=== PATIENT | female | born 1995 | race Caucasian/White ===

== ENCOUNTER → 2021-05-03 10:29 | Outpatient (BNVA) | payer MEDICAID, SELFPAY | PROVIDERS: Visit Provider Internal Medicine | DX: F11.20 Opioid dependence, uncomplicated (principal); F14.11 Cocaine abuse, in remission; F10.21 Alcohol dependence, in remission; F33.2 Major depressive disorder, recurrent severe without psychotic features | CPT/HCPCS: 80305; 81025; 99202 ==

== ENCOUNTER 2021-05-16 15:49 | Emergency (ER) | payer MEDICAID, SELFPAY ==
[2021-05-16 16:35] LABS: COVID-19 Test Negative (Negative)
[2021-05-16 16:41] VITALS: BP 121/72; PULSE 82; RESP 18; O2SAT 99; BMI 23.8
--- NOTE | 2021-05-16 16:53 | ED.URI ---
HPI - URI/Sore Throat General Chief Complaint: Upper Respiratory Symptoms Stated Complaint: covid symptoms Time Seen by Provider: 05/16/21 16:53 Source: patient Mode of arrival: ambulatory Limitations: no limitations History of Present Illness HPI Narrative: 25 yo female with history of depression, prior substance abuse presenting with a headache. She is here with her family who has symptoms of COVID-19. She is fully vaccinated but would like to get tested. She reports a history of headaches and this feels similar to those. She has no other symptoms. MD elicited complaint: other (headache) Onset (ago): hour(s) Consistency: intermittent Severity: moderate Exacerbating factors: nothing Relieving factors: nothing Context: sick contacts Associated symptoms: denies other symptoms Treatments prior to arrival: none Related Data Previous Rx's Medication Instructions Recorded buprenorphine 8 mg-naloxone 2 mg 2 film SUBLINGUAL DAILY 7 Days #14 05/03/21 sublingual film (Suboxone) ea mirtazapine 7.5 mg tablet 7.5 mg PO BEDTIME 14 Days #14 tab 05/13/21 prazosin 1 mg capsule 1 mg PO BEDTIME 14 Days #14 cap 05/13/21 quetiapine 25 mg tablet (Seroquel) 25 mg PO BEDTIME 14 Days #14 tab 05/13/21 Allergies Allergy/AdvReac Type Severity Reaction Status Date / Time watermelon Allergy Severe ANAPHYLAXIS Unverified 05/27/20 16:45 pollen Allergy Unknown Uncoded 10/30/14 00:00 watermelon Allergy Unknown anaphylaxis Uncoded 10/30/14 00:00 Review of Systems Review of Systems: Constitutional: No Fever, No Chills ENT/Mouth: No sore throat, No Rhinorrhea, No Swallowing Difficulty Cardiovascular: No Chest Pain, No SOB Respiratory: No Cough, No Sputum, No Wheezing, No dyspnea Gastrointestinal: No Nausea, No Vomiting, No Diarrhea, No abdominal Pain Genitourinary: No Dysuria, No Urinary Frequency, No Hematuria Musculoskeletal: No joint pain, No Myalgias Skin: No Skin Lesions, No rash Neuro: No Weakness, No Numbness, No Dizziness, + Headache Psych: No Anxiety/Panic, No Depression Heme/Lymph: No Bruising, No Lymphadenopathy PMFSH Past Medical History Medical History (Updated 05/16/21 @ 16:55 by FANNY Davis) Asthma Hx of migraines Surgical History History of delivery Social History Social History Household Members: Significant Other Patient Tobacco Use Status: Never used Tobacco Advance Directives: No Advance Directives Information Provided: No Physical Exam Vital Signs: Vital Signs: Last Vital Signs Pulse 82 05/16/21 16:41 Resp 18 05/16/21 16:41 BP 121/72 05/16/21 16:41 Pulse Ox 99 05/16/21 16:41 Body Mass Index 23.8 Appearance: Alert. Oriented X3. No acute distress. Eyes: Normal inspection ENT: Pharynx normal. Neck: Normal inspection. Neck supple. CVS: Normal heart rate and rhythm. Pulses normal. Respiratory: No respiratory distress. Breath sounds normal. Skin: Skin warm and dry. Normal skin color. Normal skin turgor. No rashes. Extremities: No lower extremity edema. Neuro: Oriented X 3. No motor deficit. No sensory deficit. Course Course Course Narrative: 25 y/o female, vaxxed against COVID presenting with mild headache requesting testing in the setting of known exposure. VS stable and exam benign. COVID negative here. She was counseled on high liklihood of elbert the disease and need to quarantine at home. She expressed understanding. Will take motrin and tylenol for headaches and follow up with her doctor as needed. MDM - URI/Sore Throat Lab Data Labs: Lab Results 05/16/21 Range/Units 16:12 COVID-19 (JULIA) Negative (Negative) COVID-19 Clin Com See Note Discharge Plan Discharge Clinical Impression: Headache Qualifiers: Headache type: unspecified Headache chronicity pattern: acute headache Intractability: not intractable Qualified Code(s): R51.9 - Headache, unspecified Patient Disposition: Home, Self-Care Instructions: Acute Headache (ED) Additional Instructions: You tested NEGATIVE for COVID-19 today. However there is a possibility that this was NOT a TRUE NEGATIVE, because it was a rapid test. Recommend staying home and not going out in public while you are not feeling well. Wear your mask at home when around your sick family members. Disinfect all surfaces often and keeps the windows open. If you develop worsening symptoms, you can get re-tested or call your doctor. Take Motrin and/or Tylenol as needed for headache. Drink plenty of fluids. Prescriptions: No Action quetiapine [Seroquel] 25 mg tablet 25 mg PO BEDTIME 14 Days Qty: 14 RF: 0 prazosin 1 mg capsule 1 mg PO BEDTIME 14 Days Qty: 14 RF: 0 mirtazapine 7.5 mg tablet 7.5 mg PO BEDTIME 14 Days Qty: 14 RF: 0 buprenorphine-naloxone [Suboxone] 8-2 mg film 2 film sublingual DAILY 7 Days Qty: 14 RF: 0
== END 2021-05-16 17:30 | disposition home or self-care (01) ==
PROVIDERS: Emergency Provider Internal Medicine; PCP Family Medicine
DX: R51.9 Headache, unspecified (principal); Z20.822 Contact with and (suspected) exposure to COVID-19; F11.20 Opioid dependence, uncomplicated; F14.11 Cocaine abuse, in remission
CPT/HCPCS: 36415; 87635; 99283

== ENCOUNTER 2021-05-18 12:07 | Emergency (ER) | payer MEDICAID, SELFPAY ==
--- NOTE | ~2021-05-18 | CT_ITS ---
EXAMINATION: CT ABDOMEN AND PELVIS WITH CONTRAST CLINICAL INFORMATION: Right lower quadrant and epigastric tenderness. Rule out: Appendicitis COMPARISON: Previous abdominal ultrasound June 2017 and appendix ultrasound April 2018 TECHNIQUE: Multidetector volumetric images were obtained from the superior aspect of the liver through the pubic symphysis following administration 85 mL of Omnipaque 350 intravenous contrast. Sagittal and coronal reformatted images were obtained on the technologist's workstation. Oral contrast: Yes This CT examination was performed using dose optimization techniques as appropriate, variously including the following: *Automated exposure control *Adjustment of mA and/or kV according to patient size (this includes techniques or standardized protocols for targeted exams where dose is matched to indication/reason for exam; i.e. extremities or head) *Use of iterative reconstruction technique DLP: 317 mGy-cm FINDINGS: LUNG BASES: The visualized lung bases are unremarkable. LIVER, GALLBLADDER, AND BILIARY TREE: The liver is normal in size, shape, and attenuation. No focal hepatic lesion or biliary ductal dilatation is present. The gallbladder is unremarkable with no evidence of radiopaque gallstones, gallbladder wall thickening, or obvious pericholecystic inflammatory changes. PANCREAS: Unremarkable. SPLEEN: Unremarkable. ADRENAL GLANDS: Unremarkable. KIDNEYS AND URETERS: The kidneys are normal in size, shape, and attenuation. No hydronephrosis, hydroureter, or calculi seen. There is a small cyst in the lower pole of the left kidney measuring 1 cm. BLADDER: Unremarkable. GASTROINTESTINAL TRACT: There is a 1.7 cm cyst posterior to the cecum/proximal right colon. Hounsfield units following contrast measure 10-15 suggestive of a simple cyst. The small and large bowel are otherwise unremarkable. The appendix is unremarkable. ABDOMINAL WALL: No significant hernia is appreciated. LYMPH NODES: Normal. VASCULAR: Unremarkable. PELVIC VISCERA: The right ovary appears high in the right lower quadrant anterior to the cecum. The uterus and ovaries are otherwise unremarkable. OSSEOUS STRUCTURES: Unremarkable. CT/CT abdomen pelvis w con IMPRESSION: Normal-appearing appendix. 1.7 cm simple cyst posterior to the cecum/proximal right colon. This may represent a benign duplication or mesenteric cyst. Imaging follow-up to 12 months should be considered. The right ovary is located high in the right lower quadrant anterior to the cecum.
[2021-05-18 12:11] VITALS: BP 129/75; PULSE 101; RESP 18; TEMP 37.1; O2SAT 96; BMI 23.6
--- NOTE | 2021-05-18 12:54 | ED.ABDPAIN ---
HPI - Abdominal Pain General Chief Complaint: Abdominal Pain Stated Complaint: abd pain, vomiting Time Seen by Provider: 05/18/21 12:29 Source: patient Mode of arrival: ambulatory Limitations: no limitations History of Present Illness HPI narrative: 25-year-old female who presents emergency department for evaluation of abdominal pain, nausea and vomiting x1 week. The patient complains of an intermittent, stabbing sensation in her abdomen. She points to her umbilical area and right lower quadrant when asked to localize the pain. States the pain is 8/10 at its worst. The patient has had constant nausea waited frequent daily vomiting. She states that she has not been able to hold down any food or fluid for least 24 hours. She denied fever, chills, chest pain or shortness of breath. She has had urinary frequency but no dysuria. She states that her stools have become loose yellow, high blood in her stools. She states she had similar pain several years ago was told was secondary to hernia. The patient denied myalgias, arthralgias, headache, loss of sense of taste or smell. She received her 2 COVID-19n Pfizer vaccines with her 2nd vaccination in January of 2021. Past surgical history significant for x2 with the last in October 30, 2015. Related Data Previous Rx's Medication Instructions Recorded buprenorphine 8 mg-naloxone 2 mg 2 film SUBLINGUAL DAILY 7 Days #14 05/03/21 sublingual film (Suboxone) ea mirtazapine 7.5 mg tablet 7.5 mg PO BEDTIME 14 Days #14 tab 05/13/21 prazosin 1 mg capsule 1 mg PO BEDTIME 14 Days #14 cap 05/13/21 quetiapine 25 mg tablet (Seroquel) 25 mg PO BEDTIME 14 Days #14 tab 05/13/21 omeprazole 20 mg tablet,delayed 20 mg PO DAILY #30 tab 05/18/21 release ondansetron 4 mg disintegrating 4 mg PO Q6-8H PRN #14 tab 05/18/21 tablet Allergies Allergy/AdvReac Type Severity Reaction Status Date / Time watermelon Allergy Severe ANAPHYLAXIS Unverified 05/27/20 16:45 pollen Allergy Unknown Uncoded 10/30/14 00:00 watermelon Allergy Unknown anaphylaxis Uncoded 10/30/14 00:00 Review of Systems Review of Systems Yes all other systems are reviewed and are negative Physical Exam Vital Signs: Vital Signs: Last Vital Signs Temp 98.8 F 05/18/21 12:11 Pulse 101 H 05/18/21 12:11 Resp 18 05/18/21 12:11 BP 129/75 05/18/21 12:11 Pulse Ox 96 05/18/21 12:11 Body Mass Index 23.6 Const: General: cooperative and no acute distress Orientation/consciousness: oriented to person and oriented to place Limitations: no limitations HENMT: Head: Yes normal to inspection, Yes normocephalic and Yes atraumatic Ears: external ears normal General nose exam: Normal external nose present Face and sinus: Yes normal facial exam Mouth: Normal oral and palatal mucosa present Throat: Yes posterior oropharynx normal Eyes: General: appearance normal, both eyes and all related structures Pupils: Equal, round and reactive pupils present Neck: Neck: Yes normal visual inspection, Yes no lymphadenopathy, Yes trachea midline and Yes supple Chest: Chest palpation & inspection: normal inspection of the chest and normal palpation of entire chest wall Resp: Effort & Inspection: normal respiratory effort and able to speak in complete sentences Auscultation: clear to auscultation bilaterally Cardio: Rate: regular rate Rhythm: regular rhythm Heart sounds: S1 normal heart sound present, S2 normal heart sound present and no murmurs GI: Inspection: Yes normal to inspection Palpation (GI): Soft to palpation, Tenderness to palpation present (GI) in the epigastrum (Moderate) and in the RLQ ([id number]) and no guarding Auscultation: normal bowel sounds : General: Yes no CVA tenderness Back/Spine/Pelvis: Back: no CVA tenderness Skin: General skin exam: no rashes or lesions noted Neuro: General: oriented to person and oriented to place Cranial nerves: Yes CN's II-XII intact bilaterally and Yes Equal, round and reactive pupils present Cognition (Neuro): normal cognition Motor exam (neuro): 5/5 motor strength present throughout Extrem: General: Yes normal to inspection Psych: Appearance: grossly normal Speech and movement: Normal speech and movement present Affect: normal affect Attitude: cooperative Thought process: Normal thought process present Thought content: Normal thought content present Course Course Course Narrative: 25-year-old female who presents emergency department for evaluation intermittent abdominal pain x1 week, persistent nausea and vomiting. Vital signs revealed an elevated heart rate of 101 otherwise were unremarkable. Physical examination did reveal midepigastric and right lower quadrant tenderness. I did order laboratory evaluation, urinalysis and urine test. A CT scan of the abdomen pelvis with IV contrast also be obtained. Her pain was treated with Toradol 30 mg IV and her nausea was treated with Zofran 4 mg IV. She was ordered to get normal saline IV x1 L. 1537: CBC revealed a slight elevation white blood count 71954. Comprehensive metabolic panel revealed an elevated glucose of 132. Urine test was negative. Urinalysis was negative. CT scan of the abdomen pelvis with IV contrast revealed a normal appendix. The patient did have a 1.7 cm in her simple cyst posterior to the cecum/proximal right colon of unclear significance. The radiologist recommended follow-up imaging in 12 months. I did discuss this with the patient. At this time I think that the patient most likely has acute gastritis is the cause of her symptoms. She will be treated with omeprazole 20 mg once a day for 1 month, Gaviscon 3 times a day the next 2 and Zofran 4 mg ODT every 6-8 hours as needed for nausea and vomiting. She was discharged home. The patient was given verbal and printed instructions prior to discharge. The patient was advised to follow-up with her PCP in 2 days and to return to the emergency department if her symptoms get worse or if she develops any new symptoms that are concerning to her. MDM - Abdominal Pain Lab Data Result diagrams: 05/18/21 13:11 05/18/21 13:11 Labs: Lab Results 05/18/21 05/18/21 05/18/21 Range/Units 13:02 13:02 13:11 WBC 11.1 H (4.8-10.8) X10*3/uL RBC 4.41 (4.20-5.50) X10*6/uL Hgb 12.6 (12.0-16.0) g/dl Hct 37.2 (37-47) % MCV 84.4 (80-98) fL MCH 28.6 (27.0-33.0) pg MCHC 33.9 (31.0-35.0) g/dl RDW 12.2 (11.0-16.0) % Plt Count 223 (160-400) X10*3/uL MPV 9.0 L (9.4-12.3) fL Immature Gran % (Auto) 0.4 (0.0-0.4) % Neut % (Auto) 76.4 H (45-73) % Lymph % (Auto) 14.0 L (20-40) % [place] % (Auto) 6.4 (2-11) % Eos % (Auto) 2.3 (0-4) % Baso % (Auto) 0.5 (0-2) % Lymph # (Auto) 1.6 (1.2-4.9) X10*3/uL [place] # (Auto) 0.7 (0.1-1.2) X10*3/uL Eos # (Auto) 0.3 (0.0-0.4) X10*3/uL Baso # (Auto) 0.1 (0.0-0.2) X10*3/uL Abs Immat Gran (auto) 0.04 H (0.00-0.03) X10*3/uL Absolute Neuts (auto) 8.5 H (2.0-8.3) X10*3/uL Absolute Nucleated RBC 0.000 (0.0-0.012) X10*3/uL Nucleated RBC % (auto) 0.0 (0.0-0.2) /100WBC Sodium (135-145) mmol/L Potassium (3.3-5.1) mmol/L Chloride (96-108) mmol/L Carbon Dioxide (22-29) mmol/L Anion Gap (12-20) BUN (9-16) mg/dL Creatinine (0.5-1.4) mg/dL Estim Creat Clear Calc Estimated GFR Random Glucose (60-115) mg/dL Calcium (8.4-10.2) mg/dL Total Bilirubin (0.0-1.0) mg/dL AST (5-31) U/L ALT (0-31) U/L Alkaline Phosphatase (39-117) U/L Total Protein (6.5-8.0) g/dL Albumin (3.5-5.0) g/dL Lipase (8-78) U/L Urine Color YELLOW Urine Appearance CLEAR Urine pH 6.0 (5.0-8.0) Ur Specific [place] 1.020 (1.005-1.025) Urine Protein TRACE (NEG-TRACE) MG/DL Urine Glucose (UA) NEG (NEG) MG/DL Urine Ketones 5 (NEG) MG/DL Urine Blood NEG (NEG) Urine Nitrite NEG (NEG) Ur Leukocyte Esterase NEG (NEG) Urine Test NEGATIVE (NEGATIVE) 05/18/21 Range/Units 13:11 WBC (4.8-10.8) X10*3/uL RBC (4.20-5.50) X10*6/uL Hgb (12.0-16.0) g/dl Hct (37-47) % MCV (80-98) fL MCH (27.0-33.0) pg MCHC (31.0-35.0) g/dl RDW (11.0-16.0) % Plt Count (160-400) X10*3/uL MPV (9.4-12.3) fL Immature Gran % (Auto) (0.0-0.4) % Neut % (Auto) (45-73) % Lymph % (Auto) (20-40) % [place] % (Auto) (2-11) % Eos % (Auto) (0-4) % Baso % (Auto) (0-2) % Lymph # (Auto) (1.2-4.9) X10*3/uL [place] # (Auto) (0.1-1.2) X10*3/uL Eos # (Auto) (0.0-0.4) X10*3/uL Baso # (Auto) (0.0-0.2) X10*3/uL Abs Immat Gran (auto) (0.00-0.03) X10*3/uL Absolute Neuts (auto) (2.0-8.3) X10*3/uL Absolute Nucleated RBC (0.0-0.012) X10*3/uL Nucleated RBC % (auto) (0.0-0.2) /100WBC Sodium 139 (135-145) mmol/L Potassium 3.8 (3.3-5.1) mmol/L Chloride 105 (96-108) mmol/L Carbon Dioxide 25 (22-29) mmol/L Anion Gap 13 (12-20) BUN 8 L (9-16) mg/dL Creatinine 0.91 (0.5-1.4) mg/dL Estim Creat Clear Calc 71.2 Estimated GFR > 60 Random Glucose 132 H (60-115) mg/dL Calcium 9.3 (8.4-10.2) mg/dL Total Bilirubin 0.7 (0.0-1.0) mg/dL AST 25 (5-31) U/L ALT 31 (0-31) U/L Alkaline Phosphatase 54 (39-117) U/L Total Protein 7.4 (6.5-8.0) g/dL Albumin 4.4 (3.5-5.0) g/dL Lipase 11 (8-78) U/L Urine Color Urine Appearance Urine pH (5.0-8.0) Ur Specific [place] (1.005-1.025) Urine Protein (NEG-TRACE) MG/DL Urine Glucose (UA) (NEG) MG/DL Urine Ketones (NEG) MG/DL Urine Blood (NEG) Urine Nitrite (NEG) Ur Leukocyte Esterase (NEG) Urine Test (NEGATIVE) Discharge Plan Discharge Clinical Impression: Gastritis, Nausea Patient Disposition: Home, Self-Care Instructions: Gastritis (ED) Additional Instructions: Your blood work was unremarkable. Urinalysis was negative. Your urine test was negative. The CT scan of your abdomen pelvis revealed normal appendix and no other significant findings to explain your pain. The radiologist did see a 1.7 cm cyst in the area of your cecum. The radiology impression is below: Normal-appearing appendix. 1.7 cm simple cyst posterior to the cecum/proximal right colon. This may represent a benign duplication or mesenteric cyst. Imaging follow-up to 12 months should be considered. The right ovary is located high in the right lower quadrant anterior to the cecum. The radiologist recommends that she get a repeat CT scan in 12 months, I will discuss this with your doctor, he may need to see a outbound telemarketer as well. My impression is that your symptoms are related to too much acid in your stomach causing inflammation of your stomach (gastritis). Take omeprazole 20 mg pills, 1 pill once a day for 1 month. This will shut of the acid production your stomach, your stomach heal. Take Gaviscon extra-strength, 10 mL 3 times a day for the next week to see if this helps her pain as well. Take Tylenol (acetaminophen) 500 mg pills, 2 pills every 4 to 6 hours as needed for pain. Take Zofran ODT 4 mg pills, 1 pill dissolved in your mouth every 8 hours as needed for nausea and vomiting. Follow-up with your doctor in 2 days. Please return to the emergency department if your symptoms get worse or if you develop any symptoms that are concerning to you. Prescriptions: New omeprazole 20 mg tablet,delayed release (DR/EC) 20 mg PO DAILY Qty: 30 RF: 0 ondansetron 4 mg tablet,disintegrating 4 mg PO Q6-8H PRN (Reason: nausea and vomiting) Qty: 14 RF: 0 No Action quetiapine [Seroquel] 25 mg tablet 25 mg PO BEDTIME 14 Days Qty: 14 RF: 0 prazosin 1 mg capsule 1 mg PO BEDTIME 14 Days Qty: 14 RF: 0 mirtazapine 7.5 mg tablet 7.5 mg PO BEDTIME 14 Days Qty: 14 RF: 0 buprenorphine-naloxone [Suboxone] 8-2 mg film 2 film sublingual DAILY 7 Days Qty: 14 RF: 0 PMFSH Past Medical History PMFSH Narrative: Social history: The patient denies tobacco use alcohol use and drug use. She states that she has a history of opiate abuse and marijuana use but she is not use these drugs in over 2 months. She states that she is trying to get via in-vitro fertilization and her doctor recently started her on control pills to try to get control of her cycle. Medical History Asthma Hx of migraines Surgical History History of delivery Social History Social History Household Members: Significant Other Alcohol intake: never Patient Tobacco Use Status: Never used Tobacco Use of substances other than those prescribed or required for medical reasons: No Advance Directives: No Advance Directives Information Provided: No Patient : No
[2021-05-18] MEDS: 0.9 % Sodium Chloride 1,000 ML 999 ML IV (13:13)
[2021-05-18 13:14] LABS: MANUAL DIFF FLAG NO
[2021-05-18] MEDS: Ketorolac Tromethamine 15 MG/ML VIAL 30 MG IVPUSH (13:15)
[2021-05-18] MEDS: ondansetron HCL 4 MG/2 ML VIAL IVPUSH ×2 (13:15→16:12)
[2021-05-18 13:16] LABS: Basophils Absolute Auto 0.1 X10*3/uL (0.0-0.2); Basophils Percent Auto 0.5 % (0-2); Eosinophils Absolute Auto 0.3 X10*3/uL (0.0-0.4); Eosinophils Percent Auto 2.3 % (0-4); Hematocrit 37.2 % (37-47); Hemoglobin 12.6 g/dl (12.0-16.0); Imm Gran Abs Auto 0.04 X10*3/uL (0.00-0.03); Imm Gran Pct Auto 0.4 % (0.0-0.4); Lymphocytes Absolute Auto 1.6 X10*3/uL (1.2-4.9); Mean Corpuscular HGB Conc 33.9 g/dl (31.0-35.0); Mean Corpuscular Hemoglobin 28.6 pg (27.0-33.0); Mean Corpuscular Volume 84.4 fL (80-98); Monocytes Absolute Auto 0.7 X10*3/uL (0.1-1.2); Monocytes Percent Auto 6.4 % (2-11); Neutrophils Absolute Auto 8.5 X10*3/uL (2.0-8.3); Neutrophils Percent Auto 76.4 % (45-73); Platelet Count 223 X10*3/uL (160-400); Red Blood Count 4.41 X10*6/uL (4.20-5.50); Red Cell Distribution Width 12.2 % (11.0-16.0); White Blood Count 11.1 X10*3/uL (4.8-10.8)
[2021-05-18 13:19] LABS: Appearance Urine CLEAR; Color Urine YELLOW; Glucose Urine UA NEG (NEG); Leukocyte Esterase Urine NEG (NEG); Nitrite Urine NEG (NEG); Urine Blood NEG (NEG); Urine Ketones 5 MG/DL (NEG); Urine Protein TRACE MG/DL (NEG-TRACE)
[2021-05-18 13:20] LABS: Urine Pregnancy NEGATIVE (NEGATIVE)
[2021-05-18 13:21] LABS: UPreg QC Valid YES
[2021-05-18 13:36] LABS: Alanine Aminotransferase 31 U/L (0-31); Albumin Level 4.4 g/dL (3.5-5.0); Alkaline Phosphatase 54 U/L (39-117); Anion Gap 13 (12-20); Aspartate Amino Transferase 25 U/L (5-31); Bilirubin Total 0.7 mg/dL (0.0-1.0); Blood Urea Nitrogen 8 mg/dL (9-16); Calcium 9.3 mg/dL (8.4-10.2); Carbon Dioxide 25 mmol/L (22-29); Chloride 105 mmol/L (96-108); Creatinine Clr Calc Pharmacy 71.2; Estimated Glomerular Filt Rate > 60; Glucose Random 132 mg/dL (60-115); Lipase 11 U/L (8-78); Potassium 3.8 mmol/L (3.3-5.1); Sodium 139 mmol/L (135-145); Total Protein 7.4 g/dL (6.5-8.0)
--- NOTE | 2021-05-18 14:23 | PC.NURSE ---
PT NO LONGER NAUSEOUS, PAIN IN BETTER CONTROL, REPORTS 5/[address] SCAN.
[2021-05-18] MEDS: iohexoL 350 MG/ML 100 ML INFUS..BTL 85 ML IV (14:36)
== END 2021-05-18 16:42 | disposition home or self-care (01) ==
PROVIDERS: Emergency Provider Emergency Medicine Emergency Medical Services; PCP Family Medicine
DX: K29.70 Gastritis, unspecified, without bleeding (principal); R10.9 Unspecified abdominal pain; R11.0 Nausea; Z79.899 Other long term (current) drug therapy
CPT/HCPCS: 36415; 74177; 80053; 81003; 81025; 83690; 85025; 96361; 96374; 96375; 96376; 99284; 99285; J1885; J2405; Q9967

== ENCOUNTER 2021-05-19 10:00 | Outpatient (RCR) | payer OTHER, SELFPAY ==
--- NOTE | 2021-04-28 12:35 | PC.NURSE ---
Case opened in treatment team
[2021-04-28 13:16] VITALS: BMI 23.2
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
--- NOTE | 2021-04-29 09:41 | PC.NURSE ---
I phoned the client because she is not in the first group as expected. There was no answer and i left a message to go to group B and if she isn't to call me
--- NOTE | 2021-04-29 10:05 | PC.NURSE ---
I was able to contact the client. She states that she was crying before but now feels like she can attnd group and will join the first group.
--- NOTE | 2021-04-29 10:26 | PC.ADMIT ---
Patient referred to [facility] by her therapist d/t increase in depression with passive SI, PTSD sxs, and an increased in anxiety symptoms with panic attacks. Patient has relapsed on Percocet and Cocaine and has been using substances to cope with how she is feeling. Patient reports she was sober from Percocet and Cocaine for 3 years and relapsed starting in November 2020. Reports her use decreased in the month of January and continued to decrease however for the past 2 weeks prior to March 18 patient reports increased use using 50 percocets daily and cocaine $100.00 worth daily. She is interested in medication assisted treatment and a recovery specialist. Patient is not prescribed medication at present and does not have a psychiatric prescriber. Referral put in for [facility]. Patient is alert and oriented x4. Calm and cooperative. Presents with depressed mood, anxious affect. Patient reports her depression is back and she relapsed in March,. Patient reports passive SI, stating she wished she would in her sleep. Denied plan or intent. Reports the children she put up for adoption who are ages 6 and 7 are her reason for working on her mental health. She would like to have a relationship with them when she is more stable. Recommended patient attend online substance use groups in addition to PHP for more support. Per patient request I called [facility] to set up an appointment for medication assisted treatment. Patient wants treatment in the [place] area as her parents live here and patient eventually wants to move to the area. [facility] will call patient with an appointment and after the appointment will set her up with a recovery specialist as patient expressed interest in this as well.
--- NOTE | 2021-05-02 08:39 | PC.NURSE ---
Pt said she will not be in treatment tomorrow, Sunday05/03/21. She has [facility] first appointment at [facility] for potential help with substance addiction.
--- NOTE | 2021-05-02 16:46 | HO.PHPPROGNO ---
Subjective Subjective Date of Service: 05/02/21 Reason For Visit: PTSD, Bipolar Disorder Subjective Notes: Aguilar Warning Guardianship: No Medical Problems Affecting Mental Status: No Interim History: Ms. Fong reports that she had not yet picked up the medications from her pharmacy, and that she plans to get them later today. She states that she would like a VNA nurse, as she will not consistently take her medications if left to her own devices. She reports that she had nightmares day night, and has experienced poor sleep over the weekend. She states that she has no SI today, but did have passive SI yesterday. She states that when she experienced it, she did scrapbooking as a distraction technique, and that it was useful. She describes today as feeling ?just sad, I feel empty ?. She reports she has not used any substances, including marijuana. Denies any type of withdrawals or cravings today. Medication Compliance: No Side effects from medications: No (not applicable) Attending Groups: Yes Review of Systems Acute medical concerns: No Medical Review of Systems: unchanged Review of Systems Review of Systems Yes all other systems are reviewed and are negative Mental Status Exam Mental Status Exam Narrative: Well-nourished, well-developed female, no apparent distress. No signs and symptoms of any type of withdrawals or cravings noted. Patient presents with flat, blunted affect. Was sitting up during encounter, no involuntary movements noted, motor activity appeared calm. Patient Appearance: Well Grooomed, Fatigued and Appropriate Patient Orientation: Person Level of Consciousness: Awake and Appropriate Patient Behavior: Appropriate, Cooperative and Good Eye Contact Mood Description: Depressed, Blunted and Flat Affect Description: Depressed, Blunted, Flat and Sad Patient Cognition Impaired: No Ability to Follow Directions: Excellent Speech Pattern: Clear, Appropriate and Coherent Memory Description: Intact Hallucinations: None Delusions: Not Present Thought Process: Intact, Goal Oriented and Linear Thought Content: positive for Slowed Thinking and positive for Suicidal Ideation (passive over w/e, with no intent/plan, denies today. ) Depressive Symptoms: Increased Anxiety, Insomnia, Diff. Making Decisions, Difficulty Sleeping, Loss of Int. in Activity, Feelings of Worthlessness, Hopelessness, Isolating-Friends/Family, Feelings of Guilt, Unhappiness, Increased Fatigue, Thoughts of /Suicide, Low Self Esteem and Difficulty Concentrating Judgement: Fair Diagnostics Vital Signs (24Hr): Body Mass Index 23.2 Assessment & Plan Assessment & Plan (1) Major depressive disorder, recurrent severe without psychotic features: Status: Acute Code(s): F33.2 - Major depressive disorder, recurrent severe without psychotic features Assessment and Plan: Patient reports ongoing depressive symptoms, including poor sleep, feeling sad, isolating, passive SI, and feeling empty. She has not yet picked up her medications from the pharmacy. We discussed current medications that had been ordered, including mirtazapine. Patient was encouraged to pear picker her meds today and to start them. We also discussed changing trazodone to Seroquel, as it will help with mood regulation, and there is a possibility the trazodone could activate her PTSD symptoms if she has not taken in a while. While she is in agreement to this change, she is hesitant to take a large dose, and would like to start a small dose of seroquel. She also reports poor appetite so she is looking forward to taking the mirtazapine and the Seroquel, as she states she is eating little to nothing daily. (2) Opioid use disorder: Status: Acute Code(s): F11.99 - Opioid use, unspecified with unspecified opioid-induced disorder Assessment and Plan: Patient has appointment scheduled with [facility] tomorrow, which she plans to attend. She has been able to abstain from substances over the weekend, and denies any type of withdrawals or cravings. (3) Cocaine abuse in remission: Status: Acute Code(s): F14.11 - Cocaine abuse, in remission (4) Post-traumatic stress disorder, unspecified: Status: Acute Code(s): F43.10 - Post-traumatic stress disorder, unspecified Assessment and Plan: Patient does endorse ongoing nightmares. She was encouraged to pear picker the prazosin from the pharmacy and to start it, as it can help target nightmares related to PTSD. She was in agreement, and stated that she would do this today. (5) Alcohol use disorder, moderate, in early remission: Status: Acute Code(s): F10.21 - Alcohol dependence, in remission Assessment and Plan: 1. D/c trazodone. 2. Start seroquel 25mg at bedtime, can repeat in one hour if needed. (intent is to increase if tolerates well). 3. Continue other medications as ordered. 4. Follow-up as per protocol. Reason for contiued partial hosp. stay Substantial Risk for: inability to function and med/psych decompensation Certification I certify that partial hospital treatment is medically necessary due to the symptoms and problems resulting from the patient's mental illness and the failure to treat the patient at the partial hospital level of care would likely result in the patient requiring inpatient psychiatric care which could not be prevented at a less intensive level of care. Greater than 50% of the session was spent on counseling and/or coordination of care Discharge Plan Discharge Attending provider: Molina Wang Medications: New mirtazapine 7.5 mg tablet 7.5 mg PO BEDTIME 7 Days Qty: 7 RF: 0 prazosin 1 mg capsule 1 mg PO BEDTIME 7 Days Qty: 7 RF: 0 quetiapine [Seroquel] 25 mg tablet 25 mg PO BEDTIME 7 Days Qty: 7 RF: 0 Telehealth Telehealth Location of provider rendering services: practice address Location of patient: address on file Patient Identification confirmed using: Name, : Yes Telehealth method: video Patient verbally consented to treatment: Yes Patient verbally consented to billing insurance company: Yes Patient informed of any privacy concerns related to visit: Yes Time spent with patient (mins): 15
--- NOTE | 2021-05-03 12:34 | PC.NURSE ---
Case opened in treatment team
--- NOTE | 2021-05-04 08:27 | PC.NURSE ---
Patient called out sick this morning. Stated she was up all night vomiting, she thinks it was something she ate last night. Patient stated she had a headache also. Plans on attending the program tomorrow. Wants to rest today. Patient is alert and oriented x4. No safety concerns.
--- NOTE | 2021-05-05 14:21 | PC.NURSE ---
Just prior to the third group the client called and stated that she needed to leave to go help her mother.
--- NOTE | 2021-05-06 13:49 | PC.NURSE ---
After pt was struggling in the 2nd group, I spoke to staff who informed me that she would like support via a phone call. I called and spoke to her at 11:40. She was quite tearful and shared that she hasn't slept in 48 hours, mostly due to repeated traumatic nightmares. She reported self deprecating self talk, but no SI. She reported a great deal of worry as well, stating she no longer gets help with rent from her ex-fiance, and will have to move. She spoke about stress related to this and concern that she'll have to give up her cats who she finds are her biggest support. She said she has had trouble picking up new medications that have been prescribed (including Seroquel for sleep and Prazosin), but that she was able to obtain her scripts today. She reported positive feelings about the potential for relief with these meds, which she will take tonight. She was more clam after talking, and less tearful. She stated she will attend the next group, but is so tired that she might not stay the day in [facility]. I gave her the number for crisis, and for the National Suicide Prevention line and explained that she doesn't have to be suicidal to call.
--- NOTE | 2021-05-09 17:29 | HO.PHPPROGNO ---
Subjective Subjective Date of Service: 05/09/21 Reason For Visit: PTSD, Bipolar Disorder Subjective Notes: Aguilar Warning Guardianship: No Medical Problems Affecting Mental Status: No Interim History: Carmina reports that she had picked up her medications that were initially prescribed when she started program, and has taking them this past Sunday. She states that she did not take them yesterday due to a in the family and that she arrived home too late. She states that she plans to take them tonight. Patient explains that her younger brother who is 17 years old of an overdose at hurting night with a combination of alcohol, benzo diazepam, and opioids. She states that today she is having urges to use, but that she does not wish to take Suboxone. She states that she has not picked up the script for that. She reports that she feels she needs support regarding her own mental health, and that although she does not have any thoughts self-harm at this time, she wishes to have more support such as a debt recovery officer. She states that she continues with some depressive symptoms including poor sleep, anhedonia, decreased energy, poor concentration, poor appetite, and feelings of guilt. She is hoping that as she begins to take the prescribed medications including the mirtazapine, prazosin, and Seroquel, that she will begin to feel her mood lifting. She also does acknowledge that she is feeling symptoms of grief today. Medication Compliance: Intermittent Side effects from medications: No Attending Groups: Yes Review of Systems Acute medical concerns: No Medical Review of Systems: unchanged Mental Status Exam Mental Status Exam Narrative: Well-developed, well-nourished female, in no acute distress. Alert and oriented x4. Patient Appearance: Fatigued and Appropriate Patient Orientation: Person, Place, Time and Situation Level of Consciousness: Awake, Appropriate and Alert Patient Behavior: Appropriate, Anxious and Good Eye Contact Mood Description: Appropriate, Depressed, Anxious and Sad Affect Description: Appropriate, Depressed, Anxious and Sad Patient Cognition Impaired: No Ability to Follow Directions: Excellent Speech Pattern: Clear and Appropriate Memory Description: Intact Hallucinations: None Delusions: Not Present Thought Process: Intact, Goal Oriented and Linear Thought Content: positive for Intact, positive for [place], positive for Goal Oriented and positive for Linear Depressive Symptoms: Increased Anxiety, Diff. Making Decisions, Difficulty Sleeping, Changes in Appetite, Loss of Int. in Activity, Feelings of Worthlessness, Hopelessness, Feelings of Guilt, Increased Fatigue and Low Self Esteem Judgement: Fair Diagnostics Vital Signs (24Hr): Body Mass Index 23.2 Assessment & Plan Assessment & Plan (1) Major depressive disorder, recurrent severe without psychotic features: Status: Acute Code(s): F33.2 - Major depressive disorder, recurrent severe without psychotic features Assessment and Plan: Patient continues with feeling of depression. Has taken medications 1 night so far, plans to take again tonight. No thoughts of harm to self or others at this time, no safety concerns. (2) Post-traumatic stress disorder, unspecified: Status: Acute Code(s): F43.10 - Post-traumatic stress disorder, unspecified Assessment and Plan: Patient reports that when she took the prazosin on Sunday, she had no nightmares whatsoever that night. She plans to take it again tonight. (3) Opioid use disorder: Status: Acute Code(s): F11.99 - Opioid use, unspecified with unspecified opioid-induced disorder Assessment and Plan: Patient reports that she went to the [facility] last week and was given a script for Suboxone. She states that she did not pick up driver the script up from the pharmacy, as she does not want to take it, as it is another narcotic . We discussed other options in order to support her in recovery, such as recovery coaching, possible treatment programs such as a TSS or a CSS. She stated that she would like information regarding these. I told her that I would send a brochure to her from [facility], which offers these services. We also discussed other medication options, such as a nonnarcotic rather than buprenorphine. This screen writer suggested naltrexone. She stated that she would speak about this medication when she goes to the [facility] again tomorrow. (4) Alcohol use disorder, moderate, in early remission: Status: Acute Code(s): F10.21 - Alcohol dependence, in remission Assessment and Plan: 1. Patient plans to continue with current medications as prescribed including Seroquel 25 at bedtime, prazosin 1 mg at bedtime, mirtazapine 7.5 at bedtime. She states 2. She does not plan to take the Suboxone. She was encouraged to discuss this when she has appointment tomorrow at [facility]. 3. Brochure for [facility] recovery support services, including recovery coaching, was emailed to patient. Patient was also provided with 24 hour phone numbers for alcoholics anonymous as well as narcotics anonymous. 4. Will follow-up with patient as per protocol. 5. No refills are needed at this time. Patient educated on: diagnosis, medication risk/benefits, substance abuse and therapeutic strategies Informed Consent: understands Reason for contiued partial hosp. stay Substantial Risk for: inability to function and med/psych decompensation Certification I certify that partial hospital treatment is medically necessary due to the symptoms and problems resulting from the patient's mental illness and the failure to treat the patient at the partial hospital level of care would likely result in the patient requiring inpatient psychiatric care which could not be prevented at a less intensive level of care. Greater than 50% of the session was spent on counseling and/or coordination of care Discharge Plan Discharge Attending provider: Molina Wang Medications: New mirtazapine 7.5 mg tablet 7.5 mg PO BEDTIME 7 Days Qty: 7 RF: 0 prazosin 1 mg capsule 1 mg PO BEDTIME 7 Days Qty: 7 RF: 0 quetiapine [Seroquel] 25 mg tablet 25 mg PO BEDTIME 7 Days Qty: 7 RF: 0 No Action buprenorphine-naloxone [Suboxone] 8-2 mg film 2 film sublingual DAILY 7 Days Qty: 14 RF: 0 Telehealth Telehealth Location of provider rendering services: practice address Location of patient: address on file Patient Identification confirmed using: Name, : Yes Telehealth method: video Patient verbally consented to treatment: Yes Patient verbally consented to billing insurance company: Yes Patient informed of any privacy concerns related to visit: Yes Time spent with patient (mins): 15
--- NOTE | 2021-05-17 15:07 | PC.NURSE ---
i left a message with the client about her dc date this .
--- NOTE | 2021-05-18 08:36 | PC.NURSE ---
Patient emailed this promotion writer stating she would not be in today as she is going to the hospital d/t c/o stomach pain.
--- NOTE | 2021-05-19 14:10 | PC.NURSE ---
Patient scheduled to discharge today. Reviewed patient medications with patient. Patient reports taking medications as prescribed. 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 Medication education provided. Patient feels ready for discharge. Denied SI, no safety concerns. Patient has the crisis number if needed. Patient has been seeing her therapist at [facility] for the past 2.5 months and is working with her therapist in obtaining a prescriber appointment.
--- NOTE | 2021-05-19 15:16 | PC.NURSE ---
I received a message back from [facility] stating they cannot make her a med management appointment, and that this will have to be done by pt's therapist. I then called pt's therapist, Barbie Diehl at [facility] [phone] and let her know of pt's successful discharge from [facility]. I also let her know that pt is in need of a medication management appointment.
--- NOTE | 2021-05-19 16:23 | P.PNPSP_ITS ---
Documented by User: Peg Mack 05/19/21 16:31 Subjective Subjective Date of Service: 05/19/21 Reason For Visit: PTSD, Bipolar Disorder Subjective Notes: Aguilar Warning Guardianship: No Medical Problems Affecting Mental Status: No Interim History: Carmina reports feeling that her mood is more stable. She states that although she does have some depression, it is not as severe as when she started program. She states that ?it is not a strong ?, and ?I am content with myself ?. She denies any type of suicidal ideation. She also reports she has not needed to call crisis, and that she feels more stable. She denies substance cravings. She reports she has chosen not to take the Suboxone prescribed by [facility], , as she does not feel she needs it at this time. Reports increased appetite now eating 2 meals daily. Reports improved sleep. Reports she is anxious about finishing PHP, but she is also looking forward to the future. Requesting 30 day supply of medications, as she is continued on wait list for provider at [facility]. Medication Compliance: Yes Side effects from medications: No Attending Groups: Yes Review of Systems Acute medical concerns: No Medical Review of Systems: unchanged Review of Systems Review of Systems Yes all other systems are reviewed and are negative Mental Status Exam Mental Status Exam Narrative: Well-developed, well-nourished female, in no apparent distress. No evidence substance use or withdrawals noted. Well groomed, appropriately dressed. Eye contact within normal limits. Alert and oriented x4. No involuntary movements noted, motor activity calm. Manner and behavior were calm and cooperative. Speech was fluent, unimpaired. Mood continues with some depression, although describes symptoms as much lessened. Affect slight anxiety noted. Thought process and association were goal-directed, linear. Thought content was new normal, future oriented. No evidence of delusions or hallucinations of any kind. Denies any type of SI or HI. Appeared to be reliable historian. Judgment and insight improved. Ambulation not observed. Diagnostics Vital Signs (24Hr): Body Mass Index 23.2 Assessment & Plan Assessment & Plan (1) Major depressive disorder, recurrent severe without psychotic features: Status: Acute Code(s): F33.2 - Major depressive disorder, recurrent severe without psychotic features Assessment and Plan: Patient continues with medications, including mirtazapine, quetiapine, prazosin. Reports all are affected is in managing depression, anxiety, and nightmares. No safety concerns. Requesting 30 day supply of medications, as today is last day, and she has not yet been given a date for provider appointment. (2) Post-traumatic stress disorder, unspecified: Status: Acute Code(s): F43.10 - Post-traumatic stress disorder, unspecified (3) Alcohol use disorder, moderate, in early remission: Status: Acute Code(s): F10.21 - Alcohol dependence, in remission (4) Opioid use disorder: Status: Acute Code(s): F11.99 - Opioid use, unspecified with unspecified opioid-induced disorder Assessment and Plan: 1. Refills for medications sent to pharmacy. 2. Patient appears stable for discharge from [facility]. Patient educated on: diagnosis, medication risk/benefits, substance abuse and therapeutic strategies Informed Consent: understands Reason for contiued partial hosp. stay Substantial Risk for: stable for discharge Certification I certify that partial hospital treatment is medically necessary due to the symptoms and problems resulting from the patient's mental illness and the failure to treat the patient at the partial hospital level of care would likely result in the patient requiring inpatient psychiatric care which could not be prevented at a less intensive level of care. Greater than 50% of the session was spent on counseling and/or coordination of care Discharge Plan Discharge Attending provider: Molina Wang Additional Instructions: Appointment with therapist, Barbie Diehl at [facility] ([phone]) on 05/27/2021 at 11am. Appointment with med provider pending. Barbie Diehl to put in referral. Continued use of [facility] for Suboxone was declined by pt. [facility] for online recovery groups. [facility] for mental health support online. Medications: New mirtazapine 7.5 mg tablet 7.5 mg PO BEDTIME Qty: 30 RF: 0 quetiapine 25 mg tablet 25 mg PO BEDTIME Qty: 30 RF: 0 prazosin 1 mg capsule 1 mg PO BEDTIME Qty: 30 RF: 0 No Action omeprazole 20 mg tablet,delayed release (DR/EC) 20 mg PO DAILY Qty: 30 RF: 0 ondansetron 4 mg tablet,disintegrating 4 mg PO Q6-8H PRN (Reason: nausea and vomiting) Qty: 14 RF: 0 Stand Alone Forms: Patient Portal Discharge page Patient Education: Depression (DC), Post Traumatic Stress Disorder (DC) Telehealth Telehealth Location of provider rendering services: practice address Location of patient: address on file Patient Identification confirmed using: Name, : Yes Patient verbally consented to treatment: Yes Patient verbally consented to billing insurance company: Yes Patient informed of any privacy concerns related to visit: Yes Time spent with patient (mins): 15 Documented by User: Molina Wang 05/20/21 09:49 Subjective Subjective Date of Service: 05/20/21 Reason For Visit: PTSD, Bipolar Disorder Assessment & Plan Assessment & Plan (1) Major depressive disorder, recurrent severe without psychotic features: Status: Acute Code(s): F33.2 - Major depressive disorder, recurrent severe without psychotic features (2) Post-traumatic stress disorder, unspecified: Status: Acute Code(s): F43.10 - Post-traumatic stress disorder, unspecified (3) Alcohol use disorder, moderate, in early remission: Status: Acute Code(s): F10.21 - Alcohol dependence, in remission (4) Opioid use disorder: Status: Acute Code(s): F11.99 - Opioid use, unspecified with unspecified opioid-induced disorder Discharge Plan Discharge Attending provider: Molina Wang Additional Instructions: Appointment with therapist, Barbie Diehl at [facility] ([phone]) on 05/27/2021 at 11am. Appointment with med provider pending. Barbie Diehl to put in referral. Continued use of [facility] for Suboxone was declined by pt. [facility] for online recovery groups. [facility] for mental health support online. Medications: New mirtazapine 7.5 mg tablet 7.5 mg PO BEDTIME Qty: 30 RF: 0 quetiapine 25 mg tablet 25 mg PO BEDTIME Qty: 30 RF: 0 prazosin 1 mg capsule 1 mg PO BEDTIME Qty: 30 RF: 0 No Action omeprazole 20 mg tablet,delayed release (DR/EC) 20 mg PO DAILY Qty: 30 RF: 0 ondansetron 4 mg tablet,disintegrating 4 mg PO Q6-8H PRN (Reason: nausea and vomiting) Qty: 14 RF: 0 Stand Alone Forms: Patient Portal Discharge page Patient Education: Depression (DC), Post Traumatic Stress Disorder (DC)
== END 2021-05-19 12:30 | disposition home or self-care (01) ==
LOC: HO.PHPA 10:00
PROVIDERS: Visit Provider Psychiatry & Neurology Psychiatry
DX: F33.2 Major depressive disorder, recurrent severe without psychotic features (principal); F43.10 Post-traumatic stress disorder, unspecified; F11.99 Opioid use, unspecified with unspecified opioid-induced disorder; F10.21 Alcohol dependence, in remission; F14.11 Cocaine abuse, in remission; Z79.899 Other long term (current) drug therapy
CPT/HCPCS: 90791; 90853

== ENCOUNTER 2021-08-16 09:14 | Emergency (ER) | payer MEDICAID, SELFPAY ==
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
[2021-08-16 09:23] VITALS: BP 107/74; BP 118/68; PULSE 71; PULSE 74; RESP 16; TEMP 36.7; O2SAT 100; O2SAT 98; BMI 24.1
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
--- NOTE | 2021-08-16 10:47 | PC.NURSE ---
RESTING COMFORTABLE IN BED. NEGATIVE KNEE XRAY. AWAITING CT SCAN, COLLAR REMAINS IN PLACE
[2021-08-16 11:57] VITALS: BP 105/71; PULSE 74; O2SAT 99
--- NOTE | 2021-08-16 11:59 | PC.NURSE ---
SLOW STEADY GAIT WITH MILD LIMP TO THE BATHROOM. PLAN IS FOR DISCHARGE HOME
--- NOTE | 2021-08-16 12:00 | PC.NURSE ---
C COLLAR WA SCLEARED PRIOR TO AMBULATION TO BATHROOM
== END 2021-08-16 12:01 | disposition home or self-care (01) ==
PROVIDERS: Emergency Provider Emergency Medicine; PCP Family Medicine
DX: S80.212A Abrasion, left knee, initial encounter (principal); R51.9 Headache, unspecified; M54.2 Cervicalgia; M25.562 Pain in left knee; V23.4XXA Motorcycle driver injured in collision with car, pick-up truck or van in traffic accident, initial encounter; Y93.9 Activity, unspecified; Y92.410 Unspecified street and highway as the place of occurrence of the external cause; Y99.9 Unspecified external cause status; Z79.899 Other long term (current) drug therapy
CPT/HCPCS: 70450; 72125; 73564; 99282; 99284

== ENCOUNTER 2021-10-15 13:20 | Emergency (ER) | payer MEDICAID, SELFPAY ==
--- NOTE | ~2021-10-15 | US_ITS ---
EXAMINATION: US ABDOMEN COMPLETE CLINICAL INFORMATION: Epigastric/left upper quadrant abdominal pain.. COMPARISON: None TECHNIQUE: Real-time imaging of the abdominal viscera. FINDINGS: PANCREAS: The body and the tail of the pancreas is homogeneous in echotexture. The head is obscured by overlying gas ABDOMINAL AORTA: The abdominal aorta is of normal caliber. INFERIOR VENA CAVA: Visualized portions are normal. LIVER: Normal. The liver is normal in size. The liver contour is normal. Parenchymal echogenicity is normal. No focal hepatic lesion. There is no intrahepatic biliary duct dilatation seen. GALLBLADDER: Gallbladder wall thickness is 0.2 cm. The gallbladder is physiologically distended without evidence of stones, sludge, polyps, wall thickening or pericholecystic fluid. COMMON BILE DUCT: Normal in caliber measuring 0.3 cm in diameter. RIGHT KIDNEY: There is mild pelvic fullness/hydronephrosis. No renal calculi or focal parenchymal lesions. The kidney measures 10.2 cm in maximum dimension. LEFT KIDNEY: No hydronephrosis. No renal calculi or focal parenchymal lesions. The kidney measures 11.2 cm in maximum dimension. There is anechoic cyst lower pole measuring 0.7 x 0.6 x 0.6 cm. SPLEEN: Normal. The spleen measures 9.7 cm in maximum dimension. FREE FLUID: None. US/US abdomen complete IMPRESSION: Anechoic cyst lower pole left kidney measuring 0.7 cm. There is mild pelvic fullness/mild hydronephrosis.
--- NOTE | ~2021-10-15 | CT_ITS ---
EXAMINATION: CT ABDOMEN AND PELVIS WITH CONTRAST CLINICAL INFORMATION: Left upper quadrant and left lower quadrant abdominal pain with nausea, vomiting and diarrhea COMPARISON: CT abdomen pelvis 05/18/2021 TECHNIQUE: Multidetector volumetric images were obtained from the superior aspect of the liver through the pubic symphysis following administration 85 mL of Omnipaque 350 intravenous contrast. Sagittal and coronal reformatted images were obtained on the technologist's workstation. Oral contrast: No This CT examination was performed using dose optimization techniques as appropriate, variously including the following: *Automated exposure control *Adjustment of mA and/or kV according to patient size (this includes techniques or standardized protocols for targeted exams where dose is matched to indication/reason for exam; i.e. extremities or head) *Use of iterative reconstruction technique DLP: 330 mGy-cm FINDINGS: LUNG BASES: There is a 3 mm right lower lobe pulmonary nodule (4:42), unchanged. The visualized lung bases are otherwise unremarkable. LIVER, GALLBLADDER, AND BILIARY TREE: The liver is normal in size, shape, and attenuation. No focal hepatic lesion or biliary ductal dilatation is present. The gallbladder is unremarkable with no evidence of radiopaque gallstones, gallbladder wall thickening, or obvious pericholecystic inflammatory changes. PANCREAS: Unremarkable. SPLEEN: Unremarkable. ADRENAL GLANDS: Unremarkable. KIDNEYS AND URETERS: The kidneys are normal in size, shape, and attenuation. Again seen is a 6 mm cyst at the lower pole of the left kidney. No worrisome renal mass is seen. No hydronephrosis, hydroureter, or calculi seen. No perinephric stranding. BLADDER: Empty and poorly evaluated GASTROINTESTINAL TRACT: The small and large bowel are unremarkable again seen is a benign simple 1.7 cm cyst adjacent to the cecum, unchanged. The appendix is unremarkable. ABDOMINAL WALL: No significant hernia is appreciated. LYMPH NODES: Normal. VASCULAR: Unremarkable. PELVIC VISCERA: Unremarkable. OSSEOUS STRUCTURES: Unremarkable. CT/CT abdomen pelvis w con IMPRESSION: 1. A cause for the patient's acute left upper quadrant/left lower quadrant pain with nausea vomiting and diarrhea has not been found. 2. Stable appearing pulmonary nodule, renal cyst, and pericecal cyst. Fleischner guidelines were followed.
[2021-10-15 13:27] VITALS: BP 123/77; PULSE 70; RESP 18; TEMP 37.1; O2SAT 99; BMI 24.0
[2021-10-15 14:53] VITALS: BP 125/89; PULSE 68; TEMP 36.9; O2SAT 100
[2021-10-15 15:07] LABS: MANUAL DIFF FLAG NO
[2021-10-15 15:08] LABS: Basophils Percent Auto 0.5 % (0-2); Eosinophils Absolute Auto 0.1 X10*3/uL (0.0-0.4); Eosinophils Percent Auto 0.9 % (0-4); Hematocrit 39.6 % (37.0-47.0); Hemoglobin 13.2 g/dl (12.0-16.0); Imm Gran Abs Auto 0.03 X10*3/uL (0.00-0.03); Imm Gran Pct Auto 0.3 % (0.0-0.4); Lymphocytes Absolute Auto 1.9 X10*3/uL (1.2-4.9); Mean Corpuscular HGB Conc 33.3 g/dl (31.0-35.0); Mean Corpuscular Hemoglobin 28.1 pg (27.0-33.0); Mean Corpuscular Volume 84.3 fL (80.0-98.0); Mean Platelet Volume 8.7 fL (9.4-12.3); Monocytes Absolute Auto 0.7 X10*3/uL (0.1-1.2); Monocytes Percent Auto 8.2 % (2-11); Neutrophils Absolute Auto 6.1 x10*3/uL (2.0-8.3); Neutrophils Percent Auto 69.1 % (45-73); Platelet Count 230 X10*3/uL (160-400); Red Cell Distribution Width 12.5 % (11.0-16.0); White Blood Count 8.8 X10*3/uL (4.8-10.8)
[2021-10-15 15:13] LABS: INTERNATIONAL NORM RATIO 1.1 (0.9-1.1); Prothrombin Time 12.6 SEC (9.9-13.0)
[2021-10-15 15:23] LABS: Ethanol < 10 mg/dL
[2021-10-15 15:27] LABS: Alanine Aminotransferase 12 U/L (0-31); Albumin Level 4.5 g/dL (3.5-5.0); Alkaline Phosphatase 55 U/L (39-117); Anion Gap 12 (12-20); Aspartate Amino Transferase 21 U/L (5-31); Bilirubin Total 0.7 mg/dL (0.0-1.0); Blood Urea Nitrogen 10 mg/dL (9-16); Calcium 9.6 mg/dL (8.4-10.2); Carbon Dioxide 29 mmol/L (22-29); Chloride 103 mmol/L (96-108); Creatinine Clr Calc Pharmacy 91.1; Estimated Glomerular Filt Rate > 60; Glucose Random 99 mg/dL (60-115); Lipase 14 U/L (8-78); Magnesium 1.8 mg/dL (1.6-2.6); Potassium 3.7 mmol/L (3.3-5.1); Sodium 140 mmol/L (135-145); Total Protein 7.9 g/dL (6.5-8.0)
[2021-10-15 15:33] LABS: HCG Quantitative < 2 mIU/mL
[2021-10-15] MEDS: 0.9 % Sodium Chloride 1,000 ML 999 ML IVCONT (15:49)
[2021-10-15] MEDS: ondansetron HCL 4 MG/2 ML VIAL IVPUSH (15:50)
[2021-10-15] MEDS: Ketorolac Tromethamine 30 MG/ML VIAL IVPUSH (15:50)
--- NOTE | 2021-10-15 16:27 | ED_ITS ---
HPI - Abdominal Pain General Chief Complaint: Nausea/Vomiting/Diarrhea Stated Complaint: l side pain vomiting Time Seen by Provider: 10/15/21 14:52 Source: patient Mode of arrival: ambulatory Limitations: no limitations History of Present Illness HPI narrative: 25-year-old female with a past medical history of asthma, migraine headaches, depression, PTSD, alcohol use disorder, opioid use disorder and cocaine abuse in remission presenting to the ED with complaints of left upper quadrant/left abdominal pain with associated nausea/vomiting for the past 2 days worse today. Reports that she is fully vaccinated to COVID vaccine. She denies any fevers, chills, dizziness, headaches, neck pain/stiffness, trouble swallowing breathing, chest pain or shortness of breath, dyspnea exertion, orthopnea, palpitations, b lack or bloody stools, black or bloody emesis, radiation of the abdominal pain, dysuria, hematuria, abnormal vaginal discharge or any other symptoms complaints or concerns at this time. MD elicited complaint: abdominal pain Pertinent past history: none Onset (ago): day(s) (2) Pain Consistency: constant Location: [facility] Severity: moderate Quality: cramping, aching and sharp Radiation: none Migration to: no migration Exacerbating factors: nothing Relieving factors: nothing Associated symptoms: nausea and vomiting Related Data Previous Rx's Medication Instructions Recorded omeprazole 20 mg tablet,delayed 20 mg PO DAILY #30 tab 05/18/21 release ondansetron 4 mg disintegrating 4 mg PO Q6-8H PRN #14 tab 05/18/21 tablet mirtazapine 7.5 mg tablet 7.5 mg PO BEDTIME #30 tab 05/19/21 prazosin 1 mg capsule 1 mg PO BEDTIME #30 cap 05/19/21 quetiapine 25 mg tablet 25 mg PO BEDTIME #30 tab 05/19/21 cyclobenzaprine 10 mg tablet 10 mg PO Q8H PRN #14 tab 10/15/21 dicyclomine 20 mg tablet 20 mg PO BID #14 tab 10/15/21 ondansetron 4 mg disintegrating 4 mg PO Q8H PRN #14 tab 10/15/21 tablet Allergies Allergy/AdvReac Type Severity Reaction Status Date / Time watermelon Allergy Severe ANAPHYLAXIS Unverified 05/27/20 16:45 pollen Allergy Unknown Uncoded 10/30/14 00:00 watermelon Allergy Unknown anaphylaxis Uncoded 10/30/14 00:00 Review of Systems Review of Systems Constitutional : No Fever, No Chills, No Night Sweats, No Fatigue, No Malaise Cardiovascular : No Chest Pain, No SOB Respiratory : No Cough, No Sputum, No Wheezing, No Dyspnea Gastrointestinal : + Nausea, + Vomiting, No Diarrhea, + abdominal Pain, No He matochezia, No Melena Genitourinary : No irregular bleeding, No Dysuria, No Urinary Frequency, No He maturia,No Urinary Incontinence, No Urgency, No Flank Pain Musculoskeletal : No joint pain, No Myalgias, No Joint Swelling Skin : No Skin Lesions, No rash Neuro : No Weakness, No Numbness, No Paresthesias, No Loss of Consciousness, No Dizziness, No Headache Heme/Lymph: No Lymphadenopathy Endocrine : No Temperature Intolerance Yes all other systems are reviewed and are negative Physical Exam Verdana 4l Vital Signs: Verdana 4d Verdana 4d Vital Signs: Verdana 4d Verdana 4Bd Last Vital Signs Verdana 4d Tobacco Primer Machine Operator New 4d Tobacco Primer Machine Operator New 4d Temp 98.3 F 10/15/21 16:33 Tobacco Primer Machine Operator New 4d Pulse 71 10/15/21 18:25 Tobacco Primer Machine Operator New 4d Resp 16 10/15/21 16:33 BP 111/75 10/15/21 18:25 Pulse Ox 98 10/15/21 18:25 BMI result Body Mass Index 24.0 vital signs have been reviewed as normal and appeared to be correct. Blood pressure normal. Heart rate normal. Respiration rate normal. Temperature normal. Oxygen saturation normal. Appearance: Alert. Oriented X3. No acute distress. Head: Normal external exam. Normocephalic. Eyes: PERRLA. EOMI. Conjunctiva and sclera normal. Eyelids normal. ENT: Pharynx normal. Uvula midline. Moist mucous membranes. No trismus noted. No drooling noted. No muffled voice noted. Neck: Normal inspection. Neck supple. FROM. No adenopathy. No meningeal signs. CVS: Normal heart rate and rhythm. Heart sound normal. No murmurs noted. Pulses normal throughout. Respiratory: No respiratory distress. Painless inspiration. Breath sounds n ormal. No wheezes/rales/rhonchi noted. Chest nontender. No accessory muscle usage noted or decreased air movement noted. Abdomen: Soft and moderate tenderness to palpation to left upper quadrant/left mid abdomen/epigastric area with guarding. Nondistended. No rigidity. Bowel sounds normal in all 4 quadrants. No distention noted. No organomegaly noted. No visible injury noted. No rebound tenderness. Negative Rovsing sign. Negative obturator's sign. Negative psoas sign. Negative Cortes sign. Back: No CVA tenderness. Full range of motion noted. Skin: Skin warm and dry. Normal skin color. Normal skin turgor. No rashes/lesions/lacerations noted. Extremities: Extremities exhibit normal range of motion. Extremities nontender. Neuro: Oriented X 3. No motor deficit. No sensory deficit. Reflexes normal. Normal steady gait. Course Course Course Narrative: 15pm - 25-year-old female with a past medical history of asthma, migraine headaches, depression, PTSD, alcohol use disorder, opioid use disorder and cocaine abuse in remission presenting to the ED with complaints of left upper quadrant/left abdominal pain with associated nausea/vomiting for the past 2 days worse today. Reports that she is fully vaccinated to COVID vaccine. Plan: Labs, UA, COVID swab. Provide a L of IV fluids, 4 mg of Zofran, 30 mg of Toradol and obtain abdominal ultrasound then re-evaluate. Reevaluation(s) Reevaluation #1: - abdominal ultrasound revealed cyst in the lower pole of the kidney and mild pelvic fullness/mild hydronephrosis to the right kidney otherwise no calculi noted or any other acute processes. - all labs within normal limits. Patient negative for . Patient negative for EtOH. - therefore at this time will obtain a CT scan abdomen pelvis with IV contrast. Awaiting COVID swab. Will re-evaluate Time: 16:37 Reevaluation #2: - CT scan of abd/pelvis revealed cyst and chronic changes otherwise WNL. - UA WNL. - COVID swab negative. - Patient is tolerating p.o. fluids/solid at this time. Therefore at this time will DC home with symptomatic treatment and instructions return if any new or worsening symptoms to follow up with primary care provider. Patient understands agrees with this plan. Time: 18:43 [facility] - Abdominal Pain Medical Records Attestation: I reviewed the patient's medical records. Lab Data Attestation: I reviewed the patient's lab results. Result diagrams: 10/15/21 15:02 10/15/21 15:02 Labs: Lab Results 10/15/21 10/15/21 10/15/21 Range/Units 15:02 15:02 15:02 WBC 8.8 (4.8-10.8) X10*3/uL RBC 4.70 (4.20-5.50) X10*6/uL Hgb 13.2 (12.0-16.0) g/dl Hct 39.6 (37.0-47.0) % MCV 84.3 (80.0-98.0) fL MCH 28.1 (27.0-33.0) pg MCHC 33.3 (31.0-35.0) g/dl RDW 12.5 (11.0-16.0) % Plt Count 230 (160-400) X10*3/uL MPV 8.7 L (9.4-12.3) fL Immature Gran % (Auto) 0.3 (0.0-0.4) % Neut % (Auto) 69.1 (45-73) % Lymph % (Auto) 21.0 (20-40) % [place] % (Auto) 8.2 (2-11) % Eos % (Auto) 0.9 (0-4) % Baso % (Auto) 0.5 (0-2) % Lymph # (Auto) 1.9 (1.2-4.9) X10*3/uL [place] # (Auto) 0.7 (0.1-1.2) X10*3/uL Eos # (Auto) 0.1 (0.0-0.4) X10*3/uL Baso # (Auto) 0.0 (0.0-0.2) X10*3/uL Abs Immat Gran (auto) 0.03 (0.00-0.03) X10*3/uL Absolute Neuts (auto) 6.1 (2.0-8.3) x10*3/uL Absolute Nucleated RBC 0.000 (0.0-0.012) X10*3/uL Nucleated RBC % (auto) 0.0 (0.0-0.2) /100WBC PT 12.6 (9.9-13.0) SEC INR 1.1 (0.9-1.1) Sodium 140 (135-145) mmol/L Potassium 3.7 (3.3-5.1) mmol/L Chloride 103 (96-108) mmol/L Carbon Dioxide 29 (22-29) mmol/L Anion Gap 12 (12-20) BUN 10 (9-16) mg/dL Creatinine 0.77 (0.5-1.4) mg/dL Estim Creat Clear Calc 91.1 Estimated GFR > 60 Random Glucose 99 (60-115) mg/dL Calcium 9.6 (8.4-10.2) mg/dL Magnesium 1.8 (1.6-2.6) mg/dL Total Bilirubin 0.7 (0.0-1.0) mg/dL AST 21 (5-31) U/L ALT 12 (0-31) U/L Alkaline Phosphatase 55 (39-117) U/L Total Protein 7.9 (6.5-8.0) g/dL Albumin 4.5 (3.5-5.0) g/dL Lipase 14 (8-78) U/L Beta HCG, Quant < 2 mIU/mL Urine Color Urine Appearance Urine pH (5.0-8.0) Ur Specific [place] (1.005-1.025) Urine Protein (NEG-TRACE) MG/DL Urine Glucose (UA) (NEG) MG/DL Urine Ketones (NEG) MG/DL Urine Blood (NEG) Urine Nitrite (NEG) Ur Leukocyte Esterase (NEG) Ethyl Alcohol mg/dL COVID-19 (JULIA) (Negative) COVID-19 Clin Com 10/15/21 10/15/21 10/15/21 Range/Units 15:02 16:36 17:46 WBC (4.8-10.8) X10*3/uL RBC (4.20-5.50) X10*6/uL Hgb (12.0-16.0) g/dl Hct (37.0-47.0) % MCV (80.0-98.0) fL MCH (27.0-33.0) pg MCHC (31.0-35.0) g/dl RDW (11.0-16.0) % Plt Count (160-400) X10*3/uL MPV (9.4-12.3) fL Immature Gran % (Auto) (0.0-0.4) % Neut % (Auto) (45-73) % Lymph % (Auto) (20-40) % [place] % (Auto) (2-11) % Eos % (Auto) (0-4) % Baso % (Auto) (0-2) % Lymph # (Auto) (1.2-4.9) X10*3/uL [place] # (Auto) (0.1-1.2) X10*3/uL Eos # (Auto) (0.0-0.4) X10*3/uL Baso # (Auto) (0.0-0.2) X10*3/uL Abs Immat Gran (auto) (0.00-0.03) X10*3/uL Absolute Neuts (auto) (2.0-8.3) x10*3/uL Absolute Nucleated RBC (0.0-0.012) X10*3/uL Nucleated RBC % (auto) (0.0-0.2) /100WBC PT (9.9-13.0) SEC INR (0.9-1.1) Sodium (135-145) mmol/L Potassium (3.3-5.1) mmol/L Chloride (96-108) mmol/L Carbon Dioxide (22-29) mmol/L Anion Gap (12-20) BUN (9-16) mg/dL Creatinine (0.5-1.4) mg/dL Estim Creat Clear Calc Estimated GFR Random Glucose (60-115) mg/dL Calcium (8.4-10.2) mg/dL Magnesium (1.6-2.6) mg/dL Total Bilirubin (0.0-1.0) mg/dL AST (5-31) U/L ALT (0-31) U/L Alkaline Phosphatase (39-117) U/L Total Protein (6.5-8.0) g/dL Albumin (3.5-5.0) g/dL Lipase (8-78) U/L Beta HCG, Quant mIU/mL Urine Color YELLOW Urine Appearance CLEAR Urine pH 7.0 (5.0-8.0) Ur Specific [place] 1.015 (1.005-1.025) Urine Protein NEG (NEG-TRACE) MG/DL Urine Glucose (UA) NEG (NEG) MG/DL Urine Ketones NEG (NEG) MG/DL Urine Blood NEG (NEG) Urine Nitrite NEG (NEG) Ur Leukocyte Esterase NEG (NEG) Ethyl Alcohol < 10 mg/dL COVID-19 (JULIA) Negative (Negative) COVID-19 Clin Com See Note Imaging Data Abdominal ultrasound complete: Attestation: I personally reviewed and interpreted this imaging study as follows: Radiologist's impression: FINDINGS: PANCREAS: The body and the tail of the pancreas is homogeneous in echotexture. The head is obscured by overlying gas ABDOMINAL AORTA: The abdominal aorta is of normal caliber. INFERIOR VENA CAVA: Visualized portions are normal. LIVER: Normal. The liver is normal in size. The liver contour is normal. Parenchymal echogenicity is normal. No focal hepatic lesion. There is no intrahepatic biliary duct dilatation seen. GALLBLADDER: Gallbladder wall thickness is 0.2 cm. The gallbladder is physiologically distended without evidence of stones, sludge, polyps, wall thickening or pericholecystic fluid. COMMON BILE DUCT: Normal in caliber measuring 0.3 cm in diameter. RIGHT KIDNEY: There is mild pelvic fullness/hydronephrosis. No renal calculi or focal parenchymal lesions. The kidney measures 10.2 cm in maximum dimension. LEFT KIDNEY:? No hydronephrosis. No renal calculi or focal parenchymal lesions. The kidney measures 11.2 cm in maximum dimension. There is anechoic cyst lower pole measuring 0.7 x 0.6 x 0.6 cm. SPLEEN: Normal. The spleen measures 9.7 cm in maximum dimension. FREE FLUID: None. US/US abdomen complete IMPRESSION: Anechoic cyst lower pole left kidney measuring 0.7 cm. ? There is mild pelvic fullness/mild hydronephrosis. CT scan abdomen and pelvis with IV contrast: Attestation: I personally reviewed and interpreted this imaging study as follows: Radiologist's impression: FINDINGS: LUNG BASES: There is a 3 mm right lower lobe pulmonary nodule (4:42), unchanged. The visualized lung bases are otherwise unremarkable.? LIVER, GALLBLADDER, AND BILIARY TREE: The liver is normal in size, shape, and attenuation. No focal hepatic lesion or biliary ductal dilatation is present. The gallbladder is unremarkable with no evidence of radiopaque gallstones, gallbladder wall thickening, or obvious pericholecystic inflammatory changes.? PANCREAS: Unremarkable.? SPLEEN: Unremarkable.? ADRENAL GLANDS: Unremarkable.? KIDNEYS AND URETERS: The kidneys are normal in size, shape, and attenuation. Again seen is a 6 mm cyst at the lower pole of the left kidney. No worrisome renal mass is seen. No hydronephrosis, hydroureter, or calculi seen. No perinephric stranding. ? BLADDER: Empty and poorly evaluated? GASTROINTESTINAL TRACT: The small and large bowel are unremarkable again seen is a benign simple 1.7 cm cyst adjacent to the cecum, unchanged. The appendix is unremarkable.? ABDOMINAL WALL: No significant hernia is appreciated.? LYMPH NODES: Normal. VASCULAR: Unremarkable. PELVIC VISCERA: Unremarkable.? OSSEOUS STRUCTURES: Unremarkable.? CT/CT abdomen pelvis w con IMPRESSION: 1.? A cause for the patient's acute left upper quadrant/left lower quadrant pain with nausea vomiting and diarrhea has not been found. 2.? Stable appearing pulmonary nodule, renal cyst, and pericecal cyst. ? Critical Care Time Critical Care Time Critical Care Time: Yes Total Critical Care Time: 60 Attestation: I personally attest to this time spent taking care of the patient Discharge Plan Discharge Clinical Impression: Nausea & vomiting, Left upper quadrant abdominal pain, Incidental pulmonary nodule, Kidney cysts Patient Disposition: Home, Self-Care Instructions: Acute Nausea and Vomiting (ED), Abdominal Pain (ED), Pulmonary Nodules (ED), Kidney Cyst (ED) Prescriptions: New ondansetron 4 mg tablet,disintegrating 4 mg PO Q8H PRN (Reason: nausea and vomiting) Qty: 14 0RF cyclobenzaprine 10 mg tablet 10 mg PO Q8H PRN (Reason: Muscle spasm) Qty: 14 0RF dicyclomine 20 mg tablet 20 mg PO BID Qty: 14 0RF No Action mirtazapine 7.5 mg tablet 7.5 mg PO BEDTIME Qty: 30 0RF quetiapine 25 mg tablet 25 mg PO BEDTIME Qty: 30 0RF prazosin 1 mg capsule 1 mg PO BEDTIME Qty: 30 0RF omeprazole 20 mg tablet,delayed release (DR/EC) 20 mg PO DAILY Qty: 30 0RF ondansetron 4 mg tablet,disintegrating 4 mg PO Q6-8H PRN (Reason: nausea and vomiting) Qty: 14 0RF Referrals: Cande Yepez MD [Primary Care Provider] - 2 days Stand Alone Forms: Work/School Release Print Language: Persian [facility] Past Medical History Attestation statement: The following information was validated with the patient. Medical History Asthma Hx of migraines Surgical History History of delivery Social History Social History Household Members: Significant Other Alcohol intake: current Alcohol intake frequency: a few times a month Alcohol type: beer Patient Tobacco Use Status: Never used Tobacco Use of substances other than those prescribed or required for medical reasons: No Substance Use Type: Marijuana Advance Directives: Yes Advance Directives Information Provided: Yes Advance Directives on File: No
[2021-10-15 16:33] VITALS: BP 117/79; PULSE 72; RESP 16; TEMP 36.8; O2SAT 100
[2021-10-15 17:01] LABS: COVID-19 Test Negative (Negative)
[2021-10-15] MEDS: iohexoL 350 MG/ML 100 ML INFUS..BTL 85 ML IV (17:28)
[2021-10-15 17:51] LABS: Appearance Urine CLEAR; Color Urine YELLOW; Glucose Urine UA NEG (NEG); Leukocyte Esterase Urine NEG (NEG); Nitrite Urine NEG (NEG); Specific Gravity - Urine 1.015 (1.005-1.025); Urine Blood NEG (NEG); Urine Ketones NEG (NEG); Urine Protein NEG (NEG-TRACE)
[2021-10-15 18:25] VITALS: BP 111/75; PULSE 71; O2SAT 98
[2021-10-15] MEDS: oxyCODONE HCl Immed Release 5 MG TABLET PO (18:25)
== END 2021-10-15 19:12 | disposition home or self-care (01) ==
PROVIDERS: Physician Assistant Medical; Emergency Provider Emergency Medicine; PCP Family Medicine
DX: R11.2 Nausea with vomiting, unspecified (principal); R10.12 Left upper quadrant pain; Z20.822 Contact with and (suspected) exposure to COVID-19; R93.5 Abnormal findings on diagnostic imaging of other abdominal regions, including retroperitoneum; Q61.01 Congenital single renal cyst; R91.1 Solitary pulmonary nodule
CPT/HCPCS: 36415; 74177; 76700; 80053; 81003; 82077; 83690; 83735; 84702; 85025; 85610; 87635; 96361; 96374; 96375; 99284; 99291; J1885; J2405; Q9967

== ENCOUNTER 2022-09-08 14:40 | Outpatient (REF) | payer MEDICAID, SELFPAY ==
--- NOTE | ~2022-09-08 | XR_ITS ---
EXAMINATION: XR LUMBOSACRAL SPINE CLINICAL INFORMATION: Bilateral low back pain COMPARISON: None TECHNIQUE: Three views of the lumbosacral spine. FINDINGS: Is normal lumbar lordosis. The vertebral heights, alignment and disc heights are normal. No visible acute fracture, dislocation or lytic process seen. The SI joints are symmetrical and normal. The soft tissues are normal. XR/XR lumbar spine 2-3V IMPRESSION: Unremarkable lumbar spine exam.
== END 2022-09-08 14:41 | disposition home or self-care (01) ==
LOC: HO.XRAY 14:40
PROVIDERS: Visit Provider Registered Nurse
DX: M54.42 Lumbago with sciatica, left side (principal); M54.41 Lumbago with sciatica, right side
CPT/HCPCS: 72100

== ENCOUNTER 2022-10-27 10:29 | Emergency (ER) | payer MEDICAID, SELFPAY ==
--- NOTE | ~2022-10-27 | CT_ITS ---
EXAMINATION: CT ABDOMEN AND PELVIS WITHOUT CONTRAST CLINICAL INFORMATION: Abdominal pain COMPARISON: Previous CT of the abdomen and pelvis 10/15/2021 TECHNIQUE: Multidetector volumetric imaging was performed from the superior aspect of the liver through the pubic symphysis. Sagittal and coronal reformatted images were obtained on the technologist's workstation. This CT examination was performed using dose optimization techniques as appropriate, variously including the following: *Automated exposure control *Adjustment of mA and/or kV according to patient size (this includes techniques or standardized protocols for targeted exams where dose is matched to indication/reason for exam; i.e. extremities or head) *Use of iterative reconstruction technique DLP: 427 mGy-cm FINDINGS: LUNG BASES: The visualized lung bases are unremarkable. LIVER, GALLBLADDER, AND BILIARY TREE: The liver is normal in size, shape, and attenuation. No focal hepatic lesion or biliary ductal dilatation is present. The gallbladder is unremarkable with no evidence of radiopaque gallstones, gallbladder wall thickening, or obvious pericholecystic inflammatory changes. PANCREAS: Unremarkable. SPLEEN: Unremarkable. ADRENAL GLANDS: Unremarkable. KIDNEYS AND URETERS: The kidneys are normal appearing. There is a 3 mm calcification in the left retroperitoneum anterior to the left psoas muscle axial image 32 series 3. It is uncertain whether this represents a calcified phlebolith or could represent a small left proximal ureteral stone. This is not seen on prior CT October 2021. BLADDER: Unremarkable. GASTROINTESTINAL TRACT: There is a cyst in the right lower quadrant adjacent to the cecum. This measures 2 x 2.2 cm. This is slightly increased in size from October 2021 exam when this measured 1.3 x 1.5 cm. Small and large bowel is unremarkable. The appendix is unremarkable. ABDOMINAL WALL: No significant hernia is appreciated. LYMPH NODES: Normal. VASCULAR: Unremarkable. PELVIC VISCERA: The uterus and left adnexa are unremarkable. Right adnexa is not not well evaluated due to adjacent bowel loops. It is uncertain whether the right axilla could be enlarged. There is a small amount of fluid in the pelvis. OSSEOUS STRUCTURES: Unremarkable. CT/CT abdomen pelvis wo IV con IMPRESSION: Limited exam. The right adnexa is not well evaluated due to adjacent bowel loops. If there is right lower quadrant /pelvic pain, additional imaging should be considered. 1.9 x 2.2 cm right lower quadrant cyst adjacent to the cecum. This is slightly increased in size from October 2021 exam. 3 mm new left retroperitoneal calcification, question representing calcified phlebolith versus proximal ureteral stone. Fleischner guidelines were followed.
[2022-10-27 10:37] VITALS: BP 111/68; PULSE 77; RESP 20; TEMP 36.6; O2SAT 100; BMI 28.3
[2022-10-27 10:51] LABS: MANUAL DIFF FLAG NO
[2022-10-27 10:52] LABS: Basophils Absolute Auto 0.1 X10*3/uL (0.0-0.2); Basophils Percent Auto 0.7 % (0-2); Eosinophils Absolute Auto 0.2 X10*3/uL (0.0-0.4); Eosinophils Percent Auto 2.6 % (0-4); Hemoglobin 12.7 g/dl (12.0-16.0); Imm Gran Abs Auto 0.03 X10*3/uL (0.00-0.03); Imm Gran Pct Auto 0.3 % (0.0-0.4); Lymphocytes Absolute Auto 2.8 X10*3/uL (1.2-4.9); Lymphocytes Percent Auto 32.1 % (20-40); Mean Corpuscular HGB Conc 33.4 g/dl (31.0-35.0); Mean Corpuscular Volume 83.7 fL (80.0-98.0); Mean Platelet Volume 8.6 fL (9.4-12.3); Monocytes Absolute Auto 0.7 X10*3/uL (0.1-1.2); Monocytes Percent Auto 8.3 % (2-11); Neutrophils Absolute Auto 4.8 x10*3/uL (2.0-8.3); Platelet Count 226 X10*3/uL (160-400); Red Blood Count 4.54 X10*6/uL (4.20-5.50); White Blood Count 8.6 X10*3/uL (4.8-10.8)
[2022-10-27 11:11] LABS: Anion Gap 14 (12-20); Blood Urea Nitrogen 11 mg/dL (9-16); Calcium 8.9 mg/dL (8.4-10.2); Carbon Dioxide 24 mmol/L (22-29); Chloride 107 mmol/L (96-108); Creatinine Clr Calc Pharmacy 105.9; Estimated Glomerular Filt Rate > 60; Glucose Random 94 mg/dL (60-115); Potassium 3.9 mmol/L (3.3-5.1); Sodium 141 mmol/L (135-145)
[2022-10-27 12:14] VITALS: BP 112/73; PULSE 62; RESP 16; TEMP 36.7; O2SAT 99
--- NOTE | 2022-10-27 12:41 | ED.ABDPAIN ---
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 to the emergency department complaining of abdominal pain localized in the upper abdomen pain was sudden onset denies any MD elicited complaint: abdominal pain Pertinent past history: none Onset (ago): hour(s) (2) Pain Consistency: now resolved Location: other (upper) Severity: moderate Quality: cramping Radiation: none Migration to: no migration Relieving factors: nothing Related Data Patient : No Previous Rx's Medication Instructions Recorded omeprazole 20 mg tablet,delayed 20 mg PO DAILY #30 tabs 05/18/21 release ondansetron 4 mg disintegrating 4 mg PO Q6-8H PRN nausea and 05/18/21 tablet vomiting #14 tabs mirtazapine 7.5 mg tablet 7.5 mg PO BEDTIME #30 tabs 05/19/21 prazosin 1 mg capsule 1 mg PO BEDTIME #30 caps 05/19/21 quetiapine 25 mg tablet 25 mg PO BEDTIME #30 tabs 05/19/21 cyclobenzaprine 10 mg tablet 10 mg PO Q8H PRN Muscle spasm #14 10/15/21 tabs dicyclomine 20 mg tablet 20 mg PO BID abdominal 10/15/21 pain/cramping #14 tabs ondansetron 4 mg disintegrating 4 mg PO Q8H PRN nausea and 10/15/21 tablet vomiting #14 tabs Allergies Allergy/AdvReac Type Severity Reaction Status Date / Time watermelon Allergy Severe ANAPHYLAXIS Unverified 05/27/20 16:45 pollen Allergy Unknown Uncoded 10/30/14 00:00 watermelon Allergy Unknown anaphylaxis Uncoded 10/30/14 00:00 Review of Systems Constitutional: Reports no additional constitutional complaints Eyes: Reports as per HPI Cardiovascular: Reports no additional cardiovascular complaints Respiratory: Reports no additional respiratory complaints Gastrointestinal: Reports no additional gastrointestinal complaints PMFSH Past Medical History PMFSH Narrative: She has history of depression she has history of PTSD she has history of opioid use disorder Medical History Asthma Hx of migraines Surgical History History of delivery Social History Social History Household Members: Significant Other Alcohol intake: current Alcohol intake frequency: a few times a month Alcohol type: beer Patient Tobacco Use Status: Never used Tobacco Substance Use Type: Marijuana Advance Directives: No Advance Directives Information Provided: Yes Patient : No Physical Exam ED Vital Signs: Vital Signs - 24 hr 10/27/22 10:37 10/27/22 12:14 10/27/22 14:45 Temperature 97.9 F 98.0 F 98.0 F Pulse Rate 77 62 65 Respiratory Rate 20 16 18 Blood Pressure 111/68 112/73 117/69 Pulse Oximetry 100 99 100 Oxygen Delivery Method Room Air Room Air Room Air 10/27/22 15:34 Temperature 98.8 F Pulse Rate 74 Respiratory Rate 16 Blood Pressure 111/77 Pulse Oximetry 100 Oxygen Delivery Method Room Air BMI result Body Mass Index 28.3 Const General: cooperative Nutritional Appearance: well nourished Orientation/consciousness: patient oriented x3 Limitations: no limitations HENMT Head: Yes normal to inspection General nose exam: Normal external nose present Face and sinus: Yes normal facial exam Mouth: Normal oral and palatal mucosa present Throat: Yes posterior oropharynx normal Neck Neck: Yes normal visual inspection Chest Chest palpation & inspection: normal inspection of the chest GI Inspection: Yes normal to inspection Palpation (GI): Soft to palpation Skin General skin exam: no rashes or lesions noted and elasticity normal Lesions: no lesions Rashes: no rashes Neuro General: patient oriented x3 and gait normal Cranial nerves: Yes CN's II-XII intact bilaterally Motor exam (neuro): 5/5 motor strength present throughout Course Reevaluation(s) Reevaluation #1: Feels better on the CT there is a question of renal stone over the urine shows no hematuria I do not think this patient has renal colic. She is feeling better at this time she can be discharged home on p.o. ibuprofen Time: 16:30 Medical Decision Making Medical Decision Making MDM Narrative: Presented with abdominal pain will check labs UA reassessed 16:30 CT reviewed question of stone over clinically I do not think she hasrenal colic no hematuria no flank pain, she can be discharged on ibuprofen Differential Diagnosis Differential Diagnoses: The differential diagnosis associated with the presentation includes Colitis /diverticulitis/renal colic Admission/Observation Consideration of admission/observation: Escalation of care including admission/observation considered Lab Data MDM Lab Attestation statement: I reviewed the patient's lab results. 10/27/22 10:48 10/27/22 10:48 Labs: Lab Results 10/27/22 10/27/22 10/27/22 Range/Units 10:48 10:48 12:42 WBC 8.6 (4.8-10.8) X10*3/uL RBC 4.54 (4.20-5.50) X10*6/uL Hgb 12.7 (12.0-16.0) g/dl Hct 38.0 (37.0-47.0) % MCV 83.7 (80.0-98.0) fL MCH 28.0 (27.0-33.0) pg MCHC 33.4 (31.0-35.0) g/dl RDW 12.0 (11.0-16.0) % Plt Count 226 (160-400) X10*3/uL MPV 8.6 L (9.4-12.3) fL Immature Gran % (Auto) 0.3 (0.0-0.4) % Neut % (Auto) 56.0 (45-73) % Lymph % (Auto) 32.1 (20-40) % [place] % (Auto) 8.3 (2-11) % Eos % (Auto) 2.6 (0-4) % Baso % (Auto) 0.7 (0-2) % Lymph # (Auto) 2.8 (1.2-4.9) X10*3/uL [place] # (Auto) 0.7 (0.1-1.2) X10*3/uL Eos # (Auto) 0.2 (0.0-0.4) X10*3/uL Baso # (Auto) 0.1 (0.0-0.2) X10*3/uL Abs Immat Gran (auto) 0.03 (0.00-0.03) X10*3/uL Absolute Neuts (auto) 4.8 (2.0-8.3) x10*3/uL Absolute Nucleated RBC 0.000 (0.0-0.012) X10*3/uL Nucleated RBC % (auto) 0.0 (0.0-0.2) /100WBC Sodium 141 (135-145) mmol/L Potassium 3.9 (3.3-5.1) mmol/L Chloride 107 (96-108) mmol/L Carbon Dioxide 24 (22-29) mmol/L Anion Gap 14 (12-20) BUN 11 (9-16) mg/dL Creatinine 0.71 (0.5-1.4) mg/dL Estim Creat Clear Calc 105.9 Estimated GFR > 60 Random Glucose 94 (60-115) mg/dL Calcium 8.9 D (8.4-10.2) mg/dL Urine Color Yellow Urine Appearance Clear Urine pH 6.5 (5.0-9.0) Ur Specific [place] 1.010 (1.005-1.025) Urine Protein Negative (Neg-Trace) mg/dL Urine Glucose (UA) Negative (Negative) mg/dL Urine Ketones Negative (Negative) mg/dL Urine Blood Negative (Negative) Urine Nitrite Negative (Negative) Ur Leukocyte Esterase Negative (Negative) Urine RBC 0-2 (0-2) /HPF Urine WBC 0-5 (0-5) /HPF Ur Squamous Epith Cells 0-2 (0-2) /HPF Urine Bacteria None Seen (None Seen) Hyaline Casts 0-2 (0-2) /LPF Urine Test (NEGATIVE) 10/27/22 Range/Units 12:42 WBC (4.8-10.8) X10*3/uL RBC (4.20-5.50) X10*6/uL Hgb (12.0-16.0) g/dl Hct (37.0-47.0) % MCV (80.0-98.0) fL MCH (27.0-33.0) pg MCHC (31.0-35.0) g/dl RDW (11.0-16.0) % Plt Count (160-400) X10*3/uL MPV (9.4-12.3) fL Immature Gran % (Auto) (0.0-0.4) % Neut % (Auto) (45-73) % Lymph % (Auto) (20-40) % [place] % (Auto) (2-11) % Eos % (Auto) (0-4) % Baso % (Auto) (0-2) % Lymph # (Auto) (1.2-4.9) X10*3/uL [place] # (Auto) (0.1-1.2) X10*3/uL Eos # (Auto) (0.0-0.4) X10*3/uL Baso # (Auto) (0.0-0.2) X10*3/uL Abs Immat Gran (auto) (0.00-0.03) X10*3/uL Absolute Neuts (auto) (2.0-8.3) x10*3/uL Absolute Nucleated RBC (0.0-0.012) X10*3/uL Nucleated RBC % (auto) (0.0-0.2) /100WBC Sodium (135-145) mmol/L Potassium (3.3-5.1) mmol/L Chloride (96-108) mmol/L Carbon Dioxide (22-29) mmol/L Anion Gap (12-20) BUN (9-16) mg/dL Creatinine (0.5-1.4) mg/dL Estim Creat Clear Calc Estimated GFR Random Glucose (60-115) mg/dL Calcium (8.4-10.2) mg/dL Urine Color Urine Appearance Urine pH (5.0-9.0) Ur Specific [place] (1.005-1.025) Urine Protein (Neg-Trace) mg/dL Urine Glucose (UA) (Negative) mg/dL Urine Ketones (Negative) mg/dL Urine Blood (Negative) Urine Nitrite (Negative) Ur Leukocyte Esterase (Negative) Urine RBC (0-2) /HPF Urine WBC (0-5) /HPF Ur Squamous Epith Cells (0-2) /HPF Urine Bacteria (None Seen) Hyaline Casts (0-2) /LPF Urine Test NEGATIVE (NEGATIVE) Independent Interpretation I performed an independent interpretation of an: CT Scan Radiology Impression Radiologist Impression: LYMPH NODES: Normal. VASCULAR: Unremarkable. PELVIC VISCERA: The uterus and left adnexa are unremarkable. Right adnexa is not not well evaluated due to adjacent bowel loops. It is uncertain whether the right axilla could be enlarged. There is a small amount of fluid in the pelvis. OSSEOUS STRUCTURES: Unremarkable.? CT/CT abdomen pelvis wo IV con IMPRESSION: Limited exam.? The right adnexa is not well evaluated due to adjacent bowel loops. If there is right lower quadrant /pelvic pain, additional imaging should be considered. 1.9 x 2.2 cm right lower quadrant cyst adjacent to the cecum. This is slightly increased in size from October 2021 exam. ? 3 mm new left retroperitoneal calcification, question representing calcified phlebolith versus proximal ureteral stone. Fleischner guidelines were followed. Dictated By: Lois Lentz MD Signed By: <Electronically signed by Lois Lentz MD in [place]> 10/27/22 1557 DD/ 1455 TD/TT:? Paste Mixer Liquid: DOM Discharge Plan Discharge Clinical Impression: Abdominal pain Patient Disposition: Home, Self-Care Instructions: Abdominal Pain (ED) Additional Instructions: Follow-up with primary care physician return if you worse any concern Prescriptions: No Action mirtazapine 7.5 mg tablet 7.5 mg PO BEDTIME Qty: 30 0RF quetiapine 25 mg tablet 25 mg PO BEDTIME Qty: 30 0RF prazosin 1 mg capsule 1 mg PO BEDTIME Qty: 30 0RF omeprazole 20 mg tablet,delayed release (DR/EC) 20 mg PO DAILY Qty: 30 0RF ondansetron 4 mg tablet,disintegrating 4 mg PO Q6-8H PRN (Reason: nausea and vomiting) Qty: 14 0RF ondansetron 4 mg tablet,disintegrating 4 mg PO Q8H PRN (Reason: nausea and vomiting) Qty: 14 0RF cyclobenzaprine 10 mg tablet 10 mg PO Q8H PRN (Reason: Muscle spasm) Qty: 14 0RF dicyclomine 20 mg tablet 20 mg PO BID Qty: 14 0RF
[2022-10-27 12:52] LABS: Appearance Urine Clear; Color Urine Yellow; Glucose Urine UA Negative (Negative); Leukocyte Esterase Urine Negative (Negative); Nitrite Urine Negative (Negative); PH 6.5 (5.0-9.0); Urine Blood Negative (Negative); Urine Ketones Negative (Negative); Urine Protein Negative (Neg-Trace)
[2022-10-27 12:53] LABS: UPreg QC Valid YES; Urine Pregnancy NEGATIVE (NEGATIVE)
[2022-10-27 12:57] LABS: Bacteria Urine None Seen (None Seen); Hyaline Casts Urine 0-2 /LPF (0-2); RBC Urine 0-2 /HPF (0-2); Squamous Epithelial Cell Urine 0-2 /HPF (0-2); WBC Urine 0-5 /HPF (0-5)
[2022-10-27 14:45] VITALS: BP 117/69; PULSE 65; RESP 18; TEMP 36.7; O2SAT 100
[2022-10-27 15:34] VITALS: BP 111/77; PULSE 74; RESP 16; TEMP 37.1; O2SAT 100
== END 2022-10-27 17:20 | disposition home or self-care (01) ==
PROVIDERS: Emergency Provider Emergency Medicine; PCP Family Medicine
DX: R10.9 Unspecified abdominal pain (principal)
CPT/HCPCS: 36415; 74176; 80048; 81001; 81025; 85025; 99283; 99284

== ENCOUNTER 2022-11-01 12:05 | Outpatient (REF) | payer MEDICAID, SELFPAY ==
--- NOTE | 2022-11-01 10:00 | EMG_ITS ---
Please see scanned EMG / Nerve Conduction Report. MTDD
== END 2022-11-01 12:06 | disposition home or self-care (01) ==
LOC: HO.NEURO 12:05
PROVIDERS: PCP Family Medicine; Visit Provider Internal Medicine
DX: G56.03 Carpal tunnel syndrome, bilateral upper limbs (principal)
CPT/HCPCS: 95885; 95913

== ENCOUNTER → 2022-11-28 09:24 | Outpatient (BNVA) | payer MEDICAID, SELFPAY | PROVIDERS: PCP Family Medicine; Visit Provider Psychiatry & Neurology Neurology | DX: M79.641 Pain in right hand (principal); M79.642 Pain in left hand; M79.643 Pain in unspecified hand; M54.2 Cervicalgia; G43.909 Migraine, unspecified, not intractable, without status migrainosus | CPT/HCPCS: 99202 ==

== ENCOUNTER 2022-12-03 03:48 | Emergency (ER) | payer OTHER, MEDICAID, SELFPAY ==
--- NOTE | ~2022-12-03 | CT_ITS ---
EXAMINATION: CT CERVICAL SPINE WITHOUT CONTRAST CLINICAL INFORMATION: Right-sided neck pain after stretching COMPARISON: Portions of CT 08/16/21 TECHNIQUE: Multidetector CT. Examination of the cervical spine without contrast. Reformatting in the coronal and parasagittal planes. This CT examination was performed using dose optimization techniques as appropriate, variously including the following: *Automated exposure control *Adjustment of mA and/or kV according to patient size (this includes techniques or standardized protocols for targeted exams where dose is matched to indication/reason for exam; i.e. extremities or head) *Use of iterative reconstruction technique DLP: 363 mGy-cm FINDINGS: The alignment is normal. No fracture, focal lesion, loss of volume or disc narrowing. Specifically, the facets appear intact. No large abnormality within the spinal canal. No suspicious abnormality in the visualized apex of the chest CT/CT cervical spine wo IV con IMPRESSION: No fracture or subluxation Fleischner guidelines were followed.
--- NOTE | ~2022-12-03 | XR_ITS ---
EXAMINATION: XR CHEST CLINICAL INFORMATION: Shortness of breath. Evaluate for pneumothorax. COMPARISON: 04/08/2017 TECHNIQUE: 2 views of the chest were obtained. FINDINGS: Lungs are well-inflated and clear. Trachea is midline in position. No interstitial disease, consolidation or mass. No pleural effusion or pneumothorax. Cardiac silhouette and pulmonary vessels are normal in size. The mediastinum and juan c have normal contour. The visualized bones, and upper abdomen, are unremarkable. XR/XR chest 2V IMPRESSION: No acute cardiopulmonary abnormality. No evidence of pneumothorax.
[2022-12-03 04:03] VITALS: BP 110/59; PULSE 69; RESP 16; TEMP 36.6; O2SAT 98; BMI 24.5
[2022-12-03 05:50] VITALS: BP 122/73; PULSE 69; RESP 17; TEMP 36.7
--- NOTE | 2022-12-03 06:50 | ED.NECK ---
HPI - Neck Pain/Injury General Chief Complaint: Neck Pain/Injury Stated Complaint: Difficulty moving R side Time Seen by Provider: 12/03/22 05:17 Source: patient Mode of arrival: ambulatory Limitations: no limitations History of Present Illness HPI Narrative: A 26-year-old female came in for evaluation of shortness of breath and the right-sided neck pain. Patient's symptoms started immediately after yawning and stretching her body at felt a pop followed by pain to the right-sided neck after stretching her body and yawning patient also been having a difficulty taking a deep breath. Patient has a normal speaking, normal swallowing, no numbness, no weakness. Patient declined chance of p.m. . This is not a work related injury and happened at home. Related Data Home Medications Medication Instructions Recorded Confirmed naproxen 500 mg tablet 500 mg PO BID 11/28/22 11/28/22 sumatriptan succinate 50 mg tablet 50 mg PO migraine 11/28/22 11/28/22 tizanidine 2 mg capsule 2 mg PO Q8H PRN 11/28/22 11/28/22 Previous Rx's Medication Instructions Recorded magnesium oxide 400 mg (241.3 mg 400 mg PO BEDTIME #30 tabs 11/28/22 magnesium) tablet cyclobenzaprine 10 mg tablet 10 mg PO TID PRN muscle spasm #10 12/03/22 tabs ibuprofen 600 mg tablet 600 mg PO TID PRN pain #14 tabs 12/03/22 Allergies Allergy/AdvReac Type Severity Reaction Status Date / Time watermelon Allergy Severe ANAPHYLAXIS Verified 12/03/22 04:02 pollen Allergy Unknown rash Uncoded 11/28/22 09:34 Review of Systems Review of Systems: All other systems are reviewed and are negative Constitutional: Reports as per HPI and Reports no additional constitutional complaints Eyes: Reports as per HPI and Reports no additional eye complaints Reports system reviewed and no additional complaints, except as documented Cardiovascular: Reports as per HPI and Reports no additional cardiovascular complaints Respiratory: Reports as per HPI and Reports no additional respiratory complaints Gastrointestinal: Reports as per HPI and Reports no additional gastrointestinal complaints Genitourinary: Reports no additional female genitourinary complaints Musculoskeletal: Reports no additional musculoskeletal complaints Skin/Breast: Reports system reviewed and no additional complaints, except as docu Psychiatric: Reports no additional psychiatric complaints Endocrine: Reports no additional endocrine complaints Hematologic/Lymphatic: Reports no additional hematologic/lymphatic complaints Allergic/Immunologic: Reports no additional allergic/immunologic complaints Reports system reviewed and no additional complaints, except as documented and Reports Abnormal speech present [facility] Past Medical History Medical History Asthma Hx of migraines Neck pain Surgical History History of delivery Family History Family History Father HTN (hypertension) Cancer Social History Social History Household Members: Significant Other Alcohol intake: former Patient Tobacco Use Status: Former Tobacco user Advance Directives: No Advance Directives Information Provided: Yes Physical Exam Vital Signs: Vital Signs: Last Vital Signs Temp 98.0 F 12/03/22 05:50 Pulse 69 12/03/22 05:50 Resp 17 12/03/22 05:50 BP 122/73 12/03/22 05:50 Pulse Ox 98 12/03/22 04:03 O2 Del Method Room Air 12/03/22 05:50 BMI result Body Mass Index 24.5 Vital signs have been reviewed as appeared to be correct. Blood pressure normal. Heart rate normal. Respiration rate normal. Temperature normal. Oxygen saturation normal. Appearance: Alert. Oriented X3. No acute distress. Head: Normal external exam. Normocephalic. Atraumatic. No Poon signs noted. No raccoon eyes noted Eyes: PERRLA. EOMI. Conjunctiva and sclera normal. Eyelids normal. ENT: TM's Normal. Pharynx normal. Uvula midline. Moist mucous membranes. No trismus noted. No drooling noted. No muffled voice noted. Neck: Normal inspection. Neck supple. FROM. No adenopathy. Thyroid Normal. No meningeal signs. No neck mass noted. CVS: Normal heart rate and rhythm. Heart sound normal. No murmurs noted. Pulses normal throughout. Respiratory: No respiratory distress. Painless inspiration. Breath sounds normal. No wheezes/rales/rhonchi noted. Chest nontender. No accessory muscle usage noted or decreased air movement noted. Abdomen: Soft and nontender. Bowel sounds normal in all 4 quadrants. No distention noted. No organomegaly noted. No visible injury noted. Back: No CVA tenderness. Full range of motion noted. Skin: Skin warm and dry. Normal skin color. Normal skin turgor. No rashes/lesions/lacerations noted. Extremities: No lower extremity edema. Extremities exhibit normal range of motion. Extremities nontender. Neuro: Oriented X 3. Cranial nerve exam: II-XII are grossly intact No motor deficit. No sensory deficit. Reflexes normal. Course Course Course Narrative: 26-year-old female started to have right-sided neck pain after yawning and stretching her body, negative cervical spine for dislocation or subluxation, chest x-ray is also negative for pneumothorax. Patient did after ibuprofen and Flexeril will continue the same regimen at home. Medical Decision Making Differential Diagnosis Differential Diagnoses: The differential diagnosis associated with the presentation includes (Cervical pulled muscle, neck strain, ligamentous injury, pneumothorax.) Independent Interpretation I performed an independent interpretation of an: Plain X-Ray (Chest: No acute findings) and CT Scan (Cervical spine CT: No acute pathology.) Radiology Impression Discussion of test interpretation with radiology: I have reviewed the radiologist's reading. Discharge Plan Discharge Clinical Impression: Strain of neck muscle Patient Disposition: Home, Self-Care Instructions: Cervical Strain (ED) Prescriptions: New cyclobenzaprine 10 mg tablet 10 mg PO TID PRN (Reason: muscle spasm) Qty: 10 0RF ibuprofen 600 mg tablet 600 mg PO TID PRN (Reason: pain) Qty: 14 0RF No Action sumatriptan succinate 50 mg tablet 50 mg PO tizanidine 2 mg capsule 2 mg PO Q8H PRN naproxen 500 mg tablet 500 mg PO BID magnesium oxide 400 mg (241.3 mg magnesium) tablet 400 mg PO BEDTIME Qty: 30 6RF Referrals: Cande Yepez MD [Primary Care Provider] - Stand Alone Forms: Work/School Release
--- NOTE | 2022-12-03 06:53 | PC.NURSE ---
PAtient resting in bed comfortably no distress noted good ROM right upper ext grasp strong 5/5, awaiting imaging will CTM
[2022-12-03] MEDS: Cyclobenzaprine HCl 10 MG TABLET PO (07:14)
[2022-12-03] MEDS: Ibuprofen 600 MG TABLET PO (07:15)
[2022-12-03 07:17] VITALS: BP 115/78; PULSE 62; RESP 17; TEMP 36.7; O2SAT 95
== END 2022-12-03 08:35 | disposition home or self-care (01) ==
PROVIDERS: Emergency Provider Emergency Medicine; PCP Family Medicine
DX: M54.2 Cervicalgia (principal); R06.02 Shortness of breath; Z79.899 Other long term (current) drug therapy
CPT/HCPCS: 71046; 72125; 99284

== ENCOUNTER 2023-03-29 10:51 | Outpatient (REF) | payer OTHER, MEDICAID, SELFPAY | END 2023-03-29 10:52 | disposition home or self-care (01) | LOC: HO.HHCL 10:51 | PROVIDERS: Visit Provider Student in an Organized Health Care Education/Training Program | DX: Z12.9 Encounter for screening for malignant neoplasm, site unspecified (principal); Z80.8 Family history of malignant neoplasm of other organs or systems | CPT/HCPCS: 81162 ==

== ENCOUNTER 2023-04-25 07:54 | Outpatient (REF) | payer OTHER, MEDICAID, SELFPAY ==
--- NOTE | ~2023-04-25 | MR_ITS ---
EXAMINATION: MR BRAIN WITHOUT CONTRAST CLINICAL INFORMATION: Migraine headaches. COMPARISON: None. TECHNIQUE: Multiplanar, multisequence imaging of the brain was performed without contrast. Dental braces artifacts limit assessment. FINDINGS: Although limited by artifacts from the patient's dental braces, the imaged portions of the brain on the gradient and diffusion weighted sequences appear normal. The ventricles are normal in size. No mass effect or midline shift is seen. No brain parenchymal signal abnormality is noted. No extra-axial fluid collections are seen. The brainstem and cerebellum are normal. The craniovertebral junction, marrow signal, and midline structures are normal. The major intracranial flow voids at the level of the [place] are preserved. The dural venous sinus flow voids are maintained. The mastoid air cells and visualized unobscured portions of the paranasal sinuses are well aerated. MR/MR head/brain wo con IMPRESSION: Normal slightly limited MRI of the brain with dental braces artifacts.
== END 2023-04-25 07:55 | disposition home or self-care (01) ==
LOC: HO.MRI 07:54
PROVIDERS: PCP Student in an Organized Health Care Education/Training Program; Visit Provider Student in an Organized Health Care Education/Training Program
DX: Z00.00 Encounter for general adult medical examination without abnormal findings (principal); Z86.69 Personal history of other diseases of the nervous system and sense organs; Z71.3 Dietary counseling and surveillance; Z71.82 Exercise counseling; Z31.69 Encounter for other general counseling and advice on procreation; Z68.30 Body mass index [BMI] 30.0-30.9, adult; Z72.0 Tobacco use; M54.9 Dorsalgia, unspecified; M54.42 Lumbago with sciatica, left side; M54.41 Lumbago with sciatica, right side; N92.6 Irregular menstruation, unspecified; J45.20 Mild intermittent asthma, uncomplicated; G43.111 Migraine with aura, intractable, with status migrainosus; F31.9 Bipolar disorder, unspecified
CPT/HCPCS: 70551

== ENCOUNTER 2023-04-26 12:23 | Emergency (ER) | payer OTHER, MEDICAID, SELFPAY ==
--- NOTE | ~2023-04-26 | CT_ITS ---
EXAMINATION: CT ABDOMEN AND PELVIS WITH CONTRAST CLINICAL INFORMATION: Lower abdominal pain COMPARISON: Abdominal CT of 10/27/[address] dating to 05/18/2021 TECHNIQUE: Multidetector volumetric images were obtained from the superior aspect of the liver through the pubic symphysis following administration 85 mL of Omnipaque 350 intravenous contrast. Sagittal and coronal reformatted images were obtained on the technologist's workstation. Oral contrast: No This CT examination was performed using dose optimization techniques as appropriate, variously including the following: *Automated exposure control *Adjustment of mA and/or kV according to patient size (this includes techniques or standardized protocols for targeted exams where dose is matched to indication/reason for exam; i.e. extremities or head) *Use of iterative reconstruction technique DLP: 490 mGy-cm FINDINGS: LUNG BASES: A 3 mm nodule in the posterior right lower lobe is unchanged since 2020, indicating benignity.. LIVER, GALLBLADDER, AND BILIARY TREE: The liver is normal in size, shape, and attenuation. No focal hepatic lesion or biliary ductal dilatation is present. The gallbladder is unremarkable with no evidence of radiopaque gallstones, gallbladder wall thickening, or obvious pericholecystic inflammatory changes. PANCREAS: Unremarkable. SPLEEN: Unremarkable. ADRENAL GLANDS: Unremarkable. KIDNEYS AND URETERS: The kidneys are normal in size, shape, and attenuation. No hydronephrosis, hydroureter, or calculi seen. No perinephric stranding. BLADDER: Unremarkable. GASTROINTESTINAL TRACT: Sigmoid diverticula are present. There is no evidence of diverticulitis. The small and large bowel are unremarkable. The appendix is unremarkable. ABDOMINAL WALL: No significant hernia is appreciated. LYMPH NODES: Normal. VASCULAR: Unremarkable. PELVIC VISCERA: An ovoid 36 x 17 mm soft tissue mass in the right adnexa is unchanged. However, a 31 x 25 mm round cystic mass in the right lower quadrant between the cecum and psoas has increased in size from 20 x 16 mm on 10/15/2021 and 17 x 15 mm on 05/18/2021. The mass measures approximately 10-15 Hounsfield units. This lesion lies lateral to the proximal right colon wall the appendix extends medially anterior to the cecum. There are endocervical nabothian cysts. The left adnexa appears round and contains small peripheral follicles, and measures approximately 26 x 24 mm. There is no free fluid in the cul-de-sac. OSSEOUS STRUCTURES: Unremarkable. CT/CT abdomen pelvis w IV con IMPRESSION: 1. Increasing size of cystic 36 x 17 mm mass in the right lower quadrant mass between the right colon and cecum. Differential considerations include endometrioma; mucocele; pelvic inclusion cyst, and cystic neoplasm. Clinical follow-up and management are recommended. 2. No change in ovoid 36 x 17 mm right adnexal mass, nor in the rounded prominence of the left ovary. Gynecologic management is recommended. The stability favors benignity, but benign bilateral mesenchymal lesions of the ovaries, including endometrioma, fibroma, thecoma,etc, are not excluded. 3. Stable 3 mm right lower lobe nodule, for which no additional specific follow-up is needed. 4. No acute findings in the upper abdomen. Findings discussed with Maria Dolores Waterman at the time of interpretation on 04/26/2023 at 3:10PM. Fleischner guidelines were followed.
--- NOTE | ~2023-04-26 | US_ITS ---
EXAMINATION: US PELVIS CLINICAL INFORMATION: Right lower quadrant cyst. Question abdominal pain COMPARISON: None available. TECHNIQUE: Ultrasound of the pelvis is performed using both transabdominal and transvaginal transducers along with Doppler. Transvaginal imaging is performed due to inadequate visualization transabdominally. FINDINGS: Uterus: The uterus is anteverted, anteflexed and measures 9.4 x 3.9 x 4.7 cm. The double wall endometrial thickness is 0.4 cm The uterus is smooth in contour and has normal myometrial echogenicity. No visible fibroid. There are small multiple anechoic cysts in the cervix Adnexa: Both ovaries are visualized. There is normal color flow to the adnexa. There is no ovarian torsion. There is no pelvic ascites or fluid collection. Right ovary measures 3.9 x 1.9 x 3.3 cm and volume 12.8 mL. There is a small adnexal cyst measuring 2.8 x 2.6 x 2.7 cm. Left ovary measures 3.0 x 2.1 x 2.0 cm and volume 6.6 mL. There is a small focal hyperechoic area without vascularity measuring 0.7 x 0.8 x 0.6 cm. There is normal arterial and venous Doppler flow to both ovaries. US/US pelvic ovarian doppler IMPRESSION: Hyperechoic area in the left ovary question small calcification or dermoid. Simple cyst right ovary. Several nabothian cysts. The uterus is unremarkable. Normal bilateral ovarian Doppler exam.
--- NOTE | ~2023-04-26 | US_ITS ---
EXAMINATION: US PELVIS CLINICAL INFORMATION: Right lower quadrant cyst. Question abdominal pain COMPARISON: None available. TECHNIQUE: Ultrasound of the pelvis is performed using both transabdominal and transvaginal transducers along with Doppler. Transvaginal imaging is performed due to inadequate visualization transabdominally. FINDINGS: Uterus: The uterus is anteverted, anteflexed and measures 9.4 x 3.9 x 4.7 cm. The double wall endometrial thickness is 0.4 cm The uterus is smooth in contour and has normal myometrial echogenicity. No visible fibroid. There are small multiple anechoic cysts in the cervix Adnexa: Both ovaries are visualized. There is normal color flow to the adnexa. There is no ovarian torsion. There is no pelvic ascites or fluid collection. Right ovary measures 3.9 x 1.9 x 3.3 cm and volume 12.8 mL. There is a small adnexal cyst measuring 2.8 x 2.6 x 2.7 cm. Left ovary measures 3.0 x 2.1 x 2.0 cm and volume 6.6 mL. There is a small focal hyperechoic area without vascularity measuring 0.7 x 0.8 x 0.6 cm. There is normal arterial and venous Doppler flow to both ovaries. US/US pelvic and transvaginal IMPRESSION: Hyperechoic area in the left ovary question small calcification or dermoid. Simple cyst right ovary. Several nabothian cysts. The uterus is unremarkable. Normal bilateral ovarian Doppler exam.
[2023-04-26 13:00] VITALS: BP 123/80; PULSE 100; RESP 18; TEMP 36.4; O2SAT 100
--- NOTE | 2023-04-26 13:04 | ED.GENADULT ---
HPI - General Adult General Chief complaint: Nausea/Vomiting/Diarrhea Stated complaint: food poisoning Time Seen by Provider: 04/26/23 13:03 Source: patient Mode of arrival: ambulatory Limitations: no limitations History of Present Illness HPI narrative: ?27 year old female hx of asthma, migraine headaches, depression, PTSD, alcohol use disorder, opioid use disorder and cocaine abuse in remission presenting to the ED with complaints of Nausea, vomiting, fatigue, malaise and epigastric abd paingoing on since midnight, patient reports this feels like that time she had food poisoning, she reports last she ate was last night 1930 for dinner she had chicken and rice. She tells me she also has a hernia in at times she gets nausea and vomiting secondary to the hernia. She reports last night she thinks she had a fever. Denies chest pain, shortness of breath, headache, vision changes, dizziness, weakness, hematemesis, melena, changes in urinary habits or bowel habits. Related Data Home Medications Medication Instructions Recorded Confirmed naproxen 500 mg tablet 500 mg PO BID 11/28/22 11/28/22 sumatriptan succinate 50 mg tablet 50 mg PO migraine 11/28/22 11/28/22 tizanidine 2 mg capsule 2 mg PO Q8H PRN 11/28/22 11/28/22 Previous Rx's Medication Instructions Recorded magnesium oxide 400 mg (241.3 mg 400 mg PO BEDTIME #30 tabs 11/28/22 magnesium) tablet cyclobenzaprine 10 mg tablet 10 mg PO TID PRN muscle spasm #10 12/03/22 tabs ibuprofen 600 mg tablet 600 mg PO TID PRN pain #14 tabs 12/03/22 ketorolac 10 mg tablet 10 mg PO TID PRN pain 5 days #15 04/26/23 tabs ondansetron 4 mg disintegrating 4 mg PO Q6H PRN nausea and 04/26/23 tablet vomiting #14 tabs Allergies Allergy/AdvReac Type Severity Reaction Status Date / Time watermelon Allergy Severe ANAPHYLAXIS Verified 12/03/22 04:02 pollen Allergy Unknown rash Uncoded 11/28/22 09:34 Review of Systems Review of Systems: Constitutional : No Weight loss, No Fever, No Chills, No Fatigue, No Malaise ENT/Mouth : No sore throat, No Rhinorrhea Eyes: No Eye Pain, No Swelling, No Redness Cardiovascular : No Chest Pain, No SOB, No Dyspnea on Exertion, No Orthopnea, No Edema, No Palpitations Respiratory : No Cough, No Sputum, No Wheezing Gastrointestinal : + Nausea, + Vomiting, No Diarrhea, No Constipation, + abdominal Pain, No Hematochezia, No Melena Genitourinary : No Dysuria, No Urinary Frequency, No Hematuria, Musculoskeletal : No joint pain, No Myalgias, No Joint Swelling Skin : No Skin Lesions, No rash Neuro : No Weakness, No Numbness, No Dizziness, No Headache Psych : No Anxiety/Panic, No Depression All other systems reviewed and are negative Yes all other systems are reviewed and are negative [facility] Past Medical History Attestation statement: The following information was validated with the patient. Source: old records reviewed and nursing notes reviewed Medical History Asthma Hx of migraines Neck pain Surgical History History of delivery Family History Family History Father HTN (hypertension) Cancer Social History Social History Household Members: Significant Other Alcohol intake: former Patient Tobacco Use Status: Former Tobacco user Advance Directives: No Physical Exam ED Vital Signs: Vital Signs - 24 hr 04/26/23 13:00 04/26/23 15:16 Temperature 97.5 F 97.5 F Pulse Rate 100 68 Respiratory Rate 18 14 Blood Pressure 123/80 109/75 Pulse Oximetry 100 98 Oxygen Delivery Method Room Air Room Air BMI result Body Mass Index 30.2 vss Appearance: Alert.? Oriented X3.? No acute distress.? Head: Normocephalic, atraumatic, no step-offs or deformities Eyes: Pupils equal, round and reactive to light.? Neck: Normal inspection.? Neck supple.? CVS: Normal heart rate and rhythm.? Pulses normal.? Respiratory: No respiratory distress.? Breath sounds normal.? Abdomen: Soft and diffuse lower abd tenderness.? Skin: Skin warm and dry.? Normal skin color.? Normal skin turgor.? Extremities: No lower extremity edema.? No calf ttp. 5/5 strength to bilateral upper and lower extremities Neuro: Oriented X 3.? No motor deficit.? No sensory deficit. CN 2-12 intact Course Reevaluation(s) Reevaluation #1: CBC appears to be around patient's baseline. Chemistry no acute findings requiring intervention. Lipase normal. Transaminases within normal limits. Beta hCG negative. Urine with no signs of infection Urine noted to have blood however patient is currently on her menses. Influenza, COVID negative. CT abdomen and pelvis with increasing size of cystic 36 x 17 mm mass in the right lower quadrant between the right colon and cecum, differential includes endometrioma, mucocele, also noted to have no change in the COVID 36 x 17 mm right-sided adnexal mass, patient tells me she was aware of 1 of these findings however not sure which side, she will follow-up with OBGYN. I attached results to discharge so she could discuss with OBGYN and PCP. There is a stable 3 mm right lower lobe nodule unchanged. No acute findings in the upper abdomen, normal appendix. Pelvic/ transvaginal ultrasound without hyperechoic area in the left ovary question small calcification or dermoid, simple cyst in the right ovary. Several nabothian cysts. The uterus is unremarkable. Normal bilateral ovarian Doppler exam. Patient now feeling better, will do a p.o. challenge. Abdomen less tender. Will give another L of fluids. Time: 17:48 Reevaluation #2: Patient tolerating p.o., feeling much better. Will be discharged home with Zofran and Toradol , emphasized the importance of PCP and OBGYN follow-up. Educated patient on diagnosis and treatment plan, answered all question, patient verbalizes understanding. At this time patient will be discharged home, advised to return with new or worsening symptoms. Educated on worrisome signs and symptoms and when to return. At this time I feel comfortable discharge home. Time: 18:22 Medications Administered Generic Name Dose Route Start Last Admin Trade Name Freq PRN Reason Stop Dose Admin Sodium Chloride 1,000 mls @ 999 mls/hr 04/26/23 17:45 04/26/23 17:46 Ns IV 04/26/23 18:45 999 mls/hr .Q1H1M FIDE Administration Discontinued Medications Generic Name Dose Route Start Last Admin Trade Name Freq PRN Reason Stop Dose Admin Acetaminophen 650 mg 04/26/23 17:40 04/26/23 17:46 Acetaminophen 325 Mg Tablet PO 04/26/23 17:41 650 mg ONCE ONE Administration Diphenhydramine HCl 25 mg 04/26/23 16:13 04/26/23 16:29 Diphenhydramine Hcl 50 Mg/Ml Vial IVPUSH 04/26/23 16:14 25 mg ONCE ONE Administration Sodium Chloride 1,000 mls @ 999 mls/hr 04/26/23 13:15 04/26/23 14:38 Ns IV 04/26/23 14:15 Infused .Q1H1M FIDE Infusion Iohexol 85 ml 04/26/23 14:35 04/26/23 14:35 Iohexol 350 Mg/Ml 100 Ml Infus..Btl IV 04/26/23 14:36 85 ml ONCE ONE Administration Ketorolac Tromethamine 30 mg 04/26/23 13:12 04/26/23 13:33 Ketorolac Tromethamine 15 Mg/Ml Vial IVPUSH 04/26/23 13:13 30 mg ONCE ONE Administration Metoclopramide HCl 10 mg 04/26/23 16:13 04/26/23 16:30 Metoclopramide Hcl 10 Mg/2 Ml Vial IVPUSH 04/26/23 16:14 10 mg ONCE ONE Administration Ondansetron HCl 4 mg 04/26/23 13:12 04/26/23 13:34 Ondansetron Hcl 4 Mg/2 Ml Vial IVPUSH 04/26/23 13:13 4 mg ONCE ONE Administration Medical Decision Making Medical Decision Making [facility] Narrative: 1306 27 year old female presents w/ nausea and vomiting x 1 day Pe w/ diffuse abd tenderness to lower abdomen. This is likely viral illness versus gastroenteritis versus gastritis versus food poisoning. Unlikely acute abdomen, diverticulitis, appendicitis, pancreatitis, cholecystitis, choledocholithiasis, cholangitis. Will rule out electrolyte abnormalities and . Unlikley torsion or ectopic Plan- labs, urine, hcg Differential Diagnosis Differential Diagnoses: The differential diagnosis associated with the presentation includes This is likely viral illness versus gastroenteritis versus gastritis versus food poisoning. Unlikely acute abdomen, diverticulitis, appendicitis, pancreatitis, cholecystitis, choledocholithiasis, cholangitis. Will rule out electrolyte abnormalities and . Unlikley torsion or ectopic Admission/Observation Consideration of admission/observation: Escalation of care including admission/observation considered Lab Data MDM Lab Attestation statement: I reviewed the patient's lab results. 04/26/23 13:18 04/26/23 13:18 Labs: Lab Results 04/26/23 04/26/23 04/26/23 Range/Units 13:18 13:18 13:18 WBC 8.2 (4.8-10.8) X10*3/uL RBC 5.04 (4.20-5.50) X10*6/uL Hgb 13.9 (12.0-16.0) g/dl Hct 41.4 (37.0-47.0) % MCV 82.1 (80.0-98.0) fL MCH 27.6 (27.0-33.0) pg MCHC 33.6 (31.0-35.0) g/dl RDW 12.5 (11.0-16.0) % Plt Count 279 (160-400) X10*3/uL MPV 8.6 L (9.4-12.3) fL Immature Gran % (Auto) 0.2 (0.0-0.4) % Neut % (Auto) 63.7 (45-73) % Lymph % (Auto) 26.9 (20-40) % [place] % (Auto) 7.8 (2-11) % Eos % (Auto) 1.0 (0-4) % Baso % (Auto) 0.4 (0-2) % Lymph # (Auto) 2.2 (1.2-4.9) X10*3/uL [place] # (Auto) 0.6 (0.1-1.2) X10*3/uL Eos # (Auto) 0.1 (0.0-0.4) X10*3/uL Baso # (Auto) 0.0 (0.0-0.2) X10*3/uL Abs Immat Gran (auto) 0.02 (0.00-0.03) X10*3/uL Absolute Neuts (auto) 5.2 (2.0-8.3) x10*3/uL Absolute Nucleated RBC 0.000 (0.0-0.012) X10*3/uL Nucleated RBC % (auto) 0.0 (0.0-0.2) /100WBC Sodium 141 (135-145) mmol/L Potassium 3.9 (3.3-5.1) mmol/L Chloride 103 (96-108) mmol/L Carbon Dioxide 29 (22-29) mmol/L Anion Gap 13 (12-20) BUN 12 (9-16) mg/dL Creatinine 0.80 (0.5-1.4) mg/dL Estim Creat Clear Calc 96.2 Estimated GFR > 60 Random Glucose 99 (60-115) mg/dL Calcium 9.5 D (8.4-10.2) mg/dL Magnesium 2.1 (1.6-2.6) mg/dL Total Bilirubin 0.4 (0.0-1.0) mg/dL AST 19 (5-31) U/L ALT 14 (0-31) U/L Alkaline Phosphatase 66 (39-117) U/L Total Protein 8.5 H (6.5-8.0) g/dL Albumin 4.5 (3.5-5.0) g/dL Lipase 12 (8-78) U/L Beta HCG, Quant mIU/mL Urine Color Urine Appearance Urine pH (5.0-9.0) Ur Specific [place] (1.005-1.025) Urine Protein (Neg-Trace) mg/dL Urine Glucose (UA) (Negative) mg/dL Urine Ketones (Negative) mg/dL Urine Blood (Negative) Urine Nitrite (Negative) Ur Leukocyte Esterase (Negative) Urine RBC (0-2) /HPF Urine WBC (0-5) /HPF Ur Squamous Epith Cells (0-2) /HPF Urine Bacteria (None Seen) Hyaline Casts (0-2) /LPF Urine Test (NEGATIVE) COVID-19 (JULIA) (Negative) COVID-19 Clin Com Influenza Type A (JANNETH) Negative (Negative) Influenza Type B (JANNETH) Negative (Negative) Influenza A & B Note See Note 04/26/23 04/26/23 04/26/23 Range/Units 13:18 13:18 13:18 WBC (4.8-10.8) X10*3/uL RBC (4.20-5.50) X10*6/uL Hgb (12.0-16.0) g/dl Hct (37.0-47.0) % MCV (80.0-98.0) fL MCH (27.0-33.0) pg MCHC (31.0-35.0) g/dl RDW (11.0-16.0) % Plt Count (160-400) X10*3/uL MPV (9.4-12.3) fL Immature Gran % (Auto) (0.0-0.4) % Neut % (Auto) (45-73) % Lymph % (Auto) (20-40) % [place] % (Auto) (2-11) % Eos % (Auto) (0-4) % Baso % (Auto) (0-2) % Lymph # (Auto) (1.2-4.9) X10*3/uL [place] # (Auto) (0.1-1.2) X10*3/uL Eos # (Auto) (0.0-0.4) X10*3/uL Baso # (Auto) (0.0-0.2) X10*3/uL Abs Immat Gran (auto) (0.00-0.03) X10*3/uL Absolute Neuts (auto) (2.0-8.3) x10*3/uL Absolute Nucleated RBC (0.0-0.012) X10*3/uL Nucleated RBC % (auto) (0.0-0.2) /100WBC Sodium (135-145) mmol/L Potassium (3.3-5.1) mmol/L Chloride (96-108) mmol/L Carbon Dioxide (22-29) mmol/L Anion Gap (12-20) BUN (9-16) mg/dL Creatinine (0.5-1.4) mg/dL Estim Creat Clear Calc Estimated GFR Random Glucose (60-115) mg/dL Calcium (8.4-10.2) mg/dL Magnesium (1.6-2.6) mg/dL Total Bilirubin (0.0-1.0) mg/dL AST (5-31) U/L ALT (0-31) U/L Alkaline Phosphatase (39-117) U/L Total Protein (6.5-8.0) g/dL Albumin (3.5-5.0) g/dL Lipase (8-78) U/L Beta HCG, Quant < 2 mIU/mL Urine Color Yellow Urine Appearance Clear Urine pH 6.0 (5.0-9.0) Ur Specific [place] 1.025 (1.005-1.025) Urine Protein Negative (Neg-Trace) mg/dL Urine Glucose (UA) Negative (Negative) mg/dL Urine Ketones Negative (Negative) mg/dL Urine Blood Large (3+) H (Negative) Urine Nitrite Negative (Negative) Ur Leukocyte Esterase Negative (Negative) Urine RBC >20 H (0-2) /HPF Urine WBC 0-5 (0-5) /HPF Ur Squamous Epith Cells 0-2 (0-2) /HPF Urine Bacteria None Seen (None Seen) Hyaline Casts 0-2 (0-2) /LPF Urine Test (NEGATIVE) COVID-19 (JULIA) Negative (Negative) COVID-19 Clin Com See Note Influenza Type A (JANNETH) (Negative) Influenza Type B (JANNETH) (Negative) Influenza A & B Note 04/26/23 Range/Units 13:18 WBC (4.8-10.8) X10*3/uL RBC (4.20-5.50) X10*6/uL Hgb (12.0-16.0) g/dl Hct (37.0-47.0) % MCV (80.0-98.0) fL MCH (27.0-33.0) pg MCHC (31.0-35.0) g/dl RDW (11.0-16.0) % Plt Count (160-400) X10*3/uL MPV (9.4-12.3) fL Immature Gran % (Auto) (0.0-0.4) % Neut % (Auto) (45-73) % Lymph % (Auto) (20-40) % [place] % (Auto) (2-11) % Eos % (Auto) (0-4) % Baso % (Auto) (0-2) % Lymph # (Auto) (1.2-4.9) X10*3/uL [place] # (Auto) (0.1-1.2) X10*3/uL Eos # (Auto) (0.0-0.4) X10*3/uL Baso # (Auto) (0.0-0.2) X10*3/uL Abs Immat Gran (auto) (0.00-0.03) X10*3/uL Absolute Neuts (auto) (2.0-8.3) x10*3/uL Absolute Nucleated RBC (0.0-0.012) X10*3/uL Nucleated RBC % (auto) (0.0-0.2) /100WBC Sodium (135-145) mmol/L Potassium (3.3-5.1) mmol/L Chloride (96-108) mmol/L Carbon Dioxide (22-29) mmol/L Anion Gap (12-20) BUN (9-16) mg/dL Creatinine (0.5-1.4) mg/dL Estim Creat Clear Calc Estimated GFR Random Glucose (60-115) mg/dL Calcium (8.4-10.2) mg/dL Magnesium (1.6-2.6) mg/dL Total Bilirubin (0.0-1.0) mg/dL AST (5-31) U/L ALT (0-31) U/L Alkaline Phosphatase (39-117) U/L Total Protein (6.5-8.0) g/dL Albumin (3.5-5.0) g/dL Lipase (8-78) U/L Beta HCG, Quant mIU/mL Urine Color Urine Appearance Urine pH (5.0-9.0) Ur Specific [place] (1.005-1.025) Urine Protein (Neg-Trace) mg/dL Urine Glucose (UA) (Negative) mg/dL Urine Ketones (Negative) mg/dL Urine Blood (Negative) Urine Nitrite (Negative) Ur Leukocyte Esterase (Negative) Urine RBC (0-2) /HPF Urine WBC (0-5) /HPF Ur Squamous Epith Cells (0-2) /HPF Urine Bacteria (None Seen) Hyaline Casts (0-2) /LPF Urine Test NEGATIVE (NEGATIVE) COVID-19 (JULIA) (Negative) COVID-19 Clin Com Influenza Type A (JANNETH) (Negative) Influenza Type B (JANNETH) (Negative) Influenza A & B Note Independent Interpretation I performed an independent interpretation of an: Ultrasound (US/US pelvic and transvaginal IMPRESSION: Hyperechoic area in the left ovary question small calcification or dermoid. Simple cyst right ovary. Several nabothian cysts. The uterus is unremarkable. Normal bilateral ovarian Doppler exam) and CT Scan (CT/CT abdomen pelvis w IV con IMPRESSION: 1. Increasing size of cystic 36 x 17 mm mass in the right lower quadrant mass between the right colon and cecum. Differential considerations include endometrioma; mucocele; pelvic inclusion cyst, and cystic neoplasm. Clinical follow-up and management are r) Radiology Impression Discussion of test interpretation with radiology: I have reviewed the radiologist's reading. External Record Review External record reviewed: Inpatient record, Office record, Outpatient record, Prior outpatient labs, Prior outpatient radiology, Primary care record and Outside ED record Prescription Management I considered prescription management with: Pain Medication Core Measures AMI core measures followed: Yes Measure exclusions: not indicated Critical Care Time Critical Care Time Critical Care Time: No Discharge Plan Discharge Clinical Impression: Nausea & vomiting, Abdominal pain, Viral illness Patient Disposition: Home, Self-Care Instructions: Acute Nausea and Vomiting (ED), Abdominal Pain (ED) Additional Instructions: Take your medications as prescribed. If you were prescribed antibiotics today, it is important that you take your medication to their entirety, do not skip any doses, do not finish them early. Follow-up with your primary care provider this week. Follow up with OBGYN to discuss US and CT findings below. Return to the emergency department with new or worsening symptoms. Such as fevers, chills, chest pain, shortness of breath, nausea, vomiting, dizziness, headache, vision changes, lethargy In case of emergency call 911 Toradol has been sent to your pharmacy, you tolerated this well in the department. Please take this as prescribed do not take this with ibuprofen, or other NSAIDs, do not mix this with alcohol. Side effects of this medication including increased risk for bleeding and possible kidney injury. ?US/US pelvic and transvaginal IMPRESSION: Hyperechoic area in the left ovary question small calcification or dermoid. ? Simple cyst right ovary. ? Several nabothian cysts. The uterus is unremarkable. ? Normal bilateral ovarian Doppler exam. CT/CT abdomen pelvis w IV con IMPRESSION: ? 1. Increasing size of cystic 36 x 17 mm mass in the right lower quadrant mass between the right colon and cecum. Differential considerations include endometrioma; mucocele; pelvic inclusion cyst, and cystic neoplasm. Clinical follow-up and management are recommended. ? 2. No change in ovoid 36 x 17 mm right adnexal mass, nor in the rounded prominence of the left ovary. Gynecologic management is recommended. The stability favors benignity, but benign bilateral mesenchymal lesions of the ovaries, including endometrioma, fibroma, thecoma,etc, are not excluded. ? 3. Stable 3 mm right lower lobe nodule, for which no additional specific follow-up is needed. ? 4. No acute findings in the upper abdomen. Prescriptions: New ketorolac 10 mg tablet 10 mg PO TID PRN (Reason: pain) 5 Days Qty: 15 0RF ondansetron 4 mg tablet,disintegrating 4 mg PO Q6H PRN (Reason: nausea and vomiting) Qty: 14 0RF No Action cyclobenzaprine 10 mg tablet 10 mg PO TID PRN (Reason: muscle spasm) Qty: 10 0RF ibuprofen 600 mg tablet 600 mg PO TID PRN (Reason: pain) Qty: 14 0RF sumatriptan succinate 50 mg tablet 50 mg PO tizanidine 2 mg capsule 2 mg PO Q8H PRN naproxen 500 mg tablet 500 mg PO BID magnesium oxide 400 mg (241.3 mg magnesium) tablet 400 mg PO BEDTIME Qty: 30 6RF Referrals: Yamileth Anand MD [Primary Care Provider] - 2 days Amanuel Perry MD [Physician] - 2 days Stand Alone Forms: Work/School Release
[2023-04-26 13:08] VITALS: BMI 30.2
[2023-04-26 13:27] LABS: MANUAL DIFF FLAG NO
[2023-04-26 13:28] LABS: Appearance Urine Clear; Color Urine Yellow; Glucose Urine UA Negative (Negative); Leukocyte Esterase Urine Negative (Negative); Nitrite Urine Negative (Negative); Specific Gravity - Urine 1.025 (1.005-1.025); UMIC TRIGGER UACC YES; Urine Blood Large (3+) (Negative); Urine Ketones Negative (Negative); Urine Protein Negative (Neg-Trace)
[2023-04-26 13:29] LABS: Basophils Percent Auto 0.4 % (0-2); Eosinophils Absolute Auto 0.1 X10*3/uL (0.0-0.4); Hematocrit 41.4 % (37.0-47.0); Hemoglobin 13.9 g/dl (12.0-16.0); Imm Gran Abs Auto 0.02 X10*3/uL (0.00-0.03); Imm Gran Pct Auto 0.2 % (0.0-0.4); Lymphocytes Absolute Auto 2.2 X10*3/uL (1.2-4.9); Lymphocytes Percent Auto 26.9 % (20-40); Mean Corpuscular HGB Conc 33.6 g/dl (31.0-35.0); Mean Corpuscular Hemoglobin 27.6 pg (27.0-33.0); Mean Corpuscular Volume 82.1 fL (80.0-98.0); Mean Platelet Volume 8.6 fL (9.4-12.3); Monocytes Absolute Auto 0.6 X10*3/uL (0.1-1.2); Monocytes Percent Auto 7.8 % (2-11); Neutrophils Absolute Auto 5.2 x10*3/uL (2.0-8.3); Neutrophils Percent Auto 63.7 % (45-73); Platelet Count 279 X10*3/uL (160-400); Red Blood Count 5.04 X10*6/uL (4.20-5.50); Red Cell Distribution Width 12.5 % (11.0-16.0); White Blood Count 8.2 X10*3/uL (4.8-10.8)
[2023-04-26 13:30] LABS: Bacteria Urine None Seen (None Seen); Hyaline Casts Urine 0-2 /LPF (0-2); RBC Urine >20 /HPF (0-2); Squamous Epithelial Cell Urine 0-2 /HPF (0-2); WBC Urine 0-5 /HPF (0-5)
[2023-04-26] MEDS: 0.9 % Sodium Chloride 1,000 ML 999 ML IV ×2 (13:30→17:46)
[2023-04-26] MEDS: Ketorolac Tromethamine 15 MG/ML VIAL 30 MG IVPUSH (13:33)
[2023-04-26] MEDS: ondansetron HCL 4 MG/2 ML VIAL IVPUSH (13:34)
[2023-04-26 13:35] LABS: UPreg QC Valid YES; Urine Pregnancy NEGATIVE (NEGATIVE)
[2023-04-26 13:42] LABS: Alanine Aminotransferase 14 U/L (0-31); Albumin Level 4.5 g/dL (3.5-5.0); Alkaline Phosphatase 66 U/L (39-117); Anion Gap 13 (12-20); Aspartate Amino Transferase 19 U/L (5-31); Bilirubin Total 0.4 mg/dL (0.0-1.0); Blood Urea Nitrogen 12 mg/dL (9-16); Calcium 9.5 mg/dL (8.4-10.2); Carbon Dioxide 29 mmol/L (22-29); Chloride 103 mmol/L (96-108); Creatinine Clr Calc Pharmacy 96.2; Estimated Glomerular Filt Rate > 60; Glucose Random 99 mg/dL (60-115); Lipase 12 U/L (8-78); Magnesium 2.1 mg/dL (1.6-2.6); Potassium 3.9 mmol/L (3.3-5.1); Sodium 141 mmol/L (135-145); Total Protein 8.5 g/dL (6.5-8.0)
[2023-04-26 13:49] LABS: HCG Quantitative < 2 mIU/mL
[2023-04-26 13:59] LABS: COVID-19 Test Negative (Negative); IDNOW Serial# 08D9AD1C
[2023-04-26 14:00] LABS: IDNOW Serial# BCCEAD1C; Influenza A Negative (Negative); Influenza B2 Negative (Negative)
[2023-04-26] MEDS: iohexoL 350 MG/ML 100 ML INFUS..BTL 85 ML IV (14:35)
[2023-04-26 15:16] VITALS: BP 109/75; PULSE 68; RESP 14; TEMP 36.4; O2SAT 98
[2023-04-26] MEDS: diphenhydrAMINE HCL 50 MG/ML VIAL 25 MG IVPUSH (16:29)
[2023-04-26] MEDS: Metoclopramide HCl 10 MG/2 ML VIAL IVPUSH (16:30)
[2023-04-26] MEDS: Acetaminophen 325 MG TABLET 650 MG PO (17:46)
[2023-04-26 18:41] VITALS: BP 107/58; PULSE 62; RESP 16; TEMP 37.2; O2SAT 99
== END 2023-04-26 18:46 | disposition home or self-care (01) ==
PROVIDERS: Physician Assistant; Emergency Provider Emergency Medicine; PCP Student in an Organized Health Care Education/Training Program
DX: B34.9 Viral infection, unspecified (principal); R11.2 Nausea with vomiting, unspecified; R10.30 Lower abdominal pain, unspecified; N83.291 Other ovarian cyst, right side; Z20.822 Contact with and (suspected) exposure to COVID-19; Z79.899 Other long term (current) drug therapy
CPT/HCPCS: 36415; 74177; 76830; 76856; 80053; 81001; 81025; 83690; 83735; 84702; 85025; 87502; 87635; 93975; 96361; 96374; 96375; 99284; J1200; J1885; J2405; J2765; Q9967

== ENCOUNTER 2023-05-03 06:55 | Emergency (ER) | payer OTHER, MEDICAID, SELFPAY ==
--- NOTE | ~2023-05-03 | US_ITS ---
EXAMINATION: US PELVIS, TRANSVAGINAL AND DOPPLER. CLINICAL INFORMATION: Pelvic pain. Evaluate for ovarian torsion. COMPARISON: None available. TECHNIQUE: Ultrasound of the pelvis is performed using both transabdominal and transvaginal transducers along with Doppler. Transvaginal imaging is performed due to inadequate visualization transabdominally. FINDINGS: Uterus: The uterus is anteverted and measures 11.6 x 3.4 x 5.0. The double wall endometrial thickness is 0.5 cm. The uterus is smooth in contour and has normal myometrial echogenicity. No visible fibroid. There are small nabothian cysts seen in the cervix. Adnexa: Both ovaries are visualized. There is normal color flow to the adnexa. There is no ovarian torsion. There is no pelvic ascites or fluid collection. Right ovary measures 3.4 x 3.7 x 2.0 CM and volume 13.2 mL. There are small simple follicles. Left ovary measures 2.7 x 2.6 x 2.1 cm and volume 7.7 mL. There are small follicles visualized. Previously left ovary measured 3.0 x 2.1 x 7.7). There is mild increase vessels in the right adnexa suggestive of pelvic congestion. On Doppler exam there is normal arterial and venous flow seen to both ovaries. No evidence of torsion. US/US pelvic ovarian doppler IMPRESSION: Normal physiological follicles in both ovaries but otherwise unremarkable. There is normal arterial and venous flow seen to both ovaries. No evidence of torsion. Several nabothian cysts in the cervix. The uterus is unremarkable. Suspect right pelvic venous congestion.
--- NOTE | ~2023-05-03 | CT_ITS ---
EXAMINATION: CT ABDOMEN AND PELVIS WITH CONTRAST CLINICAL INFORMATION: Right lower quadrant pain and mass. COMPARISON: 04/26/2023, 10/27/2022, 10/15/2021 CT scan of the abdomen and pelvis. Pelvic ultrasound performed today. TECHNIQUE: Multidetector volumetric images were obtained from the superior aspect of the liver through the pubic symphysis following administration 85 mL of Omnipaque 350 intravenous contrast. Sagittal and coronal reformatted images were obtained on the technologist's workstation. Oral contrast: No This CT examination was performed using dose optimization techniques as appropriate, variously including the following: *Automated exposure control *Adjustment of mA and/or kV according to patient size (this includes techniques or standardized protocols for targeted exams where dose is matched to indication/reason for exam; i.e. extremities or head) *Use of iterative reconstruction technique DLP: 42 mGy-cm FINDINGS: LUNG BASES: 0.3 cm nodule is again seen posterolaterally in the right lower lobe without interval change (image 1, series 5). No pleural or pericardial effusions. LIVER, GALLBLADDER, AND BILIARY TREE: Unremarkable. PANCREAS: Unremarkable. SPLEEN: Unremarkable. ADRENAL GLANDS: Unremarkable. KIDNEYS AND URETERS: The kidneys are normal in size, shape, and attenuation. No hydronephrosis, hydroureter, or calculi seen. No perinephric stranding. BLADDER: Unremarkable. GASTROINTESTINAL TRACT: The stomach, small bowel and appendix are unremarkable. A fluid attenuation cyst is again seen posterior to the cecum measuring up to 3.3 cm without surrounding abnormality (image 36, series 6). The colon and rectum are unremarkable. ABDOMINAL WALL: No significant hernia is appreciated. LYMPH NODES: No lymphadenopathy. VASCULAR: Unremarkable. PELVIC VISCERA: Anteverted and mildly retroflexed uterus. Bilateral ovarian cysts measuring 3.7 cm on the right and 2.6 cm on the left without surrounding abnormality. OSSEOUS STRUCTURES: Unremarkable. CT/CT abdomen pelvis w IV con IMPRESSION: 1. No acute intra-abdominal/pelvic abnormality. Simple cyst in the right lower quadrant demonstrates similar benign features to the 2021 study but has mildly increased. This could be monitored for change with a repeat CT scan in one year. 2. Bilateral ovarian cysts measuring up to 3.6 cm are simple appearing cysts. The right cyst is amenable to follow-up with pelvic ultrasound in 6-12 months. 3. No significant change in 0.3 cm right lower lobe pulmonary nodule. Following Fleischner Society guidelines, no imaging follow-up at this time.
--- NOTE | ~2023-05-03 | US_ITS ---
EXAMINATION: US PELVIS, TRANSVAGINAL AND DOPPLER. CLINICAL INFORMATION: Pelvic pain. Evaluate for ovarian torsion. COMPARISON: None available. TECHNIQUE: Ultrasound of the pelvis is performed using both transabdominal and transvaginal transducers along with Doppler. Transvaginal imaging is performed due to inadequate visualization transabdominally. FINDINGS: Uterus: The uterus is anteverted and measures 11.6 x 3.4 x 5.0. The double wall endometrial thickness is 0.5 cm. The uterus is smooth in contour and has normal myometrial echogenicity. No visible fibroid. There are small nabothian cysts seen in the cervix. Adnexa: Both ovaries are visualized. There is normal color flow to the adnexa. There is no ovarian torsion. There is no pelvic ascites or fluid collection. Right ovary measures 3.4 x 3.7 x 2.0 CM and volume 13.2 mL. There are small simple follicles. Left ovary measures 2.7 x 2.6 x 2.1 cm and volume 7.7 mL. There are small follicles visualized. Previously left ovary measured 3.0 x 2.1 x 7.7). There is mild increase vessels in the right adnexa suggestive of pelvic congestion. On Doppler exam there is normal arterial and venous flow seen to both ovaries. No evidence of torsion. US/US pelvic and transvaginal IMPRESSION: Normal physiological follicles in both ovaries but otherwise unremarkable. There is normal arterial and venous flow seen to both ovaries. No evidence of torsion. Several nabothian cysts in the cervix. The uterus is unremarkable. Suspect right pelvic venous congestion.
[2023-05-03 06:58] VITALS: BP 145/91; PULSE 78; RESP 16; TEMP 36.1; O2SAT 97; BMI 26.5
[2023-05-03 07:07] VITALS: BP 118/89; PULSE 116; RESP 18; TEMP 36.5; O2SAT 100; BMI 30.4
--- NOTE | 2023-05-03 07:19 | ED_ITS ---
HPI - Abdominal Pain General Chief Complaint: Abdominal Pain Stated Complaint: n/v/d intensified, fever Time Seen by Provider: 05/03/23 07:18 Source: patient Mode of arrival: ambulatory Limitations: no limitations History of Present Illness HPI narrative: 27 year old female A1 with PMHx significant for asthma, migraine GOLDEN, depression, PTSD, alcohol & substance use disorder presents to the ED today with a complaint of RLQ pain, N/V/D x1 week worsening 10 hours [employer]. Patient evaluated at [facility] [address] abd/pelvis showing [id number] RLQ cystic mass between the R colon and cecum, 2x2cm R adnexal cyst, and an unremarkable b/l ovarian doppler US. She now reports increased RLQ pain described as a cramping sensation beginning at 2200 last night, admits to feeling like she's in labor. Reports associated TMAX of 104F at 0200 today, diarrhea, and N/V secondary to pain. LMP last week, admits to hx of heavy/ painful periods. Does not follow with OBGYN- was unable to get an appointment with Dr. Perry this past week. Denies chills, CP/SOB, urinary frequency/ urgency, hematuria, constipation, LE swelling/pain. MD elicited complaint: abdominal pain Pertinent past history: other (ovarian cyst) Severity: moderate Exacerbating factors: nothing Relieving factors: nothing Associated symptoms: nausea, vomiting and diarrhea Related Data Home Medications Medication Instructions Recorded Confirmed naproxen 500 mg tablet 500 mg PO BID 11/28/22 11/28/22 sumatriptan succinate 50 mg tablet 50 mg PO migraine 11/28/22 11/28/22 tizanidine 2 mg capsule 2 mg PO Q8H PRN 11/28/22 11/28/22 Previous Rx's Medication Instructions Recorded magnesium oxide 400 mg (241.3 mg 400 mg PO BEDTIME #30 tabs 11/28/22 magnesium) tablet cyclobenzaprine 10 mg tablet 10 mg PO TID PRN muscle spasm #10 12/03/22 tabs ibuprofen 600 mg tablet 600 mg PO TID PRN pain #14 tabs 12/03/22 ketorolac 10 mg tablet 10 mg PO TID PRN pain 5 days #15 04/26/23 tabs ondansetron 4 mg disintegrating 4 mg PO Q6H PRN nausea and 04/26/23 tablet vomiting #14 tabs naproxen 500 mg tablet 500 mg PO BID PRN pain #20 tabs 05/03/23 ondansetron 4 mg disintegrating 4 mg PO Q8H PRN nausea and 05/03/23 tablet vomiting #14 tabs tramadol 50 mg tablet 50 mg PO Q8H PRN severe pain 05/03/23 (scale score 7-10) #8 tabs Allergies Allergy/AdvReac Type Severity Reaction Status Date / Time watermelon Allergy Severe ANAPHYLAXIS Verified 12/03/22 04:02 pollen Allergy Unknown rash Uncoded 11/28/22 09:34 Review of Systems Review of Systems Constitutional: + Fever, No Chills ENT/Mouth: No sore throat, No Rhinorrhea, No Swallowing Difficulty Eyes: No Eye Pain, No Swelling, No Redness Cardiovascular: No Chest Pain, No SOB, No Orthopnea, No Edema Respiratory: No Cough, No Sputum, No Wheezing, No dyspnea Gastrointestinal: + Nausea, + Vomiting, + Diarrhea, + abdominal Pain, No Hematochezia, No Melena Genitourinary: No Dysuria, No Urinary Frequency, No Hematuria Musculoskeletal: No joint pain, No Myalgias Skin: No Skin Lesions, No rash Neuro: No Weakness, No Numbness, No Dizziness, No Headache Psych: + Anxiety/Panic, No Depression Yes all other systems are reviewed and are negative [facility] Past Medical History Attestation statement: The following information was validated with the patient. Source: old records reviewed Medical History (Updated 05/03/23 @ 12:20 by FANNY Davis) Alcohol use disorder, moderate, in early remission Asthma Cocaine abuse in remission Major depressive disorder, recurrent severe without psychotic features Migraine Opioid use disorder Post-traumatic stress disorder, unspecified Surgical History History of delivery Family History Family History Father HTN (hypertension) Cancer Social History Social History Household Members: Significant Other Alcohol intake: former Patient Tobacco Use Status: Former Tobacco user Smoked in Last 30 Days: No Use of substances other than those prescribed or required for medical reasons: No Advance Directives: No Physical Exam ED Vital Signs: Vital Signs - 24 hr 05/03/23 06:58 05/03/23 07:07 05/03/23 08:00 Temperature 97 F 97.7 F 98.3 F Pulse Rate 78 116 H 59 Respiratory Rate 16 18 14 Blood Pressure 145/91 H 118/89 119/73 Pulse Oximetry 97 100 100 Oxygen Delivery Method Room Air Room Air Room Air 05/03/23 10:01 05/03/23 12:28 05/03/23 13:52 Temperature 98.8 F 97.7 F Pulse Rate 68 63 78 Respiratory Rate 15 19 Blood Pressure 110/70 107/70 109/69 Pulse Oximetry 100 99 Oxygen Delivery Method Room Air Room Air Room Air BMI result Body Mass Index 30.4 Appearance: Alert. Oriented X3. Patient midly distressed lying on ED bed, hyperventilating due to pain, tearful. Head: normocephalic, atraumatic. Eyes: Pupils equal, round and reactive to light. ENT: Pharynx normal. No tonsillar swelling or exudate. Neck: Normal inspection. Neck supple. CVS: Normal heart rate and rhythm. Pulses normal. Respiratory: No respiratory distress. Breath sounds normal. Abdomen: Soft, nondistended, tender to palpation of RLQ, + rebound tenderness, no guarding. +BS x4 Skin: Skin warm and dry. Normal skin color. Normal skin turgor. No rashes. Extremities: No lower extremity edema. No joint swelling. Neuro/psych: Oriented X 3. No motor deficit. No sensory deficit. CN II-XII intact. Normal speech and cognition. Course Course Course Narrative: 813-- Received critical lab results of lactic 3.9 > concern for acute abdomen at this time > on reevaluation, patient still reports 8/10 pain. BP now 90s/60s > 2nd order of IVF ordered > Zosyn initiated & CT scan abd/pelvis with contrast ordered 16-- Leukocytosis to 13.3, elevated from 8.2 on 04/26/23. Chemistry without acute electrolyte abnormality requiring intervention. UA negative for infection or blood. U preg negative. concern for possible appendicitis so Zosyn ordered. 1008-- No evidence of ovarian torsion on doppler US > CT report with acute process. US pelvic and transvaginal IMPRESSION: Normal physiological follicles in both ovaries but otherwise unremarkable. There is normal arterial and venous flow seen to both ovaries. No evidence of torsion. Several nabothian cysts in the cervix. The uterus is unremarkable. Suspect right pelvic venous congestion. patient NOT septic. Medical Decision Making Medical Decision Making [facility] Narrative: 27 year old female A1 with PMHx significant for asthma, migraine GOLDEN, depression, PTSD, alcohol & substance use disorder presents to the ED today with a complaint of RLQ pain, N/V/D x1 week worsening 10 hours [employer]. Vital signs notable for elevated blood pressure and tachycardia. Exam notable for RLQ TTP without guarding, normoactive BS throughout. Lungs CTA b/l. No LE edema or calf tenderness. Plan: labs, imaging, pain control, IVF Pelvic U/S showing normal flow. CT scan without changes from prior on 04/26. Patient required multiple doses of IV narcotics for pain control. She had recent pelvic 3 weeks ago with negative STI testing. NOT sexually active. No vaginal discharge. Upon further questioning reports the pain has been present for months with daily vomiting. She was supposed to get the cystic mass in the RLQ surgically removed at [facility] but never did and now she can't get back in to see them. Dr. Perry out until May 16. Patient given PO trial and did not tolerate. Additional anti-emetic and anxiolytic ordered with improvement in symptoms. now tolerating PO. pain comes in waves, lasts about 5 minutes and then subsides. at this time pain is either due to ovarian cyst vs RLQ mass. ?endometriosis. she needs to f/u with INDUSTRIAL LOCOMOTIVE OPERATOR comfortable w/ d/c home with pain control and close outpatient follow up. return precautions discussed. Differential Diagnosis Differential Diagnoses: The differential diagnosis associated with the presentation includes Ectopic , ovarian torsion, ovarian cyst, pyelo, UTI, PID, TOA, appendicitis, cholecystitis Admission/Observation Consideration of admission/observation: Escalation of care including adm ission/observation considered multiple doses of IV narcotics required for pain control Lab Data [facility] Lab Attestation statement: I reviewed the patient's lab results. Leukocytosis to 13.3, elevated from 8.2 on 04/26/23, likely reactive from vomiting 05/03/23 07:24 05/03/23 07:24 Labs: Lab Results 05/03/23 05/03/23 05/03/23 Range/Units 07:24 07:24 07:43 WBC 13.3 H (4.8-10.8) X10*3/uL RBC 5.30 (4.20-5.50) X10*6/uL Hgb 14.7 (12.0-16.0) g/dl Hct 43.6 (37.0-47.0) % MCV 82.3 (80.0-98.0) fL MCH 27.7 (27.0-33.0) pg MCHC 33.7 (31.0-35.0) g/dl RDW 12.6 (11.0-16.0) % Plt Count 311 (160-400) X10*3/uL MPV 8.4 L (9.4-12.3) fL Immature Gran % (Auto) 0.3 (0.0-0.4) % Neut % (Auto) 69.7 (45-73) % Lymph % (Auto) 21.2 (20-40) % [place]once % (Auto) 6.8 (2-11) % Eos % (Auto) 1.5 (0-4) % Baso % (Auto) 0.5 (0-2) % Lymph # (Auto) 2.8 (1.2-4.9) X10*3/uL Ponce # (Auto) 0.9 (0.1-1.2) X10*3/uL Eos # (Auto) 0.2 (0.0-0.4) X10*3/uL Baso # (Auto) 0.1 (0.0-0.2) X10*3/uL Abs Immat Gran (auto) 0.04 H (0.00-0.03) X10*3/uL Absolute Neuts (auto) 9.3 H (2.0-8.3) x10*3/uL Absolute Nucleated RBC 0.000 (0.0-0.012) X10*3/uL Nucleated RBC % (auto) 0.0 (0.0-0.2) /100WBC ESR (0-20) MM/HR Sodium 139 (135-145) mmol/L Potassium 4.3 (3.3-5.1) mmol/L Chloride 102 (96-108) mmol/L Carbon Dioxide 25 (22-29) mmol/L Anion Gap 16 (12-20) BUN 8 L (9-16) mg/dL Creatinine 0.93 (0.5-1.4) mg/dL Estim Creat Clear Calc 83.0 Estimated GFR > 60 Random Glucose 98 (60-115) mg/dL Lactic Acid 3.9 H* (0.5-2.0) mmol/L Lactic Acid F/U @ 2Hr (0.5-2.0) mmol/L Calcium 10.6 H D (8.4-10.2) mg/dL Magnesium 2.0 (1.6-2.6) mg/dL Total Bilirubin 0.6 (0.0-1.0) mg/dL Direct Bilirubin 0.2 (0.0-0.5) mg/dL AST 19 (5-31) U/L ALT 15 (0-31) U/L Alkaline Phosphatase 70 (39-117) U/L C-Reactive Protein (< or = 0.50) mg/dL Total Protein 9.0 H (6.5-8.0) g/dL Albumin 4.9 (3.5-5.0) g/dL Urine Color Urine Appearance Urine pH (5.0-9.0) Ur Specific [place] (1.005-1.025) Urine Protein (Neg-Trace) mg/dL Urine Glucose (UA) (Negative) mg/dL Urine Ketones (Negative) mg/dL Urine Blood (Negative) Urine Nitrite (Negative) Ur Leukocyte Esterase (Negative) Urine Test (NEGATIVE) 05/03/23 05/03/23 05/03/23 Range/Units 07:44 07:44 07:49 WBC (4.8-10.8) X10*3/uL RBC (4.20-5.50) X10*6/uL Hgb (12.0-16.0) g/dl Hct (37.0-47.0) % MCV (80.0-98.0) fL MCH (27.0-33.0) pg MCHC (31.0-35.0) g/dl RDW (11.0-16.0) % Plt Count (160-400) X10*3/uL MPV (9.4-12.3) fL Immature Gran % (Auto) (0.0-0.4) % Neut % (Auto) (45-73) % Lymph % (Auto) (20-40) % Ponce % (Auto) (2-11) % Eos % (Auto) (0-4) % Baso % (Auto) (0-2) % Lymph # (Auto) (1.2-4.9) X10*3/uL Ponce # (Auto) (0.1-1.2) X10*3/uL Eos # (Auto) (0.0-0.4) X10*3/uL Baso # (Auto) (0.0-0.2) X10*3/uL Abs Immat Gran (auto) (0.00-0.03) X10*3/uL Absolute Neuts (auto) (2.0-8.3) x10*3/uL Absolute Nucleated RBC (0.0-0.012) X10*3/uL Nucleated RBC % (auto) (0.0-0.2) /100WBC ESR 11 (0-20) MM/HR Sodium (135-145) mmol/L Potassium (3.3-5.1) mmol/L Chloride (96-108) mmol/L Carbon Dioxide (22-29) mmol/L Anion Gap (12-20) BUN (9-16) mg/dL Creatinine (0.5-1.4) mg/dL Estim Creat Clear Calc Estimated GFR Random Glucose (60-115) mg/dL Lactic Acid (0.5-2.0) mmol/L Lactic Acid F/U @ 2Hr (0.5-2.0) mmol/L Calcium (8.4-10.2) mg/dL Magnesium (1.6-2.6) mg/dL Total Bilirubin (0.0-1.0) mg/dL Direct Bilirubin (0.0-0.5) mg/dL AST (5-31) U/L ALT (0-31) U/L Alkaline Phosphatase (39-117) U/L C-Reactive Protein (< or = 0.50) mg/dL Total Protein (6.5-8.0) g/dL Albumin (3.5-5.0) g/dL Urine Color Yellow Urine Appearance Clear Urine pH >= 9.0 (5.0-9.0) Ur Specific [place] 1.010 (1.005-1.025) Urine Protein Negative (Neg-Trace) mg/dL Urine Glucose (UA) Negative (Negative) mg/dL Urine Ketones Negative (Negative) mg/dL Urine Blood Negative (Negative) Urine Nitrite Negative (Negative) Ur Leukocyte Esterase Negative (Negative) Urine Test NEGATIVE (NEGATIVE) 05/03/23 05/03/23 Range/Units 07:49 10:10 WBC (4.8-10.8) X10*3/uL RBC (4.20-5.50) X10*6/uL Hgb (12.0-16.0) g/dl Hct (37.0-47.0) % MCV (80.0-98.0) fL MCH (27.0-33.0) pg MCHC (31.0-35.0) g/dl RDW (11.0-16.0) % Plt Count (160-400) X10*3/uL MPV (9.4-12.3) fL Immature Gran % (Auto) (0.0-0.4) % Neut % (Auto) (45-73) % Lymph % (Auto) (20-40) % Ponce % (Auto) (2-11) % Eos % (Auto) (0-4) % Baso % (Auto) (0-2) % Lymph # (Auto) (1.2-4.9) X10*3/uL Ponce # (Auto) (0.1-1.2) X10*3/uL Eos # (Auto) (0.0-0.4) X10*3/uL Baso # (Auto) (0.0-0.2) X10*3/uL Abs Immat Gran (auto) (0.00-0.03) X10*3/uL Absolute Neuts (auto) (2.0-8.3) x10*3/uL Absolute Nucleated RBC (0.0-0.012) X10*3/uL Nucleated RBC % (auto) (0.0-0.2) /100WBC ESR (0-20) MM/HR Sodium (135-145) mmol/L Potassium (3.3-5.1) mmol/L Chloride (96-108) mmol/L Carbon Dioxide (22-29) mmol/L Anion Gap (12-20) BUN (9-16) mg/dL Creatinine (0.5-1.4) mg/dL Estim Creat Clear Calc Estimated GFR Random Glucose (60-115) mg/dL Lactic Acid (0.5-2.0) mmol/L Lactic Acid F/U @ 2Hr 0.9 (0.5-2.0) mmol/L Calcium (8.4-10.2) mg/dL Magnesium (1.6-2.6) mg/dL Total Bilirubin (0.0-1.0) mg/dL Direct Bilirubin (0.0-0.5) mg/dL AST (5-31) U/L ALT (0-31) U/L Alkaline Phosphatase (39-117) U/L C-Reactive Protein 0.35 (< or = 0.50) mg/dL Total Protein (6.5-8.0) g/dL Albumin (3.5-5.0) g/dL Urine Color Urine Appearance Urine pH (5.0-9.0) Ur Specific [place] (1.005-1.025) Urine Protein (Neg-Trace) mg/dL Urine Glucose (UA) (Negative) mg/dL Urine Ketones (Negative) mg/dL Urine Blood (Negative) Urine Nitrite (Negative) Ur Leukocyte Esterase (Negative) Urine Test (NEGATIVE) Independent Interpretation I performed an independent interpretation of an: Ultrasound and CT Scan Interpretation: US pelvic/ transvaginal: normal venous flow to b/l ovaries, agree with radiologist's read. CT abd/pelvis: no acute intraabdominal pathology, agree with radiologists interpretation. Radiology Impression Discussion of test interpretation with radiology: I have reviewed the radiologist's reading. Radiologist Impression: US pelvic and transvaginal IMPRESSION: Normal physiological follicles in both ovaries but otherwise unremarkable. There is normal arterial and venous flow seen to both ovaries. No evidence of torsion. Several nabothian cysts in the cervix. The uterus is unremarkable. Suspect right pelvic venous congestion. CT abdomen pelvis w IV con IMPRESSION: 1.? No acute intra-abdominal/pelvic abnormality. Simple cyst in the right lower quadrant demonstrates similar benign features to the 2021 study but has mildly increased. This could be monitored for change with a repeat CT scan in one year. 2.? Bilateral ovarian cysts measuring up to 3.6 cm are simple appearing cysts. The right cyst is amenable to follow-up with pelvic ultrasound in 6-12 months. 3.? No significant change in 0.3 cm right lower lobe pulmonary nodule. Following Fleischner Society guidelines, no imaging follow-up at this time. ? Independent Historian Clinical information obtained from an independent historian. History obtained from or confirmed by: Friend External Record Review External record reviewed: Inpatient record Prescription Management I considered prescription management with: Pain Medication Chronic Conditions Patient?s care impacted by: Other (right adenxal cyst) Medications Administered Discontinued Medications Generic Name Dose Route Start Last Admin Trade Name Samantha PRN Reason Stop Dose Admin Fentanyl 50 mcg 05/03/23 08:21 05/03/23 09:43 Fentanyl Citrate/Pf 100 Mcg/2 Ml Vial IVPUSH 05/03/23 08:22 50 mcg ONCE ONE Administration Protocol Fentanyl 50 mcg 05/03/23 10:32 05/03/23 10:45 Fentanyl Citrate/Pf 100 Mcg/2 Ml Vial IVPUSH 05/03/23 10:33 50 mcg ONCE ONE Administration Protocol Sodium Chloride 1,000 mls @ 999 mls/hr 05/03/23 07:30 05/03/23 09:50 Ns IV 05/03/23 08:30 Infused .Q1H1M FIDE Infusion Sodium Chloride 1,000 mls @ 999 mls/hr 05/03/23 08:15 05/03/23 11:45 Ns IVCONT 05/03/23 09:15 Infused .Q1H1M FIDE Infusion Piperacillin Sod/Tazobactam 50 mls @ 100 mls/hr 05/03/23 08:12 05/03/23 10:44 Sod 3.375 gm/ Sodium Chloride IV 05/03/23 08:41 Infused ONCE ONE Infusion Iohexol 85 ml 05/03/23 09:26 05/03/23 09:27 Iohexol 350 Mg/Ml 100 Ml Infus..Btl IV 05/03/23 09:27 85 ml ONCE ONE Administration Ketorolac Tromethamine 15 mg 05/03/23 10:33 05/03/23 10:45 Ketorolac Tromethamine 15 Mg/Ml Vial IVPUSH 05/03/23 10:34 15 mg ONCE ONE Administration Lorazepam 1 mg 05/03/23 07:29 05/03/23 07:48 Lorazepam 2 Mg/Ml Vial IVPUSH 05/03/23 07:30 1 mg ONCE ONE Administration Lorazepam 1 mg 05/03/23 12:27 05/03/23 12:54 Lorazepam 2 Mg/Ml Vial IVPUSH 05/03/23 12:28 1 mg ONCE ONE Administration Metoclopramide HCl 10 mg 05/03/23 12:27 05/03/23 12:54 Metoclopramide Hcl 10 Mg/2 Ml Vial IVPUSH 05/03/23 12:28 10 mg ONCE ONE Administration Morphine Sulfate 4 mg 05/03/23 07:29 05/03/23 07:45 Morphine Sulfate 4 Mg/Ml Cartridge IVPUSH 05/03/23 07:30 4 mg ONCE ONE Administration Protocol Ondansetron HCl 4 mg 05/03/23 07:36 05/03/23 07:43 Ondansetron Hcl 4 Mg/2 Ml Vial IVPUSH 05/03/23 07:37 4 mg ONCE ONE Administration Critical Care Time Critical Care Time Critical Care Time: Yes Total Critical Care Time: 41 Attestation: I have personally provided critical care time exclusive of time spent on separately billable procedures. Time includes review of lab data, radiology results, frequent VS assessment requiring multiple narcotics for pain control, and monitoring for potential decompensation. Intervention performed as documented. Discharge Plan Discharge Clinical Impression: Ovarian cyst, Abdominal mass, right lower quadrant Patient Disposition: Home, Self-Care Instructions: Ovarian Cyst (ED) Additional Instructions: Your imaging studies today were unchanged from 04/26 Follow up with INDUSTRIAL LOCOMOTIVE OPERATOR as soon as possible Take the prescribed medications as directed If you develop new or worsening symptoms call 911 or come back to the ER for further evaluation. Prescriptions: New naproxen 500 mg tablet 500 mg PO BID PRN (Reason: pain) Qty: 20 0RF ondansetron 4 mg tablet,disintegrating 4 mg PO Q8H PRN (Reason: nausea and vomiting) Qty: 14 0RF tramadol 50 mg tablet 50 mg PO Q8H PRN (Reason: severe pain (scale score 7-10)) Qty: 8 0RF No Action cyclobenzaprine 10 mg tablet 10 mg PO TID PRN (Reason: muscle spasm) Qty: 10 0RF ibuprofen 600 mg tablet 600 mg PO TID PRN (Reason: pain) Qty: 14 0RF ketorolac 10 mg tablet 10 mg PO TID PRN (Reason: pain) 5 Days Qty: 15 0RF ondansetron 4 mg tablet,disintegrating 4 mg PO Q6H PRN (Reason: nausea and vomiting) Qty: 14 0RF sumatriptan succinate 50 mg tablet 50 mg PO tizanidine 2 mg capsule 2 mg PO Q8H PRN naproxen 500 mg tablet 500 mg PO BID magnesium oxide 400 mg (241.3 mg magnesium) tablet 400 mg PO BEDTIME Qty: 30 6RF Referrals: Amanuel Perry MD [Physician] - Stand Alone Forms: Work/School Release Interventions: ED Discharge Assessment Last Done: 05/03/23 14:37 Discharge Date/Time: 05/03/23 14:37
[2023-05-03 07:29] LABS: MANUAL DIFF FLAG NO
[2023-05-03] MEDS: 0.9 % Sodium Chloride 1,000 ML 999 ML IV (07:41)
[2023-05-03] MEDS: ondansetron HCL 4 MG/2 ML VIAL IVPUSH (07:43)
[2023-05-03] MEDS: Morphine Sulfate 4 MG/ML CARTRIDGE IVPUSH (07:45)
[2023-05-03 07:47] LABS: Basophils Absolute Auto 0.1 X10*3/uL (0.0-0.2); Basophils Percent Auto 0.5 % (0-2); Eosinophils Absolute Auto 0.2 X10*3/uL (0.0-0.4); Eosinophils Percent Auto 1.5 % (0-4); Hematocrit 43.6 % (37.0-47.0); Hemoglobin 14.7 g/dl (12.0-16.0); Imm Gran Abs Auto 0.04 X10*3/uL (0.00-0.03); Imm Gran Pct Auto 0.3 % (0.0-0.4); Lymphocytes Absolute Auto 2.8 X10*3/uL (1.2-4.9); Lymphocytes Percent Auto 21.2 % (20-40); Mean Corpuscular HGB Conc 33.7 g/dl (31.0-35.0); Mean Corpuscular Hemoglobin 27.7 pg (27.0-33.0); Mean Corpuscular Volume 82.3 fL (80.0-98.0); Mean Platelet Volume 8.4 fL (9.4-12.3); Monocytes Absolute Auto 0.9 X10*3/uL (0.1-1.2); Monocytes Percent Auto 6.8 % (2-11); Neutrophils Absolute Auto 9.3 x10*3/uL (2.0-8.3); Neutrophils Percent Auto 69.7 % (45-73); Platelet Count 311 X10*3/uL (160-400); Red Cell Distribution Width 12.6 % (11.0-16.0); White Blood Count 13.3 X10*3/uL (4.8-10.8)
[2023-05-03 07:48] LABS: Alanine Aminotransferase 15 U/L (0-31); Albumin Level 4.9 g/dL (3.5-5.0); Alkaline Phosphatase 70 U/L (39-117); Anion Gap 16 (12-20); Aspartate Amino Transferase 19 U/L (5-31); Bilirubin Direct 0.2 mg/dL (0.0-0.5); Bilirubin Total 0.6 mg/dL (0.0-1.0); Blood Urea Nitrogen 8 mg/dL (9-16); Calcium 10.6 mg/dL (8.4-10.2); Carbon Dioxide 25 mmol/L (22-29); Chloride 102 mmol/L (96-108); Estimated Glomerular Filt Rate > 60; Glucose Random 98 mg/dL (60-115); Potassium 4.3 mmol/L (3.3-5.1); Sodium 139 mmol/L (135-145)
[2023-05-03] MEDS: LORazepam 2 MG/ML VIAL 1 MG IVPUSH ×2 (07:48→12:54)
[2023-05-03 08:00] VITALS: BP 119/73; PULSE 59; RESP 14; TEMP 36.8; O2SAT 100
[2023-05-03 08:01] LABS: Appearance Urine Clear; Color Urine Yellow; Glucose Urine UA Negative (Negative); Leukocyte Esterase Urine Negative (Negative); Nitrite Urine Negative (Negative); PH >= 9.0 (5.0-9.0); Urine Blood Negative (Negative); Urine Ketones Negative (Negative); Urine Protein Negative (Neg-Trace)
[2023-05-03 08:02] LABS: UPreg QC Valid YES; Urine Pregnancy NEGATIVE (NEGATIVE)
[2023-05-03 08:09] LABS: C Reactive Protein 0.35 mg/dL (< or = 0.50)
[2023-05-03 08:12] LABS: Lactic Acid 3.9 mmol/L (0.5-2.0)
[2023-05-03 09:01] LABS: Erythrocyte Sedimentation Rate 11 MM/HR (0-20)
[2023-05-03] MEDS: iohexoL 350 MG/ML 100 ML INFUS..BTL 85 ML IV (09:27)
[2023-05-03] MEDS: fentaNYL citrate/PF 100 MCG/2 ML VIAL 50 MCG IVPUSH ×2 (09:43→10:45)
[2023-05-03] MEDS: Piperacillin Sodium/Tazobactam 3.375 GM in 0.9 % Sodium Chloride 50 ML IV (09:48)
[2023-05-03] MEDS: 0.9 % Sodium Chloride 1,000 ML 999 ML IVCONT (09:50)
[2023-05-03 09:55] LABS: Reflex Lactate? Lactic Acid Added
[2023-05-03 10:01] VITALS: BP 110/70; PULSE 68; RESP 15; TEMP 37.1; O2SAT 100
--- NOTE | 2023-05-03 10:13 | PC.NURSE ---
Pt returned from U/s at 0930, meds administered after.
[2023-05-03 10:26] LABS: ~Lactic Acid-LAB USE ONLY 0.9 mmol/L (0.5-2.0)
[2023-05-03] MEDS: Ketorolac Tromethamine 15 MG/ML VIAL IVPUSH (10:45)
[2023-05-03 12:28] VITALS: BP 107/70; PULSE 63
[2023-05-03] MEDS: Metoclopramide HCl 10 MG/2 ML VIAL IVPUSH (12:54)
[2023-05-03 13:52] VITALS: BP 109/69; PULSE 78; RESP 19; TEMP 36.5; O2SAT 99
== END 2023-05-03 14:37 | disposition home or self-care (01) ==
PROVIDERS: Physician Assistant; Emergency Provider Emergency Medicine
DX: N83.202 Unspecified ovarian cyst, left side (principal); N83.201 Unspecified ovarian cyst, right side; R19.03 Right lower quadrant abdominal swelling, mass and lump; R50.9 Fever, unspecified; R00.0 Tachycardia, unspecified; R10.31 Right lower quadrant pain; N88.8 Other specified noninflammatory disorders of cervix uteri; F43.10 Post-traumatic stress disorder, unspecified; F33.9 Major depressive disorder, recurrent, unspecified; F14.11 Cocaine abuse, in remission; Z87.891 Personal history of nicotine dependence; Z79.899 Other long term (current) drug therapy
CPT/HCPCS: 36415; 74177; 76830; 76856; 80048; 80076; 81003; 81025; 83605; 83735; 85025; 85652; 86140; 87040; 93975; 96361; 96365; 96375; 96376; 99285; J1885; J2060; J2270; J2405; J2543; J2765; J3010; Q9967

== ENCOUNTER 2023-05-13 13:18 | Emergency (ER) | payer OTHER, MEDICAID, SELFPAY ==
[2023-05-13 13:35] VITALS: BP 123/64; PULSE 101; RESP 16; TEMP 36.6; O2SAT 100; BMI 31.2
--- NOTE | 2023-05-13 15:06 | ED_ITS ---
HPI - Abdominal Pain General Chief Complaint: Abdominal Pain Stated Complaint: Near syncope, difficulty breathing Time Seen by Provider: 05/13/23 15:05 Source: patient Mode of arrival: ambulatory Limitations: no limitations History of Present Illness HPI narrative: Patient worked up recently for abdominal pain. She has had [address] x 2 and pelvic US. Workup showed 3cm ovarian cyst no torsion. MD elicited complaint: abdominal pain Related Data Home Medications Medication Instructions Recorded Confirmed naproxen 500 mg tablet 500 mg PO BID 11/28/22 11/28/22 sumatriptan succinate 50 mg tablet 50 mg PO migraine 11/28/22 11/28/22 tizanidine 2 mg capsule 2 mg PO Q8H PRN 11/28/22 11/28/22 Previous Rx's Medication Instructions Recorded magnesium oxide 400 mg (241.3 mg 400 mg PO BEDTIME #30 tabs 11/28/22 magnesium) tablet cyclobenzaprine 10 mg tablet 10 mg PO TID PRN muscle spasm #10 12/03/22 tabs ibuprofen 600 mg tablet 600 mg PO TID PRN pain #14 tabs 12/03/22 ketorolac 10 mg tablet 10 mg PO TID PRN pain 5 days #15 04/26/23 tabs ondansetron 4 mg disintegrating 4 mg PO Q6H PRN nausea and 04/26/23 tablet vomiting #14 tabs naproxen 500 mg tablet 500 mg PO BID PRN pain #20 tabs 05/03/23 ondansetron 4 mg disintegrating 4 mg PO Q8H PRN nausea and 05/03/23 tablet vomiting #14 tabs tramadol 50 mg tablet 50 mg PO Q8H PRN severe pain 05/03/23 (scale score 7-10) #8 tabs naproxen 500 mg tablet (Naprosyn) 500 mg PO BID #20 tabs 05/13/23 Allergies Allergy/AdvReac Type Severity Reaction Status Date / Time watermelon Allergy Severe ANAPHYLAXIS Verified 12/03/22 04:02 pollen Allergy Unknown rash Uncoded 11/28/22 09:34 Review of Systems Review of Systems Yes all other systems are reviewed and are negative PMFSH Past Medical History Medical History Alcohol use disorder, moderate, in early remission Asthma Cocaine abuse in remission Major depressive disorder, recurrent severe without psychotic features Migraine Opioid use disorder Post-traumatic stress disorder, unspecified Surgical History History of delivery Family History Family History Father HTN (hypertension) Cancer Social History Social History Household Members: Significant Other Alcohol intake: former Patient Tobacco Use Status: Former Tobacco user Advance Directives: No Advance Directives Information Provided: Yes Physical Exam ED Vital Signs: Vital Signs - 24 hr 05/13/23 13:35 05/13/23 16:19 Temperature 97.9 F Pulse Rate 101 H 76 Respiratory Rate 16 16 Blood Pressure 123/64 100/55 L Pulse Oximetry 100 100 Oxygen Delivery Method Room Air Room Air BMI result Body Mass Index 31.2 Const Other: anxious female with pain out of proportion to physical findings Nutritional Appearance: average body habitus Orientation/consciousness: oriented to person and patient oriented x3 Limitations: no limitations HENMT Head: Yes normal to inspection Ears: external ears normal General nose exam: Normal external nose present Mouth: Normal oral and palatal mucosa present and oropharynx normal Throat: Yes posterior oropharynx normal Eyes General: appearance normal, both eyes and all related structures Neck Neck: Yes normal visual inspection Chest Chest palpation & inspection: normal inspection of the chest Resp Auscultation: clear to auscultation bilaterally Cardio Jugular venous distension: no JVD Rate: regular rate Rhythm: regular rhythm Heart sounds: S1 normal heart sound present and S2 normal heart sound present GI Other: Mild tenderness, distractable Auscultation: normal bowel sounds General: Yes no CVA tenderness Back/Spine/Pelvis Back: no CVA tenderness Skin General skin exam: no rashes or lesions noted Neuro General: oriented to person and patient oriented x3 Cranial nerves: Yes CN's II-XII intact bilaterally Motor exam (neuro): 5/5 motor strength present throughout Extrem General: Yes normal to inspection Psych Appearance: grossly normal Course Reevaluation(s) Reevaluation #1: patient improved after toradol will dc on NSAIDs Time: 16:38 Medical Decision Making Differential Diagnosis Differential Diagnoses: The differential diagnosis associated with the presentation includes (ovarian torsion, ovarian cyst, appendicitis ) Admission/Observation Consideration of admission/observation: Escalation of care including admission/observation considered (upon arrival patient considered for admission) Tests considered The following testing was considered but not selected: I considered UA but recent Urine was negative, I considered CT and US but patien t just worked up a few days ago Prescription Management I considered prescription management with: Pain Medication (I considered narcotic medication but for ovarian cyst nsaids are much better) Medications Administered Discontinued Medications Generic Name Dose Route Start Last Admin Trade Name Freq PRN Reason Stop Dose Admin Ketorolac Tromethamine 60 mg 05/13/23 15:14 05/13/23 15:30 Ketorolac Tromethamine 60 Mg/2 Ml Vial IM 05/13/23 15:15 60 mg ONCE ONE Administration Promethazine HCl 25 mg 05/13/23 15:14 05/13/23 15:30 Promethazine Hcl 25 Mg Tablet PO 05/13/23 15:15 25 mg ONCE ONE Administration Discharge Plan Discharge Clinical Impression: Ovarian cyst Patient Disposition: Home, Self-Care Instructions: Ovarian Cyst (ED) Prescriptions: New naproxen [Naprosyn] 500 mg tablet 500 mg PO BID Qty: 20 0RF No Action naproxen 500 mg tablet 500 mg PO BID PRN (Reason: pain) Qty: 20 0RF ondansetron 4 mg tablet,disintegrating 4 mg PO Q8H PRN (Reason: nausea and vomiting) Qty: 14 0RF tramadol 50 mg tablet 50 mg PO Q8H PRN (Reason: severe pain (scale score 7-10)) Qty: 8 0RF cyclobenzaprine 10 mg tablet 10 mg PO TID PRN (Reason: muscle spasm) Qty: 10 0RF ibuprofen 600 mg tablet 600 mg PO TID PRN (Reason: pain) Qty: 14 0RF ketorolac 10 mg tablet 10 mg PO TID PRN (Reason: pain) 5 Days Qty: 15 0RF ondansetron 4 mg tablet,disintegrating 4 mg PO Q6H PRN (Reason: nausea and vomiting) Qty: 14 0RF sumatriptan succinate 50 mg tablet 50 mg PO tizanidine 2 mg capsule 2 mg PO Q8H PRN naproxen 500 mg tablet 500 mg PO BID magnesium oxide 400 mg (241.3 mg magnesium) tablet 400 mg PO BEDTIME Qty: 30 6RF Referrals: Amanuel Perry MD [Physician] - 1 week
[2023-05-13] MEDS: Promethazine HCL 25 MG TABLET PO (15:30)
[2023-05-13] MEDS: Ketorolac Tromethamine 60 MG/2 ML VIAL IM (15:30)
--- NOTE | 2023-05-13 15:35 | PC.NURSE ---
medicated per the MAR for pain/nausea
[2023-05-13 16:19] VITALS: BP 100/55; PULSE 76; RESP 16; O2SAT 100
== END 2023-05-13 16:49 | disposition home or self-care (01) ==
PROVIDERS: Emergency Provider Emergency Medicine; PCP Student in an Organized Health Care Education/Training Program
DX: N83.209 Unspecified ovarian cyst, unspecified side (principal); R55 Syncope and collapse; R10.2 Pelvic and perineal pain; Z87.891 Personal history of nicotine dependence
CPT/HCPCS: 96372; 99284; J1885

== ENCOUNTER 2023-05-16 07:35 | Outpatient (REF) | payer OTHER, MEDICAID, SELFPAY ==
[2023-05-16 18:05] LABS: CT PCR NOT DETECTED (Not Detect.); NG PCR NOT DETECTED (Not Detect.)
== END 2023-05-16 07:36 | disposition home or self-care (01) ==
LOC: HO.LNP 07:35
PROVIDERS: PCP Student in an Organized Health Care Education/Training Program; Visit Provider Obstetrics & Gynecology
DX: Z32.02 Encounter for pregnancy test, result negative (principal); R10.2 Pelvic and perineal pain; N91.5 Oligomenorrhea, unspecified
CPT/HCPCS: 0353U; 81002; 81025

== ENCOUNTER 2023-05-16 07:35 | Outpatient (AMB) | payer OTHER, MEDICAID, SELFPAY ==
--- NOTE | 2023-05-16 07:35 | A.OFFVIS_ITS ---
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 The patient went to the ER 3 times last few weeks on 05/03 and 05/12 where the following workup was done CBC, chemistry, hCG and UA all within normal Pelvic ultrasound on 05/03/2023 showed the following: Uterus: The uterus is anteverted and measures 11.6 x 3.4 x 5.0. The double wall endometrial thickness is 0.5 cm.? The uterus is smooth in contour and has normal myometrial echogenicity. ?No visible fibroid. There are small nabothian cysts seen in the cervix. Adnexa: Both ovaries are visualized. There is normal color flow to the adnexa. There is no ovarian torsion.? There is no pelvic ascites or fluid collection. Right ovary measures 3.4 x 3.7 x 2.0 CM and volume 13.2 mL. There are small simple follicles. Left ovary measures 2.7 x 2.6 x 2.1 cm and volume 7.7 mL. There are small follicles visualized. Previously left ovary measured 3.0 x 2.1 x 7.7). There is mild increase vessels in the right adnexa suggestive of pelvic congestion. On Doppler exam there is normal arterial and venous flow seen to both ovaries. No evidence of torsion. CT scan showed the following: IMPRESSION: 1.? No acute intra-abdominal/pelvic abnormality. Simple cyst in the right lower quadrant demonstrates similar benign features to the 2021 study but has mildly increased. This could be monitored for change with a repeat CT scan in one year. 2.? Bilateral ovarian cysts measuring up to 3.6 cm are simple appearing cysts. The right cyst is amenable to follow-up with pelvic ultrasound in 6-12 months. 3.? No significant change in 0.3 cm right lower lobe pulmonary nodule. Following Fleischner Society guidelines, no imaging follow-up at this time. Since then patient has been having vomiting and right sided pelvic pain, no fevers or chills, no urinary symptoms no diarrhea constipation no vaginal discharge or any other concerns. In addition, the patient having infrequent menstruation 2 to 3 times a year no associated headache gross or nipple discharge PFS Medical History Alcohol use disorder, moderate, in early remission Asthma Cocaine abuse in remission Major depressive disorder, recurrent severe without psychotic features Migraine Opioid use disorder Post-traumatic stress disorder, unspecified Surgical History History of delivery Family History Father HTN (hypertension) Cancer Social History Household Members: Significant Other Alcohol intake: former Patient Tobacco Use Status: Former Tobacco user Female Reproductive History Menstrual Date of last menstrual period: 05/08/23 Review of Systems Const All systems reviewed & are unremarkable except as noted in HPI and below Card Reports as per HPI Resp Reports as per HPI GI Reports as per HPI and Reports no additional complaints Reports as per HPI Physical Exam Const General: cooperative, healthy appearing and comfortable Chest Chest palpation & inspection: normal inspection of the chest and normal palpation of entire chest wall Breast/axilla inspection: normal inspection of the breasts and normal inspection of the axillae Breast/axilla palpation: normal palpation of the breasts, normal palpation of the axillae and no axillary lymphadenopathy Resp Effort & Inspection: normal respiratory effort Auscultation: clear to auscultation bilaterally Percussion: percussion normal Cardio Palpation: normal PMI Rate: regular rate Rhythm: regular rhythm Heart sounds: no murmurs and no rubs Peripheral pulses: Peripheral pulses 2+ throughout GI Inspection: Yes normal to inspection Palpation (GI): Soft to palpation, nontender, no guarding, not rigid and No hepatosplenomegaly present Percussion: Yes normal to percussion Auscultation: normal bowel sounds Rectal Exam - Female: deferred General: Yes bladder normal to palpation External Female Exam: No lesion Speculum Exam - Vagina: normal appearance of the vagina, normal palpation, ambrose l vaginal discharge and not erythematous Speculum Exam - Cervix: normal appearance of the cervix and normal palpation Bimanual exam- vagina & uterus: normal bimanual exam, normal palpation, uterine size normal, bladder normal to palpation, consistency normal and normal palpation Bimanual Exam- Adnexa, other: normal adnexae, no masses and no tenderness Results AMB Test Urine AMB Test Urine Negative Last Edit by Mirian Lassiter PROGRAM OFFICER on 07:50 AMB Urinalysis Dipstick UR Leukocytes Negative Last Edit by Mirian Lassiter, [facility] on 05/16/23 07:51 UR Nitrite Negative Last Edit by Mirian Lassiter, [facility] on 05/16/23 07:51 UR Urobilinogen Normal Last Edit by Mirian Lassiter, [facility] on 05/16/23 07:51 UR Protein Trace Last Edit by Mirian Lassiter, [facility] on 05/16/23 07:51 UR Ph 5.0 Last Edit by Mirian Lassiter, [facility] on 05/16/23 07:51 UR Blood Negative Last Edit by Mirian Lassiter, [facility] on 05/16/23 07:51 UR Specific House 1.025 Last Edit by Mirian Lassiter, [facility] on 05/16/23 07:51 UR Ketone Negative Last Edit by Mirian Lassiter, [facility] on 05/16/23 07:51 UR Bilirubin Negative Last Edit by Mirian Lassiter, [facility] on 05/16/23 07:51 UR Glucose Negative Last Edit by Mirian Lassiter, [facility] on 05/16/23 07:51 Assessment & Plan Assessment & Plan (1) Pelvic pain: Code(s): R10.2 - Pelvic and perineal pain Plan: Urine dip and test done in the office were both negative. GC and chlamydia taken and pelvic ultrasound done in the emergency room which was essentially negative except simple bilateral ovarian cysts. Discussed with the patient the differential diagnosis of pelvic pain including but not limited to adnexal, uterine masses, pelvic infections (PID), GI the (Irritable bowel syndrome, diverticulitis, appendicitis, others), musculoskeletal, myofascial pain abdominal wall , adhesions, endometriosis, psychological and others causes. Instructed the patient to go to the emergency room to investigate causes of are nausea and vomiting immediately and follow-up with her PCP. All questions answered, the patient verbalized understanding and agreed with the plan. Instructed the patient to schedule follow-up appointment in 2 weeks (2) Oligomenorrhea: Code(s): N91.5 - Oligomenorrhea, unspecified Plan: Pap smear will be taken next visit, GC and chlamydia taken CBC, TSH, prolactin, HCG, and pelvic ultrasound done in the emergency room. Discussed with the patient the different causes of abnormal bleeding including thyroid disorders, uterine and ovarian pathology, endometrial hyperplasia, carcinoma and other potential causes. Discussed with the patient the work up including CBC (to r/o anemia), TSH, pelvic Ultrasound, endometrial biopsy to r/o endometrial pathology. All questions answered and the patient verbalized understanding. Instructed the patient to schedule an appointment for an endometrial biopsy and Pap smear in 2 weeks. Orders: Orders CT NG by PCR Today R10.2 - Pelvic and perineal pain HCG Quantitative Today N93.9 - Abnormal uterine and vaginal bleeding, unspecified Prolactin Today N93.9 - Abnormal uterine and vaginal bleeding, unspecified TSH reflex Free T4 Today N93.9 - Abnormal uterine and vaginal bleeding, unspecified Complete Blood Count no Diff Today N93.9 - Abnormal uterine and vaginal bleeding, unspecified AMB Urinalysis Dipstick Today Z32.02 - Encounter for test, result negative AMB HCG Urine Test Today Z32.02 - Encounter for test, result negative Coding Level of Care Code New Pt Level 3 (27243) Diagnoses Pelvic pain R10.2 Oligomenorrhea N91.5
[2023-05-16 07:36] VITALS: BP 112/68; BMI 30.8
== END 2023-05-16 08:00 | disposition home or self-care (01) ==
LOC: HO.HWS 07:35
PROVIDERS: PCP Student in an Organized Health Care Education/Training Program; Visit Provider Obstetrics & Gynecology
DX: R10.2 Pelvic and perineal pain (principal); N91.5 Oligomenorrhea, unspecified; Z32.02 Encounter for pregnancy test, result negative
CPT/HCPCS: 99203

== ENCOUNTER 2023-05-16 08:07 | Outpatient (REF) | payer OTHER, MEDICAID, SELFPAY ==
[2023-05-16 08:59] LABS: Hematocrit 41.2 % (37.0-47.0); Hemoglobin 14.2 g/dl (12.0-16.0); Mean Corpuscular HGB Conc 34.5 g/dl (31.0-35.0); Mean Corpuscular Hemoglobin 27.8 pg (27.0-33.0); Mean Corpuscular Volume 80.6 fL (80.0-98.0); Mean Platelet Volume 8.7 fL (9.4-12.3); Platelet Count 357 X10*3/uL (160-400); Red Blood Count 5.11 X10*6/uL (4.20-5.50); Red Cell Distribution Width 12.8 % (11.0-16.0); White Blood Count 8.5 X10*3/uL (4.8-10.8)
[2023-05-16 09:53] LABS: HCG Quantitative < 2 mIU/mL; TSH reflex Free T4 1.42 uIU/mL (0.32-4.0)
[2023-05-17 22:09] LABS: Prolactin 10.2 ng/mL
== END 2023-05-16 08:08 | disposition home or self-care (01) ==
LOC: HO.LAB 08:07
PROVIDERS: PCP Student in an Organized Health Care Education/Training Program; Visit Provider Obstetrics & Gynecology
DX: N93.9 Abnormal uterine and vaginal bleeding, unspecified (principal)
CPT/HCPCS: 36415; 84146; 84443; 84702; 85027

== ENCOUNTER 2023-05-24 18:38 | Emergency (ER) | payer OTHER, MEDICAID, SELFPAY ==
[2023-05-24 20:09] VITALS: BP 110/73; PULSE 75; RESP 18; TEMP 36.2; O2SAT 98; BMI 29.9
--- NOTE | 2023-05-24 20:13 | ED_ITS ---
HPI - General Adult General Chief complaint: General Medical Stated complaint: got bit by kid at work Time Seen by Provider: 05/24/23 20:12 Source: patient and RN notes reviewed Mode of arrival: ambulatory Limitations: no limitations History of Present Illness HPI narrative: This is a 27-year-old female presenting to the emergency department with complaints of human bite to right 2nd finger. 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 She states that the bite broke the skin. She is unsure when her last tetanus immunization was. Denies any fevers or chills. She is able to move her finger however reports pain with movement. Denies any other complaints or concerns at this time. MD complaint: Human bite Onset (ago): hour(s) Location: upper extremity Radiation: non-radiation Severity: mild Quality: aching Pain Consistency: constant Relieving factors: none Exacerbating factors: movement Associated symptoms: denies other symptoms Treatments prior to arrival: none Related Data Home Medications Medication Instructions Recorded Confirmed naproxen 500 mg tablet 500 mg PO BID 11/28/22 11/28/22 sumatriptan succinate 50 mg tablet 50 mg PO migraine 11/28/22 11/28/22 tizanidine 2 mg capsule 2 mg PO Q8H PRN 11/28/22 11/28/22 Previous Rx's Medication Instructions Recorded magnesium oxide 400 mg (241.3 mg 400 mg PO BEDTIME #30 tabs 11/28/22 magnesium) tablet cyclobenzaprine 10 mg tablet 10 mg PO TID PRN muscle spasm #10 12/03/22 tabs ibuprofen 600 mg tablet 600 mg PO TID PRN pain #14 tabs 12/03/22 ketorolac 10 mg tablet 10 mg PO TID PRN pain 5 days #15 04/26/23 tabs ondansetron 4 mg disintegrating 4 mg PO Q6H PRN nausea and 04/26/23 tablet vomiting #14 tabs naproxen 500 mg tablet 500 mg PO BID PRN pain #20 tabs 05/03/23 ondansetron 4 mg disintegrating 4 mg PO Q8H PRN nausea and 05/03/23 tablet vomiting #14 tabs tramadol 50 mg tablet 50 mg PO Q8H PRN severe pain 05/03/23 (scale score 7-10) #8 tabs naproxen 500 mg tablet (Naprosyn) 500 mg PO BID #20 tabs 05/13/23 amoxicillin 875 mg-potassium 1 tab PO BID 5 days #10 tabs 05/24/23 clavulanate 125 mg tablet Allergies Allergy/AdvReac Type Severity Reaction Status Date / Time watermelon Allergy Severe ANAPHYLAXIS Verified 05/24/23 20:09 pollen Allergy Unknown rash Uncoded 05/16/23 07:38 Review of Systems Review of Systems: Yes all other systems are reviewed and are negative [facility] Past Medical History Medical History Alcohol use disorder, moderate, in early remission Asthma Cocaine abuse in remission Major depressive disorder, recurrent severe without psychotic features Migraine Opioid use disorder Post-traumatic stress disorder, unspecified Surgical History History of delivery Family History Family History Father HTN (hypertension) Cancer Social History Social History Household Members: Significant Other Alcohol intake: former Patient Tobacco Use Status: Former Tobacco user Advance Directives: No Advance Directives Information Provided: No Physical Exam ED Vital Signs: Vital Signs - 24 hr 05/24/23 20:09 Temperature 97.1 F Pulse Rate 75 Respiratory Rate 18 Blood Pressure 110/73 Pulse Oximetry 98 Oxygen Delivery Method Room Air BMI result Body Mass Index 29.9 Const Other: General: Awake, alert, and oriented X3. No acute distress. HEENT: Normal inspection CVS: Normal heart rate and rhythm. Pulses normal. Respiratory: No respiratory distress Skin: Right 2nd finger PIP lateral aspect to there is a superficial abrasion noted, no active bleeding or drainage. Neuro: Oriented X 3. No motor deficit. No sensory deficit. Medications Administered Discontinued Medications Generic Name Dose Route Start Last Admin Trade Name Freq PRN Reason Stop Dose Admin Amoxicillin/Clavulanate Potassium 875 mg 05/24/23 20:16 05/24/23 20:26 Amoxicillin/Potassium Clav 875 Mg Tablet PO 05/24/23 20:17 875 mg ONCE ONE Administration Diphtheria/Tetanus/Acell Pertussis 0.5 ml 05/24/23 20:22 05/24/23 20:27 Diphth,Nicholas(Acell),Tet Adult 0.5 Ml Syringe IM 05/24/23 20:23 0.5 ml .ONCE ONE Administration Medical Decision Making Medical Decision Making MDM Narrative: This is a 27-year-old female presenting to the emergency department with complaints of finger laceration after being bit by a child this morning at work. Patient with superficial abrasion noted to the finger. Patient knows the individual and is not concerned for any blood borne diseases. Able to flex and extend at the DIP and PIP joint. No surrounding erythema or edema. Will treat with Augmentin. Advised to finish the entire course even if feeling better. Given 1st dose in the emergency department today. Wound cleansed with Betadine and dressed. Given return precautions. Patient understands and agrees with plan. Patient stable for discharge. Differential Diagnosis Differential Diagnoses: The differential diagnosis associated with the presentation includes Cellulitis, abrasion, contusion, abscess, puncture, laceration, human bite Discharge Plan Discharge Clinical Impression: Human bite of finger Qualifiers: Encounter type: initial encounter Qualified Code(s): S61.259A - Open bite of unspecified finger without damage to nail, initial encounter Patient Disposition: Home, Self-Care Instructions: Human Bite (ED) Additional Instructions: Please take prescribed medication as directed. Finish the entire course of antibiotics even if your feeling better. Keep area clean and dry. Watch for any signs of worsening redness or swelling. You may take ibuprofen and Tylenol as directed as needed for pain. Return with any new worsening symptoms. Prescriptions: New amoxicillin-pot clavulanate 875-125 mg tablet 1 tab PO BID 5 Days Qty: 10 0RF No Action naproxen 500 mg tablet 500 mg PO BID PRN (Reason: pain) Qty: 20 0RF ondansetron 4 mg tablet,disintegrating 4 mg PO Q8H PRN (Reason: nausea and vomiting) Qty: 14 0RF tramadol 50 mg tablet 50 mg PO Q8H PRN (Reason: severe pain (scale score 7-10)) Qty: 8 0RF naproxen [Naprosyn] 500 mg tablet 500 mg PO BID Qty: 20 0RF cyclobenzaprine 10 mg tablet 10 mg PO TID PRN (Reason: muscle spasm) Qty: 10 0RF ibuprofen 600 mg tablet 600 mg PO TID PRN (Reason: pain) Qty: 14 0RF ketorolac 10 mg tablet 10 mg PO TID PRN (Reason: pain) 5 Days Qty: 15 0RF ondansetron 4 mg tablet,disintegrating 4 mg PO Q6H PRN (Reason: nausea and vomiting) Qty: 14 0RF sumatriptan succinate 50 mg tablet 50 mg PO tizanidine 2 mg capsule 2 mg PO Q8H PRN naproxen 500 mg tablet 500 mg PO BID magnesium oxide 400 mg (241.3 mg magnesium) tablet 400 mg PO BEDTIME Qty: 30 6RF Interventions: ED Discharge Assessment Last Done: 05/24/23 20:58 Discharge Date/Time: 05/24/23 20:58
[2023-05-24] MEDS: Amoxicillin/Potassium Clav 875 MG TABLET PO (20:26)
[2023-05-24] MEDS: Diphth,Pertus(ACell),Tet Adult 0.5 ML SYRINGE IM (20:27)
== END 2023-05-24 20:58 | disposition home or self-care (01) ==
PROVIDERS: Emergency Provider Internal Medicine
DX: S60.470A Other superficial bite of right index finger, initial encounter (principal); Y04.1XXA Assault by human bite, initial encounter; Y93.89 Activity, other specified; Y92.218 Other school as the place of occurrence of the external cause; Y99.0 Civilian activity done for income or pay
CPT/HCPCS: 90471; 90715; 99282; 99284

== ENCOUNTER 2023-06-29 17:25 | Outpatient (REF) | payer MEDICAID, SELFPAY ==
[2023-06-29 17:47] LABS: Appearance Urine Clear; Color Urine Yellow; Glucose Urine UA Negative (Negative); Leukocyte Esterase Urine Moderate (2+) (Negative); Nitrite Urine Negative (Negative); PH 6.5 (5.0-9.0); UMIC TRIGGER UACC YES; Urine Blood Negative (Negative); Urine Ketones Negative (Negative); Urine Protein Negative (Neg-Trace)
[2023-06-29 17:52] LABS: Bacteria Urine Trace (None Seen); Hyaline Casts Urine 0-2 /LPF (0-2); RBC Urine 0-2 /HPF (0-2); UACC Culture Trigger YES; WBC Urine >50 /HPF (0-5)
== END 2023-06-29 17:26 | disposition home or self-care (01) ==
LOC: HO.HHCLNP 17:25
PROVIDERS: Visit Provider Student in an Organized Health Care Education/Training Program
DX: R30.9 Painful micturition, unspecified (principal)
CPT/HCPCS: 81001; 87086; 87088; 87147; 87186

== ENCOUNTER 2023-11-12 13:22 | Emergency (ER) | payer MEDICAID, SELFPAY ==
[2023-11-12 13:50] VITALS: BP 114/51; PULSE 125; RESP 19; TEMP 38.1; O2SAT 98; BMI 28.3
--- NOTE | 2023-11-12 13:50 | ED.NAVMDI ---
HPI - Nausea/Vomiting/Diarrhea General Chief complaint: Abdominal Pain Stated complaint: Vomiting Time Seen by Provider: 11/12/23 15:10 History of Present Illness HPI Narrative: Patient complains of nausea and vomiting x1 day, fever, body aches fatigue runny nose all for 1 day, as well as a mild headache There is no dizziness, no stiff neck, no rapid onset headache, no sore throat no difficulty breathing or swallowing no chest pain no cough no shortness of breath no abdominal pain no diarrhea no dysuria no frequency no skin rash Related Data Home Medications ?Medication ?Instructions ?Recorded ?Confirmed naproxen 500 mg tablet 500 mg PO BID 11/28/22 11/28/22 sumatriptan succinate 50 mg tablet 50 mg PO migraine 11/28/22 11/28/22 tizanidine 2 mg capsule 2 mg PO Q8H PRN 11/28/22 11/28/22 Previous Rx's ?Medication ?Instructions ?Recorded magnesium oxide 400 mg (241.3 mg 400 mg PO BEDTIME #30 tabs 11/28/22 magnesium) tablet cyclobenzaprine 10 mg tablet 10 mg PO TID PRN muscle spasm #10 12/03/22 tabs ibuprofen 600 mg tablet 600 mg PO TID PRN pain #14 tabs 12/03/22 ketorolac 10 mg tablet 10 mg PO TID PRN pain 5 days #15 04/26/23 tabs ondansetron 4 mg disintegrating 4 mg PO Q6H PRN nausea and 04/26/23 tablet vomiting #14 tabs naproxen 500 mg tablet 500 mg PO BID PRN pain #20 tabs 05/03/23 ondansetron 4 mg disintegrating 4 mg PO Q8H PRN nausea and 05/03/23 tablet vomiting #14 tabs tramadol 50 mg tablet 50 mg PO Q8H PRN severe pain 05/03/23 (scale score 7-10) #8 tabs naproxen 500 mg tablet (Naprosyn) 500 mg PO BID #20 tabs 05/13/23 amoxicillin 875 mg-potassium 1 tab PO BID 5 days #10 tabs 05/24/23 clavulanate 125 mg tablet ondansetron 4 mg disintegrating 4 mg PO Q6H PRN nausea and 11/12/23 tablet vomiting #10 tabs oseltamivir 75 mg capsule (Tamiflu) 75 mg PO BID 5 days #10 caps 11/12/23 benzonatate 100 mg capsule 100 mg PO BID PRN cough 7 days #14 11/17/23 caps prednisone 20 mg tablet 20 mg PO DAILY 7 days #7 tabs 11/17/23 polymyxin B sulfate 10,000 1 drp ophthalmic (eye) Q3H 7 days 06/04/24 unit-trimethoprim 1 mg/mL eye drops #10 mL albuterol sulfate 2.5 mg/0.5 mL 5 mg inhalation Q4H PRN shortness 06/23/24 solution for nebulization of breath or wheezing #30 ea benzonatate 100 mg capsule 100 mg PO TID PRN cough #14 caps 06/23/24 albuterol 90 mcg-budesonide 80 2 inh inhalation BID shortness of 06/26/24 mcg/actuation HFA aerosol inhaler breath #10.7 grams (Airsupra) guaifenesin 200 mg tablet 200 mg PO Q6H PRN cough #20 tabs 06/26/24 Allergies Allergy/AdvReac Type Severity Reaction Status Date / Time watermelon Allergy Severe ANAPHYLAXIS Verified 06/26/24 10:07 pollen Allergy Unknown rash Uncoded 06/23/24 04:11 [facility] Past Medical History Source: nursing notes reviewed Medical History Migraine Asthma Cocaine abuse in remission Opioid use disorder Alcohol use disorder, moderate, in early remission Post-traumatic stress disorder, unspecified Major depressive disorder, recurrent severe without psychotic features Surgical History History of delivery Family History Family History Father HTN (hypertension) Cancer Social History Social History Household Members: Significant Other Alcohol intake: former Patient Tobacco Use Status: Former Tobacco user Physical Exam Vital Signs: Vital Signs: Last Vital Signs Temp 100.0 F 11/12/23 16:24 Pulse 103 H 11/12/23 15:59 Resp 18 11/12/23 15:59 BP 106/62 11/12/23 15:59 Pulse Ox 95 11/12/23 15:59 O2 Del Method Room Air 11/12/23 15:59 BMI result Body Mass Index 28.3 General appearance comfortable no distress The eyes no redness or discharge pupils equal round reactive to light extraocular motions are intact The nose had no sinus tenderness, there was some mild congestion The pharynx is clear without redness swelling or exudate, mucous membranes are mildly dry, voice is normal The neck is supple Chest clear to auscultation bilateral full symmetric equal breath sounds no respiratory distress Heart no murmur Abdomen soft nontender Extremities full range motion x4 Skin no rash Neuro no focal deficits Course Course Course Narrative: RME- 13:55PM - 27-year-old female presenting to the ER with fevers, chills, fatigue, malaise, headaches, nasal congestion, shortness of breath, nausea/vomiting, unable to keep anything down and suprapubic abdominal pain all started within the past 24 hours. 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 She denies any dizziness, change in vision, chest pain, cough, dysuria hematuria, rashes or any other symptoms complaints or concerns at this time. Plan: Patient has a fever and is vomiting therefore she was given Zofran and will order Motrin as well. Will obtain labs, COVID/RSV/flu swab, UA and urine patient will be sent back to the waiting room to be evaluated in the ED. Patient tested positive for flu She was treated with IV fluids and a 2nd dose of Zofran with complete improvement, she was tolerating p.o. did not feel nauseous, headache was gone and she was discharged diagnosis of flu Medications Administered Discontinued Medications Generic Name Dose Route Start Last Admin Trade Name Samantha PRN Reason Stop Dose Admin Sodium Chloride 1,000 mls @ 999 mls/hr 11/12/23 15:30 11/12/23 17:42 Ns IVCONT 11/12/23 16:30 Infused .Q1H1M FIDE Infusion Ibuprofen 800 mg 11/12/23 13:53 11/12/23 14:47 Ibuprofen 800 Mg Tablet PO 11/12/23 13:54 800 mg ONCE ONE Administration Ondansetron HCl 4 mg 11/12/23 13:53 11/12/23 13:54 Ondansetron Odt 4 Mg Tab.Rapdis TRANSLINGU 11/12/23 13:54 4 mg ONCE ONE Administration Ondansetron HCl 4 mg 11/12/23 15:30 11/12/23 16:03 Ondansetron Hcl 4 Mg/2 Ml Vial IVPUSH 11/12/23 15:31 4 mg ONCE ONE Administration Medical Decision Making Lab Data [id number] Lab Attestation statement: I reviewed the patient's lab results. 11/12/23 14:01 11/12/23 14:01 Labs: Lab Results 11/12/23 11/12/23 Range/Units 14:01 14:43 WBC 7.9 (4.8-10.8) X10*3/uL RBC 4.95 (4.20-5.50) X10*6/uL Hgb 13.9 (12.0-16.0) g/dl Hct 40.4 (37.0-47.0) % MCV 81.6 (80.0-98.0) fL MCH 28.1 (27.0-33.0) pg MCHC 34.4 (31.0-35.0) g/dl RDW 12.9 (11.0-16.0) % Plt Count 246 D (160-400) X10*3/uL MPV 8.6 L (9.4-12.3) fL Immature Gran % (Auto) 0.3 (0.0-0.4) % Neut % (Auto) 82.6 H (45-73) % Lymph % (Auto) 5.2 L (20-40) % [place] % (Auto) 10.3 (2-11) % Eos % (Auto) 1.1 (0-4) % Baso % (Auto) 0.5 (0-2) % Lymph # (Auto) 0.4 L (1.2-4.9) X10*3/uL [place] # (Auto) 0.8 (0.1-1.2) X10*3/uL Eos # (Auto) 0.1 (0.0-0.4) X10*3/uL Baso # (Auto) 0.0 (0.0-0.2) X10*3/uL Abs Immat Gran (auto) 0.02 (0.00-0.03) X10*3/uL Absolute Neuts (auto) 6.5 (2.0-8.3) x10*3/uL Absolute Nucleated RBC 0.000 (0.0-0.012) X10*3/uL Nucleated RBC % (auto) 0.0 (0.0-0.2) /100WBC Sodium 138 (135-145) mmol/L Potassium 3.5 (3.3-5.1) mmol/L Chloride 109 H (96-108) mmol/L Carbon Dioxide 24 (22-29) mmol/L Anion Gap 9 L (12-20) BUN 10 (9-16) mg/dL Creatinine 0.86 (0.5-1.4) mg/dL Estim Creat Clear Calc 86.7 Estimated GFR > 60 Random Glucose 106 (60-115) mg/dL Calcium 9.0 D (8.4-10.2) mg/dL Magnesium 1.6 (1.6-2.6) mg/dL Total Bilirubin 0.3 (0.0-1.0) mg/dL Direct Bilirubin 0.1 (0.0-0.5) mg/dL AST 21 (5-31) U/L ALT 15 (0-31) U/L Alkaline Phosphatase 54 (39-117) U/L Total Protein 7.3 (6.5-8.0) g/dL Albumin 4.2 (3.5-5.0) g/dL Lipase 12 (8-78) U/L Urine Color Yellow Urine Appearance Clear Urine pH >= 9.0 (5.0-9.0) Ur Specific [place] 1.025 (1.005-1.025) Urine Protein Trace (Neg-Trace) mg/dL Urine Glucose (UA) Negative (Negative) mg/dL Urine Ketones Negative (Negative) mg/dL Urine Blood Negative (Negative) Urine Nitrite Negative (Negative) Ur Leukocyte Esterase Negative (Negative) Urine Test NEGATIVE (NEGATIVE) Influenza Type A (PCR) POSITIVE A (Negative) Influenza Type B (PCR) NEGATIVE (Negative) RSV RNA Qual (PCR) NEGATIVE (Negative) SARS-CoV-2 RNA (RT-PCR) NEGATIVE (Negative) Discharge Plan Discharge Clinical Impression: Influenza Patient Disposition: Home, Self-Care Additional Instructions: You tested positive for the flu The medicine for the flu, Tamiflu is sometimes mildly helpful but will not cure the flu It may shorten the course by 1 day It may cause stomach upset so if you are getting side effects of vomiting or stomach pain you can stop the medication Zofran will help with nausea Return any time any worse condition or any concerns Drink plenty of fluids Prescriptions: New oseltamivir [Tamiflu] 75 mg capsule 75 mg PO BID 5 Days Qty: 10 0RF ondansetron 4 mg tablet,disintegrating 4 mg PO Q6H PRN (Reason: nausea and vomiting) Qty: 10 0RF No Action naproxen 500 mg tablet 500 mg PO BID PRN (Reason: pain) Qty: 20 0RF ondansetron 4 mg tablet,disintegrating 4 mg PO Q8H PRN (Reason: nausea and vomiting) Qty: 14 0RF tramadol 50 mg tablet 50 mg PO Q8H PRN (Reason: severe pain (scale score 7-10)) Qty: 8 0RF naproxen [Naprosyn] 500 mg tablet 500 mg PO BID Qty: 20 0RF amoxicillin-pot clavulanate 875-125 mg tablet 1 tab PO BID 5 Days Qty: 10 0RF benzonatate 100 mg capsule 100 mg PO BID PRN (Reason: cough) 7 Days Qty: 14 0RF prednisone 20 mg tablet 20 mg PO DAILY 7 Days Qty: 7 0RF cyclobenzaprine 10 mg tablet 10 mg PO TID PRN (Reason: muscle spasm) Qty: 10 0RF ibuprofen 600 mg tablet 600 mg PO TID PRN (Reason: pain) Qty: 14 0RF ketorolac 10 mg tablet 10 mg PO TID PRN (Reason: pain) 5 Days Qty: 15 0RF ondansetron 4 mg tablet,disintegrating 4 mg PO Q6H PRN (Reason: nausea and vomiting) Qty: 14 0RF benzonatate 100 mg capsule 100 mg PO TID PRN (Reason: cough) Qty: 14 0RF albuterol sulfate 2.5 mg/0.5 mL solution for nebulization 5 mg inhalation Q4H PRN (Reason: shortness of breath or wheezing) Qty: 30 0RF guaifenesin 200 mg tablet 200 mg PO Q6H PRN (Reason: cough) Qty: 20 0RF Airsupra 90-80 mcg/actuation HFA aerosol inhaler 2 inh inhalation BID Qty: 10.7 0RF sumatriptan succinate 50 mg tablet 50 mg PO tizanidine 2 mg capsule 2 mg PO Q8H PRN naproxen 500 mg tablet 500 mg PO BID magnesium oxide 400 mg (241.3 mg magnesium) tablet 400 mg PO BEDTIME Qty: 30 6RF polymyxin B sulf-trimethoprim 10,000 unit- 1 mg/mL drops 1 drp ophthalmic (eye) Q3H 7 Days Qty: 10 0RF Rx Instructions: while awake; do not exceed 6 doses in 24 hours Stand Alone Forms: Work/School Release Interventions: ED Discharge Assessment Last Done: 11/12/23 18:11 Discharge Date/Time: 11/12/23 18:12 Print Language: Lib[place]
[2023-11-12] MEDS: Ondansetron ODT 4 MG TAB.RAPDIS TRANSLINGU (13:54)
[2023-11-12 14:07] LABS: MANUAL DIFF FLAG NO
[2023-11-12 14:15] LABS: Basophils Percent Auto 0.5 % (0-2); Eosinophils Absolute Auto 0.1 X10*3/uL (0.0-0.4); Eosinophils Percent Auto 1.1 % (0-4); Hematocrit 40.4 % (37.0-47.0); Hemoglobin 13.9 g/dl (12.0-16.0); Imm Gran Abs Auto 0.02 X10*3/uL (0.00-0.03); Imm Gran Pct Auto 0.3 % (0.0-0.4); Lymphocytes Absolute Auto 0.4 X10*3/uL (1.2-4.9); Lymphocytes Percent Auto 5.2 % (20-40); Mean Corpuscular HGB Conc 34.4 g/dl (31.0-35.0); Mean Corpuscular Hemoglobin 28.1 pg (27.0-33.0); Mean Corpuscular Volume 81.6 fL (80.0-98.0); Mean Platelet Volume 8.6 fL (9.4-12.3); Monocytes Absolute Auto 0.8 X10*3/uL (0.1-1.2); Monocytes Percent Auto 10.3 % (2-11); Neutrophils Absolute Auto 6.5 x10*3/uL (2.0-8.3); Neutrophils Percent Auto 82.6 % (45-73); Platelet Count 246 X10*3/uL (160-400); Red Blood Count 4.95 X10*6/uL (4.20-5.50); Red Cell Distribution Width 12.9 % (11.0-16.0); White Blood Count 7.9 X10*3/uL (4.8-10.8)
[2023-11-12 14:27] LABS: Alanine Aminotransferase 15 U/L (0-31); Albumin Level 4.2 g/dL (3.5-5.0); Alkaline Phosphatase 54 U/L (39-117); Anion Gap 9 (12-20); Aspartate Amino Transferase 21 U/L (5-31); Bilirubin Direct 0.1 mg/dL (0.0-0.5); Bilirubin Total 0.3 mg/dL (0.0-1.0); Blood Urea Nitrogen 10 mg/dL (9-16); Carbon Dioxide 24 mmol/L (22-29); Chloride 109 mmol/L (96-108); Creatinine Clr Calc Pharmacy 86.7; Estimated Glomerular Filt Rate > 60; Glucose Random 106 mg/dL (60-115); Lipase 12 U/L (8-78); Magnesium 1.6 mg/dL (1.6-2.6); Potassium 3.5 mmol/L (3.3-5.1); Sodium 138 mmol/L (135-145); Total Protein 7.3 g/dL (6.5-8.0)
[2023-11-12 14:47] LABS: Influenza A PCR POSITIVE (Negative); Influenza B PCR NEGATIVE (Negative); Resp Syncy Virus RNA Qual PCR NEGATIVE (Negative); SARS COV2 PCR INHOUSE NEGATIVE (Negative)
[2023-11-12] MEDS: Ibuprofen 800 MG TABLET PO (14:47)
[2023-11-12 14:53] LABS: Appearance Urine Clear; Color Urine Yellow; Glucose Urine UA Negative (Negative); Leukocyte Esterase Urine Negative (Negative); Nitrite Urine Negative (Negative); PH >= 9.0 (5.0-9.0); Specific Gravity - Urine 1.025 (1.005-1.025); Urine Blood Negative (Negative); Urine Ketones Negative (Negative); Urine Protein Trace mg/dL (Neg-Trace)
[2023-11-12 14:55] LABS: UPreg QC Valid YES; Urine Pregnancy NEGATIVE (NEGATIVE)
[2023-11-12 15:59] VITALS: BP 106/62; PULSE 103; RESP 18; TEMP 37.8; O2SAT 95
[2023-11-12] MEDS: 0.9 % Sodium Chloride 1,000 ML 999 ML IVCONT (16:03)
[2023-11-12] MEDS: ondansetron HCL 4 MG/2 ML VIAL IVPUSH (16:03)
[2023-11-12 16:24] VITALS: TEMP 37.8
== END 2023-11-12 18:12 | disposition home or self-care (01) ==
PROVIDERS: Physician Assistant Medical; Emergency Provider Emergency Medicine
DX: J11.1 Influenza due to unidentified influenza virus with other respiratory manifestations (principal); J45.909 Unspecified asthma, uncomplicated; Z11.52 Encounter for screening for COVID-19; Z20.828 Contact with and (suspected) exposure to other viral communicable diseases
CPT/HCPCS: 0241U; 80053; 81003; 81025; 82248; 83690; 83735; 85025; 96361; 96374; 99284; J2405

== ENCOUNTER 2023-11-17 17:44 | Emergency (ER) | payer MEDICAID, SELFPAY ==
--- NOTE | ~2023-11-17 | XR_ITS ---
EXAMINATION: XR CHEST CLINICAL INFORMATION: Cough COMPARISON: 12/03/2022 TECHNIQUE: 2 views of the chest were obtained. FINDINGS: No significant abnormality is noted involving the heart, lungs, mediastinum, bony thorax or soft tissues. XR/XR chest 2V IMPRESSION: Unremarkable examination.
[2023-11-17 17:47] VITALS: BP 117/92; PULSE 101; RESP 22; TEMP 36.2; O2SAT 100; BMI 24.6
--- NOTE | 2023-11-17 18:00 | ED_ITS ---
HPI - Asthma General Chief Complaint: Asthma Stated Complaint: Asthma Time Seen by Provider: 11/17/23 18:00 Source: patient Mode of arrival: ambulatory Limitations: no limitations History of Present Illness HPI Narrative: Patient is a 27 year old assigned female at with a history of asthma presenting to the emergency department today with continued cough. Patient states that on 11/12/2023 she tested positive for Influenza and just finished Tamiflu but her cough is persisting. Patient denies any dizziness, lightheadedness, abdominal pain, nausea, vomiting, fever, chills, blurry vision, double vision, loss of vision, chest pain, difficulty breathing, shortness of breath, back pain, night sweats, pain with urination, increased urinary frequency, increased urinary urgency, blood in her urine or stool, syncope or a near syncopal episode, recent trauma or falls, bowel incontinence, bladder incontinence, bowel retention, bladder retention, or any other complaints at this time. Context: recent URI Related Data Home Medications Medication Instructions Recorded Confirmed naproxen 500 mg tablet 500 mg PO BID 11/28/22 11/28/22 sumatriptan succinate 50 mg tablet 50 mg PO migraine 11/28/22 11/28/22 tizanidine 2 mg capsule 2 mg PO Q8H PRN 11/28/22 11/28/22 Previous Rx's Medication Instructions Recorded magnesium oxide 400 mg (241.3 mg 400 mg PO BEDTIME #30 tabs 11/28/22 magnesium) tablet cyclobenzaprine 10 mg tablet 10 mg PO TID PRN muscle spasm #10 12/03/22 tabs ibuprofen 600 mg tablet 600 mg PO TID PRN pain #14 tabs 12/03/22 ketorolac 10 mg tablet 10 mg PO TID PRN pain 5 days #15 04/26/23 tabs ondansetron 4 mg disintegrating 4 mg PO Q6H PRN nausea and 04/26/23 tablet vomiting #14 tabs naproxen 500 mg tablet 500 mg PO BID PRN pain #20 tabs 05/03/23 ondansetron 4 mg disintegrating 4 mg PO Q8H PRN nausea and 05/03/23 tablet vomiting #14 tabs tramadol 50 mg tablet 50 mg PO Q8H PRN severe pain 05/03/23 (scale score 7-10) #8 tabs naproxen 500 mg tablet (Naprosyn) 500 mg PO BID #20 tabs 05/13/23 amoxicillin 875 mg-potassium 1 tab PO BID 5 days #10 tabs 05/24/23 clavulanate 125 mg tablet ondansetron 4 mg disintegrating 4 mg PO Q6H PRN nausea and 11/12/23 tablet vomiting #10 tabs oseltamivir 75 mg capsule (Tamiflu) 75 mg PO BID 5 days #10 caps 11/12/23 benzonatate 100 mg capsule 100 mg PO BID PRN cough 7 days #14 11/17/23 caps prednisone 20 mg tablet 20 mg PO DAILY 7 days #7 tabs 11/17/23 Allergies Allergy/AdvReac Type Severity Reaction Status Date / Time watermelon Allergy Severe ANAPHYLAXIS Verified 11/17/23 17:47 pollen Allergy Unknown rash Uncoded 11/12/23 13:50 Review of Systems Constitutional: Constitutional: Reports no additional constitutional complaints, Denies chills, Denies fever(s) and Denies night sweats Eyes: Eyes: Reports no additional eye complaints, Denies blurry vision, Denies change in vision, Denies diplopia, Denies eye discharge, Denies loss of vision and Denies eye pain ENT: Denies dizziness Cardiovascular: Cardiovascular: Reports no additional cardiovascular complaints, Denies chest pain, Denies lightheadedness, Denies Loss of Consciousness and Denies dyspnea Respiratory: Respiratory: Reports no additional respiratory complaints, Reports cough and Denies dyspnea Gastrointestinal: Gastrointestinal: Reports no additional gastrointestinal complaints, Denies abdominal pain, Denies melena, Denies hematochezia, Denies change in bowel habits and Denies change in stool character Genitourinary: Genitourinary: Denies hematuria, Denies urinary frequency, Denies dysuria, Denies urinary incontinence, Denies urinary hesitancy and Denies urinary urgency Musculoskeletal: Musculoskeletal: Reports no additional musculoskeletal complaints, Denies numbness and Denies tingling Neurologic: Denies dizziness, Denies loss of vision, Denies numbness and Denies tingling Psychiatric: Psychiatric: Reports no additional psychiatric complaints Endocrine: Endocrine: Reports no additional endocrine complaints Hematologic/Lymphatic: Hematologic/Lymphatic: Reports no additional hematologic/lymphatic complaints Allergic/Immunologic: Allergic/Immunologic: Reports no additional allergic/immunologic complaints PMFSH Past Medical History Attestation statement: The following information was validated with the patient. Source: old records reviewed and nursing notes reviewed Medical History Migraine Asthma Cocaine abuse in remission Opioid use disorder Alcohol use disorder, moderate, in early remission Post-traumatic stress disorder, unspecified Major depressive disorder, recurrent severe without psychotic features Surgical History History of delivery Family History Family History Father HTN (hypertension) Cancer Social History Social History Household Members: Significant Other Alcohol intake: former Patient Tobacco Use Status: Former Tobacco user Advance Directives: No Advance Directives Information Provided: No Physical Exam Vital Signs: Vital Signs: Last Vital Signs Temp 97.2 F 11/17/23 17:47 Pulse 93 11/17/23 18:17 Resp 22 H 11/17/23 18:17 BP 117/92 H 11/17/23 17:47 Pulse Ox 100 11/17/23 17:47 O2 Del Method Room Air 11/17/23 17:47 BMI result Body Mass Index 24.6 Const: General: cooperative, no acute distress, alert and awake Nutritional Appearance: well nourished Orientation/consciousness: patient oriented x3 Limitations: no limitations HEENT: Head: Yes normal to inspection and Yes atraumatic Ears: hearing grossly normal bilaterally and external ears normal General nose exam: Normal external nose present, no nasal discharge noted and no epistaxis Face and sinus: Yes normal facial exam, No abrasion and No laceration Mouth: Normal oral and palatal mucosa present, no drooling and no muffled voice Eyes: General: appearance normal, both eyes and all related structures Periorbital: periorbital findings normal Eyelids: Yes eyelids normal Conjunctivae: conjunctivae normal Pupils: Equal, round and reactive pupils present EOM: EOMs intact bilaterally Neck: Neck: Yes normal visual inspection, Yes full ROM and Yes no lymphadenopathy Chest: Chest palpation & inspection: normal inspection of the chest Resp: Effort & Inspection: normal respiratory effort and able to speak in complete sentences Auscultation: clear to auscultation bilaterally Cardio: Rate: regular rate Rhythm: regular rhythm GI: Inspection: Yes normal to inspection Neuro: General: patient oriented x3 and moves all extremities Cranial nerves: Yes Equal, round and reactive pupils present Cognition (Neuro): normal cognition Motor exam (neuro): 5/5 motor strength present throughout Sensory Exam: Normal double simultaneous stimulation for sensation Coordination: [id number] test normal Extrem: General: Yes normal to inspection, Yes full ROM and Yes capillary refill normal Psych: Appearance: grossly normal Mental Status: mental status grossly normal Affect: normal affect Attitude: cooperative Thought process: Normal thought process present Thought content: Normal thought content present Insight: Good insight present (Psych) Medications Administered Discontinued Medications Generic Name Dose Route Start Last Admin Trade Name Freq PRN Reason Stop Dose Admin Albuterol/Ipratropium 3 ml 11/17/23 18:12 11/17/23 18:16 Albuterol/Iprat 2.5/0.5mg 3 Ml Ampul.Neb INHALE 11/17/23 18:13 3 ml ONCE ONE Administration Methylprednisolone Sodium Succinate 60 mg 11/17/23 18:00 11/17/23 18:20 Methylprednisolone Sod Succ 125 Mg/2 Ml Vial IM 11/17/23 18:01 60 mg ONCE ONE Administration Medical Decision Making Medical Decision Making [facility] Narrative: Patient is a 27 year old assigned female at with a history of asthma presenting to the emergency department today with a persistent cough. Patient's physical exam was unremarkable. Patient's chest x-ray showed no acute process. Patient's COVID-19 and RSV tests were negative. Patient continues to test positive for Influenza. I explained my physical exam findings as well as all test results to the patient. I answered all questions asked by the patient. Patient received Solu-medrol and a breathing treatment which she stated helped her symptoms significantly. I stressed the importance of the patient taking her medication as prescribed. I stressed the importance of the patient following up with her primary care provider. I stressed the importance of the patient returning to the emergency department immediately if her symptoms were to worsen or if she were to develop any dizziness, shortness of breath, difficulty breathing, chest pain, blurry vision, loss of vision, nausea, vomiting, abdominal pain, fever, chills, back pain, or any other complaints. Patient verbalized agreement and understanding with this treatment plan and discharge. Differential Diagnosis Differential Diagnoses: The differential diagnosis associated with the presentation includes Asthma exacerbation Cough Influenza RSV COVID-19 Admission/Observation Consideration of admission/observation: Escalation of care including admission/observation considered Patient would have been admitted to the hospital had her work up had any findings where hospital admission was appropriate and her clinical presentation warranted hospital admission. Lab Data [facility] Lab Attestation statement: I reviewed the patient's lab results. My interpretation of these results are in the [facility] Rationale portion of this note. Labs: Lab Results 11/17/23 Range/Units 17:56 Influenza Type A (PCR) POSITIVE A (Negative) Influenza Type B (PCR) NEGATIVE (Negative) RSV RNA Qual (PCR) NEGATIVE (Negative) SARS-CoV-2 RNA (RT-PCR) NEGATIVE (Negative) Independent Interpretation I performed an independent interpretation of an: Plain X-Ray Interpretation: My interpretation is in agreement with the radiologist's impression of this imaging study. EXAMINATION: XR CHEST CLINICAL INFORMATION: Cough COMPARISON: 12/03/2022 TECHNIQUE: 2 views of the chest were obtained. FINDINGS: No significant abnormality is noted involving the heart, lungs, mediastinum, bony thorax or soft tissues. XR/XR chest 2V IMPRESSION: Unremarkable examination. Dictated By: Mert Pardo MD Signed By: Electronically signed by Mert Pardo MD 11/17/23 4535 Radiology Impression Discussion of test interpretation with radiology: I have reviewed the radiologist's reading. Discharge Plan Discharge Clinical Impression: Asthma exacerbation, Influenza Patient Disposition: Home, Self-Care Instructions: Asthma (DC), Influenza (DC) Additional Instructions: Follow up with your primary care provider. Return to the emergency department immediately if your symptoms worsen or if you develop any dizziness, shortness of breath, difficulty breathing, chest pain, blurry vision, loss of vision, nausea, vomiting, abdominal pain, fever, chills, back pain, or any other complaints. Prescriptions: New benzonatate 100 mg capsule 100 mg PO BID PRN (Reason: cough) 7 Days Qty: 14 0RF prednisone 20 mg tablet 20 mg PO DAILY 7 Days Qty: 7 0RF No Action naproxen 500 mg tablet 500 mg PO BID PRN (Reason: pain) Qty: 20 0RF ondansetron 4 mg tablet,disintegrating 4 mg PO Q8H PRN (Reason: nausea and vomiting) Qty: 14 0RF tramadol 50 mg tablet 50 mg PO Q8H PRN (Reason: severe pain (scale score 7-10)) Qty: 8 0RF naproxen [Naprosyn] 500 mg tablet 500 mg PO BID Qty: 20 0RF amoxicillin-pot clavulanate 875-125 mg tablet 1 tab PO BID 5 Days Qty: 10 0RF cyclobenzaprine 10 mg tablet 10 mg PO TID PRN (Reason: muscle spasm) Qty: 10 0RF ibuprofen 600 mg tablet 600 mg PO TID PRN (Reason: pain) Qty: 14 0RF ketorolac 10 mg tablet 10 mg PO TID PRN (Reason: pain) 5 Days Qty: 15 0RF ondansetron 4 mg tablet,disintegrating 4 mg PO Q6H PRN (Reason: nausea and vomiting) Qty: 14 0RF oseltamivir [Tamiflu] 75 mg capsule 75 mg PO BID 5 Days Qty: 10 0RF ondansetron 4 mg tablet,disintegrating 4 mg PO Q6H PRN (Reason: nausea and vomiting) Qty: 10 0RF sumatriptan succinate 50 mg tablet 50 mg PO tizanidine 2 mg capsule 2 mg PO Q8H PRN naproxen 500 mg tablet 500 mg PO BID magnesium oxide 400 mg (241.3 mg magnesium) tablet 400 mg PO BEDTIME Qty: 30 6RF Referrals: Yamileth Anand MD [Primary Care Provider] - Stand Alone Forms: Work/School Release Interventions: ED Discharge Assessment Last Done: 11/17/23 19:31 Discharge Date/Time: 11/17/23 19:31 Print Language: Jamaican
[2023-11-17] MEDS: Albuterol/Iprat 2.5/0.5MG 3 ML AMPUL.NEB INHALE (18:16)
[2023-11-17 18:17] VITALS: PULSE 93; RESP 22; O2SAT 99
[2023-11-17] MEDS: methylPREDNISolone Sod Succ 125 MG/2 ML VIAL 60 MG IM (18:20)
[2023-11-17 18:44] LABS: Influenza A PCR POSITIVE (Negative); Influenza B PCR NEGATIVE (Negative); Resp Syncy Virus RNA Qual PCR NEGATIVE (Negative); SARS COV2 PCR INHOUSE NEGATIVE (Negative)
== END 2023-11-17 19:31 | disposition home or self-care (01) ==
PROVIDERS: Emergency Provider Emergency Medicine Emergency Medical Services; PCP Student in an Organized Health Care Education/Training Program
DX: J45.901 Unspecified asthma with (acute) exacerbation (principal); J10.1 Influenza due to other identified influenza virus with other respiratory manifestations; R05.9 Cough, unspecified
CPT/HCPCS: 0241U; 71046; 94640; 96372; 99283; 99284; J2930

== ENCOUNTER → 2024-06-04 13:48 | Outpatient (BNVA) | payer SELFPAY | PROVIDERS: PCP Student in an Organized Health Care Education/Training Program; Visit Provider Physician Assistant Medical | DX: S60.372A Other superficial bite of left thumb, initial encounter (principal); W50.3XXA Accidental bite by another person, initial encounter; Z77.21 Contact with and (suspected) exposure to potentially hazardous body fluids | CPT/HCPCS: 99202 ==

== ENCOUNTER → 2024-06-09 10:48 | Outpatient (BNVA) | payer OTHER, SELFPAY | PROVIDERS: PCP Student in an Organized Health Care Education/Training Program; Visit Provider Internal Medicine | DX: S60.372A Other superficial bite of left thumb, initial encounter (principal); W50.3XXA Accidental bite by another person, initial encounter; Z77.21 Contact with and (suspected) exposure to potentially hazardous body fluids | CPT/HCPCS: 99213 ==

== ENCOUNTER 2024-06-23 04:04 | Emergency (ER) | payer OTHER, SELFPAY ==
--- NOTE | 2024-06-23 | ECG_ITS ---
Test Reason : UPPER RESP Blood Pressure : / mmHG Vent. Rate : 084 BPM Atrial Rate : 084 BPM P-R Int : 152 ms QRS Dur : 084 ms QT Int : 368 ms P-R-T Axes : 072 036 034 degrees QTc Int : 434 ms Normal sinus rhythm Normal ECG When compared with ECG of 08-APR-2017 12:45, Nonspecific T wave abnormality no longer evident in Anterior leads Referred By: Generic ED Physician Electronically Signed By:CRUZ MOORE
--- NOTE | ~2024-06-23 | XR_ITS ---
EXAMINATION: XR CHEST CLINICAL INFORMATION: Shortness of breath. COMPARISON: November 17, 2023. TECHNIQUE: 2 views of the chest were obtained. FINDINGS: No significant abnormality is noted involving the heart, lungs, mediastinum, bony thorax or soft tissues. XR/XR chest 2V IMPRESSION: Unremarkable examination. Electronically signed by: Asuh Bourgeois MD 06/23/2024 04:40 AM EDT
[2024-06-23 04:08] VITALS: BP 124/77; PULSE 97; RESP 20; TEMP 36.4; O2SAT 100; BMI 23.8
[2024-06-23 04:36] LABS: IDNOW Serial# 08D9AD1C; Strep A Nucleic Acid Negative (Negative)
[2024-06-23 05:06] LABS: Influenza A PCR NEGATIVE (Negative); Influenza B PCR NEGATIVE (Negative); Resp Syncy Virus RNA Qual PCR NEGATIVE (Negative); SARS COV2 PCR INHOUSE NEGATIVE (Negative)
[2024-06-23 06:21] VITALS: BP 102/72; PULSE 69; RESP 18; TEMP 37.1; O2SAT 98
[2024-06-23 06:43] VITALS: O2SAT 100
--- NOTE | 2024-06-23 06:45 | PC.NURSE ---
pt speaking full clear sentences. lung sounds cta. pt has a intermittent dry cough pt states is causing chest soreness, also c/o sore throat. pt tolerating po intake. nad. awaiting eval by provider.
--- NOTE | 2024-06-23 06:50 | ED.URI ---
HPI - URI/Sore Throat General Chief Complaint: Upper Respiratory Symptoms Stated Complaint: chest pain, coughing, sore throat, SOB, light head Time Seen by Provider: 06/23/24 06:30 Source: patient, RN notes reviewed and old records reviewed Mode of arrival: ambulatory History of Present Illness ED Provider: Anna Greenfield PA-C HPI Narrative: 38-year-old female with a past medical history of migraines, asthma, opiate use disorder, ETOH use disorder, PTSD, depression, presenting to the ED complaining of dry cough, chest discomfort worse with coughing, deep breathing & lying flat, and sore throat x2 days. She states she wakes up in the morning feeling like she can not breathe. Endorses exertional dyspnea. Has been using inhalers and nebulizer at home without relief. Denies fever, chills, recent travel, sick contacts, pedal edema, history of clots Related Data Home Medications ?Medication ?Instructions ?Recorded ?Confirmed naproxen 500 mg tablet 500 mg PO BID 11/28/22 11/28/22 sumatriptan succinate 50 mg tablet 50 mg PO migraine 11/28/22 11/28/22 tizanidine 2 mg capsule 2 mg PO Q8H PRN 11/28/22 11/28/22 Previous Rx's ?Medication ?Instructions ?Recorded magnesium oxide 400 mg (241.3 mg 400 mg PO BEDTIME #30 tabs 11/28/22 magnesium) tablet cyclobenzaprine 10 mg tablet 10 mg PO TID PRN muscle spasm #10 12/03/22 tabs ibuprofen 600 mg tablet 600 mg PO TID PRN pain #14 tabs 12/03/22 ketorolac 10 mg tablet 10 mg PO TID PRN pain 5 days #15 04/26/23 tabs ondansetron 4 mg disintegrating 4 mg PO Q6H PRN nausea and 04/26/23 tablet vomiting #14 tabs naproxen 500 mg tablet 500 mg PO BID PRN pain #20 tabs 05/03/23 ondansetron 4 mg disintegrating 4 mg PO Q8H PRN nausea and 05/03/23 tablet vomiting #14 tabs tramadol 50 mg tablet 50 mg PO Q8H PRN severe pain 05/03/23 (scale score 7-10) #8 tabs naproxen 500 mg tablet (Naprosyn) 500 mg PO BID #20 tabs 05/13/23 amoxicillin 875 mg-potassium 1 tab PO BID 5 days #10 tabs 05/24/23 clavulanate 125 mg tablet ondansetron 4 mg disintegrating 4 mg PO Q6H PRN nausea and 11/12/23 tablet vomiting #10 tabs oseltamivir 75 mg capsule (Tamiflu) 75 mg PO BID 5 days #10 caps 11/12/23 benzonatate 100 mg capsule 100 mg PO BID PRN cough 7 days #14 11/17/23 caps prednisone 20 mg tablet 20 mg PO DAILY 7 days #7 tabs 11/17/23 polymyxin B sulfate 10,000 1 drp ophthalmic (eye) Q3H 7 days 06/04/24 unit-trimethoprim 1 mg/mL eye drops #10 mL albuterol sulfate 2.5 mg/0.5 mL 5 mg inhalation Q4H PRN shortness 06/23/24 solution for nebulization of breath or wheezing #30 ea benzonatate 100 mg capsule 100 mg PO TID PRN cough #14 caps 06/23/24 Allergies Allergy/AdvReac Type Severity Reaction Status Date / Time watermelon Allergy Severe ANAPHYLAXIS Verified 06/23/24 04:11 pollen Allergy Unknown rash Uncoded 06/23/24 04:11 Review of Systems Review of Systems: Yes all other systems are reviewed and are negative Constitutional: Constitutional: Reports as per [facility] Past Medical History Attestation statement: The following information was validated with the patient. Source: old records reviewed Medical History Migraine Asthma Cocaine abuse in remission Opioid use disorder Alcohol use disorder, moderate, in early remission Post-traumatic stress disorder, unspecified Major depressive disorder, recurrent severe without psychotic features Surgical History History of delivery Family History Family History Father HTN (hypertension) Cancer Social History Social History Household Members: Significant Other Alcohol intake: former Patient Tobacco Use Status: Former Tobacco user Advance Directives: No Advance Directives Information Provided: Yes Do you have a plan to hurt others: No Plan Physical Exam Vital Signs: Vital Signs: Last Vital Signs Temp 0 F L 06/23/24 08:56 Pulse 77 06/23/24 08:56 Resp 12 06/23/24 08:56 BP 112/70 06/23/24 08:56 Pulse Ox 99 06/23/24 08:56 O2 Del Method Room Air 06/23/24 08:56 BMI result Body Mass Index 23.8 Const: General: cooperative, healthy appearing and no acute distress Orientation/consciousness: patient oriented x3 Limitations: no limitations HEENT: Head: Yes normal to inspection and Yes atraumatic Ears: hearing grossly normal bilaterally General nose exam: Normal external nose present Face and sinus: Yes normal facial exam Mouth: Normal oral and palatal mucosa present and no drooling Throat: Yes posterior oropharynx normal, Yes tonsils normal, Yes uvula midline, No peritonsillar mass, No uvula laterally displaced and No uvular edema Eyes: General: appearance normal, both eyes and all related structures EOM: EOMs intact bilaterally Neck: Neck: Yes normal visual inspection and Yes no meningeal signs Resp: Effort & Inspection: normal respiratory effort and no respiratory distress Auscultation: clear to auscultation bilaterally, no crackles, no rhonchi and no wheezes Cardio: Rate: regular rate Heart sounds: S1 normal heart sound present and S2 normal heart sound present GI: Inspection: Yes normal to inspection Palpation (GI): Soft to palpation, nontender, no guarding and not rigid : General: Yes no CVA tenderness Back/Spine/Pelvis: Back: no CVA tenderness Skin: Rashes: no rashes Wounds: no wounds Neuro: General: patient oriented x3, tone normal and no meningeal signs Cranial nerves: Yes CN's II-XII intact bilaterally Gait exam (Neuro): Normal gait present Extrem: General: Yes normal to inspection, Yes no pedal edema and Yes no calf tenderness Course Course Course Narrative: -CXR unremarkable -viral testing and rapid strep negative -823--D-dimer negative, PE unlikely Results discussed with patient including worrisome signs and symptoms and strict return precautions, and when to return to the emergency department. They verbalized understanding and feel safe for discharge at this time. Medications Administered Discontinued Medications Generic Name Dose Route Start Last Admin Trade Name Freq PRN Reason Stop Dose Admin Albuterol/Ipratropium 3 ml 06/23/24 06:58 06/23/24 07:02 Albuterol/Iprat 2.5/0.5mg 3 Ml Ampul.Neb INHALE 06/23/24 06:59 3 ml ONCE ONE Administration Medical Decision Making Medical Decision Making [facility] Narrative: 38-year-old female with a past medical history of migraines, asthma, opiate use disorder, ETOH use disorder, PTSD, depression, presenting to the ED complaining of dry cough, chest discomfort worse with coughing, deep breathing & lying flat, and sore throat x2 days. On exam vital signs stable, NAD, nontoxic appearing, lungs CTA, talking in complete sentences, oropharynx WNL, no pedal edema/calf tenderness. Concern for viral illness vs asthma exacerbation vs pharyngitis vs pulmonary embolism. Lower suspicion for ACS. Unlikely dissection Plan: EKG, labs, CXR, viral studies, ED brought protocol Please refer to course for remaining clinical decision making, interpretation of labs/imaging results, and discussions with consultants and/or family members. Differential Diagnosis Differential Diagnoses: The differential diagnosis associated with the presentation includes As above Admission/Observation Consideration of admission/observation: Escalation of care including admission/observation considered Lab Data [facility] Lab Attestation statement: I reviewed the patient's lab results. 06/23/24 07:10 06/23/24 07:10 Labs: Lab Results 06/23/24 06/23/24 Range/Units 04:18 07:10 WBC 8.2 (4.8-10.8) X10*3/uL RBC 4.60 (4.20-5.50) X10*6/uL Hgb 13.1 (12.0-16.0) g/dl Hct 38.0 (37.0-47.0) % MCV 82.6 (80.0-98.0) fL MCH 28.5 (27.0-33.0) pg MCHC 34.5 (31.0-35.0) g/dl RDW 13.0 (11.0-16.0) % Plt Count 234 (160-400) X10*3/uL MPV 8.7 L (9.4-12.3) fL Immature Gran % (Auto) 0.4 (0.0-0.4) % Neut % (Auto) 62.0 (45-73) % Lymph % (Auto) 24.4 (20-40) % Stanly % (Auto) 9.2 (2-11) % Eos % (Auto) 3.5 (0-4) % Baso % (Auto) 0.5 (0-2) % Lymph # (Auto) 2.0 (1.2-4.9) X10*3/uL Stanly # (Auto) 0.8 (0.1-1.2) X10*3/uL Eos # (Auto) 0.3 (0.0-0.4) X10*3/uL Baso # (Auto) 0.0 (0.0-0.2) X10*3/uL Abs Immat Gran (auto) 0.03 (0.00-0.03) X10*3/uL Absolute Neuts (auto) 5.1 (2.0-8.3) x10*3/uL Absolute Nucleated RBC 0.000 (0.0-0.012) X10*3/uL Nucleated RBC % (auto) 0.0 (0.0-0.2) /100WBC PT 11.7 (10.9-12.4) SEC INR 1.0 (0.9-1.1) D-Dimer High Sensitivty < 150 NG/ML Sodium 139 (135-145) mmol/L Potassium 3.8 (3.3-5.1) mmol/L Chloride 110 H (96-108) mmol/L Carbon Dioxide 21 L (22-29) mmol/L Anion Gap 12 (12-20) BUN 8 L (9-16) mg/dL Creatinine 0.83 (0.5-1.4) mg/dL Estim Creat Clear Calc 76.1 Estimated GFR > 60 Random Glucose 95 (60-115) mg/dL Calcium 9.0 (8.4-10.2) mg/dL Total Bilirubin 0.2 (0.0-1.0) mg/dL Direct Bilirubin < 0.2 (0.0-0.5) mg/dL AST 17 (5-31) U/L ALT 13 (0-31) U/L Alkaline Phosphatase 50 (39-117) U/L Troponin I High Sens < 2.7 (<3.5-17.0) ng/L B-Natriuretic Peptide < 10 (<100) pg/mL Total Protein 6.8 (6.5-8.0) g/dL Albumin 4.1 (3.5-5.0) g/dL Influenza Type A (PCR) NEGATIVE (Negative) Influenza Type B (PCR) NEGATIVE (Negative) RSV RNA Qual (PCR) NEGATIVE (Negative) SARS-CoV-2 RNA (RT-PCR) NEGATIVE (Negative) S. pyogenes GrpA JANNETH Negative (Negative) Independent Interpretation I performed an independent interpretation of an: EKG (My interpretation EKG normal sinus rhythm rate of 84. ND interval 152. Nonspecific T-wave abnormality no longer evident in anterior leads. No STEMI) and Plain X-Ray Radiology Impression Discussion of test interpretation with radiology: I have reviewed the radiologist's reading. External Record Review External record reviewed: Inpatient record, Office record, Outpatient record, Prior outpatient labs, Prior outpatient radiology, Primary care record and Outside ED record Tests considered The following testing was considered but not selected: As above Prescription Management I considered prescription management with: Pain Medication Chronic Conditions Patient?s care impacted by: Other Social Determinants Patient?s care significantly limited by Social Determinants of Health including: Inadequate housing, Low income, Alcoholism and drug addiction in family, Problems related to primary support group, Unemployment, Problems related to employment and Other Social Determinant of Health Discharge Plan Discharge Clinical Impression: Dyspnea, Cough Patient Disposition: Home, Self-Care Instructions: Asthma (DC), Dyspnea (ED), Acute Cough (ED) Additional Instructions: Your blood work, chest x-ray, and viral testing were reassuring/negative Continue to use your inhalers at home Carmen Bonilla for cough, take as needed Please have close follow-up with her doctor Use your nebulizer machine If symptoms persist or worsen, you have constant worsening chest pain, shortness breath, or fever return to the emergency department Prescriptions: New benzonatate 100 mg capsule 100 mg PO TID PRN (Reason: cough) Qty: 14 0RF albuterol sulfate 2.5 mg/0.5 mL solution for nebulization 5 mg inhalation Q4H PRN (Reason: shortness of breath or wheezing) Qty: 30 0RF No Action naproxen 500 mg tablet 500 mg PO BID PRN (Reason: pain) Qty: 20 0RF ondansetron 4 mg tablet,disintegrating 4 mg PO Q8H PRN (Reason: nausea and vomiting) Qty: 14 0RF tramadol 50 mg tablet 50 mg PO Q8H PRN (Reason: severe pain (scale score 7-10)) Qty: 8 0RF naproxen [Naprosyn] 500 mg tablet 500 mg PO BID Qty: 20 0RF amoxicillin-pot clavulanate 875-125 mg tablet 1 tab PO BID 5 Days Qty: 10 0RF benzonatate 100 mg capsule 100 mg PO BID PRN (Reason: cough) 7 Days Qty: 14 0RF prednisone 20 mg tablet 20 mg PO DAILY 7 Days Qty: 7 0RF cyclobenzaprine 10 mg tablet 10 mg PO TID PRN (Reason: muscle spasm) Qty: 10 0RF ibuprofen 600 mg tablet 600 mg PO TID PRN (Reason: pain) Qty: 14 0RF ketorolac 10 mg tablet 10 mg PO TID PRN (Reason: pain) 5 Days Qty: 15 0RF ondansetron 4 mg tablet,disintegrating 4 mg PO Q6H PRN (Reason: nausea and vomiting) Qty: 14 0RF oseltamivir [Tamiflu] 75 mg capsule 75 mg PO BID 5 Days Qty: 10 0RF ondansetron 4 mg tablet,disintegrating 4 mg PO Q6H PRN (Reason: nausea and vomiting) Qty: 10 0RF sumatriptan succinate 50 mg tablet 50 mg PO tizanidine 2 mg capsule 2 mg PO Q8H PRN naproxen 500 mg tablet 500 mg PO BID magnesium oxide 400 mg (241.3 mg magnesium) tablet 400 mg PO BEDTIME Qty: 30 6RF polymyxin B sulf-trimethoprim 10,000 unit- 1 mg/mL drops 1 drp ophthalmic (eye) Q3H 7 Days Qty: 10 0RF Rx Instructions: while awake; do not exceed 6 doses in 24 hours Referrals: Yamileth Anand MD [Primary Care Provider] - 5 days Interventions: ED Discharge Assessment Last Done: 06/23/24 08:56 Discharge Date/Time: 06/23/24 08:57 Print Language: Khmer
[2024-06-23 06:59] VITALS: PULSE 69; RESP 18; O2SAT 98
[2024-06-23] MEDS: Albuterol/Iprat 2.5/0.5MG 3 ML AMPUL.NEB INHALE (07:02)
[2024-06-23 07:14] LABS: MANUAL DIFF FLAG NO
[2024-06-23 07:15] VITALS: BP 112/70; PULSE 77; RESP 12; O2SAT 99
--- NOTE | 2024-06-23 07:15 | PC.NURSE ---
pt is alert and oriented, skin appropriate for ethnicity, respirations even and unlabored, speaking in full clear sentences, ls clear but slightly diminished in the bases, dry cough and intermittent chest pain x2 days, pain worse with cough, pt reports that at night she has a hard time sleeping do to her cough and unable to lay flat, ns on the monitor and vs stable
[2024-06-23 07:23] LABS: Basophils Percent Auto 0.5 % (0-2); Eosinophils Absolute Auto 0.3 X10*3/uL (0.0-0.4); Eosinophils Percent Auto 3.5 % (0-4); Hemoglobin 13.1 g/dl (12.0-16.0); Imm Gran Abs Auto 0.03 X10*3/uL (0.00-0.03); Imm Gran Pct Auto 0.4 % (0.0-0.4); Lymphocytes Percent Auto 24.4 % (20-40); Mean Corpuscular HGB Conc 34.5 g/dl (31.0-35.0); Mean Corpuscular Hemoglobin 28.5 pg (27.0-33.0); Mean Corpuscular Volume 82.6 fL (80.0-98.0); Mean Platelet Volume 8.7 fL (9.4-12.3); Monocytes Absolute Auto 0.8 X10*3/uL (0.1-1.2); Monocytes Percent Auto 9.2 % (2-11); Neutrophils Absolute Auto 5.1 x10*3/uL (2.0-8.3); Platelet Count 234 X10*3/uL (160-400); White Blood Count 8.2 X10*3/uL (4.8-10.8)
[2024-06-23 07:25] LABS: Prothrombin Time 11.7 SEC (10.9-12.4)
[2024-06-23 07:29] LABS: D Dimer High Sensitivity < 150 NG/ML
[2024-06-23 07:31] LABS: Alanine Aminotransferase 13 U/L (0-31); Albumin Level 4.1 g/dL (3.5-5.0); Alkaline Phosphatase 50 U/L (39-117); Anion Gap 12 (12-20); Aspartate Amino Transferase 17 U/L (5-31); Bilirubin Direct < 0.2 mg/dL (0.0-0.5); Bilirubin Total 0.2 mg/dL (0.0-1.0); Blood Urea Nitrogen 8 mg/dL (9-16); Carbon Dioxide 21 mmol/L (22-29); Chloride 110 mmol/L (96-108); Creatinine Clr Calc Pharmacy 76.1; Estimated Glomerular Filt Rate > 60; Glucose Random 95 mg/dL (60-115); Potassium 3.8 mmol/L (3.3-5.1); Sodium 139 mmol/L (135-145); Total Protein 6.8 g/dL (6.5-8.0)
[2024-06-23 07:36] LABS: B Type Natriuretic Peptide < 10 pg/mL (<100)
[2024-06-23 07:45] LABS: Troponin-I High Sensitivity < 2.7 ng/L (<3.5-17.0)
[2024-06-23 08:56] VITALS: BP 112/70; PULSE 77; RESP 12; TEMP -17.7; TEMP 0; O2SAT 99
== END 2024-06-23 08:57 | disposition home or self-care (01) ==
PROVIDERS: Physician Assistant; Emergency Provider Emergency Medicine; PCP Student in an Organized Health Care Education/Training Program
DX: R07.89 Other chest pain (principal); R05.9 Cough, unspecified; J02.9 Acute pharyngitis, unspecified; R42 Dizziness and giddiness; Z79.899 Other long term (current) drug therapy; Z03.818 Encounter for observation for suspected exposure to other biological agents ruled out
CPT/HCPCS: 0241U; 36415; 71046; 80048; 80076; 83880; 84484; 85025; 85379; 85610; 87651; 93005; 94640; 94664; 99284; 99285

== ENCOUNTER → 2024-06-23 04:11 | Outpatient (BNV) | payer OTHER, SELFPAY | PROVIDERS: Emergency Provider Emergency Medicine; PCP Student in an Organized Health Care Education/Training Program; Visit Provider Internal Medicine | DX: R94.31 Abnormal electrocardiogram [ECG] [EKG] (principal) | CPT/HCPCS: 93010 ==

== ENCOUNTER 2024-06-26 09:48 | Emergency (ER) | payer OTHER, SELFPAY ==
--- NOTE | ~2024-06-26 | XR_ITS ---
EXAMINATION: XR CHEST CLINICAL INFORMATION: Shortness of breath and chest pain COMPARISON: 06/23/2024 TECHNIQUE: Frontal view of the chest was obtained. FINDINGS: No significant abnormality is noted involving the heart, lungs, mediastinum, bony thorax or soft tissues. XR/XR chest 1V IMPRESSION: Unremarkable examination. Electronically signed by: Elvin Schneider MD 06/26/2024 11:41 AM EDT RP
--- NOTE | 2024-06-26 09:50 | ECG_ITS ---
Test Reason : CHEST PAIN Blood Pressure : / mmHG Vent. Rate : 098 BPM Atrial Rate : 098 BPM P-R Int : 140 ms QRS Dur : 078 ms QT Int : 336 ms P-R-T Axes : 063 034 015 degrees QTc Int : 428 ms Normal sinus rhythm Possible Left atrial enlargement Nonspecific T wave abnormality Abnormal ECG When compared with ECG of 23-JUN-2024 04:11, Nonspecific T wave abnormality now evident in Lateral leads Referred By: Generic ED Physician Electronically Signed By:CRUZ MOORE
[2024-06-26 10:05] VITALS: BP 121/64; PULSE 102; RESP 20; TEMP 36.6; O2SAT 100; BMI 23.6
[2024-06-26 11:00] LABS: Influenza A PCR NEGATIVE (Negative); Influenza B PCR NEGATIVE (Negative); Resp Syncy Virus RNA Qual PCR NEGATIVE (Negative); SARS COV2 PCR INHOUSE NEGATIVE (Negative)
--- NOTE | 2024-06-26 11:30 | ED.GENADULT ---
HPI - General Adult General Chief complaint: Upper Respiratory Symptoms Stated complaint: [id number] Time Seen by Provider: 06/26/24 11:16 Source: patient Mode of arrival: ambulatory Limitations: no limitations History of Present Illness ED Provider: SAHIL LUO PA-C HPI narrative: 28 year old female with pmhx significant for migraines, asthma, opioid use disorder, ETOH use disorder, PTSD, depression presents to the ED today for evaluation of cough productive of yellow sputum, shortness of breath, and chest wall pain on coughing x1 week. She was evaluated at [facility] on 06/23 with unremarkable workup. She was discharged home with albuterol and Tessalon Perles. She states that she has been utilizing her nebulizer at home with minimal relief. She last used her nebulizer at 0400 today. The Tessalon Perles do not seem to be helping with her cough. Presents today with continued symptoms. Reports fever of 98F 2 days ago. States I run low so she considers 98F to be febrile. No fevers since. No known sick contacts. Denies chills, sore throat, hemoptysis, wheezing, BELL, chest pain or palpitations, calf pain or swelling. Denies recent travel or long car rides. Related Data Home Medications ?Medication ?Instructions ?Recorded ?Confirmed naproxen 500 mg tablet 500 mg PO BID 11/28/22 11/28/22 sumatriptan succinate 50 mg tablet 50 mg PO migraine 11/28/22 11/28/22 tizanidine 2 mg capsule 2 mg PO Q8H PRN 11/28/22 11/28/22 Previous Rx's ?Medication ?Instructions ?Recorded magnesium oxide 400 mg (241.3 mg 400 mg PO BEDTIME #30 tabs 11/28/22 magnesium) tablet cyclobenzaprine 10 mg tablet 10 mg PO TID PRN muscle spasm #10 12/03/22 tabs ibuprofen 600 mg tablet 600 mg PO TID PRN pain #14 tabs 12/03/22 ketorolac 10 mg tablet 10 mg PO TID PRN pain 5 days #15 04/26/23 tabs ondansetron 4 mg disintegrating 4 mg PO Q6H PRN nausea and 04/26/23 tablet vomiting #14 tabs naproxen 500 mg tablet 500 mg PO BID PRN pain #20 tabs 05/03/23 ondansetron 4 mg disintegrating 4 mg PO Q8H PRN nausea and 05/03/23 tablet vomiting #14 tabs tramadol 50 mg tablet 50 mg PO Q8H PRN severe pain 05/03/23 (scale score 7-10) #8 tabs naproxen 500 mg tablet (Naprosyn) 500 mg PO BID #20 tabs 05/13/23 amoxicillin 875 mg-potassium 1 tab PO BID 5 days #10 tabs 05/24/23 clavulanate 125 mg tablet ondansetron 4 mg disintegrating 4 mg PO Q6H PRN nausea and 11/12/23 tablet vomiting #10 tabs oseltamivir 75 mg capsule (Tamiflu) 75 mg PO BID 5 days #10 caps 11/12/23 benzonatate 100 mg capsule 100 mg PO BID PRN cough 7 days #14 11/17/23 caps prednisone 20 mg tablet 20 mg PO DAILY 7 days #7 tabs 11/17/23 polymyxin B sulfate 10,000 1 drp ophthalmic (eye) Q3H 7 days 06/04/24 unit-trimethoprim 1 mg/mL eye drops #10 mL albuterol sulfate 2.5 mg/0.5 mL 5 mg inhalation Q4H PRN shortness 06/23/24 solution for nebulization of breath or wheezing #30 ea benzonatate 100 mg capsule 100 mg PO TID PRN cough #14 caps 06/23/24 albuterol 90 mcg-budesonide 80 2 inh inhalation BID shortness of 06/26/24 mcg/actuation HFA aerosol inhaler breath #10.7 grams (Airsupra) guaifenesin 200 mg tablet 200 mg PO Q6H PRN cough #20 tabs 06/26/24 Allergies Allergy/AdvReac Type Severity Reaction Status Date / Time watermelon Allergy Severe ANAPHYLAXIS Verified 06/26/24 10:07 pollen Allergy Unknown rash Uncoded 06/23/24 04:11 Review of Systems Review of Systems: Constitutional: No fever, chills, fatigue, night sweats, weight changes ENT/Mouth: No ear pain, hearing loss, nasal congestion, sinus pain, rhinorrhea, sore throat Eyes: No eye pain, swelling, redness, vision changes, discharge Cardio: No chest pain, palpitations, BELL, orthopnea, peripheral edema Pulm: No wheezing, dyspnea, hemoptysis, +productive cough, +SOB GI: No nausea, vomiting, hematemesis, abdominal pain, diarrhea, constipation, hematochezia, melena : No irregular bleeding, dysuria, frequency, urgency, hesitancy, hematuria, flank pain, urinary flow changes, urinary incontinence or retention MSK: No back pain, neck pain, joint pain, myalgias Skin: No lesions, rashes Neuro: No weakness, numbness, paresthesias, LOC, dizziness, headache Psych: No anxiety/panic, depression, SI/HI, AH/VH All other systems reviewed and are negative. [facility] Past Medical History Attestation statement: The following information was validated with the patient. Source: old records reviewed and nursing notes reviewed Medical History Migraine Asthma Cocaine abuse in remission Opioid use disorder Alcohol use disorder, moderate, in early remission Post-traumatic stress disorder, unspecified Major depressive disorder, recurrent severe without psychotic features Surgical History History of delivery Family History Family History Father HTN (hypertension) Cancer Social History Social History Household Members: Significant Other Alcohol intake: former Patient Tobacco Use Status: Former Tobacco user Advance Directives: No Do you have a plan to hurt others: No Plan Physical Exam ED Vital Signs: Vital Signs - 24 hr 06/26/24 12:30 06/26/24 13:24 Temperature 98.4 F Pulse Rate 98 106 H Respiratory Rate 18 16 Blood Pressure 118/68 Pulse Oximetry 100 Oxygen Delivery Method Room Air BMI result Body Mass Index 23.6 tachy to 102, vitals otherwise wnl. not hypoxic. General: Well appearing, in no acute distress. Skin: Warm, dry, intact. No rashes or lesions. Head: Normocephalic, atraumatic. EENT: Hearing is intact b/l. Conjunctiva clear. PERRLA. Moist mucous membranes.? Neck: Supple without LAD Cardiac: Chest wall symmetric. RRR. Lungs: Normal effort of breathing, no accessory muscle use or tripoding. mild expiratory wheeze, diminished at bases. Back: No midline spinous or paraspinal tenderness. No step off deformity. Ext: Upper and lower extremities atraumatic, without tenderness, deformity, swelling or erythema. Full ROM throughout. No calf tenderness or peripheral edema. Neuro: AOx3. Normal speech. Ambulating with steady gait. Psych: Appropriate mood and affect. Responds appropriately to questions. Course Course Course Narrative: 1317 -- patient tested negative for COVID, flu, RSV. Chest x-ray does not demonstrate signs of pneumonia. Patient did receive dose of Solu-Medrol and breathing treatment per RT with improvement in breathing. Continues to cough. RT recommending switching patient Airsupra with discontinuation of her current daily steroid as this does not appear to be helping patient's symptoms. I feel this is reasonable. I advised patient to discontinue current regimen. Air supra sent to pharmacy for treatment. Will also send guaifenesin for cough. Advised to follow up with PCP/medical terminologist this week. Patient has remained stable throughout ED visit today. Discussed worrisome signs and symptoms and when to return to the ED. All questions answered at this time. Patient is agreeable with disposition and stable for discharge. Medications Administered Discontinued Medications Generic Name Dose Route Start Last Admin Trade Name Freq PRN Reason Stop Dose Admin Albuterol Sulfate 5 mg/ 0 mg 06/26/24 12:17 06/26/24 12:28 Albuterol/Ipratropium 3 ml INHALE 06/26/24 12:18 1 each ONCE ONE Administration Methylprednisolone Sodium Succinate 60 mg 06/26/24 11:46 06/26/24 11:52 Methylprednisolone Sod Succ 125 Mg/2 Ml Vial IM 06/26/24 11:47 60 mg ONCE ONE Administration Medical Decision Making Medical Decision Making [facility] Narrative: 28 year old female with pmhx significant for migraines, asthma, opioid use disorder, ETOH use disorder, PTSD, depression presents to the ED today for evaluation of cough productive of yellow sputum, shortness of breath, and chest wall pain on coughing x1 week. tachycardic likely secondary to breathing treatment. afebirle. not hypoxic. she is nontoxic appearing and in nad. congested cough. no increased effort of breathing or tripoding. lungs with mild expiratory wheeze, diminished at bases. no calf tenderness b/l. Differential diagnosis includes viral upper respiratory infection, pneumonia, bronchitis, asthma exacerbation. PERC 0 - PE unlikely. Plan for viral swabs, ekg, cxr, ED bronch protocol, solumedrol. Differential Diagnosis Differential Diagnoses: The differential diagnosis associated with the presentation includes As above Admission/Observation Not indicated Lab Data MDM Lab Attestation statement: I reviewed the patient's lab results. As above Labs: Lab Results 06/26/24 Range/Units 10:18 Influenza Type A (PCR) NEGATIVE (Negative) Influenza Type B (PCR) NEGATIVE (Negative) RSV RNA Qual (PCR) NEGATIVE (Negative) SARS-CoV-2 RNA (RT-PCR) NEGATIVE (Negative) Independent Interpretation I performed an independent interpretation of an: Plain X-Ray Interpretation: Chest x-ray without infiltrate or consolidation, agree with radiologist's interpretation. Radiology Impression Discussion of test interpretation with radiology: I have reviewed the radiologist's reading. Radiologist Impression: EXAMINATION: XR CHEST CLINICAL INFORMATION: Shortness of breath and chest pain COMPARISON: 06/23/2024 TECHNIQUE: Frontal view of the chest was obtained. FINDINGS: No significant abnormality is noted involving the heart, lungs, mediastinum, bony thorax or soft tissues. XR/XR chest 1V IMPRESSION: Unremarkable examination. Electronically signed by: Elvin Schneider MD 06/26/2024 11:41 AM EDT RP External Record Review External record reviewed: Inpatient record, Office record, Outpatient record, Prior outpatient labs, Prior outpatient radiology, Primary care record and Outside ED record Chronic Conditions Patient?s care impacted by: Other (asthma) Social Determinants Patient?s care significantly limited by Social Determinants of Health including: Other Social Determinant of Health Critical Care Time Critical Care Time Critical Care Time: No Discharge Plan Discharge Clinical Impression: Asthma exacerbation Patient Disposition: Home, Self-Care Instructions: Asthma (ED) Additional Instructions: You tested negative for COVID, flu, RSV. Your chest x-ray does not demonstrate signs of pneumonia. You were treated with breathing treatment with improvement today. We are recommending that you discontinue your current daily steroid treatment. Instead, I am sending a new inhaler (Airsupra) to your pharmacy. I recommend taking 2 puffs twice daily. You may also continue to use your albuterol nebulizer at home as needed. You may continue to use your rescue albuterol inhaler as needed for shortness of breath or wheezing. If you find that you are using this more often, Please follow-up with your PCP or medical terminologist. Prescriptions: New guaifenesin 200 mg tablet 200 mg PO Q6H PRN (Reason: cough) Qty: 20 0RF Airsupra 90-80 mcg/actuation HFA aerosol inhaler 2 inh inhalation BID Qty: 10.7 0RF No Action naproxen 500 mg tablet 500 mg PO BID PRN (Reason: pain) Qty: 20 0RF ondansetron 4 mg tablet,disintegrating 4 mg PO Q8H PRN (Reason: nausea and vomiting) Qty: 14 0RF tramadol 50 mg tablet 50 mg PO Q8H PRN (Reason: severe pain (scale score 7-10)) Qty: 8 0RF naproxen [Naprosyn] 500 mg tablet 500 mg PO BID Qty: 20 0RF amoxicillin-pot clavulanate 875-125 mg tablet 1 tab PO BID 5 Days Qty: 10 0RF benzonatate 100 mg capsule 100 mg PO BID PRN (Reason: cough) 7 Days Qty: 14 0RF prednisone 20 mg tablet 20 mg PO DAILY 7 Days Qty: 7 0RF cyclobenzaprine 10 mg tablet 10 mg PO TID PRN (Reason: muscle spasm) Qty: 10 0RF ibuprofen 600 mg tablet 600 mg PO TID PRN (Reason: pain) Qty: 14 0RF ketorolac 10 mg tablet 10 mg PO TID PRN (Reason: pain) 5 Days Qty: 15 0RF ondansetron 4 mg tablet,disintegrating 4 mg PO Q6H PRN (Reason: nausea and vomiting) Qty: 14 0RF oseltamivir [Tamiflu] 75 mg capsule 75 mg PO BID 5 Days Qty: 10 0RF ondansetron 4 mg tablet,disintegrating 4 mg PO Q6H PRN (Reason: nausea and vomiting) Qty: 10 0RF benzonatate 100 mg capsule 100 mg PO TID PRN (Reason: cough) Qty: 14 0RF albuterol sulfate 2.5 mg/0.5 mL solution for nebulization 5 mg inhalation Q4H PRN (Reason: shortness of breath or wheezing) Qty: 30 0RF sumatriptan succinate 50 mg tablet 50 mg PO tizanidine 2 mg capsule 2 mg PO Q8H PRN naproxen 500 mg tablet 500 mg PO BID magnesium oxide 400 mg (241.3 mg magnesium) tablet 400 mg PO BEDTIME Qty: 30 6RF polymyxin B sulf-trimethoprim 10,000 unit- 1 mg/mL drops 1 drp ophthalmic (eye) Q3H 7 Days Qty: 10 0RF Rx Instructions: while awake; do not exceed 6 doses in 24 hours Interventions: ED Discharge Assessment Last Done: 06/26/24 13:24 Discharge Date/Time: 06/26/24 13:25 Print Language: Telugu
[2024-06-26] MEDS: methylPREDNISolone Sod Succ 125 MG/2 ML VIAL 60 MG IM (11:52)
[2024-06-26] MEDS: Albuterol Sulfate 5 MG, Albuterol/Iprat 2.5/0.5MG 3 ML 3 ML INHALE (12:28)
[2024-06-26 12:30] VITALS: PULSE 98; RESP 18; O2SAT 99
[2024-06-26 13:24] VITALS: BP 118/68; PULSE 106; RESP 16; TEMP 36.9; O2SAT 100
== END 2024-06-26 13:25 | disposition home or self-care (01) ==
PROVIDERS: Emergency Provider Emergency Medicine; PCP Student in an Organized Health Care Education/Training Program
DX: R07.89 Other chest pain (principal); R06.02 Shortness of breath; J45.909 Unspecified asthma, uncomplicated; R50.9 Fever, unspecified; R05.9 Cough, unspecified; Z03.818 Encounter for observation for suspected exposure to other biological agents ruled out; Z79.899 Other long term (current) drug therapy; Z87.891 Personal history of nicotine dependence
CPT/HCPCS: 0241U; 71045; 93005; 94640; 96372; 99284; J2919

== ENCOUNTER → 2024-06-26 09:50 | Outpatient (BNV) | payer OTHER, SELFPAY | PROVIDERS: Emergency Provider Emergency Medicine; PCP Student in an Organized Health Care Education/Training Program; Visit Provider Internal Medicine | DX: R07.9 Chest pain, unspecified (principal); R94.31 Abnormal electrocardiogram [ECG] [EKG] | CPT/HCPCS: 93010 ==

== ENCOUNTER 2024-06-27 16:22 | Outpatient (REF) | payer OTHER, SELFPAY ==
[2024-06-28 09:53] LABS: Adenovirus PCR Not Detected (Not Detect.); Bordetella parapertussis PCR Not Detected (Not Detect.); Bordetella pertussis PCR Not Detected (Not Detect.); Chlamydia pneumoniae PCR Not Detected (Not Detect.); Coronavirus 229E PCR Not Detected (Not Detect.); Coronavirus HKU1 PCR Not Detected (Not Detect.); Coronavirus NL63 PCR Not Detected (Not Detect.); Coronavirus OC43 PCR Not Detected (Not Detect.); Human metapneumovirus PCR Not Detected (Not Detect.); Influenza A PCR Not Detected (Not Detect.); Influenza B PCR Not Detected (Not Detect.); Mycoplasma pneumoniae PCR Detected (Not Detect.); Parainfluenza 1 PCR Not Detected (Not Detect.); Parainfluenza 2 PCR Not Detected (Not Detect.); Parainfluenza 3 PCR Not Detected (Not Detect.); Parainfluenza 4 PCR Not Detected (Not Detect.); RSV PCR Not Detected (Not Detect.); Rhino/Enterovirus PCR Detected (Not Detect.)
[2024-06-28 10:21] LABS: SARS-CoV-2 PCR Not Detected (Not Detect.)
== END 2024-06-27 16:23 | disposition home or self-care (01) ==
LOC: HO.HHCLNP 16:22
PROVIDERS: Visit Provider Student in an Organized Health Care Education/Training Program
DX: R05.2 Subacute cough (principal)
CPT/HCPCS: 87633

== ENCOUNTER → 2024-12-15 11:01 | Outpatient (BNVA) | payer OTHER, SELFPAY | PROVIDERS: PCP Student in an Organized Health Care Education/Training Program; Visit Provider Internal Medicine | DX: S20.212A Contusion of left front wall of thorax, initial encounter (principal); Y00.XXXA Assault by blunt object, initial encounter | CPT/HCPCS: 99202 ==

== ENCOUNTER → 2024-12-17 08:04 | Outpatient (BNVA) | payer OTHER, SELFPAY | PROVIDERS: PCP Student in an Organized Health Care Education/Training Program; Visit Provider Internal Medicine | DX: S20.212A Contusion of left front wall of thorax, initial encounter (principal); Y00.XXXA Assault by blunt object, initial encounter; Z02.79 Encounter for issue of other medical certificate | CPT/HCPCS: 99213 ==

== ENCOUNTER 2025-01-07 09:26 | Emergency (ER) | payer OTHER, SELFPAY ==
[2025-01-07 09:27] VITALS: BP 114/69; PULSE 71; RESP 18; TEMP 36.6; O2SAT 98; BMI 23.8
--- NOTE | 2025-01-07 09:58 | ED.GENADULT ---
HPI - General Adult General Chief complaint: General Medical Stated complaint: Nosebleed, dizziness Time Seen by Provider: 01/07/25 09:36 Source: patient Mode of arrival: ambulatory Limitations: no limitations History of Present Illness HPI narrative: This is a 29 years old female presented to the emergency department complaining of epistaxis since yesterday intermittently Onset (ago): day(s) (1) Radiation: non-radiation Severity: mild Pain Consistency: intermittent and now resolved Relieving factors: none Exacerbating factors: none Associated symptoms: denies other symptoms Related Data Home Medications ?Medication ?Instructions ?Recorded ?Confirmed naproxen 500 mg tablet 500 mg PO BID 11/28/22 11/28/22 sumatriptan succinate 50 mg tablet 50 mg PO migraine 11/28/22 11/28/22 tizanidine 2 mg capsule 2 mg PO Q8H PRN 11/28/22 11/28/22 Previous Rx's ?Medication ?Instructions ?Recorded magnesium oxide 400 mg (241.3 mg 400 mg PO BEDTIME #30 tabs 11/28/22 magnesium) tablet cyclobenzaprine 10 mg tablet 10 mg PO TID PRN muscle spasm #10 12/03/22 tabs ibuprofen 600 mg tablet 600 mg PO TID PRN pain #14 tabs 12/03/22 ketorolac 10 mg tablet 10 mg PO TID PRN pain 5 days #15 04/26/23 tabs ondansetron 4 mg disintegrating 4 mg PO Q6H PRN nausea and 04/26/23 tablet vomiting #14 tabs naproxen 500 mg tablet 500 mg PO BID PRN pain #20 tabs 05/03/23 ondansetron 4 mg disintegrating 4 mg PO Q8H PRN nausea and 05/03/23 tablet vomiting #14 tabs tramadol 50 mg tablet 50 mg PO Q8H PRN severe pain 05/03/23 (scale score 7-10) #8 tabs naproxen 500 mg tablet (Naprosyn) 500 mg PO BID #20 tabs 05/13/23 amoxicillin 875 mg-potassium 1 tab PO BID 5 days #10 tabs 05/24/23 clavulanate 125 mg tablet ondansetron 4 mg disintegrating 4 mg PO Q6H PRN nausea and 11/12/23 tablet vomiting #10 tabs oseltamivir 75 mg capsule (Tamiflu) 75 mg PO BID 5 days #10 caps 11/12/23 benzonatate 100 mg capsule 100 mg PO BID PRN cough 7 days #14 11/17/23 caps prednisone 20 mg tablet 20 mg PO DAILY 7 days #7 tabs 11/17/23 polymyxin B sulfate 10,000 1 drp ophthalmic (eye) Q3H 7 days 06/04/24 unit-trimethoprim 1 mg/mL eye drops #10 mL albuterol sulfate 2.5 mg/0.5 mL 5 mg inhalation Q4H PRN shortness 06/23/24 solution for nebulization of breath or wheezing #30 ea benzonatate 100 mg capsule 100 mg PO TID PRN cough #14 caps 06/23/24 albuterol 90 mcg-budesonide 80 2 inh inhalation BID shortness of 06/26/24 mcg/actuation HFA aerosol inhaler breath #10.7 grams (Airsupra) guaifenesin 200 mg tablet 200 mg PO Q6H PRN cough #20 tabs 06/26/24 Allergies Allergy/AdvReac Type Severity Reaction Status Date / Time watermelon Allergy Severe ANAPHYLAXIS Verified 01/07/25 09:30 pollen Allergy Unknown rash Uncoded 01/07/25 09:30 Review of Systems Constitutional: Constitutional: Reports no additional constitutional complaints ENT: Reports as per HPI Gastrointestinal: Gastrointestinal: Reports no additional gastrointestinal complaints [facility] Past Medical History Medical History Migraine Asthma Cocaine abuse in remission Opioid use disorder Alcohol use disorder, moderate, in early remission Post-traumatic stress disorder, unspecified Major depressive disorder, recurrent severe without psychotic features Surgical History History of delivery Family History Family History Father HTN (hypertension) Cancer Social History Social History Household Members: Significant Other Alcohol intake: former Patient Tobacco Use Status: Former Tobacco user Advance Directives: No Advance Directives Information Provided: Yes Do you have a plan to hurt others: No Plan Physical Exam ED Vital Signs: Vital Signs - 24 hr 01/07/25 09:27 01/07/25 11:19 Temperature 98 F 98.7 F Pulse Rate 71 69 Respiratory Rate 18 13 Blood Pressure 114/69 104/67 Pulse Oximetry 98 100 Oxygen Delivery Method Room Air BMI result Body Mass Index 23.8 Looks well no distress no bleeding at this time Const General: cooperative Nutritional Appearance: well nourished Orientation/consciousness: patient oriented x3 Limitations: no limitations HENMT Head: Yes normal to inspection Ears: hearing grossly normal bilaterally General nose exam: Normal external nose present and Other nasal findings present (No active bleeding) Mouth: Normal oral and palatal mucosa present Neck Neck: Yes normal visual inspection Resp Effort & Inspection: normal respiratory effort Auscultation: clear to auscultation bilaterally Cardio Jugular venous distension: no JVD Rate: regular rate Rhythm: regular rhythm GI Inspection: Yes normal to inspection Palpation (GI): Soft to palpation, not firm and nontender Auscultation: normal bowel sounds Skin General skin exam: no rashes or lesions noted and elasticity normal Lesions: no lesions Rashes: no rashes Neuro General: patient oriented x3 Course Reevaluation(s) Reevaluation #1: Re-examined no bleeding whatsoever anticipate discharge labs normal Time: 11:37 Medications Administered Discontinued Medications Generic Name Dose Route Start Last Admin Trade Name Freq PRN Reason Stop Dose Admin Oxymetazoline HCl 2 spray 01/07/25 09:58 01/07/25 10:31 Oxymetazoline Hcl 0.05 % Nasal 15 Ml [place] NOSTRIL-B 01/07/25 09:59 2 spray ONCE ONE Administration Medical Decision Making Medical Decision Making [facility] Narrative: Patient presented to the emergency department with a chief complaint of epistaxis resolved now Differential Diagnosis Differential Diagnoses: The differential diagnosis associated with the presentation includes Thrombocytopenia/coagulopathy/URI Lab Data 01/07/25 10:13 01/07/25 10:13 Labs: Lab Results 01/07/25 Range/Units 10:13 WBC 6.4 (4.8-10.8) X10*3/uL RBC 4.68 (4.20-5.50) X10*6/uL Hgb 12.6 (12.0-16.0) g/dl Hct 37.5 (37.0-47.0) % MCV 80.1 (80.0-98.0) fL MCH 26.9 L (27.0-33.0) pg MCHC 33.6 (31.0-35.0) g/dl RDW 13.3 (11.0-16.0) % Plt Count 294 D (160-400) X10*3/uL MPV 8.6 L (9.4-12.3) fL Immature Gran % (Auto) 0.2 (0.0-0.4) % Neut % (Auto) 55.7 (45-73) % Lymph % (Auto) 30.5 (20-40) % [place] % (Auto) 7.4 (2-11) % Eos % (Auto) 5.3 H (0-4) % Baso % (Auto) 0.9 (0-2) % Lymph # (Auto) 1.9 (1.2-4.9) X10*3/uL [place] # (Auto) 0.5 (0.1-1.2) X10*3/uL Eos # (Auto) 0.3 (0.0-0.4) X10*3/uL Baso # (Auto) 0.1 (0.0-0.2) X10*3/uL Abs Immat Gran (auto) 0.01 (0.00-0.03) X10*3/uL Absolute Neuts (auto) 3.6 (2.0-8.3) x10*3/uL Absolute Nucleated RBC 0.000 (0.0-0.012) X10*3/uL Nucleated RBC % (auto) 0.0 (0.0-0.2) /100WBC PT 11.6 (10.9-12.4) SEC INR 1.0 (0.9-1.1) APTT 32.0 (26.0-36.8) SEC Sodium 138 (135-145) mmol/L Potassium 4.2 (3.3-5.1) mmol/L Chloride 110 H (96-108) mmol/L Carbon Dioxide 20 L (22-29) mmol/L Anion Gap 12 (12-20) BUN 13 (9-16) mg/dL Creatinine 0.81 (0.5-1.4) mg/dL Estim Creat Clear Calc 77.3 Estimated GFR > 60 Random Glucose 88 (60-115) mg/dL Calcium 9.1 (8.4-10.2) mg/dL Total Bilirubin 0.4 (0.0-1.0) mg/dL AST 21 (5-31) U/L ALT 13 (0-31) U/L Alkaline Phosphatase 55 (39-117) U/L Total Protein 7.2 (6.5-8.0) g/dL Albumin 4.2 (3.5-5.0) g/dL Discharge Plan Discharge Clinical Impression: Epistaxis Patient Disposition: Home, Self-Care Instructions: Nosebleed (ED) Additional Instructions: Use Afrin twice a day avoid aspirin/naproxen/nonsteroidal anti-inflammatory drugs (ibuprofen/Naprosyn) Prescriptions: No Action naproxen 500 mg tablet 500 mg PO BID PRN (Reason: pain) Qty: 20 0RF ondansetron 4 mg tablet,disintegrating 4 mg PO Q8H PRN (Reason: nausea and vomiting) Qty: 14 0RF tramadol 50 mg tablet 50 mg PO Q8H PRN (Reason: severe pain (scale score 7-10)) Qty: 8 0RF naproxen [Naprosyn] 500 mg tablet 500 mg PO BID Qty: 20 0RF amoxicillin-pot clavulanate 875-125 mg tablet 1 tab PO BID 5 Days Qty: 10 0RF benzonatate 100 mg capsule 100 mg PO BID PRN (Reason: cough) 7 Days Qty: 14 0RF prednisone 20 mg tablet 20 mg PO DAILY 7 Days Qty: 7 0RF cyclobenzaprine 10 mg tablet 10 mg PO TID PRN (Reason: muscle spasm) Qty: 10 0RF ibuprofen 600 mg tablet 600 mg PO TID PRN (Reason: pain) Qty: 14 0RF ketorolac 10 mg tablet 10 mg PO TID PRN (Reason: pain) 5 Days Qty: 15 0RF ondansetron 4 mg tablet,disintegrating 4 mg PO Q6H PRN (Reason: nausea and vomiting) Qty: 14 0RF oseltamivir [Tamiflu] 75 mg capsule 75 mg PO BID 5 Days Qty: 10 0RF ondansetron 4 mg tablet,disintegrating 4 mg PO Q6H PRN (Reason: nausea and vomiting) Qty: 10 0RF benzonatate 100 mg capsule 100 mg PO TID PRN (Reason: cough) Qty: 14 0RF albuterol sulfate 2.5 mg/0.5 mL solution for nebulization 5 mg inhalation Q4H PRN (Reason: shortness of breath or wheezing) Qty: 30 0RF guaifenesin 200 mg tablet 200 mg PO Q6H PRN (Reason: cough) Qty: 20 0RF Airsupra 90-80 mcg/actuation HFA aerosol inhaler 2 inh inhalation BID Qty: 10.7 0RF sumatriptan succinate 50 mg tablet 50 mg PO tizanidine 2 mg capsule 2 mg PO Q8H PRN naproxen 500 mg tablet 500 mg PO BID magnesium oxide 400 mg (241.3 mg magnesium) tablet 400 mg PO BEDTIME Qty: 30 6RF polymyxin B sulf-trimethoprim 10,000 unit- 1 mg/mL drops 1 drp ophthalmic (eye) Q3H 7 Days Qty: 10 0RF Rx Instructions: while awake; do not exceed 6 doses in 24 hours Discharge Date/Time: 01/07/25 11:45 Print Language: Khmer
[2025-01-07 10:19] LABS: MANUAL DIFF FLAG NO
[2025-01-07 10:20] LABS: Basophils Absolute Auto 0.1 X10*3/uL (0.0-0.2); Basophils Percent Auto 0.9 % (0-2); Eosinophils Absolute Auto 0.3 X10*3/uL (0.0-0.4); Eosinophils Percent Auto 5.3 % (0-4); Hematocrit 37.5 % (37.0-47.0); Hemoglobin 12.6 g/dl (12.0-16.0); Imm Gran Abs Auto 0.01 X10*3/uL (0.00-0.03); Imm Gran Pct Auto 0.2 % (0.0-0.4); Lymphocytes Absolute Auto 1.9 X10*3/uL (1.2-4.9); Lymphocytes Percent Auto 30.5 % (20-40); Mean Corpuscular HGB Conc 33.6 g/dl (31.0-35.0); Mean Corpuscular Hemoglobin 26.9 pg (27.0-33.0); Mean Corpuscular Volume 80.1 fL (80.0-98.0); Mean Platelet Volume 8.6 fL (9.4-12.3); Monocytes Absolute Auto 0.5 X10*3/uL (0.1-1.2); Monocytes Percent Auto 7.4 % (2-11); Neutrophils Absolute Auto 3.6 x10*3/uL (2.0-8.3); Neutrophils Percent Auto 55.7 % (45-73); Platelet Count 294 X10*3/uL (160-400); Red Blood Count 4.68 X10*6/uL (4.20-5.50); Red Cell Distribution Width 13.3 % (11.0-16.0); White Blood Count 6.4 X10*3/uL (4.8-10.8)
[2025-01-07 10:26] LABS: Prothrombin Time 11.6 SEC (10.9-12.4)
[2025-01-07] MEDS: Oxymetazoline HCl 0.05 % Nasal 15 ML SPRAY 2 SPRAY NOSTRIL-B (10:31)
[2025-01-07 10:43] LABS: Alanine Aminotransferase 13 U/L (0-31); Albumin Level 4.2 g/dL (3.5-5.0); Alkaline Phosphatase 55 U/L (39-117); Anion Gap 12 (12-20); Aspartate Amino Transferase 21 U/L (5-31); Bilirubin Total 0.4 mg/dL (0.0-1.0); Blood Urea Nitrogen 13 mg/dL (9-16); Calcium 9.1 mg/dL (8.4-10.2); Carbon Dioxide 20 mmol/L (22-29); Chloride 110 mmol/L (96-108); Creatinine Clr Calc Pharmacy 77.3; Estimated Glomerular Filt Rate > 60; Glucose Random 88 mg/dL (60-115); Potassium 4.2 mmol/L (3.3-5.1); Sodium 138 mmol/L (135-145); Total Protein 7.2 g/dL (6.5-8.0)
[2025-01-07 11:19] VITALS: BP 104/67; PULSE 69; RESP 13; TEMP 37.1; O2SAT 100
--- OUTSIDE RECORDS SUMMARY | 2025-01-07 11:38 | XMS_ITS | Data Portability ---
Author Organization [place] - [facility]OTT[place]/AALIYAH, DOT Address [address] [place] [address] Care Team Providers Care Mold Burner Name Role Phone [facility] Primary Care Provi shorty Assessment No assessment recorded. Plan of Treatment Reminders Order Date Submit Date Provider Last Modified By Organization Details Last Modified Time Details Appointments None recorde d. Lab glucose , fingers tick, blood [address], [address], [address], 16:01:33 lipid panel, blood [address], [address] [place] [address], [phone], 16:01:32 Referral orthope dic referra l - ongoing right wrist pain, please eval 2020 021 kavita Fontainerich DO, [address] [place], [address], 08:23:06 Procedures None recorde d. Surgeries None recorde d. Imaging None recorde d. Medication Orders Augment in 875 mg-125 mg tablet 2019 020 [place] [address] [id number], [address] [place], [address], 13:38:44 Patient TargetsNo targets recorded. Patient InstructionsNo instructions recorded. Reason for Referral Orthopedic Referral for Pain in right hand ongoing right wrist pain, please eval Referring Physician: Sylwia Gutierrez, Internal Medicine, Encounter Date: 02/25/2021 Results Created Date Observation Date Name Description Value Unit Range Abnormal Flag Note LastModifiedBy Organization Detail LastModifiedTime 02/26/20 21 02/25/2021 lipid panel , blood LDL: 133 Not Available [facility] [address], [address], 02/25/2021 13:15:03 02/26/20 21 02/25/2021 lipid panel , blood HDL: 35 Not Available [facility] [address], [address], 02/25/2021 13:15:03 02/26/20 21 02/25/2021 lipid panel , blood Total Cholesterol: 181 Not Available [facility] [address], [address], 02/25/2021 13:15:03 02/26/20 21 02/25/2021 lipid panel , blood Non HDL: 146 Not Available [facility] [address], [address], 02/25/2021 13:15:03 02/26/20 21 02/25/2021 lipid panel , blood TCHDL: 5.1 Not Available [address], [address], 02/25/2021 13:15:03 02/26/20 21 02/25/2021 gluco se, finge rstic k, blood Blood Glucose: mg/dl 90 Not Available [facility] [address], [address], 02/25/2021 13:14:56 Result Notes None recorded. Problems Name Problem SNOMED Code Status Onset Date Resolution Date Notes Provider Name and Address Organization Details Recorded Time History of iron deficiency 694366163 Active 2020 [facility] 13:39:32 section Active 2020 x2 [facility] 13:40:00 History of mood disorder 422492915 Active 2020 Sylwia liu [facility] 13:40:13 Cannabis dependence 27036729 Active 2020 daily Sylwia liu [facility] 13:40:45 Drinking binge 894684505 Active 2020 1-2 times per month drinks a six pack Sylwia liu [facility] 13:41:28 Problem Notes None recorded. Procedures Surgical History Date Name Laterality Status Provider Name and Address Organization Details Recorded Time section completed Sylwia Gutierrez [facility] 02/25/2021 13:45:08 Imaging Results None recorded. Procedure Notes None recorded. Medical Equipment None Reported. Allergies No known drug allergies Medications Name Sig Start Date Stop Date Status Note LastModified by Organization Details LastModified Time Augmentin 875 mg-125 mg tablet Take 1 tablet every 12 hours by oral route for 10 days. 020 02/25 completed Not Available Not Available Not Available Vitals Date Recorded Body temperature Provider Name a nd Address Organization Details Last Updated DateTime 09/12/2019 100 [degF] Colleengillian Grayson [facility] 09/12/2019 13:30:23 Date Recorded Body height Heart rate Respiratory rate Body temperature Body mass index (BMI) Body weight Oxygen saturation Oxygen saturation in Arterial blood by Pulse oximetry Systolic blood pressure Diastolic blood pressure Provider Name and Address Organization Details Last Updated DateTime 1 152.4 cm 68 /min 12 /min 98.1 [degF] 26.4 kg/m2 18285.9 7 g 100 % 100 % 112 mm[Hg] 70 mm[Hg] Colleen Grayson [facility] 13:06:48 Social History Question Answer Notes LastModified by Organizat ion Details LastModified Time Tobacco Smoking Status Former Smoker Sylwia liu [facility] 02/25/2021 13:43:12 What Is Your Level Of Alcohol Consumption? Occasional Up To 6 Beers Once A Month Information not available 02/25/2021 Are You Blind Or Do You Have Difficulty Seeing? No Information not available 02/25/2021 Are You Currently Employed? No Unemployed Information not available 02/25/2021 Are You Deaf Or Do You Have Serious Difficulty Hearing? No Information not available 02/25/2021 What Type Of Diet Are You Following? REGULAR Information not available 02/25/2021 What Is The Highest Grade Or Level Of School You Have Completed Or The Highest Degree You Have Received? [id number] Information not available 02/25/2021 Do You Use Insect Repellent Routinely? Yes Information not available 02/25/2021 How Many Children Do You Have? 2 A&W Information not available 02/25/2021 What Is Your Relationship Status? Single Bisexual Information not available 02/25/2021 Do You Use Your Seat Belt Or Car Seat Routinely? Yes Information not available 02/25/2021 Do You Have Smoke And Carbon Monoxide Detectors In Your Home? Yes Information not available 02/25/2021 At What Age Did You Start Smoking Tobacco? 16 Information not available 02/25/2021 Do You Use Any Illicit Or Recreational Drugs? No Information not available 02/25/2021 Do You Use Sunscreen Routinely? Yes Information not available 02/25/2021 How Many Years Have You Smoked Tobacco? 8 Information not available 02/25/2021 Do You Or Have You Ever Used Any Other Forms Of Tobacco Or Nicotine? No Information not available 02/25/2021 Sex: Female Functional Status Question Answer Note LastModified by Organizat ion Details LastModified Time Do you have difficulty walking or climbing stairs? No Information not available 02/25/2021 Do you have transportation difficulties? No Information not available 02/25/2021 Are you able to walk? YESWOREST Information not available 02/25/2021 Do you have difficulty doing errands alone? No Information not available 02/25/2021 Are you able to care for yourself? Yes Information n ot available 02/25/2021 Do you have difficulty dressing or bathing? No Information not available 02/25/2021 What is your exercise level? Occasional I walk a lot [facility] Information not available 02/25/2021 Mental Status Question Answer Note LastModified by Organization D etails LastModified Time Do you have difficulty concentrating, remembering or making decisions? No [facility] Information no t available 02/25/2021 Family History Relationship Description Onset Age of this Age Resolved Age Notes LastModified by Organization Details LastModified Time Father Hypertensive disorder Not available 2020 13:41:55 Medical History No medical history recorded. Gynecological HistoryNo gynecological history recorded. Obstetrics History GPAL:G 0 P 0 0 0 0 Past Encounters Encounter ID Performer Location Encounter Start Date Encounter Closed Date Diagnosis/Indication Diagnosis SNOMED-CT Code Diagnosis ICD10 Code Diagnosis Note [id number] FANNY Welsh [facility] [address] [place] [address] [place] [address] 09/12/2019 13:25:00 09/12/2019 13:54:07 Acute sinusitis 59523217 J01.90 - hydrate - dehumidifi er - mucinex - robitussin - f/u as needed - tylenol for fever - note to work [id number] [address] [place] [address] 02/25/2021 13:00:15 02/27/2021 15:55:13 Pain in right hand 9209247634 37779 M79.641 ongoing right wrist painplease eval Adult heal th examination 192748009 Z00.00 Health Wellness: discussed seat belt wear 100% of time sunblock and sun avoidance, all seasons exercise encouraged 150min a week in > 20min episodes. Active job does not accomplish the same thing and this requires formal exercise. Template Inspector on health eating and the mediterran shi diet. Focusing on eating unprocesse d foods and keeping red meat < 2 times per week and enjoying meal prep and time at the table. Avoid fast food. Colon cancer screen to start at age 50 for normal risk. Mammogram to start at age 40 (or ten years less then age of first Dx of 1 degree relative). Smoking Cessationn o MJ Cannabis dependence 1320 5007 F12.20 stop counseled to herregentry hines neg of mj use Drinking binge 984516455 F10.10 < 3 in a sitting but only drinks monthly History of iron deficiency 826239292 Z86.39 check CBC History of mood disorder 723729692 Z86.59 she has self reffered to [facility] Concerns Section Related Observation LastModified by Organization Detai ls LastModified Time None Recorded Concern Status LastModified by Organization Details LastModified Time None Recorded Advance Directives Directive None Recorded Payers Encounter Date Sequence Insurance Name Policy Number Policy Carias Covered Member ID Carias Member ID Guarantor Name 09/12/2019 1 [place] [id number] Carmina Colon [id number] Carmina Colon 02/25/2021 1 [place] [facility] Carmina L Colon [id number] Carmina Colon Notes Date Note Type Note Provider Name and Address Organization Details Recorded Time 09/12/2019 text/html Head and chest c old for more than a week. Headache, rib pain due to cough, sinus pain/pressure and dizziness due to inner ear fullness. Denies chest pain, SOB. FANNY Welsh [address] [place] [address], [address], [place], [address], CYRUS - PMA/WIP 09/12/2019 13:47:47 02/25/2021 text/html Annual WellnessReported bypatient.Diet and Nutrition:healthy diet Fracture Risk:no history of fractures; no recent explained fracture; no sudden unexplained fractures; no previous musculoskeletal injuries Physical Activity:exercises on a regular basis; recent increase in physical activity; good physical condition Additional Lifestyle Factors:no tobacco use; no alcohol intake; stopped drinking alcohol Depression Risk:never feels sad, empty, or tearful; no loss of interest in activities; no significant changes in weight; no sleep disturbances or insomnia; no agitation; no loss of energy; no feelings of worthlessness or guilt; no thoughts of suicide; no history of depression; no history of mood disorders Hearing:no loss of hearing Vision:no vision problems CYRUS Mckenzie PMA/WIP 02/25/2021 16:02:23 OBGyn Episode No OBEpisode recorded.
--- OUTSIDE RECORDS SUMMARY | 2025-01-07 11:38 | XMS_ITS | Encounter Summary ---
Author Organization [employer] Address [address] [facility] 7 [place] [address] Care Team Providers Care Chief Compressor Station Engineer Name Role Phone Yamileth Anand MD Primary Care Pro vider Reason for Visit * Reason Onset Date Comments Med Refill 02/23/2024 Encounter Details Date Type Department Care Team ([facility] st Contact Info) Description 02/23/[address] [facility] MEDICINE [address] [place] [address] Yamileth Anand MD [address] [place] [address] Social History Tobacco Use Types Packs/Day Years Used Date Smoking Tobacco: Former Smokeless Tobacco: Never Comments:Started 16 y of age and stopped 3 weeks ago 3 cigarettes a day Alcohol Use Standard Drinks/Week Comments Not Currently 0 (1 standard drink = 0.6 oz pur e alcohol) Depression Answer Date Recorded Patient Health Questionnaire-9 Score 0 02/28/2023 Housing Stability Answer Date Recorded What is your housing situation today? I have patriciamadelin donnelly 06/29/[address] you li ve. Do you have problems with any of the following? None of the above 06/29/2023 Food Insecurity Answer Date Recorded Within the past 12 months, y ou worried that your food would run out before you got money to buy more: Never True 06/29/2023 Within the past 12 months,th e food you bought just didn't last and you didn't have enough money to get more: Never True Transportation Answer Date Recorded In the past 12 months, has l ack of transportation kept you from medical appts, meetings, work or from getting things needed for daily living? No 06/29/2023 Utilities Answer Date Recorded In the past 12 months, has t he electric, gas, oil or water company threatened to shut off services in your home? No 06/29/2023 Depression Answer Date Recorded Patient Health Questionnaire-2 Score 0 02/28/2023 Comments Unknown Sex and Gender Information Value Date Recorded Sex Assigned at Female 07/10/2022 10:15 AM EDT Legal Sex Female 10:15 AM EDT Gender Identity Female 07/10/2022 10:15 AM EDT Sexual Orientation Straight 07/10/2022 10 :15 AM EDT documented as of this encounter Plan of Treatment Not on file documented as of this encounter Visit Diagnoses Not on filedocumented in this encounter Additional Health Concerns Assessment Noted Time PHQ-9 Depression Total Score: 0 02/29/20 23 11:13 AM EDT documented as of this encounter Care Teams Chief Compressor Station Engineer Relationship Specialty Start Date End Date Yamileth Anand MD [address] [place] [phone] PCP - General Internal Medicine 12/26/22 Michelle Malloy Pediatric Critical Care NurseHeat Engineering Teacher 11/15/23 documented as of this encounter
--- OUTSIDE RECORDS SUMMARY | 2025-01-07 11:39 | XMS_ITS | Encounter Summary ---
Author Organization [employer] Address [address] [place] [address] Care Team Providers Care German Tutor Name Role Phone Yamileth Anand MD Primary Care Pro vider Encounter Details Date Type Department Care Team ([facility] st Contact Info) Description 01/07/2025 Orders Only GENERIC EXTERNAL DATA DEPARTMENT Provider, Generic External Data Social History Tobacco Use Types Packs/Day Years Used Date Smoking Tobacco: Former Smokeless Tobacco: Never Comments:Started 16 y of age and stopped since 12/2023 Alcohol Use Standard Drinks/Week Comments Not Currently 0 (1 standard drink = 0.6 oz pur e alcohol) Depression Answer Date Recorded Patient Health Questionnaire-9 Score 18 06/27/2024 Patient Health Questionnaire-9 Score 18 06/27/2024 Last PHQ-9: Questionnaire Data Not on file 1 Housing Stability Answer Date Recorded What is your housing situation today? I have patriciamadelin donnelly 06/13/[address] you li ve. Do you have problems with any of the following? None of the above 06/13/2024 Food Insecurity Answer Date Recorded Within the past 12 months, y ou worried that your food would run out before you got money to buy more: Never True 2023 Within the past 12 months,th e food you bought just didn't last and you didn't have enough money to get more: Sometimes True 06/27/2024 Transportation Answer Date Recorded In the past 12 months, has l ack of transportation kept you from medical appts, meetings, work or from getting things needed for daily living? No 06/13/2024 Utilities Answer Date Recorded In the past 12 months, has t he electric, gas, oil or water company threatened to shut off services in your home? No 06/13/2024 Depression Answer Date Recorded Patient Health Questionnaire-2 Score 4 06/27/2024 Internet Access Answer Date Recorded Internet Access Q1 No 06/27/2024 Internet Access Q2 Not on file 06/27/2024 Comments Unknown Sex and Gender Information Value Date Recorded Sex Assigned at Female 07/10/2022 10:15 AM EDT Legal Sex Female 10:15 AM EDT Gender Identity Female 07/10/2022 10:15 AM EDT Sexual Orientation Straight 07/10/2022 10 :15 AM EDT documented as of this encounter Plan of Treatment Not on file documented as of this encounter Procedures Procedure Name Priority Date/Time Associated Diagnosis Comments CBC WITH AUTO DIFFERENTIAL Routine 01/07/2025 10:13 AM EDT APTT Routine 01/07/2025 10:13 AM EDT PROTHROMBIN TIME-INR Routine 01/07/2025 10:13 AM EDT COMPREHENSIVE METABOLIC PANEL Routine 01/07/2025 10:13 AM EDT documented in this encounter Results * (ABNORMAL) Comprehensive Metabolic Panel (01/07/2025 10:13 AM EDT) Sodium 138 135 - 145 mmol/L [facility] Potassium 4.2 3.3 - 5.1 mmol/L [facility] Chloride 110(H) 96 - 108 mmol/L [facility] Carbon Dioxide 20(L) 22 - 29 mmol/L [facility] Anion Gap 12 12 - 20 [facility] Urea Nitrogen (BUN) 13 9 - 16 mg/dL [facility] Creatinine, Serum 0.81 0.5 - 1.4 mg/dL [facility] Creatinine Clr Calc Pharmacy 77.3 [facility] Comment:Provided height and weight: 154.94 cm,57.153 kg.eGFR (calculated from the MDRD study equation) and eCrCl(calculated from the Cockcroft-Gault equation) are based ondifferent parameters and may not yield comparable results.If eCrCl result is absurd, please check patient'sheight/weight. Estimated Glomerular Filt Rate >60 [facility] Comment:Chronic Kidney Disea se: Estimated GFR < 60 mL/min/1.15y3Bdnvpq Kidney Disease: Estimated GFR < 15 mL/min/1.73m2 Glucose 88 60 - 115 mg/dL [facility] Calcium 9.1 8.4 - 10.2 mg/dL [facility] Bilirubin, Total 0.4 0.0 - 1.0 mg/dL [facility] Aspartate Amino Transferase 21 5 - 31 U/L [facility] Alanine Aminotransferase 13 0 - 31 U/L [facility] Total Protein 7.2 6.5 - 8.0 g/dL [facility] Albumin Level 4.2 3.5 - 5.0 g/dL [facility] Alkaline Phosphatase 55 39 - 117 U/L [facility] 01/07/2025 10:1 3 AM EDT 01/07/2025 10:18 AM EDT us Generic External Data Provider LAB BLOOD ORDERAB LES Final Result Performing Organization Address [facility] Co de Phone Number [facility] [address] [place] [phone] * Partial Thromboplastin Time, Activated (APTT) (01/07/2025 10:13 AM EDT) Partial Thromboplastin Time 32.0 26.0 - 36.8 SEC [facility] Comment:For information rega rding the monitoring of direct thrombininhibitors, please refer to Pharmacy. 01/07/2025 10:1 3 AM EDT 01/07/2025 10:18 AM EDT us Generic External Data Provider LAB BLOOD ORDERAB LES Final Result Performing Organization Address [facility]/ZIP Co de Phone Number [facility] [address] [place] [phone] * Prothrombin Time-INR (01/07/2025 10:13 AM EDT) [facility] Prothrombin Time 11.6 10.9 - 12.4 SEC [facility] INTERNATIONAL NORM RATIO 1.0 0.9 - 1.1 [facility] Comment:INTERNATIONAL NORMAL IZED RATIO (INR) REFERENCE RANGES Reference RangeFor patients not on anticoagulant therapy: 0.9 - 1.1INR ranges for oral anticoagulanttherapy:For prevention and treatment of venous thrombosis and pulmonary embolism: 2.0 - 3.0For acute myocardial infarction with aspirin therapy: 2.0 - 3.0For acute myocardial infarction without aspirin therapy: 3.0 - 4.0For patients with mechanical prosthetic heart valves: 2.5 - 3.5 01/07/2025 10:1 3 AM EDT 01/07/2025 10:18 AM EDT us Generic External Data Provider LAB BLOOD ORDERAB LES Final Result Performing Organization Address City/State/[facility] Co de Phone Number [facility] [address] [place] [phone] * (ABNORMAL) CBC auto differential (01/07/2025 10:13 AM EDT) [facility] White Blood Count 6.4 4.8 - 10.8 X10*3/uL [facility] Red Blood Count 4.68 4.20 - 5.50 X10*6/uL [facility] Hemoglobin 12.6 12.0 - 16.0 g/dl [facility] Hematocrit 37.5 37.0 - 47.0 % [facility] Mean Corpuscular Volume 80.1 80.0 - 98.0 fL [facility] Mean Corpuscular Hemoglobin 26.9(L) 27.0 - 33.0 pg [facility] Mean Corpuscular HGB Conc 33.6 31.0 - 35.0 g/dl [facility] Red Cell Distribution Width 13.3 11.0 - 16.0 % [facility] Platelet Count 294 160 - 400 X10*3/uL [facility] Mean Platelet Volume 8.6(L) 9.4 - 12.3 fL [facility] Neutrophils Percent Auto 55.7 45 - 73 % [facility] Imm Gran Pct Auto 0.2 0.0 - 0.4 % [facility] Lymphocytes Percent Auto 30.5 20 - 40 % [facility] Monocytes Percent Auto 7.4 2 - 11 % [facility] Eosinophils Percent Auto 5.3(H) 0 - 4 % [facility] Basophils Percent Auto 0.9 0 - 2 % [facility] NRBC Pct Auto 0.0 0.0 - 0.2 /100WBC [facility] Neutrophils Absolute Auto 3.6 2.0 - 8.3 x10*3/uL [facility] Imm Gran Abs Auto 0.01 0.00 - 0.03 X10*3/uL [facility] Lymphocytes Absolute Auto 1.9 1.2 - 4.9 X10*3/uL [facility] Monocytes Absolute Auto 0.5 0.1 - 1.2 X10*3/uL [facility] Eosinophils Absolute Auto 0.3 0.0 - 0.4 X10*3/uL [facility] Basophils Absolute Auto 0.1 0.0 - 0.2 X10*3/uL [facility] NRBC Abs Auto 0.000 0.0 - 0.012 X10*3/uL [facility] 01/07/2025 10:1 3 AM EDT 01/07/2025 10:18 AM EDT us Generic External Data Provider LAB BLOOD ORDERAB LES Final Result [facility] [address] [place] [phone] documented in this encounter Visit Diagnoses Not on filedocumented in this encounter Additional Health Concerns Assessment Noted Time PHQ-9 Depression Total Score: 18 06/27/2 024 4:07 PM EDT documented as of this encounter Care Teams German Tutor Relationship Specialty Start Date End Date Yamileth Anand MD [address] [place] [phone] PCP - General Internal Medicine 12/26/22 Michelle Malloy Parachute SupervisorSemiconductor Processor 11/15/23 documented as of this encounter
--- OUTSIDE RECORDS SUMMARY | 2025-01-07 11:39 | XMS_ITS | Encounter Summary ---
Author Organization [employer] Address [address] [facility] [address] [place] [address] Care Team Providers Care Community Organization Aide Name Role Phone Yamileth Anand MD Primary Care Pro vider Encounter Details Date Type Department Care Team ([facility] st Contact Info) Description 04/26/2023 Orders Only [facility] [address] [place] [address] Sanjana Carrasco LPN Social History Tobacco Use Types Packs/Day Years Used Date Smoking Tobacco: Former Smokeless Tobacco: Never Comments:Started 16 y of age and stopped 3 weeks ago 3 cigarettes a day Alcohol Use Standard Drinks/Week Comments Not Currently 0 (1 standard drink = 0.6 oz pur e alcohol) Depression Answer Date Recorded Patient Health Questionnaire-9 Score 0 02/28/2023 Depression Answer Date Recorded Patient Health Questionnaire-2 Score 0 02/28/2023 Comments Unknown Sex and Gender Information Value Date Recorded Sex Assigned at Female 07/10/2022 10:15 AM EDT Legal Sex Female 10:15 AM EDT Gender Identity Female 07/10/2022 10:15 AM EDT Sexual Orientation Straight 07/10/2022 10 :15 AM EDT documented as of this encounter Miscellaneous Notes * Result Encounter Note - Yamileth Lamas MD - 04/26/2023 9:04 AM EDT Labs done at hospital documented in this encounter Plan of Treatment Not on file documented as of this encounter Procedures Procedure Name Priority Date/Time Associated Diagnosis Comments INFLUENZA A B2 ID NOW (DOWD) Routine 04/26/2023 1:18 PM EDT COVID-19 ID NOW (DOWD) Routine 04/26/2023 1:18 PM EDT URINALYSIS, COMPLETE, WITH REFLEX TO CULTURE Routine 04/26/2023 1:18 PM EDT CBC WITH AUTO DIFFERENTIAL Routine 04/26/2023 1:18 PM EDT BETA-HCG, QUANTITATIVE (TUMOR MARKER) Routine 04/26/2023 1:18 PM EDT HCG, QL, URINE Routine 04/26/2023 1:18 PM EDT MAGNESIUM Routine 04/26/2023 1:18 PM EDT LIPASE Routine 04/26/2023 1:18 PM EDT COMPREHENSIVE METABOLIC PANEL Routine 04/26/2023 1:18 PM EDT documented in this encounter Results * Influenza A B2 ID NOW (Dowd) (04/26/2023 1:18 PM EDT) IDNOW SERIAL# [id number] [facility] Influenza A Negative Negative [facility] Influenza B2 Negative Negative [facility] Influenza A B2 Note See Note [facility] Comment:The Dowd ID NOW In fluenza A B2 test is used for thequalitative detection of influenza A and B from patientswith signs and symptoms of respiratory infection.Negative results do not preclude influenza virus infectionand should not be used as the sole basis for diagnosis,treatment or other patient management decisions.There is a risk of false negative results due to thepresence of variants in the viral targets of the assay, lowlevels of virus in the specimen and co- infection withRespiratory Syncytial Virus. 04/26/2023 1:18 PM EDT 04/26/2023 1:24 PM EDT [facility] Exter nal Provider LAB MICROBIOLOGY - GENERAL ORDERABLES Final Result Performing Organization Address [facility]/ZIP Co de Phone Number [facility] [address] [place] [address] [phone] * COVID-19 ID NOW (DOWD) (04/26/2023 1:18 PM EDT) IDNOW SERIAL# [id number] [facility] COVID-19 TEST Negative Negative [facility] COVID-19 NOTE See Note [facility] Comment: Results are for the identification of SARS-CoV2 RNA. TheSARS-CoV2 RNA is generally detectable in respiratory samplesduring the acute phase of infection. Positive results areindicative of the presence of SARS-CoV-2 RNA; clinicalcorrelation with patient history and other diagnosticinformation is necessary to determine patient infectionstatus. Positive results do not rule out bacterial infectionor co- infection with other viruses.Testing facilities within the [facility] and [facility] are required to report all positive results tothe appropriate public health authorities.Negative results should be treated as presumptive and, ifinconsistent with clinical signs and symptoms or necessaryfor patient management, should be tested with differentauthorized or cleared molecular tests. Negative results donot preclude SARS-CoV2 RNA infection and should not be usedas the sole basis for patient management decisions. Negativeresults should be considered in the context of a patient'srecent exposures, history and the presence of clinical signsand symptoms consistent with COVID-19.This test has been authorized by the FDA under an EmergencyUse Authorization (EUA) for use by authorized laboratories.Testing performed on the Dowd ID NOW utilizing NAAT. 04/26/2023 1:18 PM EDT 04/26/2023 1:24 PM EDT [facility] Exter nal Provider LAB MOLECULAR DIAGNOSTICS ORDERABLES Final Result Performing Organization Address City/[facility]/ZIP Co de Phone Number [facility] [address] [place] [address] [phone] * hCG, Total, Quantitative (04/26/2023 1:18 PM EDT) Pathologist [facility] HCG Quantitative <2 mIU/mL [facility] Comment:Weeks post LMP Appro ximate hCG(Last Menstrual Period) Range (mIU/ml)3 - 4 weeks 9 - 1304 - 5 weeks 75 - 2,6005 - 6 weeks 850 - 20,8006 - 7 weeks 4000 - 100,2007 - 12 weeks 11,500 - 289,09636 - 16 weeks 18,300 - 137,05458 - 29 weeks (2nd trimester) 1,400 - 53,76455 - 41 weeks (3rd trimester) 940 - 60,000The Dowd B- hCG assay is used for the early detection ofpregnancy; it cannot be used to diagnose any conditionunrelated to . If a B-hCG level is not supportedby the clinical evidence, results should be confirmed by analternative method (qualitative urine hCG, for example). 04/26/2023 1:18 PM EDT 04/26/2023 1:24 PM EDT [facility] External Provider LAB BLO OD ORDERABLES Final Result Performing Organization Address City/[facility]/ZIP Co de Phone Number [facility] [address] [place] [address] [phone] * Lipase (04/26/2023 1:18 PM EDT) [facility] Lipase 12 8 - 78 U/L [facility] 04/26/2023 1:18 PM EDT 04/26/2023 1:24 PM EDT [facility] External Data Provider LAB BLOOD ORDERAB LES Final Result Performing Organization Address [facility]/ZIP Co de Phone Number [facility] [address] [place] [address] [phone] * Magnesium (04/26/2023 1:18 PM EDT) [facility] Magnesium 2.1 1.6 - 2.6 mg/dL [facility] 04/26/2023 1:18 PM EDT 04/26/2023 1:24 PM EDT us Generic External Data Provider LAB BLOOD ORDERAB LES Final Result [facility] [address] [place] [address] [phone] * (ABNORMAL) Comprehensive Metabolic Panel (04/26/2023 1:18 PM EDT) Sodium 141 135 - 145 mmol/L [facility] Potassium 3.9 3.3 - 5.1 mmol/L [facility] Chloride 103 96 - 108 mmol/L [facility] Carbon Dioxide 29 22 - 29 mmol/L [facility] Anion Gap 13 12 - 20 [facility] Urea Nitrogen (BUN) 12 9 - 16 mg/dL [facility] Creatinine, Serum 0.80 0.5 - 1.4 mg/dL [facility] Creatinine Clr Calc Pharmacy 96.2 [facility] Comment:Provided height and weight: 154.94 cm,72.575 kg.eGFR (calculated from the MDRD study equation) and eCrCl(calculated from the Cockcroft-Gault equation) are based ondifferent parameters and may not yield comparable results.If eCrCl result is absurd, please check patient'sheight/weight. Estimated Glomerular Filt Rate >60 [facility] Comment:NOTE: For -Am erican individuals, multiply the result by 1.210.Chronic Kidney Disease: Estimated GFR < 60 mL/min/1.51g0Tnjmez Kidney Disease: Estimated GFR < 15 mL/min/1.73m2 Glucose 99 60 - 115 mg/dL [facility] Calcium 9.5 8.4 - 10.2 mg/dL [facility] Bilirubin, Total 0.4 0.0 - 1.0 mg/dL [facility] Aspartate Amino Transferase 19 5 - 31 U/L [facility] Alanine Aminotransferase 14 0 - 31 U/L [facility] Total Protein 8.5(H) 6.5 - 8.0 g/dL [facility] Albumin Level 4.5 3.5 - 5.0 g/dL [facility] Alkaline Phosphatase 66 39 - 117 U/L [facility] 04/26/2023 1:18 PM EDT 04/26/2023 1:24 PM EDT [facility] External Provider LAB BLO OD ORDERABLES Final Result Performing Organization Address [facility] Co de Phone Number [facility] [address] [place] [address] [phone] * HCG, Qualitative, Urine (04/26/2023 1:18 PM EDT) Urine NEGATIVE NEGATIVE [facility] Comment:This test was develo ped to detect early . Falsenegative results may occur after the 5th - 7th week ofpregnancy when using this test method. If clinicallyindicated, consider a serum hCG. 04/26/2023 1:18 PM EDT 04/26/2023 1:24 PM EDT [facility] External Provider LAB URI NE ORDERABLES Final Result Performing Organization Address [facility] Co de Phone Number [facility] [address] [place] [address] [phone] * (ABNORMAL) CBC auto differential (04/26/2023 1:18 PM EDT) White Blood Count 8.2 4.8 - 10.8 X10*3/uL [facility] Red Blood Count 5.04 4.20 - 5.50 X10*6/uL [facility] Hemoglobin 13.9 12.0 - 16.0 g/dl [facility] Hematocrit 41.4 37.0 - 47.0 % [facility] Mean Corpuscular Volume 82.1 80.0 - 98.0 fL [facility] Mean Corpuscular Hemoglobin 27.6 27.0 - 33.0 pg [facility] Mean Corpuscular HGB Conc 33.6 31.0 - 35.0 g/dl [facility] Red Cell Distribution Width 12.5 11.0 - 16.0 % [facility] Platelet Count 279 160 - 400 X10*3/uL [facility] Mean Platelet Volume 8.6(L) 9.4 - 12.3 fL [facility] Neutrophils Percent Auto 63.7 45 - 73 % [facility] Imm Gran Pct Auto 0.2 0.0 - 0.4 % [facility] Lymphocytes Percent Auto 26.9 20 - 40 % [facility] Monocytes Percent Auto 7.8 2 - 11 % [facility] Eosinophils Percent Auto 1.0 0 - 4 % [facility] Basophils Percent Auto 0.4 0 - 2 % [facility] NRBC Pct Auto 0.0 0.0 - 0.2 /100WBC [facility] Neutrophils Absolute Auto 5.2 2.0 - 8.3 x10*3/uL [facility] Imm Gran Abs Auto 0.02 0.00 - 0.03 X10*3/uL [facility] Lymphocytes Absolute Auto 2.2 1.2 - 4.9 X10*3/uL [facility] Monocytes Absolute Auto 0.6 0.1 - 1.2 X10*3/uL [facility] Eosinophils Absolute Auto 0.1 0.0 - 0.4 X10*3/uL [facility] Basophils Absolute Auto 0.0 0.0 - 0.2 X10*3/uL [facility] NRBC Abs Auto 0.000 0.0 - 0.012 X10*3/uL [facility] 04/26/2023 1:18 PM EDT 04/26/2023 1:24 PM EDT us [facility] External Provider LAB BLO OD ORDERABLES Final Result [facility] [address] [place] [address] [phone] * (ABNORMAL) Urinalysis, Complete, with Reflex to Culture (04/26/2023 1:18 PM EDT) Color Urine Yellow [facility] Appearance Urine Clear [facility] PH 6.0 5.0 - 9.0 [facility] Glucose Urine UA Negative Negative mg/dL [facility] Urine Blood Large (3+)(A) Negative [facility] Specific [place] - Urine 1.025 1.005 - 1.025 [facility] Urine Protein Negative Neg-Trace mg/dL [facility] Urine Ketones Negative Negative mg/dL [facility] Nitrite Urine Negative Negative [facility] Leukocyte Esterase Urine Negative Negative [facility] RBC Urine >20(A) 0 - 2 /HPF [facility] Urine WBC 0-5 0 - 5 /HPF [facility] Urine Squamous Epithelial Cell 0-2 0 - 2 /HPF [facility] Urine Bacteria None Seen None Seen [facility] Hyaline Casts, Urine 0-2 0 - 2 /LPF [facility] 04/26/2023 1:18 PM EDT 04/26/2023 1:24 PM EDT Narrative [facility] - 04/26/2023 1:40 PM EDT [id number], Clean Catch us [facility] External Provider LAB URI NE ORDERABLES Final Result [facility] [address] [place] [address] [phone] documented in this encounter Visit Diagnoses Not on filedocumented in this encounter Additional Health Concerns Assessment Noted Time PHQ-9 Depression Total Score: 0 02/29/20 23 11:13 AM EDT documented as of this encounter Care Teams Community Organization Aide Relationship Specialty Start Date End Date Yamileth Anand MD [address] [place] [phone] PCP - General Internal Medicine 12/26/22 Michelle Malloy [employer] OperatorDrawbridge Operator 11/15/23 documented as of this encounter
--- OUTSIDE RECORDS SUMMARY | 2025-01-07 11:39 | XMS_ITS | Clinical Summary ---
Author Organization [employer] Address [address] [facility] [address] [place] [address] Care Team Providers Care Pulpwood Contractor Name Role Phone Yamileth Anand MD Primary Care Pro vider Allergies Active Allergy Reactions Criticality Noted Date Comments Citrullus Vulgaris Angioedema 04/08/2018 Hx of watermelon allergy with throat swelling Medications * This document contains information received from the source organization and may not represent a complete record from that organization. albuterol (ProAir HFA) 108 (90 Base) MCG/ACT inhaler Inhale 2 puff as directed four times a day as needed 18 g 2 3 Active EPINEPHrine (Epipen) 0.3 MG/0.3ML injection syringe Inject 0.3 mL (0.3 mg) as directed 1 (one) time if needed for anaphylaxis. Inject into upper leg. Call 911 after use. 1 each 1 3 Active Pain Reliever Plus 250-250-65 MG tabletIndicatio ns:Intractable migraine with aura with status migrainosus TAKE 1 TABLET BY MOUTH EVERY 8 HOURS NEEDED FOR HEADACHE 30 tablet 3 3 Active amitriptyline (Elavil) 25 MG tablet Take 25 mg by mouth at bedtime. 4 Active SUMAtriptan (Imitrex) 50 MG tabletIndicatio ns:Intractable migraine with aura with status migrainosus TAKE 1 TABLET BY MOUTH ONE TIME IF NEEDED FOR MIGRAINE FOR UP TO 9 DOSES. MAY REPEAT DOSE ONCE IN 2 HOURS IF NO RELIEF. DO NOT EXCEED 2 DOSES IN 24 HOURS. 9 tablet 4 Active albuterol (2.5 MG/3ML) 0.083% nebulizer solution Take 3 mL (2.5 mg) by nebulization every 4 (four) hours if needed for wheezing. 75 mL 3 4 06/26/20 Active topiramate 50 MG tablet Take 1 tablet by mouth 2 times daily. Active Vit-Fe Fumarate-FA ( Vitamins) 28-0.8 MG tabletIndicatio ns:Family Planning Take 1 tablet by mouth Once per day. 90 tablet 2 4 06/27/20 Active fluticasone-karrie meterol (Advair) 230-21 MCG/ACT inhaler Inhale 2 puffs in the morning and at bedtime. Rinse mouth with water after use to reduce aftertaste and incidence of candidiasis. Do not swallow. 12 g 3 4 06/27/20 25 Active fluticasone-karrie meterol (Advair) 230-21 MCG/ACT inhaler Inhale 2 puffs in the morning and at bedtime. Rinse mouth with water after use to reduce aftertaste and incidence of candidiasis. Do not swallow. 12 g 2 4 06/27/20 25 Active Active Problems Problem Noted Date Diagnosed Date TACO (generalized anxiety disorder) 07/01/2024 Cough 06/28/2024 Family history of cancer 03/26/2024 Moderate persistent asthma 11/19/2023 Assessment & Plan (11/19/2023 5:59 PM EDT): Persistent nocturnal awakenings despite prednisone, no mh side effects, Inhaler helpful but requiring usage q 4 hours, Increase prednisone rx as written below, take pills by mouth in AM monitor for any mood changes particularly hypomania, call immediately and medication dose can be adjusted. Due to duration of therapy, will taper, Questions answered Health care maintenance 02/28/2023 Assessment & Plan (03/29/2023 9:19 PM EDT): -Quantiferon 09/2022 Neg -pap smear : > 4 y ago per pt -normal ---referred back to her ASSOCIATE PROFESSOR OF GEOLOGY but has apt here -contraception: none -vaccines:s/phepAx2,hepBx3--not immune wants to start series today ,HPVx3,MMRx2,varicellax2,meningococcalx2,COvid 19x3 and Bivalent x1,TD 2019 Assessment & Plan (02/28/2023 12:25 PM EDT): -Quantiferon 09/2022 Neg -pap smear : > 4 y ago per pt -normal ---referred today back to her ASSOCIATE PROFESSOR OF GEOLOGY -contraception: none , pt would like to become -not able x last 4 years -vaccines: s/p hepAx2,hepBx3,HPVx3,MMRx2,varicellax2,meningococcalx2,COvid 19x3 and Bivalent x1,TD 2018 -labs x annual exam today-in fasting -pt agreed to have STI testing including HIV to have for baseline Irregular periods 02/28/2023 Assessment & Plan (03/29/2023 9:17 PM EDT): Pt reports hx of irregular periods -states seen before at [facility]-ASSOCIATE PROFESS[employer] OF GEOLOGY x this -CT abd/pelvis w contrast 12/24/2018 : 2 mm solid non calcified nodule in right lower lobe ,reported as unlikely of clinical significance. Also reports 2 cm right adnexal mass with peripheral enhancement most likely a corpus luteal cyst -pelvic US 12/23/2018: dominant follicle vs cyst in right ovary 1.6x1.5x1.9 cm -referred back to her ASSOCIATE PROFESSOR OF GEOLOGY at [facility] to continue care for ovarian cyst ,reported infertility and for pap smear but per pt was told that need to start care here ? -I see that apt was made w [facility] next month -will do BRCA test x hx of breat ca in mother at early age at 30s --I will call pt w result otherwise pt will call here 2 weeks after test is done Assessment & Plan (02/28/2023 12:16 PM EDT): Pt reports hx of irregular periods -states seen before at [facility]-[employer]OC[employer]OLOG[employer] x this -CT abd/pelvis w contrast 12/24/2018 : 2 mm solid non calcified nodule in right lower lobe ,reported as unlikely of clinical significance. Also reports 2 cm right adnexal mass with peripheral enhancement most likely a corpus luteal cyst -pelvic US 12/23/2018: dominant follicle vs cyst in right ovary 1.6x1.5x1.9 cm -referred today back to her ASSOCIATE PROFESSOR OF GEOLOGY at [facility] to continue care for ovarian cyst ,reported infertility and for pap smear -as well advised pt to discuss about mother's hx of breast ca at Early age --if not evaluated by ASSOCIATE PROFESSOR OF GEOLOGY will discuss at her next apt w pt to have BRCA testing here Bipolar 1 disorder 02/28/2023 Assessment & Plan (03/29/2023 9:14 PM EDT): Reports dxed w Bipolar dx since was a child Reports was taking medications but stopped long time ago -states feeling stable PHQ9 is 0 ,denies any SI -states following with psychotx once a week , not following w psychiatrist x long time -refusing to take meds -will monitor Assessment & Plan (02/28/2023 12:26 PM EDT): Reports dxed w Bipolar dx since was a child Reports was taking medications but stopped long time ago -states feeling stable PHQ9 today is 0 ,denies any SI -states following with psychotx once a week , not following w psychiatrist x long time -refusing to take meds -will monitor Tobacco use 02/28/2023 Overview (02/28/2023): p Assessment & Plan (03/29/2023 9:15 PM EDT): Started 16 y of age ----3 cigarettes a day and stopped for the last 4 weeks -refusing aids to continue avoiding tobacco -will continue to monitor Assessment & Plan (02/28/2023 12:28 PM EDT): Started 16 y of age ----3 cigarettes a day and stopped 3 weeks ago -refusing aids to continue avoiding tobacco -will continue to monitor Intractable migraine with aura with status migra inosus 10/04/2022 Assessment & Plan (03/29/2023 9:11 PM EDT): Pt with > 2 y of GOLDEN no improved Pt needing freq doses of triptanes before now using less frq Pt interested in -saw churn driller aprox 08/2022 -w normal eval per pt --wearing glasses -advised pt to try w NSAIDS prn and her ASA/APAP/Caffeine Prn -explained that can only take sumatriptan no more than twice a week and x now advised condom use while using this med -discussed about preventive tx x migraine GOLDEN but all have some contraindications if pt planning to get -referred x Brain MRI at last apt but never had image done -will hold on test - pt to start care w neurologist and feeling better -referred to neurologist has apt x next month Assessment & Plan (02/28/2023 12:29 PM EDT): Pt with > 2 y of GOLDEN with some concerning features including positional, awakes at night Pt needing freq doses of triptanes Pt interested in -saw churn driller aprox 08/2022 -w normal eval per pt --wearing glasses -advised pt to try w NSAIDS prn and her ASA/APAP/Caffeine Prn -explained that can only take sumatriptan no more than twice a week and x now advised condom use while using this med -discussed about preventive tx x migraine GOLDEN but all have some contraindications if pt planning to get -referred today x Brain MRI -referred today to neurologist Encounters Date Type Department Care Team Description 01/07/2025 Orders Only GENERIC EXTERNAL DATA DEPARTMENT Provider, Generic External Data from Last 3 Months Immunizations Name Administration Dates Next Due DTaP 08/11/2008, 7,07/01/1996,04/29,02/26/1996 HPV, Bivalent 07/15/2009,03/11/2008,01/31/2007 Hep A, ped/adol, 2 dose 12/10/2008,01/29/2007 Hep B, Adolescent or Pediatric 08/28/1996,1995,02/26/1996 Hep B, adult 04/30/2023,03/29/2023 Influenza injectable quadriv alent IIV4 with preservative 07/04/2018,07/06/2016 Influenza, IIV3, injectable 06/28/2015 Influenza, Split (incl. maldonado fied surface antigen) 05/13/2013,10/15/2012 Influenza, seasonal, injecta ble, preservative free 06/27/2024 MMR 07/10/2000,12/30/1996 Meningococcal MCV4P ACYW-135 11/07/2018,02/15/20 11 Moderna Covid-19 Vaccine 12+ 09/21/2021 OPV, Trivalent 07/10/2000, 7,07/01/1996,04/29,02/26/1996 Pfizer Covid-19 Vaccine 12+ 06/27/2024, 1,02/10/2021 Pfizer Covid-19 Vaccine 12+ Bivalent 10/03/2022 Pneumococcal Conjugate PCV 20 06/27/2024 TD (adult), 2 Lf tetanus tox oid, preservative free, adsorbed 11/07/2018 Tdap 05/24/2023,08/11/2008 Varicella 02/10/2010,12/30/1996 Family History Medical History Relation Name Comments HTN Father breast cancer in early 30s Mother gastric cancer Paternal Grandfather Relation Name Status Comments Father Mother Paternal Grandfather Social History Tobacco Use Types Packs/Day Years [...] is your housing situation today? I have patricia donnelly 06/13/[address] you [...] Orientation Straight 07/10/2022 10 :15 AM EDT Last Filed Vital Signs Vital Sign Reading Time Taken Comments Blood Pressure 112/68 06/27/2024 2:11 PM EDT Pulse 90 06/27/2024 2:11 PM EDT Temperature 36.7 ??C (98.1 ??F) 06/27/2024 2:11 PM ED T Respiratory Rate 22 06/27/2024 2:11 PM EDT Oxygen Saturation 99% 06/27/2024 2:11 PM EDT Inhaled Oxygen Concentration - - Weight 56.2 kg (124 lb) 06/27/2024 2:11 PM EDT Height 154.9 cm (5' 1 ) 06/27/2024 2:11 PM EDT Body Mass Index 23.43 06/27/2024 2:11 PM EDT Plan of Treatment Health Maintenance Due Date Last Done Comments Alcohol/Substance Use Screening 2007 Family Planning (PISQ) 12/25/2010 Pap Smear 12/25/2016 SDOH Screening 06/13/2025 06/13/2024 Depression Screening 06/27/2025 06/27/2024, 06/27/20 24 Tobacco Screening 06/27/2025 06/27/2024 Lipid Panel 02/29/2028 02/28/2023 DTaP/Tdap/Td Vaccines (9 - Td or Tdap) 05/24/2033 05/24/2023, 11/07/2018, 08/11/2008, Additional history exists Zoster Vaccines (1 of 2) 12/25/2045 RSV Patients and Patients Aged 60 years or older (1 - 1-dose 75+ series) 12/25/2070 IPV Vaccines Completed 07/10/2000, 04/10, 07/01/1996, Additional history exists Hepatitis A Vaccines Completed 12/10/2008, 01/30/20 07 HPV Vaccines Completed 07/15/2009, 10/2007, 01/31/2007 Meningococcal Vaccine Aged Out 11/07/2018, 011 No longer eligible based on patient's age to complete this topic HIV Screening Completed 02/28/2023 Hepatitis C Screening Completed 02/28/2023 Hepatitis B Vaccines Completed 04/30/2023, 03/29/2023, 08/28/1996, Additional history exists COVID-19 Vaccine Completed 06/27/2024, , 09/21/2021, Additional history exists Influenza Vaccine Completed 06/27/2024, , 07/06/2016, Additional history exists Pneumococcal Vaccine: Pediatrics (0 to 5 Years) and At-Risk Patients (6 to 49) Years) Completed 06/27/2024 HIB Vaccines Aged Out No longer eligi ble based on patient's age to complete this topic RSV under 20 months Aged Out No longe r eligible based on patient's age to complete this topic Rotavirus Vaccines Aged Out No longer eligible based on patient's age to complete this topic Procedures Procedure Name Priority Date/Time Associated Diagnosis Comments COMPREHENSIVE METABOLIC PANEL Routine 01/07/2025 10:13 AM EDT APTT Routine 01/07/2025 10:13 AM EDT PROTHROMBIN TIME-INR Routine 01/07/2025 10:13 AM EDT CBC WITH AUTO DIFFERENTIAL Routine 01/07/2025 10:13 AM EDT HEPATITIS C AB W/REFL TO HCV RNA, QN, PCR Routine 02/28/2023 11:49 AM EDT Health care maintenance HIV 1/2 ANTIGEN/ANTIBODY, FOURTH GENERATION W/RFL Routine 02/28/2023 11:49 AM EDT Health care maintenance LIPID PANEL, STANDARD Routine 02/28/2023 11:49 AM EDT Health care maintenance from Last 3 Months or Most Recently Relevant to Health Maintenance Results * (ABNORMAL) CBC auto differential (01/07/2025 10:13 AM EDT) White Blood Count 6.4 4.8 - 10.8 X10*3/uL LABS Red Blood Count 4.68 4.20 - 5.50 X10*6/uL LABS Hemoglobin 12.6 12.0 - 16.0 g/dl LABS Hematocrit 37.5 37.0 - 47.0 % LABS Mean Corpuscular Volume 80.1 80.0 - 98.0 fL LABS Mean Corpuscular Hemoglobin 26.9(L) 27.0 - 33.0 pg LABS Mean Corpuscular HGB Conc 33.6 31.0 - 35.0 g/dl LABS Red Cell Distribution Width 13.3 11.0 - 16.0 % LABS Platelet Count 294 160 - 400 X10*3/uL LABS Mean Platelet Volume 8.6(L) 9.4 - 12.3 fL LABS Neutrophils Percent Auto 55.7 45 - 73 % LABS Imm Gran Pct Auto 0.2 0.0 - 0.4 % LABS Lymphocytes Percent Auto 30.5 20 - 40 % LABS Monocytes Percent Auto 7.4 2 - 11 % LABS Eosinophils Percent Auto 5.3(H) 0 - 4 % LABS Basophils Percent Auto 0.9 0 - 2 % LABS NRBC Pct Auto 0.0 0.0 - 0.2 /100WBC LABS Neutrophils Absolute Auto 3.6 2.0 - 8.3 x10*3/uL LABS Imm Gran Abs Auto 0.01 0.00 - 0.03 X10*3/uL LABS Lymphocytes Absolute Auto 1.9 1.2 - 4.9 X10*3/uL LABS Monocytes Absolute Auto 0.5 0.1 - 1.2 X10*3/uL LABS Eosinophils Absolute Auto 0.3 0.0 - 0.4 X10*3/uL LABS Basophils Absolute Auto 0.1 0.0 - 0.2 X10*3/uL LABS NRBC Abs Auto 0.000 0.0 - 0.012 X10*3/uL LABS 01/07/2025 10:1 3 AM EDT 01/07/2025 10:18 AM EDT Generic External Data Provider LAB BLOOD ORDERAB LES Final Result Performing Organization Address [facility]/ZIP Co de Phone Number LABS [address] [place] [phone] * Partial Thromboplastin Time, Activated (APTT) (01/07/2025 10:13 AM EDT) Partial Thromboplastin Time 32.0 26.0 - 36.8 SEC LABS Comment:For information rega rding the monitoring of direct thrombininhibitors, please refer to Pharmacy. 01/07/2025 10:1 3 AM EDT 01/07/2025 10:18 AM EDT [place] External Data Provider LAB BLOOD ORDERAB LES Final Result Performing Organization Address [facility] Co de Phone Number LABS [address] [place] [phone] * Prothrombin Time-INR (01/07/2025 10:13 AM EDT) Prothrombin Time 11.6 10.9 - 12.4 SEC LABS INTERNATIONAL NORM RATIO 1.0 0.9 - 1.1 LABS Comment:INTERNATIONAL NORMAL IZED RATIO (INR) REFERENCE [...] Provider LAB BLOOD ORDERAB LES Final Result LABS [address] [place] [address] [phone] * (ABNORMAL) Comprehensive Metabolic Panel (01/07/2025 10:13 AM EDT) Sodium 138 135 - 145 mmol/L LABS Potassium 4.2 3.3 - 5.1 mmol/L LABS Chloride 110(H) 96 - 108 mmol/L LABS Carbon Dioxide 20(L) 22 - 29 mmol/L LABS Anion Gap 12 12 - 20 LABS Urea Nitrogen (BUN) 13 9 - 16 mg/dL LABS Creatinine, Serum 0.81 0.5 - 1.4 mg/dL LABS Creatinine Clr Calc Pharmacy 77.3 LABS Comment:Provided height and weight: 154.94 cm,57.153 kg.eGFR (calculated from the MDRD study equation) and eCrCl(calculated from the Cockcroft-Gault equation) are based ondifferent parameters and may not yield comparable results.If eCrCl result is absurd, please check patient'sheight/weight. Estimated Glomerular Filt Rate >60 LABS Comment:Chronic Kidney Disea se: Estimated GFR < 60 mL/min/[id number] Kidney Disease: Estimated GFR < 15 mL/min/1.73m2 Glucose 88 60 - 115 mg/dL LABS Calcium 9.1 8.4 - 10.2 mg/dL LABS Bilirubin, Total 0.4 0.0 - 1.0 mg/dL LABS Aspartate Amino Transferase 21 5 - 31 U/L LABS Alanine Aminotransferase 13 0 - 31 U/L LABS Total Protein 7.2 6.5 - 8.0 g/dL LABS Albumin Level 4.2 3.5 - 5.0 g/dL LABS Alkaline Phosphatase 55 39 - 117 U/L LABS 01/07/2025 10:1 3 AM EDT 01/07/2025 10:18 AM EDT us Generic External Data Provider LAB BLOOD ORDERAB LES Final Result LABS [address] [place] [phone] * Hepatitis C Antibody with Reflex to HCV, RNA, Quantitative, Real-Time PCR (02/28/2023 11:49 AM EDT) Pathologist [facility] Hepatitis C Antibody NON-REACT MACHO NON-REACT MACHO [employer] [place] [employer] Comment: HCV antibody was non-reactive. There is no laboratory evidence of HCV infection. In most cases, no further action is required. However, if recent HCV exposure is suspected, a test for HCV RNA (test code 68340) is suggested. For additional information please refer to http://education.Inbiomotion/faq/VFL01z8 (This link is being provided for informational/ educational purposes only.) Blood Venous blood specimen / Unknown 02/28/2023 11:49 AM EDT 02/28/2023 11:49 AM EDT Narrative [facility] - 03/01/2023 4:57 PM EDT FASTING:NO FASTING: NO us Yamileth Lamas MD LAB BLOOD ORDERAB LES Final Result Performing Organization Address City/[facility]/ZIP Co de Phone Number [facility] [address], [place] [phone] [facility] [place] [employer] [address] [place] [address] * HIV-1/2 Antigen and Antibodies, Fourth Generation, with Reflexes (02/28/2023 11:49 AM EDT) HIV Antigen/Antibody, 4th Generation NON-REAC TIVE NON-REAC TIVE [facility] [place] [employer] Comment: HIV-1 antigen and HIV-1/HIV-2 antibodies were not detected. There is no laboratory evidence of HIV infection. PLEASE NOTE: This information has been disclosed to you from records whose confidentiality may be protected by state law. ??If your state requires such protection, then the state law prohibits you from making any further disclosure of the information without the specific written consent of the person to whom it pertains, or as otherwise permitted by law. A general authorization for the release of medical or other information is NOT sufficient for this purpose. ?? For additional information please refer to http://education.Inbiomotion/faq/HXV128 (This link is being provided for informational/ educational purposes only.) The performance of this assay has not been clinically validated in patients less than 2 years old. Blood Venous blood specimen / Unknown 02/28/2023 11:49 AM EDT 02/28/2023 11:49 AM EDT [facility] - 03/01/2023 4:57 PM EDT FASTING:NO FASTING: NO Yamileth Lamas MD LAB BLOOD ORDERAB LES Final Result [facility] [address], [place] [phone] [employer] [place] [employer] [address] [place] [address] * (ABNORMAL) Lipid Panel, Standard (02/28/2023 11:49 AM EDT) [facility] Cholesterol, Total 171 <200 mg/dL [facility] [place] [employer] HDL Cholesterol 38(L) > OR = 50 mg/dL [facility] [place] [facility] Triglycerides 152(H) <150 mg/dL [facility] [place] [facility] LDL Cholesterol 106(H) mg/dL (calc) [facility] [place] [employer] Comment: Reference range: <100 Desirable range <100 mg/dL for primary prevention; ?? <70 mg/dL for patients with CHD or diabetic patients with > or = 2 CHD risk factors. LDL-C is now calculated using the Sendy calculation, which is a validated novel method providing better accuracy than the Friedewald equation in the estimation of LDL-C. Kenan CERVANTES et al. ANGEL. 2013;310(19): 8053-7628 (http://Sh[employer]/faq/NHQ799) Chol/HDLC Ratio 4.5 <5.0 (calc) [facility] [place] [facility] Non-HDL Cholesterol 133(H) <130 mg/dL (calc) [facility] [place] [employer] Comment: For patients with diabetes plus 1 major ASCVD risk factor, treating to a non-HDL-C goal of <100 mg/dL (LDL-C of <70 mg/dL) is considered a therapeutic option. Blood Venous blood specimen / Unknown 02/28/2023 11:49 AM EDT 02/28/2023 11:49 AM EDT Narrative [facility] - 03/01/2023 4:57 PM EDT FASTING:NO FASTING: NO Yamileth Lamas MD LAB BLOOD ORDERAB LES Final Result [facility] [address], [place] [address] [facility] [place] [employer] [address] [place] [address] from Last 3 Months or Most Recently Relevant to Health Maintenance Insurance * Guarantor: Carmina Fong Account Type Relation to Patient Date of Phone Billing Address Personal/Family Self 1995 [address] [facility] [address] [place] [address] [facility] , [address] [place] [address] Care Teams Pulpwood Contractor Relationship Specialty Start Date End Date Yamileth Anand MD [address] [place] [address] PCP - General Internal Medicine 12/26/22 Michelle Malloy Postdoctoral Research FellowProperty Utilization Officer 11/15/23
--- OUTSIDE RECORDS SUMMARY | 2025-01-07 11:39 | XMS_ITS | Clinical Summary ---
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 Name Role Phone Unavailable Primary Care Provider Unavailabl e Social History Tobacco Use Types Packs/Day Years Used Date Smoking Tobacco: Never Assessed Comments Unknown Sex and Gender Information Value Date Recorded Sex Assigned at Not on file Legal Sex Female 1:57 PM EST Gender Identity Not on file Sexual Orientation Not on file Plan of Treatment Health Maintenance Due Date Last Done Comments DTaP,Tdap,and Td Vaccines (1 - Tdap) 12/25/2014 Hepatitis B Vaccines (1 of 3 - 19+ 3-dose series) 12/25/2014 Cervical Cancer Screening: P ap Smear 12/25/2016 COVID-19 Vaccine ( - 2023-2 5 season) 2024 Influenza Vaccine (Season Ended) 2025 HIB Vaccines Aged Out No longer eligi ble based on patient's age to complete this topic HPV Vaccines Aged Out No longer eligi ble based on patient's age to complete this topic Hepatitis A Vaccines Aged Out No long er eligible based on patient's age to complete this topic IPV Vaccines Aged Out No longer eligi ble based on patient's age to complete this topic MMR Vaccines Aged Out No longer eligi ble based on patient's age to complete this topic Meningococcal ACWY Vaccine Aged Out N o longer eligible based on patient's age to complete this topic Meningococcal B Vaccine Aged Out No l onger eligible based on patient's age to complete this topic Pneumococcal Vaccine: Pediat rics (0 to 5 Years) and At-Risk Patients (6 to 64 Years) Aged Out No longer eligible b ased on patient's age to complete this topic RSV Immunization Patients Un shorty 20 months Aged Out No longer eligible b ased on patient's age to complete this topic Varicella Vaccines Aged Out No longer eligible based on patient's age to complete this topic
== END 2025-01-07 11:45 | disposition home or self-care (01) ==
PROVIDERS: Emergency Provider Emergency Medicine; PCP Student in an Organized Health Care Education/Training Program
DX: R04.0 Epistaxis (principal); J45.909 Unspecified asthma, uncomplicated
CPT/HCPCS: 36415; 80053; 85025; 85610; 85730; 99283

== ENCOUNTER 2025-05-13 15:04 | Outpatient (AMB) | payer OTHER, SELFPAY ==
--- NOTE | 2025-05-13 15:10 | MHC.OFFVIS ---
Vital Signs 05/13/25 15:10 Height 5 ft 1 in Intake Visit Reasons: Last seen 08/13/24 per eCW for Migraine Allergies watermelon Allergy (Severe, Verified 05/13/25 15:15) ANAPHYLAXIS pollen Allergy (Unknown, Uncoded 05/13/25 15:15) rash Medication List - Last Reconciled 05/13/25 by Uma Hough, GIULIANA albuterol sulfate 5 mg inhalation Q4H PRN albuterol-budesonide 90-80 mcg/actuation (Airsupra) 2 inhalations inhalation BID amitriptyline 25 mg PO BEDTIME 90 days amoxicillin-pot clavulanate 875-125 mg 1 tab PO BID 5 days benzonatate 100 mg PO BID PRN 7 days benzonatate 100 mg PO TID PRN cyclobenzaprine 10 mg PO TID PRN guaifenesin 200 mg PO Q6H PRN ibuprofen 600 mg PO TID PRN ketorolac 10 mg PO TID PRN 5 days magnesium oxide 400 mg PO BEDTIME naproxen 500 mg PO BID PRN naproxen (Naprosyn) 500 mg PO BID ondansetron 4 mg PO Q6H PRN ondansetron 4 mg PO Q6H PRN ondansetron 4 mg PO Q8H PRN oseltamivir (Tamiflu) 75 mg PO BID 5 days polymyxin B sulf-trimethoprim 10,000 unit- 1 mg/mL 1 drp ophthalmic (eye) Q3H 7 days prednisone 20 mg PO DAILY 7 days sumatriptan succinate take 1 tab at onset of headache; if no relief, may repeat 1 tab after at least 2 hrs; max = 2 tabs/24 hrs PO tizanidine 2 mg PO Q8H PRN topiramate 50 mg PO BID 90 days tramadol 50 mg PO Q8H PRN HPI Comments Details: She was doing okay. Migraines were happening here and there. Sumatriptan as needed usually helped, but she ran out of medication. She was planning for and had questions about medication. She was worried about headaches worsening. Previously, migraines were about 1-2x/week and relieved with sumatriptan. Sleeping about 8 hours/night. In 2019, she started with constant, throbbing/stabbing headache to R side of head with occasional radiation to neck and R eye. It was associated with photophobia and sonophobia, particularly on right side, along with nausea and vomiting. Blurry vision in R eye. No triggers identified aside from headaches being worse when hair pulled up. She tried sumatriptan, Excedrin every 8 hours for 1 year without relief, and occasional ibuprofen. [facility] Medical History (Updated 05/13/25 @ 15:14 by Uma Hough CNP) Migraine Asthma Cocaine abuse in remission Opioid use disorder Alcohol use disorder, moderate, in early remission Post-traumatic stress disorder, unspecified Major depressive disorder, recurrent severe without psychotic features Surgical History History of delivery Family History Father HTN (hypertension) Cancer Social History Household Members: Significant Other Alcohol intake: former Patient Tobacco Use Status: Former Tobacco user Review of Systems Const Denies chills, Denies daytime sleepiness, Denies difficulty sleeping, Denies fatigue, Denies fever(s), Denies frequent falls, Reports headache(s), Denies increased appetite, Denies poor appetite, Denies snoring, Denies weakness, Denies weight gain and Denies weight loss Eyes Denies loss of vision ENT Denies vertigo, Denies dizziness, Reports headache(s) and Denies neck pain Card Denies chest pain at rest, Denies chest pain with activity, Denies syncope, Denies leg edema, Denies palpitations, Denies dyspnea and Denies dyspnea on exertion Resp Denies cough, Denies dyspnea, Denies dyspnea on exertion and Denies snoring GI Denies abdominal pain, Denies constipation, Denies heartburn, Denies diarrhea and Denies nausea Denies urinary frequency, Denies urinary incontinence and Denies urinary urgency Musc Denies abnormal gait, Denies back pain, Denies myalgias, Denies arthralgias, Denies neck pain, Denies numbness and Denies tingling Neuro Denies abnormal gait, Denies vertigo, Denies dizziness, Denies syncope, Denies frequent falls, Reports headache(s), Denies lack of coordination, Denies loss of vision, Denies memory loss, Denies numbness, Denies Other visual disturbances, Denies restless legs, Denies seizure-like activity, Denies tingling, Denies paresthesias, Denies tremor(s) and Denies weakness Psych Reports anxiety, Reports depression, Denies auditory hallucinations, Denies memory loss and Denies visual hallucinations Endo Denies fatigue and Denies palpitations Physical Exam Const Other: General Appearance:? normal, in no acute distress. Heart:? S1, S2 normal, no murmurs. Lungs:? clear anteriorly and posteriorly. Musculoskeletal:? normal. Extremities:? no edema. Psych:? alert, oriented, cognitive function intact, cooperative with exam. Neuro Other: Abnormal Neurological Findings:?none.? Mental Status: alert and oriented X 3. Normal attention, orientation, memory, and affect. Cranial Nerves: Pupils are equal, round, and reactive to light. External ocular muscles are intact. Visual stacy are full, no ptosis. Face is symmetrical, no facial weakness or droop. Facial sensations are normal. Tongue protrudes in midline. Palate elevates symmetrically. Shoulder shrugging is normal Motor Examination: Normal muscle tone, bulk and strength. No atrophy or fasciculations. No drift of the extended upper extremities. DTR 2+. Plantars are flexor. Sensory Exam: Normal light touch, temperature, pinprick, vibration, and joint-position sensations. Rhomberg sign is absent. Coordination: No ataxia. No titubation. Rplauo-hb-gwta, tylw-yzmw-dmvh test, and rapid alternating movements were normal. Gait Exam: Within normal limits. Cerebellar Signs: Ifrhhe-uk-blbt and zajd-uh-taat is normal. No dysdiadochokinesia. Extrapyramidal System: No tremor, rigidity with normal facial expressions. No bradykinesia. No bradyphrenia. Normal arm swing and posture. No propulsion or retropulsion. Speech: Normal. No dysphasia or dysarthria. Results Reviewed Results Reviewed: CT brain 04/26/23 04/23/23 MRI brain Assessment & Plan Assessment & Plan (1) Migraine: Code(s): G43.909 - Migraine, unspecified, not intractable, without status migrainosus Category: Medical Qualifiers: Intractability: not intractable Migraine type: unspecified Status migrainosus presence: without status migrainosus Qualified Code(s): G43.909 - Migraine, unspecified, not intractable, without status migrainosus Plan: She was planning for . She was advised to stop: Topiramate 50mg 1 tablet twice a day. She was educated on the risk of teratogenicity, stop medication (at least 1-2 weeks) prior to Amitriptyline 25mg 1 tablet at bedtime. Sumatriptan 100mg 1 tablet as needed for migraine. She was educated on migraines during . It is best to avoid medications if possible during (especially early ). May use Tylenol as needed. (2) Chronic tension type headache: Code(s): G44.229 - Chronic tension-type headache, not intractable Category: Medical Qualifiers: Intractability: not intractable Qualified Code(s): G44.229 - Chronic tension-type headache, not intractable Plan Meds tried: topiramate, amitriptyline, sumatriptan Medications: Discontinued topiramate Discontinued Reason: Doctor's Order 50 mg PO BID 90 days 180 tabs 1RF amitriptyline Discontinued Reason: Doctor's Order 25 mg PO BEDTIME 90 days 90 tabs 1RF Coding Level of Care Code Est Pt Level 4 (93834) Diagnoses Migraine without status migrainosus, not intractable, unspecified migraine type G43.909 Intractability: not intractable Migraine type: unspecified Status migrainosus presence: without status migrainosus Chronic tension-type headache, not intractable G44.229 Intractability: not intractable
--- OUTSIDE RECORDS SUMMARY | 2025-05-13 17:12 | XMS_ITS | Encounter Summary ---
Author Organization [employer] Address [address] [facility] [address] [place] [address] Care Team Providers Care Television News Video Editor Name Role Phone Yamileth Anand MD Primary Care Pro vider Reason for Visit * Reason Onset Date Comments Med Refill 02/23/2024 Encounter Details Date Type Department Care Team (Late st Contact Info) Description 02/23/2024 Refill [facility] [address] [place] [address] Yamileth Anand MD [address] [place] [address] Social History Tobacco Use Types Packs/Day Years [...] as of this encounter Plan of Treatment Upcoming Encounters Date Type Department Care Team (Late st Contact Info) Description 06/30/2025 9:15 AM EDT Office Visit [facility] [address] [place] [phone] Yamileth Anand MD [address] [place] [phone] documented as of this encounter Visit Diagnoses Not on filedocumented in this encounter Additional Health Concerns Assessment Noted Time PHQ-9 Depression Total Score: 0 02/29/20 11:13 AM EDT documented as of this encounter Care Teams Television News Video Editor Relationship Specialty Start Date End Date Yamileth Anand MD [address] [place] [phone] PCP - General Internal Medicine 12/26/22 Michelle Malloy Internet Marketing StrategistTruck Headlight Assembler 11/15/23 documented as of this encounter
--- OUTSIDE RECORDS SUMMARY | 2025-05-13 17:12 | XMS_ITS | Encounter Summary ---
Author Organization [employer] Address [address] [place] [address] Care Team Providers Care Moisture Tester Name Role Phone Yamileth Anand MD Primary Care Pro vider Encounter Details Date Type Department Care Team (Late Contact Info) Description 04/26/2023 Orders Only [facility] [address] [place] [address] Sanjana Carrasco LPN Social History Tobacco Use [...] documented in this encounter Plan of Treatment Upcoming Encounters Date Type Department Care Team (Late st Contact Info) Description 06/30/2025 9:15 AM EDT Office Visit [facility] [address] [place] [address] Yamileth Anand MD [address] [place] [address] documented as of this encounter Procedures Procedure [...] (Dowd) (04/26/2023 1:18 PM EDT) IDNOW SERIAL# [id number] [facility] Influenza A Negative Negative [facility] Influenza B2 Negative Negative [facility] Influenza A B2 Note See Note [facility] Comment:The Dowd ID NOW In fluenza [...] 1:18 PM EDT 04/26/2023 1:24 PM EDT [facility] Exter nal Provider LAB MICROBIOLOGY - GENERAL ORDERABLES Final Result [facility] [address] [place] [phone] * COVID-19 ID NOW ([employer]) (04/26/2023 1:18 PM EDT) IDNOW SERIAL# [id number] [facility] COVID-19 TEST Negative Negative [facility] COVID-19 NOTE See Note [facility] Comment: Results are for the identification of SARS-CoV2 RNA. TheSARS-CoV2 RNA is generally detectable in respiratory samplesduring the acute phase of infection. Positive results areindicative of the presence of SARS-CoV-2 RNA; clinicalcorrelation with patient history and other diagnosticinformation is necessary to determine patient infectionstatus. Positive results do not rule out bacterial infectionor co- infection with other viruses.Testing facilities within the [facility] and [facility] are required to report all positive results [...] use by authorized laboratories.Testing performed on the [employer] ID NOW utilizing NAAT. 04/26/2023 1:18 PM EDT 04/26/2023 1:24 PM EDT [facility] Exter nal Provider LAB MOLECULAR DIAGNOSTICS ORDERABLES Final Result Performing Organization Address [facility]/ZIP Co de Phone Number [facility] [address] [place] [address] [phone] * hCG, Total, Quantitative (04/26/2023 1:18 PM EDT) HCG Quantitative <2 mIU/mL [facility] Comment:Weeks post LMP Appro ximate hCG(Last Menstrual Period) Range (mIU/ml)3 - 4 weeks 9 - 1304 - 5 weeks 75 - 2,6005 - 6 weeks 850 - 20,8006 - 7 weeks 4000 - 100,2007 - 12 weeks 11,500 - 289,73034 - 16 weeks 18,300 - 137,81969 - 29 weeks (2nd trimester) 1,400 - 53,63893 - 41 weeks (3rd trimester) 940 - 60,000The Dowd B- hCG assay is used for the early detection ofpregnancy; it cannot be used to diagnose any conditionunrelated to . If a B-hCG level is not supportedby the clinical evidence, results should be confirmed by analternative method (qualitative urine hCG, for example). 04/26/2023 1:18 PM EDT 04/26/2023 1:24 PM EDT [facility] External Provider LAB BLO OD ORDERABLES Final Result Performing Organization Address City/[facility]/ZIP Co de Phone Number [facility] [address] [place] [phone] * Lipase (04/26/2023 1:18 PM EDT) Lipase 12 8 - 78 U/L [facility] 04/26/2023 1:18 PM EDT 04/26/2023 1:24 PM EDT us Generic External Data Provider LAB BLOOD ORDERAB LES Final Result Performing Organization Address City/[facility]/ZIP Co de Phone Number [facility] [address] [place] [phone] * Magnesium (04/26/2023 1:18 PM EDT) Pathologist [facility] Magnesium 2.1 1.6 - 2.6 mg/dL [facility] 04/26/2023 1:18 PM EDT 04/26/2023 1:24 PM EDT Generic External Data Provider LAB BLOOD ORDERAB LES Final Result Performing Organization Address [facility] Co de Phone Number [facility] [address] [place] [phone] * (ABNORMAL) Comprehensive Metabolic Panel (04/26/2023 1:18 PM EDT) [facility] Sodium 141 135 - 145 mmol/L [facility] Potassium 3.9 3.3 - 5.1 mmol/L [facility] Chloride 103 96 - 108 mmol/L [facility] Carbon Dioxide 29 22 - 29 mmol/L [facility] Anion Gap 13 12 - 20 [facility] Urea Nitrogen (BUN) 12 9 - 16 mg/dL [facility] Creatinine, Serum 0.80 0.5 - 1.4 mg/dL [facility] Creatinine Clr Calc Pharmacy 96.2 [facility] Comment:Provided height and weight: 154.94 cm,72.575 kg.eGFR (calculated from the MDRD study equation) and eCrCl(calculated from the Cockcroft-Gault equation) are based ondifferent parameters and may not yield comparable results.If eCrCl result is absurd, please check patient'sheight/weight. Estimated Glomerular Filt Rate >60 [facility] Comment:NOTE: For -Am erican individuals, multiply the result by 1.210.Chronic Kidney Disease: Estimated GFR < 60 mL/min/1.70c0Hftcay Kidney Disease: Estimated GFR < 15 mL/min/1.73m2 Glucose 99 60 - 115 mg/dL [facility] Calcium 9.5 8.4 - 10.2 mg/dL [facility] Bilirubin, Total 0.4 0.0 - 1.0 mg/dL [facility] Aspartate Amino Transferase 19 5 - 31 U/L [facility] Alanine Aminotransferase 14 0 - 31 U/L [facility] Total Protein 8.5(H) 6.5 - 8.0 g/dL [facility] Albumin Level 4.5 3.5 - 5.0 g/dL [facility] Alkaline Phosphatase 66 39 - 117 U/L [facility] 04/26/2023 1:18 PM EDT 04/26/2023 1:24 PM EDT [facility] External Provider LAB BLO OD ORDERABLES Final Result Performing Organization Address [facility] Co de Phone Number [facility] [address] [place] [phone] * HCG, Qualitative, Urine (04/26/2023 1:18 PM EDT) Pathologist [facility] Urine NEGATIVE NEGATIVE [facility] Comment:This test was develo ped to detect early . Falsenegative results may occur after the 5th - 7th week ofpregnancy when using this test method. If clinicallyindicated, consider a serum hCG. 04/26/2023 1:18 PM EDT 04/26/2023 1:24 PM EDT [facility] External Provider LAB URI NE ORDERABLES Final Result Performing Organization Address [facility] Co de Phone Number [facility] [address] [place] [phone] * (ABNORMAL) CBC auto differential (04/26/2023 1:18 PM EDT) White Blood Count 8.2 4.8 - 10.8 X10*3/uL [facility] Red Blood Count 5.04 4.20 - 5.50 X10*6/uL [facility] Hemoglobin 13.9 12.0 - 16.0 g/dl [facility] Hematocrit 41.4 37.0 - 47.0 % [facility] Mean Corpuscular Volume 82.1 80.0 - 98.0 fL [facility] Mean Corpuscular Hemoglobin 27.6 27.0 - 33.0 pg [facility] Mean Corpuscular HGB Conc 33.6 31.0 - 35.0 g/dl [facility] Red Cell Distribution Width 12.5 11.0 - 16.0 % [facility] Platelet Count 279 160 - 400 X10*3/uL [facility] Mean Platelet Volume 8.6(L) 9.4 - 12.3 fL [facility] Neutrophils Percent Auto 63.7 45 - 73 % [facility] Imm Gran Pct Auto 0.2 0.0 - 0.4 % [facility] Lymphocytes Percent Auto 26.9 20 - 40 % [facility] Monocytes Percent Auto 7.8 2 - 11 % [facility] Eosinophils Percent Auto 1.0 0 - 4 % [facility] Basophils Percent Auto 0.4 0 - 2 % [facility] NRBC Pct Auto 0.0 0.0 - 0.2 /100WBC [facility] Neutrophils Absolute Auto 5.2 2.0 - 8.3 x10*3/uL [facility] Imm Gran Abs Auto 0.02 0.00 - 0.03 X10*3/uL [facility] Lymphocytes Absolute Auto 2.2 1.2 - 4.9 X10*3/uL [facility] Monocytes Absolute Auto 0.6 0.1 - 1.2 X10*3/uL [facility] Eosinophils Absolute Auto 0.1 0.0 - 0.4 X10*3/uL [facility] Basophils Absolute Auto 0.0 0.0 - 0.2 X10*3/uL [facility] NRBC Abs Auto 0.000 0.0 - 0.012 X10*3/uL [facility] 04/26/2023 1:18 PM EDT 04/26/2023 1:24 PM EDT [facility] External Provider LAB BLO OD ORDERABLES Final Result Performing Organization Address [facility]/ZIP Co de Phone Number [facility] [address] [place] [phone] * (ABNORMAL) Urinalysis, Complete, with Reflex to Culture (04/26/2023 1:18 PM EDT) Color Urine Yellow [facility] Appearance Urine Clear [facility] PH 6.0 5.0 - 9.0 [facility] Glucose Urine UA Negative Negative mg/dL [facility] Urine Blood Large (3+)(A) Negative [facility] Specific Tanner - Urine 1.025 1.005 - 1.025 [facility] Urine Protein Negative Neg-Trace mg/dL [facility] Urine Ketones Negative Negative mg/dL [facility] Nitrite Urine Negative Negative [facility] Leukocyte Esterase Urine Negative Negative [facility] RBC Urine >20(A) 0 - 2 /HPF [facility] Urine WBC 0-5 0 - 5 /HPF [facility] Urine Squamous Epithelial Cell 0-2 0 - 2 /HPF [facility] Urine Bacteria None Seen None Seen [facility] Hyaline Casts, Urine 0-2 0 - 2 /LPF [facility] 04/26/2023 1:18 PM EDT 04/26/2023 1:24 PM EDT Narrative [facility] - 04/26/2023 1:40 PM EDT [id number], Clean Catch [facility] External Provider LAB URI NE ORDERABLES Final Result Performing Organization Address [facility]/ZIP Co de Phone Number [facility] [address] [place] [phone] documented in this encounter Visit Diagnoses Not on filedocumented in this encounter Additional Health Concerns Assessment Noted Time PHQ-9 Depression Total Score: 0 02/29/20 23 11:13 AM EDT documented as of this encounter Care Teams Moisture Tester Relationship Specialty Start Date End Date Yamileth Anand MD [address] [place] [phone] PCP - General Internal Medicine 12/26/22 Michelle Malloy Feedlot ManagerSenior Enlisted Advisor 11/15/23 documented as of this encounter
--- OUTSIDE RECORDS SUMMARY | 2025-05-13 17:12 | XMS_ITS | Clinical Summary ---
Author Organization [facility] ity Address [address] [place] [address] Care Team Providers Care Practicing Md Anesthesiologist Name Role Phone Unavailable Primary Care Provider [...] Vaccine ( - 2023-2 5 season) 2024 Depression Screening 09/10/2024 Influenza Vaccine (#1) 2025 HIB Vaccines Aged Out No longer [...] 5 Years) and At-Risk Patients (6 to 49 Years) Aged Out No longer eligible b ased on patient's age to complete this topic RSV Immunization Patients Un shorty 20 months Aged Out No longer eligible b ased on patient's age to complete this topic Varicella Vaccines Aged Out No longer eligible based on patient's age to complete this topic
--- OUTSIDE RECORDS SUMMARY | 2025-05-13 17:13 | XMS_ITS | Clinical Summary ---
Author Organization [employer] Address [address] [facility] [place] [place] [address] Care Team Providers Care Biodiesel Plant Superintendent Name Role Phone Yamileth Anand MD Primary [...] 1 tablet by mouth 2 times daily. 4 Active Vit-Fe Fumarate-FA ( Vitamins) 28-0.8 MG tabletIndicatio ns:Family Planning Take 1 tablet by mouth Once per day. 90 tablet 2 4 06/27/20 25 Active fluticasone-karrie meterol (Advair) [...] per pt -normal ---referred back to her DELICATESSEN MANAGER but has apt here -contraception: none -vaccines:s/phepAx2,hepBx3--not immune wants to start series today ,HPVx3,MMRx2,varicellax2,meningococcalx2,COvid 19x3 and Bivalent x1,TD 2019 Assessment & Plan (02/28/2023 12:25 PM EDT): -Quantiferon 09/2022 Neg -pap smear : > 4 y ago per pt -normal ---referred today back to her DELICATESSEN MANAGER -contraception: none , pt would like to become -not able x last 4 years -vaccines: s/p hepAx2,hepBx3,HPVx3,MMRx2,varicellax2,meningococcalx2,COvid 19x3 and Bivalent x1,TD 2018 -labs x annual exam today-in fasting -pt agreed to have STI testing including HIV to have for baseline Irregular periods 02/28/2023 Assessment & Plan (03/29/2023 9:17 PM EDT): Pt reports hx of irregular periods -states seen before at [facility]-DELICATESSEN MANAGER x this -CT abd/pelvis w contrast 12/24/2018 : 2 mm solid non calcified nodule in right lower lobe ,reported as unlikely of clinical significance. Also reports 2 cm right adnexal mass with peripheral enhancement most likely a corpus luteal cyst -pelvic US 12/23/2018: dominant follicle vs cyst in right ovary 1.6x1.5x1.9 cm -referred back to her DELICATESSEN MANAGER at [facility] to continue care for ovarian cyst ,reported [...] of irregular periods -states seen before at [facility]-DELICATESSEN MANAGER x this -CT abd/pelvis w contrast 12/24/2018 : 2 mm solid non calcified nodule in right lower lobe ,reported as unlikely of clinical significance. Also reports 2 cm right adnexal mass with peripheral enhancement most likely a corpus luteal cyst -pelvic US 12/23/2018: dominant follicle vs cyst in right ovary 1.6x1.5x1.9 cm -referred today back to her DELICATESSEN MANAGER at [facility] to continue care for ovarian cyst ,reported infertility and for pap smear -as well advised pt to discuss about mother's hx of breast ca at Early age --if not evaluated by DELICATESSEN MANAGER will discuss at her next apt w [...] using less frq Pt interested in -saw deputy director of finance aprox 08/2022 -w normal eval per pt [...] doses of triptanes Pt interested in -saw deputy director of finance aprox 08/2022 -w normal eval per pt [...] Encounters Date Type Department Care Team Description 04/20/2025 Telephone [facility] [address] [place] [id number] Yamileth Anand MD oct recall from Last 3 Months Immunizations Immunization Administration Dates Next Due DTaP 08/11/2008, 7,07/01/1996,04/29,02/26/1996 [...] 90 06/27/2024 2:11 PM EDT Temperature 36.7 C (98.1 F) 06/27/2024 2:11 PM EDT Respiratory Rate 22 06/27/2024 2:11 PM EDT Oxygen Saturation 99% 06/27/2024 2:11 PM EDT Inhaled Oxygen Concentration - - Weight 56.2 kg (124 lb) 06/27/2024 2:11 PM EDT Height 154.9 cm (5' 1 ) 06/27/2024 2:11 PM EDT Body Mass Index 23.43 06/27/2024 2:11 PM EDT Plan of Treatment Upcoming Encounters Date Type Department Care Team (Late st Contact Info) Description 06/30/2025 9:15 AM EDT Office Visit [facility] [address] [place] [address] Yamileth Anand MD [address] [place] [address] Health Maintenance Due Date Last Done Comments Disability Screening 1995 Alcohol/Substance Use Screening 2007 Family Planning (PISQ) 12/25/2010 Pap Smear 12/25/2016 Depression Monitoring 2024 06/27/2024, 024 Influenza Vaccine (#1) 2025 , 07/04/2018, 07/06/2016, Additional history exists SDOH Screening 06/13/2025 06/13/2024 Tobacco Screening 06/27/2025 06/27/2024 Lipid Panel 02/29/2028 [...] Completed 06/27/2024, , 09/21/2021, Additional history exists Pneumococcal Vaccine: Pediatrics (0 to 5 Years) and At-Risk Patients (6 to 49) Years Completed 06/27/2024 HIB Vaccines Aged Out No [...] Procedure Name Priority Date/Time Associated Diagnosis Comments HEPATITIS C AB W/REFL TO HCV RNA, QN, PCR Routine 02/28/2023 11:49 AM EDT Health care maintenance HIV 1/2 ANTIGEN/ANTIBODY, FOURTH GENERATION W/RFL Routine 02/28/2023 11:49 AM EDT Health care maintenance LIPID PANEL, STANDARD Routine 02/28/2023 11:49 AM EDT Health care maintenance from Last 3 Months or Most Recently Relevant to Health Maintenance Results * Hepatitis C Antibody with Reflex to HCV, RNA, Quantitative, Real-Time PCR (02/28/2023 11:49 AM EDT) Hepatitis C Antibody NON-REACT MACHO NON-REACT MACHO [facility] Comment: HCV antibody was non-reactive. There is no laboratory evidence of HCV infection. In most cases, no further action is required. However, if recent HCV exposure is suspected, a test for HCV RNA (test code 78322) is suggested. For additional information please refer to http://education.Dynamixyz/faq/QQJ61o2 (This link is being provided for informational/ educational purposes only.) Blood Venous blood specimen / Unknown 02/28/2023 11:49 AM EDT 02/28/2023 11:49 AM EDT Narrative [facility] - 03/01/2023 4:57 PM EDT FASTING:NO FASTING: NO us Yamileth Lamas MD LAB BLOOD ORDERAB LES Final Result [facility] [address], [place] [address] [facility] [place] [facility] [employer] [facility] [address] [place] [address] * HIV-1/2 Antigen and Antibodies, Fourth Generation, with Reflexes (02/28/2023 11:49 AM EDT) HIV Antigen/Antibody, 4th Generation NON-REAC TIVE NON-REAC TIVE [facility] [place] [employer] Comment: HIV-1 antigen and HIV-1/HIV-2 antibodies were not detected. There is no laboratory evidence of HIV infection. PLEASE NOTE: This information has been disclosed to you from records whose confidentiality may be protected by state law. If your state requires such protection, then the state law prohibits you from making any further disclosure of the information without the specific written consent of the person to whom it pertains, or as otherwise permitted by law. A general authorization for the release of medical or other information is NOT sufficient for this purpose. For additional information please refer to http://Boticca.Dynamixyz/faq/FCD753 (This link is being provided for informational/ educational purposes only.) The performance of this assay has not been clinically validated in patients less than 2 years old. Blood Venous blood specimen / Unknown 02/28/2023 11:49 AM EDT 02/28/2023 11:49 AM EDT Narrative [facility] - 03/01/2023 4:57 PM EDT FASTING:NO FASTING: NO Yamileth Lamas MD LAB BLOOD ORDERAB LES Final Result [facility] [address], [place] [address] [facility] [place] [facility] [address] [place] [address] * (ABNORMAL) Lipid Panel, Standard (02/28/2023 11:49 AM EDT) [facility] Signature Cholesterol, Total 171 <200 mg/dL [facility] [place] [facility] HDL Cholesterol 38(L) > OR = 50 mg/dL [facility] Triglycerides 152(H) <150 mg/dL [facility] LDL Cholesterol 106(H) mg/dL (calc) [facility] [place] [facility] Comment: Reference range: <100 Desirable range <100 mg/dL for primary prevention; <70 mg/dL for patients with CHD or diabetic patients with > or = 2 CHD risk factors. LDL-C is now calculated using the Kenan-Artur calculation, which is a validated novel method providing better accuracy than the Friedewald equation in the estimation of LDL-C. Kenan SS et al. ANGEL. 2013;310(19): 9672-3421 (http://Boticca.Jelly HQ/faq/JNE553) Chol/HDLC Ratio 4.5 <5.0 (calc) [facility] Non-HDL Cholesterol 133(H) <130 mg/dL (calc) [facility] Comment: For patients with diabetes plus 1 major ASCVD risk factor, treating to a non-HDL-C goal of <100 mg/dL (LDL-C of <70 mg/dL) is considered a therapeutic option. Blood Venous blood specimen / Unknown 02/28/2023 11:49 AM EDT 02/28/2023 11:49 AM EDT Narrative [facility] - 03/01/2023 4:57 PM EDT FASTING:NO FASTING: NO Yamileth Lamas MD LAB BLOOD ORDERAB LES Final Result [facility] [address], [place] [address] [facility] [address] [place] [address] from Last 3 Months or Most Recently Relevant to Health Maintenance Insurance [facility] , [address] [place] [address] Care Teams Biodiesel Plant Superintendent Relationship Specialty Start Date End Date Yamileth Anand MD [address] [place] [address] PCP - General Internal Medicine 12/26/22 Michelle Malloy Compositor ApprenticeDoorshaker 11/15/23
== END 2025-05-13 15:35 | disposition home or self-care (01) ==
LOC: HO.HSM 15:04
PROVIDERS: PCP Student in an Organized Health Care Education/Training Program; Visit Provider Registered Nurse
DX: G43.909 Migraine, unspecified, not intractable, without status migrainosus (principal); G44.229 Chronic tension-type headache, not intractable
CPT/HCPCS: 99214

== ENCOUNTER 2025-05-18 10:30 | Emergency (ER) | payer OTHER, SELFPAY ==
--- NOTE | ~2025-05-18 | CT_ITS ---
EXAMINATION: CT ABDOMEN PELVIS WITH IV CONTRAST HISTORY: Left lower quadrant abdominal pain COMPARISON: Comparison is made with the prior examination dated 05/03/2023. TECHNIQUE: CT scan of the abdomen and pelvis was performed following administration of 85 mL Omnipaque 350 using standard departmental protocol. Coronal and sagittal reformatted images were generated and reviewed. Oral contrast material was not administered at the request of the referring physician. This CT exam was performed with one or more of the following dose reduction techniques: automated exposure control, adjustment of the mA and/or kV according to patient size, use of iterative reconstruction technique. DLP: 404 mGy-cm FINDINGS: LOWER CHEST: The visualized lung bases are clear. There is no pleural effusion. CARDIOVASCULATURE: The heart is normal in size. There is no pericardial effusion. LIVER: The liver is normal in size and contour. No liver mass is identified. The hepatic and portal veins are patent. GALLBLADDER / BILE DUCTS: The gallbladder is unremarkable. There is no intra or extrahepatic biliary ductal dilatation. SPLEEN: The spleen is normal in size. No focal splenic lesion is identified. PANCREAS: The pancreas is unremarkable in appearance. ADRENAL GLANDS: Within normal limits. KIDNEYS/RETROPERITONEUM: No renal calculi are identified. There is no hydronephrosis. There is a subcentimeter cyst at the lower pole of the left kidney. LYMPH NODES: No abdominal or pelvic lymphadenopathy. VASCULATURE: The abdominal aorta is normal in caliber. MESENTERY/PERITONEUM: There is a small amount of free fluid in the right adnexa and cul-de-sac. No masses. There is no free intraperitoneal gas. STOMACH: The stomach is unremarkable. SMALL BOWEL: The small bowel is normal in caliber. Multiple small bowel loops are seen lateral to the descending colon without change which may represent an internal hernia. COLON: The colon is unremarkable. APPENDIX: Normal. Again seen is a 3.0 cm cyst adjacent to the appendix and cecal tip. URINARY BLADDER/PELVIC ORGANS: The urinary bladder is collapsed, limiting evaluation. The uterus is unremarkable. There is a 1.3 cm involuting left ovarian cyst versus follicle. BONES / SOFT TISSUES: No suspicious bony or soft tissue abnormalities. CT/CT abdomen pelvis w IV con IMPRESSION: 1. Small amount of free fluid in the right adnexa and cul-de-sac. 2. 1.3 cm involuting left ovarian cyst versus follicle. 3. 3.0 cm cyst adjacent to the appendix and cecal tip without change. 4. Multiple small bowel loops are seen lateral to the descending colon without change which may represent an internal hernia. Electronically signed by: Bharat Mendiola MD 05/18/2025 02:24 PM EDT
[2025-05-18 10:53] VITALS: BP 132/59; PULSE 60; RESP 16; TEMP 37; O2SAT 100; BMI 22.6
--- NOTE | 2025-05-18 10:53 | ED.GENADULT ---
HPI - General Adult General Chief complaint: Abdominal Pain Stated complaint: vomiting since Sunday. cant eat or drink Time Seen by Provider: 05/18/25 11:55 Source: patient Mode of arrival: ambulatory Limitations: no limitations History of Present Illness ED Provider: HPI narrative: 29-year-old woman presenting with left lower quadrant abdominal pain, left mid quadrant abdominal pain going on since last week, recurrent nausea vomiting, no hematuria no dysuria no fevers or chills. No chest pain or shortness of breath. Not sure about her Related Data Home Medications ?Medication ?Instructions ?Recorded ?Confirmed tizanidine 2 mg capsule 2 mg PO Q8H PRN 11/28/22 11/28/22 Previous Rx's ?Medication ?Instructions ?Recorded magnesium oxide 400 mg (241.3 mg 400 mg PO BEDTIME #30 tabs 11/28/22 magnesium) tablet cyclobenzaprine 10 mg tablet 10 mg PO TID PRN muscle spasm #10 12/03/22 tabs ibuprofen 600 mg tablet 600 mg PO TID PRN pain #14 tabs 12/03/22 ketorolac 10 mg tablet 10 mg PO TID PRN pain 5 days #15 04/26/23 tabs ondansetron 4 mg disintegrating 4 mg PO Q6H PRN nausea and 04/26/23 tablet vomiting #14 tabs naproxen 500 mg tablet 500 mg PO BID PRN pain #20 tabs 05/03/23 ondansetron 4 mg disintegrating 4 mg PO Q8H PRN nausea and 05/03/23 tablet vomiting #14 tabs tramadol 50 mg tablet 50 mg PO Q8H PRN severe pain 05/03/23 (scale score 7-10) #8 tabs naproxen 500 mg tablet (Naprosyn) 500 mg PO BID #20 tabs 05/13/23 amoxicillin 875 mg-potassium 1 tab PO BID 5 days #10 tabs 05/24/23 clavulanate 125 mg tablet ondansetron 4 mg disintegrating 4 mg PO Q6H PRN nausea and 11/12/23 tablet vomiting #10 tabs oseltamivir 75 mg capsule (Tamiflu) 75 mg PO BID 5 days #10 caps 11/12/23 benzonatate 100 mg capsule 100 mg PO BID PRN cough 7 days #14 03/09/24 caps prednisone 20 mg tablet 20 mg PO DAILY 7 days #7 tabs 11/17/23 polymyxin B sulfate 10,000 1 drp ophthalmic (eye) Q3H 7 days 06/04/24 unit-trimethoprim 1 mg/mL eye drops #10 mL albuterol sulfate 2.5 mg/0.5 mL 5 mg inhalation Q4H PRN shortness 06/23/24 solution for nebulization of breath or wheezing #30 ea benzonatate 100 mg capsule 100 mg PO TID PRN cough #14 caps 06/23/24 albuterol 90 mcg-budesonide 80 2 inh inhalation BID shortness of 06/26/24 mcg/actuation HFA aerosol inhaler breath #10.7 grams (Airsupra) guaifenesin 200 mg tablet 200 mg PO Q6H PRN cough #20 tabs 06/26/24 Allergies Allergy/AdvReac Type Severity Reaction Status Date / Time watermelon Allergy Severe ANAPHYLAXIS Verified 05/18/25 10:56 pollen Allergy Unknown rash Uncoded 05/18/25 10:56 Review of Systems Constitutional: Constitutional: Reports as per [facility] Past Medical History Medical History (Updated 05/18/25 @ 15:12 by Tien Chew DO) Migraine Asthma Cocaine abuse in remission Opioid use disorder Alcohol use disorder, moderate, in early remission Post-traumatic stress disorder, unspecified Major depressive disorder, recurrent severe without psychotic features Surgical History History of delivery Family History Family History Father HTN (hypertension) Cancer Social History Social History Household Members: Significant Other Alcohol intake: former Patient Tobacco Use Status: Former Tobacco user Smoked in Last 30 Days: No Use of substances other than those prescribed or required for medical reasons: Yes Substance Use Type: Marijuana Advance Directives: No Advance Directives Information Provided: Yes Patient : No Physical Exam ED Vital Signs: Vital Signs - 24 hr 05/18/25 10:53 05/18/25 14:57 Temperature 98.6 F 98.6 F Pulse Rate 60 61 Respiratory Rate 16 16 Blood Pressure 132/59 L 111/72 Pulse Oximetry 100 99 Oxygen Delivery Method Room Air Room Air BMI result Body Mass Index 22.6 Const Other: Gen: ?Overall well-appearing patient HEENT: PERRLA, EOMI, MMM, Neck: Supple, no LAD CV: RRR, no obvious murmurs appreciated Resp: ?No wheezing rales rhonchi no stridor moving air well Abd: ?Bowel sounds are present, left of mid quadrant abdominal pain no rebound or rigidity MSK: FROM, strength 5/5 all extremities Skin: Warm, dry, intact, Neuro: ?Alert and oriented x3, moving upper and lower extremities symmetrically, no obvious facial asymmetry noted Course Course Course Narrative: Rapid medical examination performed in triage by Yuliana Viramontes PA-C. Patient is a 29 year old assigned female at presenting to the emergency department with abdominal pain. Detailed physical exam and review of systems are deferred to the supply chain generalist. Labs and swabs ordered. Patient placed back in the waiting room pending room availability and results. Medications Administered Discontinued Medications Generic Name Dose Route Start Last Admin Trade Name Freq PRN Reason Stop Dose Admin Sodium Chloride 1,000 mls @ 999 mls/hr 05/18/25 12:15 05/18/25 12:30 Ns IV 05/18/25 13:15 999 mls/hr .Q1H1M FIDE Administration Iohexol 100 ml 05/18/25 13:43 05/18/25 13:43 Iohexol 350 Mg/Ml 100 Ml Infus..Btl IV 05/18/25 13:44 85 ml ONCE ONE Administration Ketorolac Tromethamine 15 mg 05/18/25 12:15 05/18/25 12:29 Ketorolac Tromethamine 15 Mg/Ml Vial IVPUSH 05/18/25 12:16 15 mg ONCE ONE Administration Ondansetron HCl 4 mg 05/18/25 12:15 05/18/25 12:29 Ondansetron Hcl 4 Mg/2 Ml Vial IVPUSH 05/18/25 12:16 4 mg ONCE ONE Administration Medical Decision Making Medical Decision Making [facility] Narrative: 12:18 PM 05/18/2025 (Dr. Tien Chew): Consideration for workup as below, we will initiate imaging, symptomatic control, other considerations include -related emergencies, I suspect she may have diverticulitis or nonspecific colitis based on exam, 15:[address] does not reveal any obvious infectious etiology, possibly small cystic structure and some changes that radiologist felt that it can be due to an internal hernia but there are no complications with that, patient has no obstipation and has had this finding in the past Differential Diagnosis Differential Diagnoses: The differential diagnosis associated with the presentation includes (Cholecystitis, pancreatitis, hepatitis, gastritis, cholangitis, choledocholithiasis, SBO, diverticulitis) Admission/Observation Consideration of admission/observation: Escalation of care including admission/observation considered 2022 Emergency Medicine Coding Guide from DN[employer]K on 05/18/2025 All calculations should be rechecked by clinician prior to use RESULT SUMMARY: 5 Estimated Level of Service Problems: High (5) Risk: High (5) Data: Moderate (4) NARRATIVE MDM: This patient's problem complexity is High as patient: may have an acute or chronic illness/injury posing a threat to life or body function. This patient's risk is High due to: overall presentation requiring evaluation for a potentially High-risk process. This patient's data complexity is Moderate due to: -multiple tests ordered INPUTS: Number and Complexity ?> 2 = 5: illness/injury w/life or body threat (b) Risk level ?> 4 = High Tests ordered ?> 2 = 2 Tests results reviewed (excluding labs) ?> 1 = 1 Prior external notes reviewed ?> 0 = 0 Assessment requiring and independent historian ?> 0 = No Independent interpretation of tests ?> 0 = No Discussed management/test interpretation w/external professional ?> 0 = No Lab Data MDM Lab Attestation statement: I reviewed the patient's lab results. 05/18/25 11:10 05/18/25 11:10 Labs: Lab Results 05/18/25 05/18/25 Range/Units 11:10 12:52 WBC 8.0 (4.8-10.8) X10*3/uL RBC 4.61 (4.20-5.50) X10*6/uL Hgb 12.0 (12.0-16.0) g/dl Hct 35.9 L (37.0-47.0) % MCV 77.9 L (80.0-98.0) fL MCH 26.0 L (27.0-33.0) pg MCHC 33.4 (31.0-35.0) g/dl RDW 14.7 (11.0-16.0) % Plt Count 308 (160-400) X10*3/uL MPV 8.9 L (9.4-12.3) fL Immature Gran % (Auto) 0.1 (0.0-0.4) % Neut % (Auto) 47.9 (45-73) % Lymph % (Auto) 42.0 H (20-40) % [place] % (Auto) 7.7 (2-11) % Eos % (Auto) 1.3 (0-4) % Baso % (Auto) 1.0 (0-2) % Lymph # (Auto) 3.3 (1.2-4.9) X10*3/uL [place] # (Auto) 0.6 (0.1-1.2) X10*3/uL Eos # (Auto) 0.1 (0.0-0.4) X10*3/uL Baso # (Auto) 0.1 (0.0-0.2) X10*3/uL Abs Immat Gran (auto) 0.01 (0.00-0.03) X10*3/uL Absolute Neuts (auto) 3.8 (2.0-8.3) x10*3/uL Absolute Nucleated RBC 0.000 (0.0-0.012) X10*3/uL Nucleated RBC % (auto) 0.0 (0.0-0.2) /100WBC Sodium 142 (135-145) mmol/L Potassium 3.9 (3.3-5.1) mmol/L Chloride 110 H (96-108) mmol/L Carbon Dioxide 26 (22-29) mmol/L Anion Gap 10 L (12-20) BUN 11 (9-16) mg/dL Creatinine 0.77 (0.5-1.4) mg/dL Estim Creat Clear Calc 93.1 Estimated GFR > 60 Random Glucose 70 (60-115) mg/dL Calcium 9.1 (8.4-10.2) mg/dL Total Bilirubin 0.2 (0.0-1.0) mg/dL AST 25 (5-31) U/L ALT 17 (0-31) U/L Alkaline Phosphatase 51 (39-117) U/L Total Protein 6.9 (6.5-8.0) g/dL Albumin 4.3 (3.5-5.0) g/dL Beta HCG, Quant < 2 mIU/mL Urine Color Yellow Urine Appearance Clear Urine pH 6.0 (5.0-9.0) Ur Specific [place] <= 1.005 (1.005-1.025) Urine Protein Negative (Neg-Trace) mg/dL Urine Glucose (UA) Negative (Negative) mg/dL Urine Ketones Negative (Negative) mg/dL Urine Blood Negative (Negative) Urine Nitrite Negative (Negative) Ur Leukocyte Esterase Negative (Negative) COVID-19 (JULIA) Negative (Negative) COVID-19 Clin Com See Note Influenza Type A (JANNETH) Negative (Negative) Influenza Type B (JANNETH) Negative (Negative) Influenza A & B Note See Note Radiology Impression Discussion of test interpretation with radiology: I have reviewed the radiologist's reading. Radiologist Impression: CT/CT abdomen pelvis w IV con IMPRESSION: 1. Small amount of free fluid in the right adnexa and cul-de-sac. 2. 1.3 cm involuting left ovarian cyst versus follicle. 3. 3.0 cm cyst adjacent to the appendix and cecal tip without change. 4. Multiple small bowel loops are seen lateral to the descending colon without change which may represent an internal hernia. Prescription Management I considered prescription management with: Pain Medication and Antibiotic Discharge Plan Discharge Clinical Impression: Left lower quadrant abdominal pain Patient Disposition: Home, Self-Care Additional Instructions: Your CAT scan did not really reveal anything you, you likely have a small follicle assist in the left ovary, this may cause discomfort, but there was no infection, you have had some nonspecific changes on your CAT scan, you can take Tylenol or Motrin as needed for pain, make sure to follow up with the PCP and if you spike fevers, have inability to pass gas, worsening abdominal distention come back to the ER Your blood work urinalysis vital signs has been reassuring Prescriptions: No Action naproxen 500 mg tablet 500 mg PO BID PRN (Reason: pain) Qty: 20 0RF ondansetron 4 mg tablet,disintegrating 4 mg PO Q8H PRN (Reason: nausea and vomiting) Qty: 14 0RF tramadol 50 mg tablet 50 mg PO Q8H PRN (Reason: severe pain (scale score 7-10)) Qty: 8 0RF naproxen [Naprosyn] 500 mg tablet 500 mg PO BID Qty: 20 0RF amoxicillin-pot clavulanate 875-125 mg tablet 1 tab PO BID 5 Days Qty: 10 0RF benzonatate 100 mg capsule 100 mg PO BID PRN (Reason: cough) 7 Days Qty: 14 0RF prednisone 20 mg tablet 20 mg PO DAILY 7 Days Qty: 7 0RF cyclobenzaprine 10 mg tablet 10 mg PO TID PRN (Reason: muscle spasm) Qty: 10 0RF ibuprofen 600 mg tablet 600 mg PO TID PRN (Reason: pain) Qty: 14 0RF ketorolac 10 mg tablet 10 mg PO TID PRN (Reason: pain) 5 Days Qty: 15 0RF ondansetron 4 mg tablet,disintegrating 4 mg PO Q6H PRN (Reason: nausea and vomiting) Qty: 14 0RF oseltamivir [Tamiflu] 75 mg capsule 75 mg PO BID 5 Days Qty: 10 0RF ondansetron 4 mg tablet,disintegrating 4 mg PO Q6H PRN (Reason: nausea and vomiting) Qty: 10 0RF benzonatate 100 mg capsule 100 mg PO TID PRN (Reason: cough) Qty: 14 0RF albuterol sulfate 2.5 mg/0.5 mL solution for nebulization 5 mg inhalation Q4H PRN (Reason: shortness of breath or wheezing) Qty: 30 0RF guaifenesin 200 mg tablet 200 mg PO Q6H PRN (Reason: cough) Qty: 20 0RF Airsupra 90-80 mcg/actuation HFA aerosol inhaler 2 inh inhalation BID Qty: 10.7 0RF tizanidine 2 mg capsule 2 mg PO Q8H PRN magnesium oxide 400 mg (241.3 mg magnesium) tablet 400 mg PO BEDTIME Qty: 30 6RF polymyxin B sulf-trimethoprim 10,000 unit- 1 mg/mL drops 1 drp ophthalmic (eye) Q3H 7 Days Qty: 10 0RF Rx Instructions: while awake; do not exceed 6 doses in 24 hours Referrals: Yamileth Anand MD [Primary Care Provider, Internal Medicine] - 1 week Referral Note: May need follow up on CT findings in the ER, may need MRI on outpatient basis of the abdomen and pelvis Clinical Impression: Left lower quadrant abdominal pain Print Language: Tamazight
[2025-05-18 11:16] LABS: MANUAL DIFF FLAG NO
[2025-05-18 11:19] LABS: Hematocrit 35.9 % (37.0-47.0); Hemoglobin 12.0 g/dl (12.0-16.0); Imm Gran Abs Auto 0.01 X10*3/uL (0.00-0.03); Imm Gran Pct Auto 0.1 % (0.0-0.4); Lymphocytes Absolute Auto 3.3 X10*3/uL (1.2-4.9); Mean Corpuscular HGB Conc 33.4 g/dl (31.0-35.0); Mean Corpuscular Hemoglobin 26.0 pg (27.0-33.0); Mean Corpuscular Volume 77.9 fL (80.0-98.0); NRBC Abs Auto 0.000 X10*3/uL (0.0-0.012); NRBC Pct Auto 0.0 /100WBC (0.0-0.2); Platelet Count 308 X10*3/uL (160-400); Red Blood Count 4.61 X10*6/uL (4.20-5.50); White Blood Count 8.0 X10*3/uL (4.8-10.8)
[2025-05-18 11:42] LABS: Alanine Aminotransferase 17 U/L (0-31); Albumin Level 4.3 g/dL (3.5-5.0); Alkaline Phosphatase 51 U/L (39-117); Anion Gap 10 (12-20); Aspartate Amino Transferase 25 U/L (5-31); Blood Urea Nitrogen 11 mg/dL (9-16); Calcium 9.1 mg/dL (8.4-10.2); Carbon Dioxide 26 mmol/L (22-29); Chloride 110 mmol/L (96-108); Creatinine Clr Calc Pharmacy 93.1; Estimated Glomerular Filt Rate > 60; Potassium 3.9 mmol/L (3.3-5.1); Sodium 142 mmol/L (135-145); Total Protein 6.9 g/dL (6.5-8.0)
[2025-05-18 11:45] LABS: IDNOW Serial# 55D5AD1C; Influenza B2 Negative (Negative)
[2025-05-18 11:47] LABS: COVID-19 Test Negative (Negative); IDNOW Serial# 58CA691E
[2025-05-18 13:01] LABS: Appearance Urine Clear; Glucose Urine UA Negative (Negative); PH 6.0 (5.0-9.0); Specific Gravity - Urine <= 1.005 (1.005-1.025)
[2025-05-18] MEDS: iohexoL 350 MG/ML 100 ML INFUS..BTL IV (13:43)
--- OUTSIDE RECORDS SUMMARY | 2025-05-18 13:54 | XMS_ITS | Clinical Summary ---
Author Organization [facility] it[facility] Address [address] [place] [address] Care Team Providers Care System Planning Engineer Name Role Phone Unavailable Primary Care Provider [...]
--- OUTSIDE RECORDS SUMMARY | 2025-05-18 13:54 | XMS_ITS | Encounter Summary ---
Author Organization [employer] Address 75 [facility] [address] [place] [address] Care Team Providers Care Proposal Specialist Name Role Phone Yamileth Anand MD Primary Care Pro vider Encounter Details Date Type Department Care Team (Late Contact Info) Description 04/26/2023 Orders Only [facility]EDS [address] [place] [address] Sanjana Carrasco LPN Social History Tobacco Use [...] Description 06/30/2025 9:15 AM EDT Office Visit [facility] MEDICINE [address] [place] [address] Yamileth Anand MD [address] [place] [address] documented as of this encounter Procedures Procedure [...] (Dowd) (04/26/2023 1:18 PM EDT) IDNOW SERIAL# [id number] [facility] Influenza A Negative Negative [facility] Influenza B2 Negative Negative [facility] Influenza A B2 Note See Note [facility] Comment:The Dowd ID NOW In [...] 1:18 PM EDT 04/26/2023 1:24 PM EDT [facility] Exter nal Provider LAB MICROBIOLOGY - GENERAL ORDERABLES Final Result [facility] [address] [place] [address] [phone] * COVID-19 ID NOW ([employer]) (04/26/2023 1:18 PM EDT) IDNOW SERIAL# [id number] [facility] COVID-19 TEST Negative Negative [facility] COVID-19 NOTE See Note [facility] Comment: Results are for the identification of SARS-CoV2 RNA. TheSARS-CoV2 RNA is generally detectable in respiratory samplesduring the acute phase of infection. Positive results areindicative of the presence of SARS-CoV-2 RNA; clinicalcorrelation with patient history and other diagnosticinformation is necessary to determine patient infectionstatus. Positive results do not rule out bacterial infectionor co- infection with other viruses.Testing facilities within the [facility] and [facility] are required to report all positive [...] use by authorized laboratories.Testing performed on the [employer] ID NOW utilizing NAAT. 04/26/2023 1:18 PM EDT 04/26/2023 1:24 PM EDT [facility] Exter nal Provider LAB MOLECULAR DIAGNOSTICS ORDERABLES Final Result Performing Organization Address [facility]/ZIP Co de Phone Number [facility] [address] [place] [address] [phone] * hCG, Total, Quantitative (04/26/2023 1:18 PM EDT) HCG Quantitative <2 mIU/mL [facility] Comment:Weeks post LMP Appro ximate hCG(Last Menstrual Period) Range (mIU/ml)3 - 4 weeks 9 - 1304 - 5 weeks 75 - 2,6005 - 6 weeks 850 - 20,8006 - 7 weeks 4000 - 100,2007 - 12 weeks 11,500 - 289,06379 - 16 weeks 18,300 - 137,64542 - 29 weeks (2nd trimester) 1,400 - 53,78437 - 41 weeks (3rd trimester) 940 - 60,000The Dowd B- hCG assay is used for the early detection ofpregnancy; it cannot be used to diagnose any conditionunrelated to . If a B-hCG level is not supportedby the clinical evidence, results should be confirmed by analternative method (qualitative urine hCG, for example). 04/26/2023 1:18 PM EDT 04/26/2023 1:24 PM EDT [facility] External Provider LAB BLO OD ORDERABLES Final Result Performing Organization Address City/[facility]/ZIP Co de Phone Number [facility] [address] [place] [address] [phone] * Lipase (04/26/2023 1:18 PM EDT) Lipase 12 8 - 78 U/L [facility] 04/26/2023 1:18 PM EDT 04/26/2023 1:24 PM EDT us Generic External Data Provider LAB BLOOD ORDERAB LES Final Result Performing Organization Address City/[facility]/ZIP Co de Phone Number [facility] [address] [place] [address] [phone] * Magnesium (04/26/2023 1:18 PM EDT) Pathologist [facility] Magnesium 2.1 1.6 - 2.6 mg/dL [facility] 04/26/2023 1:18 PM EDT 04/26/2023 1:24 PM EDT Generic External Data Provider LAB BLOOD ORDERAB LES Final Result Performing Organization Address [facility] Co de Phone Number [facility] [address] [place] [address] [phone] * (ABNORMAL) Comprehensive Metabolic Panel (04/26/2023 1:18 PM EDT) [facility] Sodium 141 135 - 145 mmol/L [facility] Potassium 3.9 3.3 - 5.1 mmol/L [facility] Chloride 103 96 - 108 mmol/L [facility] Carbon Dioxide 29 22 - 29 mmol/L [facility] Anion Gap 13 12 - 20 [facility] Urea Nitrogen (BUN) 12 9 - 16 mg/dL [facility] Creatinine, Serum 0.80 0.5 - 1.4 mg/dL [facility] Creatinine Clr Calc Pharmacy 96.2 [facility] Comment:Provided height and weight: 154.94 cm,72.575 kg.eGFR (calculated from the MDRD study equation) and eCrCl(calculated from the Cockcroft-Gault equation) are based ondifferent parameters and may not yield comparable results.If eCrCl result is absurd, please check patient'sheight/weight. Estimated Glomerular Filt Rate >60 [facility] Comment:NOTE: For -Am erican individuals, multiply the result by 1.210.Chronic Kidney Disease: Estimated GFR < 60 mL/min/1.28v7Ocscyl Kidney Disease: Estimated GFR < 15 mL/min/1.73m2 Glucose 99 60 - 115 mg/dL [facility] Calcium 9.5 8.4 - 10.2 mg/dL [facility] Bilirubin, Total 0.4 0.0 - 1.0 mg/dL [facility] Aspartate Amino Transferase 19 5 - 31 U/L [facility] Alanine Aminotransferase 14 0 - 31 U/L [facility] Total Protein 8.5(H) 6.5 - 8.0 g/dL [facility] Albumin Level 4.5 3.5 - 5.0 g/dL [facility] Alkaline Phosphatase 66 39 - 117 U/L [facility] 04/26/2023 1:18 PM EDT 04/26/2023 1:24 PM EDT [facility] External Provider LAB BLO OD ORDERABLES Final Result Performing Organization Address [facility] Co de Phone Number [facility] [address] [place] [phone] * HCG, Qualitative, Urine (04/26/2023 1:18 PM EDT) Pathologist [facility] Urine NEGATIVE NEGATIVE [facility] Comment:This test was develo ped to detect early . Falsenegative results may occur after the 5th - 7th week ofpregnancy when using this test method. If clinicallyindicated, consider a serum hCG. 04/26/2023 1:18 PM EDT 04/26/2023 1:24 PM EDT [facility] External Provider LAB URI NE ORDERABLES Final Result Performing Organization Address [facility] Co de Phone Number [facility] [address] [place] [phone] * (ABNORMAL) CBC auto differential (04/26/2023 1:18 PM EDT) White Blood Count 8.2 4.8 - 10.8 X10*3/uL [facility] Red Blood Count 5.04 4.20 - 5.50 X10*6/uL [facility] Hemoglobin 13.9 12.0 - 16.0 g/dl [facility] Hematocrit 41.4 37.0 - 47.0 % [facility] Mean Corpuscular Volume 82.1 80.0 - 98.0 fL [facility] Mean Corpuscular Hemoglobin 27.6 27.0 - 33.0 pg [facility] Mean Corpuscular HGB Conc 33.6 31.0 - 35.0 g/dl [facility] Red Cell Distribution Width 12.5 11.0 - 16.0 % [facility] Platelet Count 279 160 - 400 X10*3/uL [facility] Mean Platelet Volume 8.6(L) 9.4 - 12.3 fL [facility] Neutrophils Percent Auto 63.7 45 - 73 % [facility] Imm Gran Pct Auto 0.2 0.0 - 0.4 % [facility] Lymphocytes Percent Auto 26.9 20 - 40 % [facility] Monocytes Percent Auto 7.8 2 - 11 % [facility] Eosinophils Percent Auto 1.0 0 - 4 % [facility] Basophils Percent Auto 0.4 0 - 2 % [facility] NRBC Pct Auto 0.0 0.0 - 0.2 /100WBC [facility] Neutrophils Absolute Auto 5.2 2.0 - 8.3 x10*3/uL [facility] Imm Gran Abs Auto 0.02 0.00 - 0.03 X10*3/uL [facility] Lymphocytes Absolute Auto 2.2 1.2 - 4.9 X10*3/uL [facility] Monocytes Absolute Auto 0.6 0.1 - 1.2 X10*3/uL [facility] Eosinophils Absolute Auto 0.1 0.0 - 0.4 X10*3/uL [facility] Basophils Absolute Auto 0.0 0.0 - 0.2 X10*3/uL [facility] NRBC Abs Auto 0.000 0.0 - 0.012 X10*3/uL [facility] 04/26/2023 1:18 PM EDT 04/26/2023 1:24 PM EDT [facility] External Provider LAB BLO OD ORDERABLES Final Result Performing Organization Address [facility]/ZIP Co de Phone Number [facility] [address] [place] [address] [phone] * (ABNORMAL) Urinalysis, Complete, with Reflex to Culture (04/26/2023 1:18 PM EDT) Color Urine Yellow [facility] Appearance Urine Clear [facility] PH 6.0 5.0 - 9.0 [facility] Glucose Urine UA Negative Negative mg/dL [facility] Urine Blood Large (3+)(A) Negative [facility] Specific [place] - Urine 1.025 1.005 - 1.025 [facility] Urine Protein Negative Neg-Trace mg/dL [facility] Urine Ketones Negative Negative mg/dL [facility] Nitrite Urine Negative Negative [facility] Leukocyte Esterase Urine Negative Negative [facility] RBC Urine >20(A) 0 - 2 /HPF [facility] Urine WBC 0-5 0 - 5 /HPF [facility] Urine Squamous Epithelial Cell 0-2 0 - 2 /HPF [facility] Urine Bacteria None Seen None Seen [facility] Hyaline Casts, Urine 0-2 0 - 2 /LPF [facility] 04/26/2023 1:18 PM EDT 04/26/2023 1:24 PM EDT Narrative [facility] - 04/26/2023 1:40 PM EDT [id number], Clean Catch [facility] External Provider LAB URI NE ORDERABLES Final Result Performing Organization Address [facility]/ZIP Co de Phone Number [facility] [address] [place] [address] [phone] documented in this encounter Visit Diagnoses Not on filedocumented in this encounter Additional Health Concerns Assessment Noted Time PHQ-9 Depression Total Score: 0 02/29/20 23 11:13 AM EDT documented as of this encounter Care Teams Proposal Specialist Relationship Specialty Start Date End Date Yamileth Anand MD [address] [place] [phone] PCP - General Internal Medicine 12/26/22 Michelle Malloy Curator Zoological MuseumForge Operator 11/15/23 documented as of this encounter
--- OUTSIDE RECORDS SUMMARY | 2025-05-18 13:54 | XMS_ITS | Encounter Summary ---
Author Organization [employer] Address 75 [facility] 7 [place] [address] Care Team Providers Care Wagon Driller Name Role Phone Yamileth Anand MD Primary Care Pro vider Reason for Visit * Reason Onset Date Comments Nurse Triage 05/18/2025 Encounter Details Date Type Department Care Team ([facility] st Contact Info) Description 05/18/2025 Telephone [facility] MEDICINE [address] [place] [address] Yamileth Anand MD [address] [place] [address] Nurse Triage Social History Tobacco Use Types Packs/Day Years [...] as of this encounter Miscellaneous Notes * Telephone Encounter - Monique Mckeon RN - 05/18/2025 8:49 AM EDT Call returned to Carmina Fong to triage below at [phone]. Reports having intermittent vomiting since Sunday last week. Pt having yellow bile. Reports having lower abdominal pain that is intermittent. Worse after a meal. Pt reports last episode of vomiting this morning. Last voiding at 1am. Pt denies any fever. Denies any diarrhea. Pt denies any recent travel or use of abx. Pt denies any new foods consumed to cause sx. Pt advised of disposition, agrees to seek [facility] as no sick onsite atteams. Reviewed [facility] operating hours and that wait times vary.Reviewed home care advise, ER precautions and reasons to call back. Protocol Used: Vomiting (Adult) Protocol-Based Disposition: See in Office or Video Visit Today Video visit offer not recorded Positive Triage Question: * Mild to Moderate vomiting (e.g., 1-5 times/day) and lasts > 48 hours (2 days) * All higher-acuity triage questions were negative Care Advice Discussed: * Reassurance and Education - Mild to Moderate Vomiting * Clear Liquids * Solid Food * Reasons To Call Back - Vomiting lasts for more than 2 days (48 hours) - Signs of dehydration occur - You become worse * Telephone Encounter - Danielle Ajit Herrmann - 05/18/2025 8:37 AM EDT Symptoms: Abdominal Pain - Female - Not , Menstrual Periods Absent or Missed, Vomiting Outcome: Talk to a nurse or provider within 15 minutes Reason: Severe pain now The caller accepted this outcome. Contact pt at [phone] documented in this encounter Plan of Treatment Upcoming Encounters Date Type Department Care Team ([facility] st Contact Info) Description 06/30/2025 9:15 AM EDT Office Visit [facility] MEDICINE [address] [place] [phone] Yamileth Anand MD [address] [place] [phone] documented as of this encounter Visit Diagnoses Not on filedocumented in this encounter Additional Health Concerns Assessment Noted Time PHQ-9 Depression Total Score: 18 024 4:07 PM EDT documented as of this encounter Care Teams Wagon Driller Relationship Specialty Start Date End Date Yamileth Anand MD [address] [place] [phone] PCP - General Internal Medicine 12/26/22 Michelle Malloy Roustabout PusherHand Kiss Setter 11/15/23 documented as of this encounter
--- OUTSIDE RECORDS SUMMARY | 2025-05-18 13:54 | XMS_ITS | Encounter Summary ---
Author Organization [employer] Address 75 [facility] 7t [place] [address] Care Team Providers Care Refrigerator Repairman Name Role Phone Yamileth Anand MD Primary Care Pro vider Reason for Visit * Reason Onset Date Comments Med Refill 02/23/2024 Encounter Details Date Type Department Care Team (Late st Contact Info) Description 02/23/2024 Refill [facility] MEDICINE [address] [place] [address] Yamileth Anand MD [address] [place] [address] Social History Tobacco Use Types Packs/Day Years [...] Description 06/30/2025 9:15 AM EDT Office Visit [facility] MEDICINE [address] [place] [phone] Yamileth Anand MD [address] [place] [phone] documented as of this encounter Visit Diagnoses Not on filedocumented in this encounter Additional Health Concerns Assessment Noted Time PHQ-9 Depression Total Score: 0 02/29/20 11:13 AM EDT documented as of this encounter Care Teams Refrigerator Repairman Relationship Specialty Start Date End Date Yamileth Anand MD [address] [place] [phone] PCP - General Internal Medicine 12/26/22 Michelle Malloy Wheel MolderMagnetic Tape Winder 11/15/23 documented as of this encounter
--- OUTSIDE RECORDS SUMMARY | 2025-05-18 13:54 | XMS_ITS | Encounter Summary ---
Author Organization [employer] Address [address] [facility] [address] 7t [place] [address] Care Team Providers Care Wildlife Biostation Research Ecologist Name Role Phone Yamileth Anand MD Primary Care Pro vider Encounter Details Date Type Department Care Team (Late st Contact Info) Description 05/18/2025 Orders Only GENERIC EXTERNAL DATA DEPARTMENT Provider, [...] Description 06/30/2025 9:15 AM EDT Office Visit [facility] MEDICINE [address] [place] [phone] Yamileth Anand MD [address] [place], [place] [phone] documented as of this encounter Procedures Procedure Name Priority Date/Time Associated Diagnosis Comments URINALYSIS WITH REFLEX MICROSCOPIC Routine 05/18/2025 12:52 PM EDT INFLUENZA A B2 ID NOW (DOWD) Routine 05/18/2025 11:10 AM EDT COVID-19 ID NOW (DOWD) Routine 05/18/2025 11:10 AM EDT CBC WITH AUTO DIFFERENTIAL Routine 05/18/2025 11:10 AM EDT HCG, TOTAL, QN Routine 05/18/2025 11:10 AM EDT COMPREHENSIVE METABOLIC PANEL Routine 05/18/2025 11:10 AM EDT documented in this encounter Results * Urinalysis w/reflex microscopic (05/18/2025 12:52 PM EDT) Color Urine Yellow [facility] Appearance Urine Clear [facility] PH 6.0 5.0 - 9.0 [facility] Glucose Urine UA Negative Negative mg/dL [facility] Urine Blood Negative Negative [facility] Specific [place] - Urine <=1.005 1.005 - 1.025 [facility] Urine Protein Negative Neg-Trace mg/dL [facility] Urine Ketones Negative Negative mg/dL [facility] Nitrite Urine Negative Negative [facility] Leukocyte Esterase Urine Negative Negative [facility] 05/18/2025 12:5 2 PM EDT 05/18/2025 12:58 PM EDT Narrative [facility] - 05/18/2025 1:02 PM EDT Urine, Clean Catch us Generic External Data Provider LAB URINE ORDERAB LES Final Result [facility] [address] [place] [address] [phone] * COVID-19 ID NOW ([facility]) (05/18/2025 11:10 AM EDT) IDNOW SERIAL# [id number] [facility] COVID-19 TEST Negative Negative [facility] COVID-19 NOTE See Note [facility] Comment: Results are for the identification of SARS-CoV2 RNA. TheSARS-CoV2 RNA is generally detectable in respiratory samplesduring the acute phase of infection. Positive results areindicative of the presence of SARS-CoV-2 RNA; clinicalcorrelation with patient history and other diagnosticinformation is necessary to determine patient infectionstatus. Positive results do not rule out bacterial infectionor co- infection with other viruses.Testing facilities within the [facility] and itsterritories are required to report all positive results [...] on the Dowd ID NOW utilizing NAAT. 05/18/2025 11:1 0 AM EDT 05/18/2025 11:16 AM EDT Generic External Data Provider LAB MOLECULAR CATHERINE GNOSTICS ORDERABLES Final Result Performing Organization Address [facility] Co de Phone Number [facility] [address] [place] [phone] * Influenza A B2 ID NOW (Dowd) (05/18/2025 11:10 AM EDT) Pathologist [facility] IDNOW SERIAL# [id number] [facility] Influenza A Negative Negative [facility] Influenza B2 Negative Negative [facility] Influenza A B2 Note See Note [facility] Comment:The Dowd ID NOW In [...] specimen and co- infection withRespiratory Syncytial Virus. 05/18/2025 11:1 0 AM EDT 05/18/2025 11:16 AM EDT Generic External Data Provider LAB MICROBIOLOGY - GENERAL ORDERABLES Final Result Performing Organization Address [facility] Co de Phone Number [facility] [address] [place] [phone] * hCG, Total, Quantitative (05/18/2025 11:10 AM EDT) HCG Quantitative <2 mIU/mL [facility] Comment:Weeks post LMP Appro ximate hCG(Last Menstrual Period) Range (mIU/ml)3 - 4 weeks 9 - 1304 - 5 weeks 75 - 2,6005 - 6 weeks 850 - 20,8006 - 7 weeks 4000 - 100,2007 - 12 weeks 11,500 - 289,10236 - 16 weeks 18,300 - 137,85849 - 29 weeks (2nd trimester) 1,400 - 53,55398 - 41 weeks (3rd trimester) 940 - 60,000The Dowd B- hCG assay is used for the early detection ofpregnancy; it cannot be used to diagnose any conditionunrelated to . If a B-hCG level is not supportedby the clinical evidence, results should be confirmed by analternative method (qualitative urine hCG, for example). 05/18/2025 11:1 0 AM EDT 05/18/2025 11:16 AM EDT us Generic External Data Provider LAB BLOOD ORDERAB LES Final Result [facility] [address] [place] [phone] * (ABNORMAL) Comprehensive Metabolic Panel (05/18/2025 11:10 AM EDT) Sodium 142 135 - 145 mmol/L [facility] Potassium 3.9 3.3 - 5.1 mmol/L [facility] Chloride 110(H) 96 - 108 mmol/L [facility] Carbon Dioxide 26 22 - 29 mmol/L [facility] Anion Gap 10(L) 12 - 20 [facility] Urea Nitrogen (BUN) 11 9 - 16 mg/dL [facility] Creatinine, Serum 0.77 0.5 - 1.4 mg/dL [facility] Creatinine Clr Calc Pharmacy 93.1 [facility] Comment:Provided height and weight: 162.56 cm,59.7 kg.eGFR (calculated from the MDRD study equation) and eCrCl(calculated from the Cockcroft-Gault equation) are based ondifferent parameters and may not yield comparable results.If eCrCl result is absurd, please check patient'sheight/weight. Estimated Glomerular Filt Rate >60 [facility] Comment:Chronic Kidney Disea se: Estimated GFR < 60 mL/min/1.56p0Xihmpr Kidney Disease: Estimated GFR < 15 mL/min/1.73m2 Glucose 70 60 - 115 mg/dL [facility] Calcium 9.1 8.4 - 10.2 mg/dL [facility] Bilirubin, Total 0.2 0.0 - 1.0 mg/dL [facility] Aspartate Amino Transferase 25 5 - 31 U/L [facility] Alanine Aminotransferase 17 0 - 31 U/L [facility] Total Protein 6.9 6.5 - 8.0 g/dL [facility] Albumin Level 4.3 3.5 - 5.0 g/dL [facility] Alkaline Phosphatase 51 39 - 117 U/L [facility] 05/18/2025 11:1 0 AM EDT 05/18/2025 11:16 AM EDT us Generic External Data Provider LAB BLOOD ORDERAB LES Final Result [facility] [address] [place] [address] [phone] * (ABNORMAL) CBC auto differential (05/18/2025 11:10 AM EDT) White Blood Count 8.0 4.8 - 10.8 X10*3/uL [facility] Red Blood Count 4.61 4.20 - 5.50 X10*6/uL [facility] Hemoglobin 12.0 12.0 - 16.0 g/dl [facility] Hematocrit 35.9(L) 37.0 - 47.0 % [facility] Mean Corpuscular Volume 77.9(L) 80.0 - 98.0 fL [facility] Mean Corpuscular Hemoglobin 26.0(L) 27.0 - 33.0 pg [facility] Mean Corpuscular HGB Conc 33.4 31.0 - 35.0 g/dl [facility] Red Cell Distribution Width 14.7 11.0 - 16.0 % [facility] Platelet Count 308 160 - 400 X10*3/uL [facility] Mean Platelet Volume 8.9(L) 9.4 - 12.3 fL [facility] Neutrophils Percent Auto 47.9 45 - 73 % [facility] Imm Gran Pct Auto 0.1 0.0 - 0.4 % [facility] Lymphocytes Percent Auto 42.0(H) 20 - 40 % [facility] Monocytes Percent Auto 7.7 2 - 11 % [facility] Eosinophils Percent Auto 1.3 0 - 4 % [facility] Basophils Percent Auto 1.0 0 - 2 % [facility] NRBC Pct Auto 0.0 0.0 - 0.2 /100WBC [facility] Neutrophils Absolute Auto 3.8 2.0 - 8.3 x10*3/uL [facility] Imm Gran Abs Auto 0.01 0.00 - 0.03 X10*3/uL [facility] Lymphocytes Absolute Auto 3.3 1.2 - 4.9 X10*3/uL [facility] Monocytes Absolute Auto 0.6 0.1 - 1.2 X10*3/uL [facility] Eosinophils Absolute Auto 0.1 0.0 - 0.4 X10*3/uL [facility] Basophils Absolute Auto 0.1 0.0 - 0.2 X10*3/uL [facility] NRBC Abs Auto 0.000 0.0 - 0.012 X10*3/uL [facility] 05/18/2025 11:1 0 AM EDT 05/18/2025 11:16 AM EDT us Generic External Data Provider LAB BLOOD ORDERAB LES Final Result [facility] [address] [place] [phone] [phone] documented in this encounter Visit Diagnoses Not on filedocumented in this encounter Additional Health Concerns Assessment Noted Time PHQ-9 Depression Total Score: 18 10/18/2 024 4:07 PM EDT documented as of this encounter Care Teams Wildlife Biostation Research Ecologist Relationship Specialty Start Date End Date Yamileth Anand MD [address] [place] [phone] PCP - General Internal Medicine 12/26/22 Michelle Malloy Hospitality Job TitlesPermastone Mechanic 11/15/23 documented as of this encounter
--- OUTSIDE RECORDS SUMMARY | 2025-05-18 13:54 | XMS_ITS | Clinical Summary ---
Author Organization [employer] Address [address] [facility] [place] [address] Care Team Providers Care Clinical Trial Leader Name Role Phone Yamileth Anand MD Primary [...] per pt -normal ---referred back to her [employer] but has apt here -contraception: none -vaccines:s/phepAx2,hepBx3--not immune wants to start series today ,HPVx3,MMRx2,varicellax2,meningococcalx2,COvid 19x3 and Bivalent x1,TD 2019 Assessment & Plan (02/28/2023 12:25 PM EDT): -Quantiferon 09/2022 Neg -pap smear : > 4 y ago per pt -normal ---referred today back to her [employer] -contraception: none , pt would like to become -not able x last 4 years -vaccines: s/p hepAx2,hepBx3,HPVx3,MMRx2,varicellax2,meningococcalx2,COvid 19x3 and Bivalent x1,TD 2018 -labs x annual exam today-in fasting -pt agreed to have STI testing including HIV to have for baseline Irregular periods 02/28/2023 Assessment & Plan (03/29/2023 9:17 PM EDT): Pt reports hx of irregular periods -states seen before at [facility]-[employer] x this -CT abd/pelvis w contrast 12/24/2018 : 2 mm solid non calcified nodule in right lower lobe ,reported as unlikely of clinical significance. Also reports 2 cm right adnexal mass with peripheral enhancement most likely a corpus luteal cyst -pelvic US 12/23/2018: dominant follicle vs cyst in right ovary 1.6x1.5x1.9 cm -referred back to her [employer] at [facility] to continue care for ovarian cyst ,reported [...] of irregular periods -states seen before at [facility]-[employer] x this -CT abd/pelvis w contrast 12/24/2018 : 2 mm solid non calcified nodule in right lower lobe ,reported as unlikely of clinical significance. Also reports 2 cm right adnexal mass with peripheral enhancement most likely a corpus luteal cyst -pelvic US 12/23/2018: dominant follicle vs cyst in right ovary 1.6x1.5x1.9 cm -referred today back to her [employer] at [facility] to continue care for ovarian cyst ,reported infertility and for pap smear -as well advised pt to discuss about mother's hx of breast ca at Early age --if not evaluated by [employer] will discuss at her next apt w [...] using less frq Pt interested in -saw kiln labourer aprox 08/2022 -w normal eval per pt [...] doses of triptanes Pt interested in -saw kiln labourer aprox 08/2022 -w normal eval per pt [...] Encounters Date Type Department Care Team Description 05/18/2025 Orders Only GENERIC EXTERNAL DATA DEPARTMENT Provider, Generic External Data 05/18/2025 Telephone [facility] [address] [place] [address] Yamileth Anand MD Nurse Triage 04/20/2025 Telephone [facility] [address] [place] [address] Yamileth Anand MD oct recall from Last [...] Description 06/30/2025 9:15 AM EDT Office Visit [facility] [address] [place] [phone] Yamileth Anand MD [address] [place] [address] Health Maintenance Due Date Last Done Comments [...] REFLEX MICROSCOPIC Routine 05/18/2025 12:52 PM EDT COVID-19 ID NOW (DOWD) Routine 05/18/2025 11:10 AM EDT HCG, TOTAL, QN Routine 05/18/2025 11:10 AM EDT COMPREHENSIVE METABOLIC PANEL Routine 05/18/2025 11:10 AM EDT CBC WITH AUTO DIFFERENTIAL Routine 05/18/2025 11:10 AM EDT INFLUENZA A B2 ID NOW (DOWD) Routine 05/18/2025 11:10 AM EDT HEPATITIS C AB W/REFL TO HCV RNA, QN, PCR Routine 02/28/2023 11:49 AM EDT Health care maintenance HIV 1/2 ANTIGEN/ANTIBODY, FOURTH GENERATION W/RFL Routine 02/28/2023 11:49 AM EDT Health care maintenance LIPID PANEL, STANDARD Routine 02/28/2023 11:49 AM EDT Health care maintenance from Last 3 Months or Most Recently Relevant to Health Maintenance Results * Urinalysis w/reflex microscopic (05/18/2025 12:52 PM EDT) Color Urine Yellow [facility] Appearance Urine Clear [facility] PH 6.0 5.0 - 9.0 [facility] Glucose Urine UA Negative Negative mg/dL [facility] Urine Blood Negative Negative [facility] Specific [place] - Urine <=1.005 1.005 - 1.025 [facility] Urine Protein Negative Neg-Trace mg/dL [facility] Urine Ketones Negative Negative mg/dL [facility] Nitrite Urine Negative Negative [facility] Leukocyte Esterase Urine Negative Negative [facility] 05/18/2025 12:5 2 PM EDT 05/18/2025 12:58 PM EDT Narrative [facility] - 05/18/2025 1:02 PM EDT Urine, Clean Catch Generic External Data Provider LAB URINE ORDERAB LES Final Result Performing Organization Address [facility] Co de Phone Number [facility] [address] [place] [phone] * Influenza A B2 ID NOW (Dowd) (05/18/2025 11:10 AM EDT) IDNOW SERIAL# [id number] [facility] Influenza A Negative Negative [facility] Influenza B2 Negative Negative [facility] Influenza A B2 Note See Note [facility] Comment:The Dowd ID NOW In [...] GENERAL ORDERABLES Final Result Performing Organization Address [facility] Co de Phone Number [facility] [address] [place] [phone] * COVID-19 ID NOW (DOWD) (05/18/2025 11:10 AM EDT) IDNOW SERIAL# [id number] [facility] COVID-19 TEST Negative Negative [facility] COVID-19 NOTE See Note [facility] Comment: Results are for the identification of SARS-CoV2 RNA. TheSARS-CoV2 RNA is generally detectable in respiratory samplesduring the acute phase of infection. Positive results areindicative of the presence of SARS-CoV-2 RNA; clinicalcorrelation with patient history and other diagnosticinformation is necessary to determine patient infectionstatus. Positive results do not rule out bacterial infectionor co- infection with other viruses.Testing facilities within the [place] and itsterritories are required to report all [...] use by authorized laboratories.Testing performed on the [employer] NOW utilizing NAAT. 05/18/2025 11:1 0 AM EDT 05/18/2025 11:16 AM EDT us Generic External Data Provider LAB MOLECULAR CATHERINE GNOSTICS ORDERABLES Final Result [facility] [address] [place] [address] [phone] * (ABNORMAL) CBC auto differential (05/18/2025 11:10 AM EDT) White Blood Count 8.0 4.8 - 10.8 X10*3/uL [facility] Red Blood Count 4.61 4.20 - 5.50 X10*6/uL [facility] Hemoglobin 12.0 12.0 - 16.0 g/dl [facility] Hematocrit 35.9(L) 37.0 - 47.0 % [facility] Mean Corpuscular Volume 77.9(L) 80.0 - 98.0 fL [facility] Mean Corpuscular Hemoglobin 26.0(L) 27.0 - 33.0 pg [facility] Mean Corpuscular HGB Conc 33.4 31.0 - 35.0 g/dl [facility] Red Cell Distribution Width 14.7 11.0 - 16.0 % [facility] Platelet Count 308 160 - 400 X10*3/uL [facility] Mean Platelet Volume 8.9(L) 9.4 - 12.3 fL [facility] Neutrophils Percent Auto 47.9 45 - 73 % [facility] Imm Gran Pct Auto 0.1 0.0 - 0.4 % [facility] Lymphocytes Percent Auto 42.0(H) 20 - 40 % [facility] Monocytes Percent Auto 7.7 2 - 11 % [facility] Eosinophils Percent Auto 1.3 0 - 4 % [facility] Basophils Percent Auto 1.0 0 - 2 % [facility] NRBC Pct Auto 0.0 0.0 - 0.2 /100WBC [facility] Neutrophils Absolute Auto 3.8 2.0 - 8.3 x10*3/uL [facility] Imm Gran Abs Auto 0.01 0.00 - 0.03 X10*3/uL [facility] Lymphocytes Absolute Auto 3.3 1.2 - 4.9 X10*3/uL [facility] Monocytes Absolute Auto 0.6 0.1 - 1.2 X10*3/uL [facility] Eosinophils Absolute Auto 0.1 0.0 - 0.4 X10*3/uL [facility] Basophils Absolute Auto 0.1 0.0 - 0.2 X10*3/uL [facility] NRBC Abs Auto 0.000 0.0 - 0.012 X10*3/uL [facility] 05/18/2025 11:1 0 AM EDT 05/18/2025 11:16 AM EDT us Generic External Data Provider LAB BLOOD ORDERAB LES Final Result [facility] [address] [place] [phone] * hCG, Total, Quantitative (05/18/2025 11:10 AM EDT) HCG Quantitative <2 mIU/mL [facility] Comment:Weeks post LMP Appro ximate hCG(Last Menstrual Period) Range (mIU/ml)3 - 4 weeks 9 - 1304 - 5 weeks 75 - 2,6005 - 6 weeks 850 - 20,8006 - 7 weeks 4000 - 100,2007 - 12 weeks 11,500 - 289,65042 - 16 weeks 18,300 - 137,85563 - 29 weeks (2nd trimester) 1,400 - 53,81910 - 41 weeks (3rd trimester) 940 - [...] LAB BLOOD ORDERAB LES Final Result [facility] [address] [place] [phone] * (ABNORMAL) Comprehensive Metabolic Panel (05/18/2025 11:10 AM EDT) Pathologist [facility] Sodium 142 135 - 145 mmol/L [facility] Potassium 3.9 3.3 - 5.1 mmol/L [facility] Chloride 110(H) 96 - 108 mmol/L [facility] Carbon Dioxide 26 22 - 29 mmol/L [facility] Anion Gap 10(L) 12 - 20 [facility] Urea Nitrogen (BUN) 11 9 - 16 mg/dL [facility] Creatinine, Serum 0.77 0.5 - 1.4 mg/dL [facility] Creatinine Clr Calc Pharmacy 93.1 [facility] Comment:Provided height and weight: 162.56 cm,59.7 kg.eGFR (calculated from the MDRD study equation) and eCrCl(calculated from the Cockcroft-Gault equation) are based ondifferent parameters and may not yield comparable results.If eCrCl result is absurd, please check patient'sheight/weight. Estimated Glomerular Filt Rate >60 [facility] Comment:Chronic Kidney Disea se: Estimated GFR < 60 mL/min/1.35a5Sbtqik Kidney Disease: Estimated GFR < 15 mL/min/1.73m2 Glucose 70 60 - 115 mg/dL [facility] Calcium 9.1 8.4 - 10.2 mg/dL [facility] Bilirubin, Total 0.2 0.0 - 1.0 mg/dL [facility] Aspartate Amino Transferase 25 5 - 31 U/L [facility] Alanine Aminotransferase 17 0 - 31 U/L [facility] Total Protein 6.9 6.5 - 8.0 g/dL [facility] Albumin Level 4.3 3.5 - 5.0 g/dL [facility] Alkaline Phosphatase 51 39 - 117 U/L [facility] 05/18/2025 11:1 0 AM EDT 05/18/2025 11:16 AM EDT us Generic External Data Provider LAB BLOOD ORDERAB LES Final Result [facility] [address] [place] [phone] * Hepatitis C Antibody with Reflex to HCV, RNA, Quantitative, Real-Time PCR (02/28/2023 11:49 AM EDT) Hepatitis C Antibody NON-REACT MACHO NON-REACT MACHO [employer] [facility] Comment: HCV antibody was non-reactive. There is no laboratory evidence of HCV infection. In most cases, no further action is required. However, if recent HCV exposure is suspected, a test for HCV RNA (test code 32840) is suggested. For additional information please refer to http://education.lettrs/faq/LWL08z6 (This link is being provided for informational/ educational purposes only.) Blood Venous blood specimen / Unknown 02/28/2023 11:49 AM EDT 02/28/2023 11:49 AM EDT Narrative [facility] - 03/01/2023 4:57 PM EDT FASTING:NO FASTING: NO Yamileth Lamas MD LAB BLOOD ORDERAB LES Final Result [facility] [address], [place] [address] [employer] [place] [email or web address] [address] [place] [address] * HIV-1/2 Antigen and Antibodies, Fourth Generation, with Reflexes (02/28/2023 11:49 AM EDT) Pathologist [facility] HIV Antigen/Antibody, 4th Generation NON-REAC TIVE NON-REAC TIVE [facility] [place] [facility] Comment: HIV-1 antigen and HIV-1/HIV-2 antibodies were [...] purpose. For additional information please refer to http://education.lettrs/faq/XWT040 (This link is being provided for informational/ educational purposes only.) The performance of this assay has not been clinically validated in patients less than 2 years old. Blood Venous blood specimen / Unknown 02/28/2023 11:49 AM EDT 02/28/2023 11:49 AM EDT Narrative [facility] - 03/01/2023 4:57 PM EDT FASTING:NO FASTING: NO us Yamileth Lamas MD LAB BLOOD ORDERAB LES Final Result [facility] [address], [place] [address] [employer] [place] [email or web address] [address] [place] [address] * (ABNORMAL) Lipid Panel, Standard (02/28/2023 11:49 AM EDT) [facility] Signature Cholesterol, Total 171 <200 mg/dL [employer] [employer] [place] [facility] HDL Cholesterol 38(L) > OR = 50 mg/dL [employer] [employer] [facility] Triglycerides 152(H) <150 mg/dL [employer] [employer] [place] [facility] LDL Cholesterol 106(H) mg/dL (calc) [facility] [employer] [place] [facility] Comment: Reference range: <100 Desirable range <100 mg/dL for primary prevention; <70 mg/dL for patients with CHD or diabetic patients with > or = 2 CHD risk factors. LDL-C is now calculated using the Sendy calculation, which is a validated novel method providing better accuracy than the Friedewald equation in the estimation of LDL-C. Kenan CERVANTES et al. ANGEL. 2013;310(19): 3485-7028 (http://education.Rollerwall/faq/VPH209) Chol/HDLC Ratio 4.5 <5.0 (calc) [facility] Non-HDL Cholesterol 133(H) <130 mg/dL (calc) [facility] [employer] [place] [facility] Comment: For patients with diabetes plus 1 major ASCVD risk factor, treating to a non-HDL-C goal of <100 mg/dL (LDL-C of <70 mg/dL) is considered a therapeutic option. Blood Venous blood specimen / Unknown 02/28/2023 11:49 AM EDT 02/28/2023 11:49 AM EDT Narrative [facility] - 03/01/2023 4:57 PM EDT FASTING:NO FASTING: NO us Yamileth Lamas MD LAB BLOOD ORDERAB LES Final Result [facility] [address], [place] [address] [employer] [place] [facility] [address] [place] [address] from Last 3 Months or Most Recently Relevant to Health Maintenance Insurance [facility] [address] [place] [address] Care Teams Clinical Trial Leader Relationship Specialty Start Date End Date Yamileth Anand MD [address] [place] [phone] PCP - General Internal Medicine 12/26/22 Michelle Malloy Computer Software EngineerCostume Shop Manager 11/15/23
[2025-05-18 14:57] VITALS: BP 111/72; PULSE 61; RESP 16; TEMP 37; O2SAT 99
[2025-05-18 15:19] VITALS: BP 111/72; PULSE 61; RESP 16; TEMP 37; O2SAT 99
[2025-05-18 15:24] VITALS: BP 111/72; PULSE 61; RESP 16; TEMP 37; O2SAT 99
== END 2025-05-18 15:25 | disposition home or self-care (01) ==
PROVIDERS: Physician Assistant Medical; Emergency Provider Emergency Medicine; PCP Student in an Organized Health Care Education/Training Program
DX: R10.32 Left lower quadrant pain (principal); R93.5 Abnormal findings on diagnostic imaging of other abdominal regions, including retroperitoneum; Z03.818 Encounter for observation for suspected exposure to other biological agents ruled out
CPT/HCPCS: 36415; 74177; 80053; 81003; 84702; 85025; 87502; 87635; 96361; 96374; 96375; 99284; 99285; J1885; J2405; Q9967

== ENCOUNTER → 2025-05-18 12:15 | Outpatient (BNV) | payer OTHER, SELFPAY | PROVIDERS: Emergency Provider Emergency Medicine; PCP Student in an Organized Health Care Education/Training Program; Visit Provider Radiology Diagnostic Radiology | DX: N83.292 Other ovarian cyst, left side (principal) | CPT/HCPCS: 74177 ==

== ENCOUNTER → 2025-07-28 08:52 | Outpatient (BNVA) | payer OTHER, SELFPAY | PROVIDERS: PCP Student in an Organized Health Care Education/Training Program; Visit Provider Physician Assistant Medical | DX: S06.0X0A Concussion without loss of consciousness, initial encounter (principal); S00.83XA Contusion of other part of head, initial encounter; S16.1XXA Strain of muscle, fascia and tendon at neck level, initial encounter; Y04.2XXA Assault by strike against or bumped into by another person, initial encounter; G43.909 Migraine, unspecified, not intractable, without status migrainosus; R42 Dizziness and giddiness | CPT/HCPCS: 99203 ==

== ENCOUNTER → 2025-07-31 13:23 | Outpatient (BNVA) | payer OTHER, SELFPAY | PROVIDERS: PCP Student in an Organized Health Care Education/Training Program; Visit Provider Physician Assistant Medical | DX: S06.0X0A Concussion without loss of consciousness, initial encounter (principal); S00.83XA Contusion of other part of head, initial encounter; S16.1XXA Strain of muscle, fascia and tendon at neck level, initial encounter; Y04.2XXA Assault by strike against or bumped into by another person, initial encounter; G43.909 Migraine, unspecified, not intractable, without status migrainosus; Z02.79 Encounter for issue of other medical certificate | CPT/HCPCS: 99213 ==

== ENCOUNTER 2025-08-10 10:04 | Outpatient (AMB) | payer OTHER, SELFPAY ==
--- NOTE | 2025-08-10 10:13 | A.OFFVIS_ITS ---
Vital Signs 08/10/25 10:23 Height 5 ft 4 in Weight 137 lb 4 oz BMI 23.6 BP 107/58 L Blood Pressure Location Rt brachial Position Sitting Pulse 69 Intake Visit Reasons: Abnormal Ct-Scan, epigastric pain Intake Note: Patient was referred by Dr. Baxter for an assessment for Abnormal Ct-Scan, epigastric pain. Pt c/o; reports she has to wait about 15 after eating to bring the plate to the sink, postprandial pain/discomfort, reports vomiting everyday, I do not know how to explain it but it literally feel like my heart is in my belly , reports she feels like a heartbeat sensation and ball in her stomach, reports epigastric pain radiates to LLQ and bilateral side of ribs. DI: 05/18/2025 Abd/pelvis Ct Engine Lathe Set Up Operator Required: No Accompanied by: Self / Same As Patient Allergies watermelon Allergy (Severe, Verified 08/10/25 10:23) ANAPHYLAXIS pollen Allergy (Unknown, Uncoded 08/10/25 10:23) rash Medication List - Last Reviewed 08/10/25 by SABRINA Fry albuterol sulfate 5 mg inhalation Q4H PRN albuterol-budesonide 90-80 mcg/actuation (Airsupra) 2 inhalations inhalation BID amoxicillin-pot clavulanate 875-125 mg 1 tab PO BID 5 days benzonatate 100 mg PO BID PRN 7 days benzonatate 100 mg PO TID PRN cyclobenzaprine 10 mg PO TID PRN guaifenesin 200 mg PO Q6H PRN ibuprofen 600 mg PO TID PRN ketorolac 10 mg PO TID PRN 5 days magnesium oxide 400 mg PO BEDTIME naproxen 500 mg PO BID PRN naproxen (Naprosyn) 500 mg PO BID ondansetron 4 mg PO Q6H PRN ondansetron 4 mg PO Q6H PRN ondansetron 4 mg PO Q8H PRN oseltamivir (Tamiflu) 75 mg PO BID 5 days polymyxin B sulf-trimethoprim 10,000 unit- 1 mg/mL 1 drp ophthalmic (eye) Q3H 7 days prednisone 20 mg PO DAILY 7 days tizanidine 2 mg PO Q8H PRN tramadol 50 mg PO Q8H PRN verapamil 40 mg PO DAILY HPI HPI Abnormal Ct-Scan, epigastric pain: Details: [age] year old female referred for an abnormal CAT scan. She had a CAT scan done in May, has a abdominal pain. This showed loops of small bowel lateral to the descending colon in the left and it was mentioned in the report that this may represent internal hernia. She actually had previous CAT scans during this similar pattern. She denies any obstructive symptoms. She says she has been having problems with nonspecific abdominal pain and nausea every day for more than 3 years now. She denies any weight loss. She says she has had more frequent loose stools. She is able to tolerate oral intake well otherwise. She does have a history of x2 in the past [facility] Medical History (Updated 08/10/25 @ 10:20 by Rajat Varner MD) Abnormal CT scan, gastrointestinal tract Migraine Asthma Cocaine abuse in remission Opioid use disorder Alcohol use disorder, moderate, in early remission Post-traumatic stress disorder, unspecified Major depressive disorder, recurrent severe without psychotic features Surgical History (Updated 08/10/25 @ 10:24 by Fabienne Del Real Bryson) History of delivery Family History Father HTN (hypertension) Cancer Social History Household Members: Significant Other Alcohol intake: former Patient Tobacco Use Status: Former Tobacco user Substance Use Type: Marijuana Review of Systems Const Denies chills and Denies fever(s) Card Denies chest pain, Denies dyspnea and Denies dyspnea on exertion Resp Denies cough, Denies dyspnea and Denies dyspnea on exertion GI Denies hematochezia and Denies change in bowel habits Denies hematuria Musc Denies back pain and Denies limited range of motion Neuro Denies focal weakness and Denies convulsions Psych Denies depression and Denies mood swings Physical Exam Const General: comfortable and no acute distress Orientation/consciousness: patient oriented x3 Neck Neck: Yes no lymphadenopathy Resp Auscultation: clear to auscultation bilaterally Cardio Rhythm: regular rhythm GI Palpation (GI): Soft to palpation, nontender and no guarding Neuro General: patient oriented x3 Assessment & Plan Assessment & Plan (1) Abnormal CT scan, gastrointestinal tract: Code(s): R93.3 - Abnormal findings on diagnostic imaging of other parts of digestive tract Category: Medical Plan: She had a CAT scan done last May, showing this multiple small bowel loops lateral to the descending colon and it was stated that an internal hernia was part of the differential. Clinically, she does not have an any internal hernia. She does not present with signs of obstruction. Very benign exam. I have reviewed the CAT scan images and this has not suggest twisting or obstruction of the small bowel. She does not require any surgical intervention. I would recommend for her to see a landscape technician in view of her chronic complaints of nausea and vague abdominal pains. She can follow up on a p.r.n. basis. Coding Level of Care Code New Pt Level 3 (83791) Diagnoses Abnormal CT scan, gastrointestinal tract R93.3
[2025-08-10 10:23] VITALS: BP 107/58; PULSE 69; BMI 23.6
--- OUTSIDE RECORDS SUMMARY | 2025-08-10 12:19 | XMS_ITS | Clinical Summary ---
Author Organization [employer] Address [address] [place] [address] Care Team Providers Care Clinical Trial Specialist Name Role Phone Yamileth Anand MD Primary Care Pro vider Allergies Active Allergy Reactions Criticality Noted Date Comments Citrullus Vulgaris Angioedema 04/08/2018 Hx of watermelon allergy with throat swelling Medications * This document contains information received from the source organization and may not represent a complete record from that organization. SUMAtriptan (Imitrex) 100 MG tablet Take 100 mg by mouth 1 (one) time if needed for migraine. Active Vit-Fe Fumarate-FA ( Vitamins) 28-0.8 MG tabletIndicatio ns:Family Planning Take 1 tablet by mouth Once per day. 90 tablet 2 5 06/30/20 26 Active aspirin-acetami nophen-caffeine (Excedrin Migraine) 250-250-65 MG tablet Take 1 tablet by mouth every 6 (six) hours if needed for headaches. Active albuterol (2.5 MG/3ML) 0.083% nebulizer solution Take 3 mL (2.5 mg) by nebulization every 4 (four) hours if needed for wheezing. 75 mL 3 5 06/30/20 26 Active albuterol (ProAir HFA) 108 (90 Base) MCG/ACT inhaler Inhale 2 puff as directed four times a day as needed 18 g 2 5 Active EPINEPHrine (Epipen) 0.3 MG/0.3ML injection syringe Inject 0.3 mL (0.3 mg) as directed 1 (one) time if needed for anaphylaxis. Inject into upper leg. Call 911 after use. 1 each 1 5 08/29/20 25 Active fluticasone-karrie meterol (Advair) 230-21 MCG/ACT inhaler Inhale 2 puffs in the morning and at bedtime. Rinse mouth with water after use to reduce aftertaste and incidence of candidiasis. Do not swallow. 12 g 5 5 06/30/20 26 Active Magnesium 400 MG capsuleIndicati ons:Other migraine without status migrainosus, not intractable Take 400 mg by mouth Once per day. 90 capsule 1 Active verapamil (Calan) 40 MG tablet Take 1 tablet (40 mg) by mouth Once per day. 30 tablet 2 5 07/09/20 26 Active Active Problems Problem Noted Date Diagnosed Date Marijuana use 06/30/2025 Overweight (BMI 25.0-29.9) 06/30/2025 Mild episode of recurrent major depressive disor shorty 06/30/2025 TACO (generalized anxiety disorder) 07/01/2024 Cough 06/28/2024 [...] per pt -normal ---referred back to her [employer] but has apt here -contraception: none -vaccines:s/phepAx2,hepBx3--not immune wants to start series today ,HPVx3,MMRx2,varicellax2,meningococcalx2,COvid 19x3 and Bivalent x1,TD 2019 Assessment & Plan (02/28/2023 12:25 PM EDT): -Quantiferon 09/2022 Neg -pap smear : > 4 y ago per pt -normal ---referred today back to her [employer] -contraception: none , pt would like to become -not able x last 4 years -vaccines: s/p hepAx2,hepBx3,HPVx3,MMRx2,varicellax2,meningococcalx2,COvid 19x3 and Bivalent x1,TD 2018 -labs x annual exam today-in fasting -pt agreed to have STI testing including HIV to have for baseline Irregular periods 02/28/2023 Assessment & Plan (03/29/2023 9:17 PM EDT): Pt reports hx of irregular periods -states seen before at [facility]-[employer] x this -CT abd/pelvis w contrast 12/24/2018 : 2 mm solid non calcified nodule in right lower lobe ,reported as unlikely of clinical significance. Also reports 2 cm right adnexal mass with peripheral enhancement most likely a corpus luteal cyst -pelvic US 12/23/2018: dominant follicle vs cyst in right ovary 1.6x1.5x1.9 cm -referred back to her [employer] at [facility] to continue care for ovarian cyst [...] of irregular periods -states seen before at [facility]-[employer] x this -CT abd/pelvis w contrast 12/24/2018 : 2 mm solid non calcified nodule in right lower lobe ,reported as unlikely of clinical significance. Also reports 2 cm right adnexal mass with peripheral enhancement most likely a corpus luteal cyst -pelvic US 12/23/2018: dominant follicle vs cyst in right ovary 1.6x1.5x1.9 cm -referred today back to her [employer] at [facility] to continue care for ovarian cyst ,reported infertility and for pap smear -as well advised pt to discuss about mother's hx of breast ca at Early age --if not evaluated by [employer] will discuss at her next apt w pt to have BRCA testing here Tobacco use 02/28/2023 Overview (02/28/2023): p Assessment [...] using less frq Pt interested in -saw career education teacher aprox 08/2022 -w normal eval per pt [...] doses of triptanes Pt interested in -saw career education teacher aprox 08/2022 -w normal eval per pt [...] Brain MRI -referred today to neurologist Encounters * This document contains information received from the source organization and may not represent a complete record from that organization. Date Type Department Care Team Description 07/24/2025 Telephone [facility] [address] [facility] [place] [address] Yamileth Anand MD feb recall 07/13/2025 Telephone [facility] [address] [place] [address] Lizz Johnson MA 07/09/2025 Orders Only [facility] [address] [facility] [place] [address] Yamileth Anand MD 07/09/2025 Telephone [facility] [place] [address] Hilary Suarez RN Medication Question 07/06/2025 Orders Only [address] [place] [address] Yamileth Anand MD 07/06/2025 Orders Only [facility] [address] [place] [address] Yamileth Anand MD 06/30/2025 9:15 AM EDT Office Visit [facility] [place] [address] Yamileth Anand MD Cannabis dependence (HCC) (Primary Dx); Dietary counseling; Exercise counseling; Bipolar 1 disorder (CMS/HCC) (HCC); Moderate persistent asthma, unspecified whether complicated; Moderate persistent asthma without complication; Other migraine without status migrainosus, not intractable; Epigastric pain; Abnormal CT of the abdomen; Annual physical exam; Overweight (BMI 25.0-29.9); Encounter for immunization; Health care maintenance; Recurrent major depressive disorder, in partial remission (CMS/HCC) 06/30/2025 Travel 06/29/2025 Telephone [facility] [address] [place] [address] Yamileth Anand MD chartprep 06/23/2025 Patient Outreach [address] [place] [address] Yamileth Anand MD Pre-visit Planning (Pre-visit planning - LVM ) 05/18/2025 Orders Only GENERIC EXTERNAL DATA DEPARTMENT Provider, Generic External Data 05/18/2025 Telephone [facility] [address] [place] [address] Yamileth Anand MD Nurse Triage from Last 3 Months Immunizations Immunization Administration Dates Next Due DTaP 08/11/2008, 7,07/01/1996,04/29,02/26/1996 HPV, Bivalent 07/15/2009,03/11/2008,01/31/2007 Hep A, ped/adol, 2 dose 12/10/2008,01/29/2007 Hep B, Adolescent or Pediatric 08/28/1996,1995,02/26/1996 Hep B, adult 04/30/2023,03/29/2023 Influenza injectable quadriv alent IIV4 with preservative 07/04/2018,07/06/2016 Influenza, IIV3, injectable 06/28/2015 Influenza, Split (incl. maldonado fied surface antigen) 05/13/2013,10/15/2012 Influenza, seasonal, injecta ble, preservative free 06/30/2025,06/27/2024 MMR 07/10/2000,12/30/1996 Meningococcal MCV4P ACYW-135 11/07/2018,02/15/20 11 Moderna Covid-19 Vaccine 12+ 09/21/2021 OPV, Trivalent 07/10/2000, 7,07/01/1996,04/29,02/26/1996 Pfizer Covid-19 Vaccine 12+ 06/30/2025,1 ,03/18/2021,02/10 Pfizer Covid-19 Vaccine 12+ Bivalent 10/03/2022 Pneumococcal Conjugate PCV 20 06/27/2024 TD (adult), 2 Lf tetanus tox oid, preservative free, adsorbed 11/07/2018 Tdap 05/24/2023,08/11/2008 Varicella 02/10/2010,12/30/1996 Family History Medical History Relation Name Comments HTN Father gastric ca Father's Sister breast cancer in early 30s Mother gastric cancer Paternal Grandfather Relation Name Status Comments Father Father's Sister Mother Paternal Grandfather Social History Tobacco Use Types Packs/Day Years Used Date Smoking Tobacco: Former Smokeless Tobacco: Never Tobacco Cessation:Counseling Given: Not Answered Comments:Started 16 y of age and stopped since 12/2023 Alcohol Use Standard Drinks/Week Comments Yes 0 (1 standard drink = 0.6 oz pur e alcohol) social Depression Answer Date Recorded Patient Health Questionnaire-9 Score 7 06/30/2025 Patient Health Questionnaire-9 Score 7 06/30/2025 Last PHQ-9: Questionnaire Data Not on file 1 Housing Stability Answer Date Recorded What is your housing situation today? I have patricia donnelly 06/30/[address] you li ve. Do you have problems with any of the following? None of the above 06/30/2025 Food Insecurity Answer Date Recorded Within the past 12 months, y ou worried that your food would run out before you got money to buy more: Never True 06/30/2025 Within the past 12 months,th e food you bought just didn't last and you didn't have enough money to get more: Never True Transportation Answer Date Recorded In the past 12 months, has l ack of transportation kept you from medical appts, meetings, work or from getting things needed for daily living? No 06/30/2025 Utilities Answer Date Recorded In the past 12 months, has t he electric, gas, oil or water company threatened to shut off services in your home? No 06/30/2025 Depression Answer Date Recorded Patient Health Questionnaire-2 Score 2 06/30/2025 Internet Access Answer Date Recorded Internet Access Q1 Yes 06/30/2025 Internet Access Q2 Not on file 06/30/2025 Comments Unknown Sex and Gender Information Value Date Recorded Sex Assigned at Female 07/10/2022 10:15 AM EDT Legal Sex Female 10:15 AM EDT Gender Identity Female 07/10/2022 10:15 AM EDT Sexual Orientation Straight 07/10/2022 10 :15 AM EDT Last Filed Vital Signs Vital Sign Reading Time Taken Comments Blood Pressure 102/70 06/30/2025 9:24 AM EDT Pulse 75 06/30/2025 9:24 AM EDT Temperature 36.2 C (97.1 F) 06/30/2025 9:24 AM EDT Respiratory Rate 20 06/30/2025 9:24 AM EDT Oxygen Saturation 99% 06/30/2025 9:24 AM EDT Inhaled Oxygen Concentration - - Weight 61.2 kg (135 lb) 06/30/2025 9:24 AM EDT Height 154.9 cm (5' 1 ) 06/30/2025 9:24 AM EDT Body Mass Index 25.51 06/30/2025 9:24 AM EDT Plan of Treatment Health Maintenance Due Date Last Done Comments Family Planning (PISQ) 12/25/2010 Pap Smear 12/25/2016 Alcohol/Substance Use Screening 06/30/2026 06/30/2025 Depression Screening 06/30/2026 06/30/2025, 06/30/20 25 Disability Screening 06/30/2026 06/30/2025 SDOH Screening 06/30/2026 06/30/2025 Tobacco Screening 06/30/2026 06/30/2025 DTaP/Tdap/Td Vaccines (9 - Td or Tdap) 05/24/2033 05/24/2023, 11/07/2018, 08/11/2008, Additional history exists Zoster Vaccines (1 of 2) 12/25/2045 RSV Patients and Patients Aged 60 years or older (1 - 1-dose 75+ series) 12/25/2070 IPV Vaccines Completed 07/10/2000, 04/10, 07/01/1996, Additional history exists Hepatitis A Vaccines Completed 12/10/2008, 01/30/20 07 HPV Vaccines Completed 07/15/2009, 070 10/2007, 01/31/2007 Meningococcal Vaccine Aged Out 11/07/2018, 011 No longer eligible based on patient's age to complete this topic HIV Screening Completed 02/28/2023 Hepatitis C Screening Completed 02/28/2023 Hepatitis B Vaccines Completed 04/30/2023, 03/29/2023, 08/28/1996, Additional history exists Pneumococcal Vaccine: Pediatrics (0 to 5 Years) and At-Risk Patients (6 to 49) Years Completed 06/27/2024 COVID-19 Vaccine Completed 06/30/2025, , 10/03/2022, Additional history exists Influenza Vaccine Completed 06/30/2025, , 07/04/2018, Additional history exists HIB Vaccines Aged Out No longer eligi [...] Procedure Name Priority Date/Time Associated Diagnosis Comments POCT , URINE Routine 06/30/2025 10:11 AM EDT Moderate persistent asthma without complication CT ABDOMEN PELVIS W CONTRAST Routine 05/18/2025 1:38 PM EDT URINALYSIS WITH REFLEX MICROSCOPIC Routine 05/18/2025 12:52 PM EDT COVID-19 ID NOW ([employer]) Routine 05/18/2025 11:10 AM EDT HCG, TOTAL, [...] Recently Relevant to Health Maintenance Results * POCT Urine (06/30/2025 10:11 AM EDT) Preg Test, Ur Negative Negative, Indeterminate, None Detected, Invalid, Specimen unsatisfactory for evaluation, Weakly Positive, 2+ QC Media Lot # [id number] Lot# Expiration Date [id number] Urine 06/30/2025 10:1 1 AM EDT Yamileth Lamas MD POINT OF CARE NATALIA T ENTER/EDIT ORDERABLES Final Result * CT Abdomen Pelvis w/ Contrast (05/18/2025 1:38 PM EDT) Anatomical Region Laterality Modality Body, Pelvis, Abdomen Computed T omography 05/18/2025 1:38 PM EDT Narrative 05/18/2025 2:27 PM EDT [place] [address] CT Scan Report Signed Patient: Carmina Fong MR#: [id number] 8 : 1995 Acct:[id number] Age/Sex: 29 / F ADM Date: 05/18/25 Loc: .ED Attending Dr: Ordering Physician: Tien Chew DO Date of Service: 05/18/25 Procedure(s): CT abdomen pelvis w IV con Accession Number(s): [id number] cc: Yamileth Anand MD; Tien Chew DO Report Number: [id number]: Total DLP = 404.00 mGy-cm Reason for Exam: Left lower quadrant abdominal pain EXAMINATION: CT ABDOMEN PELVIS WITH IV CONTRAST HISTORY: Left lower quadrant abdominal pain COMPARISON: Comparison is made with the prior examination dated 05/03/2023. TECHNIQUE: CT scan of the abdomen and pelvis was performed following administration of 85 mL Omnipaque 350 using standard departmental protocol. Coronal and sagittal reformatted images were generated and reviewed. Oral contrast material was not administered at the request of the referring physician. This CT exam was performed with one or more of the following dose reduction techniques: automated exposure control, adjustment of the mA and/or kV according to patient size, use of iterative reconstruction technique. DLP: 404 mGy-cm FINDINGS: LOWER CHEST: The visualized lung bases are clear. There is no pleural effusion. CARDIOVASCULATURE: The heart is normal in size. There is no pericardial effusion. LIVER: The liver is normal in size and contour. No liver mass is identified. The hepatic and portal veins are patent. GALLBLADDER / BILE DUCTS: The gallbladder is unremarkable. There is no intra or extrahepatic biliary ductal dilatation. SPLEEN: The spleen is normal in size. No focal splenic lesion is identified. PANCREAS: The pancreas is unremarkable in appearance. ADRENAL GLANDS: Within normal limits. KIDNEYS/RETROPERITONEUM: No renal calculi are identified. There is no hydronephrosis. There is a subcentimeter cyst at the lower pole of the left kidney. LYMPH NODES: No abdominal or pelvic lymphadenopathy. VASCULATURE: The abdominal aorta is normal in caliber. MESENTERY/PERITONEUM: There is a small amount of free fluid in the right adnexa and cul-de-sac. No masses. There is no free intraperitoneal gas. STOMACH: The stomach is unremarkable. SMALL BOWEL: The small bowel is normal in caliber. Multiple small bowel loops are seen lateral to the descending colon without change which may represent an internal hernia. COLON: The colon is unremarkable. APPENDIX: Normal. Again seen is a 3.0 cm cyst adjacent to the appendix and cecal tip. URINARY BLADDER/PELVIC ORGANS: The urinary bladder is collapsed, limiting evaluation. The uterus is unremarkable. There is a 1.3 cm involuting left ovarian cyst versus follicle. BONES / SOFT TISSUES: No suspicious bony or soft tissue abnormalities. CT/CT abdomen pelvis w IV con IMPRESSION: 1. Small amount of free fluid in the right adnexa and cul-de-sac. 2. 1.3 cm involuting left ovarian cyst versus follicle. 3. 3.0 cm cyst adjacent to the appendix and cecal tip without change. 4. Multiple small bowel loops are seen lateral to the descending colon without change which may represent an internal hernia. Electronically signed by: Bharat Mendiola MD 05/18/2025 02:24 PM EDT Dictated By: Bharat Mendiola MD Signed By: <Electronically signed by Bharat Mendiola MD in OV> 05/18/25 1424 DD/ 1338 TD/TT: 05/18/25 1411 Photoengraver: Procedure Note Donotuseinterpreter, Image - 05/18/[address] [address] [address] Scan Report Signed Patient: Ryan Fong#: [id number] 8 : 1995Acct:[id number] Age/Sex: 29 / FADM Date: 05/18/25 Loc: HO.ED Attending Dr: Ordering Physician: Tien Chew DO Date of Service: 05/18/25 Procedure(s): CT abdomen pelvis w IV con Accession Number(s): [id number] cc: Yamileth Anand MD; Tien Chew DO Report Number: [id number]: Total DLP = 404.00 mGy-cm Reason for Exam: Left lower quadrant abdominal pain EXAMINATION: CT ABDOMEN PELVIS WITH IV CONTRAST HISTORY: Left lower quadrant abdominal pain COMPARISON: Comparison is made with the prior examination dated 05/03/2023. TECHNIQUE: CT scan of the abdomen and pelvis was performed following administration of 85 mL Omnipaque 350 using standard departmental protocol. Coronal and sagittal reformatted images were generated and reviewed. Oral contrast material was not administered at the request of the referring physician. This CT exam was performed with one or more of the following dose reduction techniques: automated exposure control, adjustment of the mA and/or kV according to patient size, use of iterative reconstruction technique. DLP: 404 mGy-cm FINDINGS: LOWER CHEST: The visualized lung bases are clear. There is no pleural effusion. CARDIOVASCULATURE: The heart is normal in size. There is no pericardial effusion. LIVER: The liver is normal in size and contour. No liver mass is identified. The hepatic and portal veins are patent. GALLBLADDER / BILE DUCTS: The gallbladder is unremarkable. There is no intra or extrahepatic biliary ductal dilatation. SPLEEN: The spleen is normal in size. No focal splenic lesion is identified. PANCREAS: The pancreas is unremarkable in appearance. ADRENAL GLANDS: Within normal limits. KIDNEYS/RETROPERITONEUM: No renal calculi are identified. There is no hydronephrosis. There is a subcentimeter cyst at the lower pole of the left kidney. LYMPH NODES: No abdominal or pelvic lymphadenopathy. VASCULATURE: The abdominal aorta is normal in caliber. MESENTERY/PERITONEUM: There is a small amount of free fluid in the right adnexa and cul-de-sac. No masses. There is no free intraperitoneal gas. STOMACH: The stomach is unremarkable. SMALL BOWEL: The small bowel is normal in caliber. Multiple small bowel loops are seen lateral to the descending colon without change which may represent an internal hernia. COLON: The colon is unremarkable. APPENDIX: Normal. Again seen is a 3.0 cm cyst adjacent to the appendix and cecal tip. URINARY BLADDER/PELVIC ORGANS: The urinary bladder is collapsed, limiting evaluation. The uterus is unremarkable. There is a 1.3 cm involuting left ovarian cyst versus follicle. BONES / SOFT TISSUES: No suspicious bony or soft tissue abnormalities. CT/CT abdomen pelvis w IV con IMPRESSION: 1. Small amount of free fluid in the right adnexa and cul-de-sac. 2. 1.3 cm involuting left ovarian cyst versus follicle. 3. 3.0 cm cyst adjacent to the appendix and cecal tip without change. 4. Multiple small bowel loops are seen lateral to the descending colon without change which may represent an internal hernia. Electronically signed by: Bharat Mendiola MD 05/18/2025 02:24 PM EDT Dictated By: Bharat Mendiola MD Signed By: <Electronically signed by Bharat Mendiola MD in OV> 05/18/25 1424 DD/ 1338 TD/TT: 05/18/25 1411 Photoengraver: us [facility] External Provider IMG CT PROCEDURES Edited Result - Final * Urinalysis w/reflex microscopic (05/18/2025 12:52 PM EDT) Color Urine Yellow [facility] Appearance Urine Clear [facility] PH 6.0 5.0 - 9.0 [facility] Glucose Urine UA Negative Negative mg/dL [facility] Urine Blood Negative Negative [facility] Specific [place] - Urine <=1.005 1.005 - 1.025 [facility] Urine Protein Negative Neg-Trace mg/dL [facility] Urine Ketones Negative Negative mg/dL [facility] Nitrite Urine Negative Negative [facility] Leukocyte Esterase Urine Negative Negative [facility] 05/18/2025 12:5 2 PM EDT 05/18/2025 12:58 PM EDT Narrative [facility] - 05/18/2025 1:02 PM EDT Urine, Clean Catch Generic External Data Provider LAB URINE ORDERAB LES Final Result Performing Organization Address [facility]/ZIP Co de Phone Number [facility] [address] [place] [phone] * Influenza A B2 ID NOW ([employer]) (05/18/2025 11:10 AM EDT) IDNOW SERIAL# [id number] [facility] Influenza A Negative Negative [facility] Influenza B2 Negative Negative [facility] Influenza A B2 Note See Note [facility] Comment:The Dowd ID NOW In [...] GENERAL ORDERABLES Final Result Performing Organization Address [facility]/ZIP Co de Phone Number [facility] [address] [place] [phone] * COVID-19 ID NOW (DOWD) (05/18/2025 11:10 AM EDT) Pathologist [facility] IDNOW SERIAL# [id number] [facility] COVID-19 TEST Negative Negative [facility] COVID-19 NOTE See Note [facility] Comment: Results are for the identification of SARS-CoV2 RNA. TheSARS-CoV2 RNA is generally detectable in respiratory samplesduring the acute phase of infection. Positive results areindicative of the presence of SARS-CoV-2 RNA; clinicalcorrelation with patient history and other diagnosticinformation is necessary to determine patient infectionstatus. Positive results do not rule out bacterial infectionor co- infection with other viruses.Testing facilities within the [facility] and itsterritories are required to report all [...] use by authorized laboratories.Testing performed on the [facility] NOW utilizing NAAT. 05/18/2025 11:1 0 AM EDT 05/18/2025 11:16 AM EDT us Generic External Data Provider LAB MOLECULAR CATHERINE GNOSTICS ORDERABLES Final Result [facility] [address] [place] [phone] * (ABNORMAL) CBC auto differential (05/18/2025 11:10 AM EDT) Pathologist [facility] White Blood Count 8.0 4.8 - 10.8 X10*3/uL [facility] Red Blood Count 4.61 4.20 - 5.50 X10*6/uL [facility] Hemoglobin 12.0 12.0 - 16.0 g/dl [facility] Hematocrit 35.9(L) 37.0 - 47.0 % [facility] Mean Corpuscular Volume 77.9(L) 80.0 - 98.0 fL [facility] Mean Corpuscular Hemoglobin 26.0(L) 27.0 - 33.0 pg [facility] Mean Corpuscular HGB Conc 33.4 31.0 - 35.0 g/dl [facility] Red Cell Distribution Width 14.7 11.0 - 16.0 % [facility] Platelet Count 308 160 - 400 X10*3/uL [facility] Mean Platelet Volume 8.9(L) 9.4 - 12.3 fL [facility] Neutrophils Percent Auto 47.9 45 - 73 % [facility] Imm Gran Pct Auto 0.1 0.0 - 0.4 % [facility] Lymphocytes Percent Auto 42.0(H) 20 - 40 % [facility] Monocytes Percent Auto 7.7 2 - 11 % [facility] Eosinophils Percent Auto 1.3 0 - 4 % [facility] Basophils Percent Auto 1.0 0 - 2 % [facility] NRBC Pct Auto 0.0 0.0 - 0.2 /100WBC [facility] Neutrophils Absolute Auto 3.8 2.0 - 8.3 x10*3/uL [facility] Imm Gran Abs Auto 0.01 0.00 - 0.03 X10*3/uL [facility] Lymphocytes Absolute Auto 3.3 1.2 - 4.9 X10*3/uL [facility] Monocytes Absolute Auto 0.6 0.1 - 1.2 X10*3/uL [facility] Eosinophils Absolute Auto 0.1 0.0 - 0.4 X10*3/uL [facility] Basophils Absolute Auto 0.1 0.0 - 0.2 X10*3/uL [facility] NRBC Abs Auto 0.000 0.0 - 0.012 X10*3/uL [facility] 05/18/2025 11:1 0 AM EDT 05/18/2025 11:16 AM EDT us Generic External Data Provider LAB BLOOD ORDERAB LES Final Result Performing Organization Address [facility] Co de Phone Number [facility] [address] [place] [phone] * hCG, Total, Quantitative (05/18/2025 11:10 AM EDT) HCG Quantitative <2 mIU/mL [facility] Comment:Weeks post LMP Appro ximate hCG(Last Menstrual Period) Range (mIU/ml)3 - 4 weeks 9 - 1304 - 5 weeks 75 - 2,6005 - 6 weeks 850 - 20,8006 - 7 weeks 4000 - 100,2007 - 12 weeks 11,500 - 289,59391 - 16 weeks 18,300 - 137,[phone] - 29 weeks (2nd trimester) 1,400 - 53,[phone] - 41 weeks (3rd trimester) 940 - [...] ORDERAB LES Final Result Performing Organization Address [facility] Co de Phone Number [facility] [address] [place] [phone] * (ABNORMAL) Comprehensive Metabolic Panel (05/18/2025 11:10 AM EDT) Sodium 142 135 - 145 mmol/L [facility] Potassium 3.9 3.3 - 5.1 mmol/L [facility] Chloride 110(H) 96 - 108 mmol/L [facility] Carbon Dioxide 26 22 - 29 mmol/L [facility] Anion Gap 10(L) 12 - 20 [facility] Urea Nitrogen (BUN) 11 9 - 16 mg/dL [facility] Creatinine, Serum 0.77 0.5 - 1.4 mg/dL [facility] Creatinine Clr Calc Pharmacy 93.1 [facility] Comment:Provided height and weight: 162.56 cm,59.7 kg.eGFR (calculated from the MDRD study equation) and eCrCl(calculated from the Cockcroft-Gault equation) are based ondifferent parameters and may not yield comparable results.If eCrCl result is absurd, please check patient'sheight/weight. Estimated Glomerular Filt Rate >60 [facility] Comment:Chronic Kidney Disea se: Estimated GFR < 60 mL/min/1.54a2Lfdojp Kidney Disease: Estimated GFR < 15 mL/min/1.73m2 Glucose 70 60 - 115 mg/dL [facility] Calcium 9.1 8.4 - 10.2 mg/dL [facility] Bilirubin, Total 0.2 0.0 - 1.0 mg/dL [facility] Aspartate Amino Transferase 25 5 - 31 U/L [facility] Alanine Aminotransferase 17 0 - 31 U/L [facility] Total Protein 6.9 6.5 - 8.0 g/dL [facility] Albumin Level 4.3 3.5 - 5.0 g/dL [facility] Alkaline Phosphatase 51 39 - 117 U/L [facility] 05/18/2025 11:1 0 AM EDT 05/18/2025 11:16 AM EDT us Generic External Data Provider LAB BLOOD ORDERAB LES Final Result [facility] [address] [place] [address] [phone] * Hepatitis C Antibody with Reflex to HCV, RNA, Quantitative, Real-Time PCR (02/28/2023 11:49 AM EDT) Pathologist [facility] Hepatitis C Antibody NON-REACT MACHO NON-REACT MACHO [facility] Comment: HCV antibody was non-reactive. There is no laboratory evidence of HCV infection. In most cases, no further action is required. However, if recent HCV exposure is suspected, a test for HCV RNA (test code 21993) is suggested. For additional information please refer to http://SoundTag.[employer]/faq/NSP37y4 (This link is being provided for informational/ educational purposes only.) Blood Venous blood specimen / Unknown 02/28/2023 11:49 AM EDT 02/28/2023 11:49 AM EDT Narrative [facility] - 03/01/2023 4:57 PM EDT FASTING:NO FASTING: NO Yamileth Lamas MD LAB BLOOD ORDERAB LES Final Result [facility] [address], [place] [address] [facility] [address] [place] [address] * HIV-1/2 Antigen and Antibodies, Fourth Generation, with Reflexes (02/28/2023 11:49 AM EDT) Pathologist [facility] HIV Antigen/Antibody, 4th Generation NON-REAC TIVE NON-REAC TIVE [facility] [employer] Comment: HIV-1 antigen and HIV-1/HIV-2 antibodies were [...] purpose. For additional information please refer to http://[email or web address]/faq/WJM240 (This link is being provided for informational/ educational purposes only.) The performance of this assay has not been clinically validated in patients less than 2 years old. Blood Venous blood specimen / Unknown 02/28/2023 11:49 AM EDT 02/28/2023 11:49 AM EDT Narrative [facility] - 03/01/2023 4:57 PM EDT FASTING:NO FASTING: NO Yamileth Lamas MD LAB BLOOD ORDERAB LES Final Result [facility] [address], [place] [address] [facility] [employer] [facility] [address] [place] [address] from Last 3 Months or Most Recently Relevant to Health Maintenance Insurance [facility] , [address] [place] [address] Care Teams Clinical Trial Specialist Relationship Specialty Start Date End Date Yamileth Anand MD [address] [place] [address] PCP - General Internal Medicine 12/26/22 Michelle Malloy Waistline Joiner LockstitchWaste Machine Operator 11/15/23
--- OUTSIDE RECORDS SUMMARY | 2025-08-10 12:19 | XMS_ITS | Encounter Summary ---
Author Organization [employer] Address [address] [facility] [address] [place] [address] Care Team Providers Care Foot Miter Operator Name Role Phone Yamileth Anand MD Primary Care Pro vider Encounter Details Date Type Department Care Team (Late st Contact Info) Description 04/26/2023 Orders Only [facility] [address] [place] [address] Sanjana Carrasco LPN Social History Tobacco Use [...] (Dowd) (04/26/2023 1:18 PM EDT) IDNOW SERIAL# [id number] [facility] Influenza A Negative Negative [facility] Influenza B2 Negative Negative [facility] Influenza A B2 Note See Note [facility] Comment:The Dowd ID NOW In [...] 1:18 PM EDT 04/26/2023 1:24 PM EDT [facility] Exter nal Provider LAB MICROBIOLOGY - GENERAL ORDERABLES Final Result Performing Organization Address City/[facility]/ZIP Co de Phone Number [facility] [address] [place] [address] [phone] * COVID-19 ID NOW (DOWD) (04/26/2023 1:18 PM EDT) IDNOW SERIAL# [id number] [facility] COVID-19 TEST Negative Negative [facility] COVID-19 NOTE See Note [facility] Comment: Results are for the identification of SARS-CoV2 RNA. TheSARS-CoV2 RNA is generally detectable in respiratory samplesduring the acute phase of infection. Positive results areindicative of the presence of SARS-CoV-2 RNA; clinicalcorrelation with patient history and other diagnosticinformation is necessary to determine patient infectionstatus. Positive results do not rule out bacterial infectionor co- infection with other viruses.Testing facilities within the [facility] and itsterritories are required to report all [...] 1:18 PM EDT 04/26/2023 1:24 PM EDT [facility] Exter nal Provider LAB MOLECULAR DIAGNOSTICS ORDERABLES Final Result Performing Organization Address City/[facility]/ZIP Co de Phone Number [facility] [address] [place] [address] [phone] * hCG, Total, Quantitative (04/26/2023 1:18 PM EDT) HCG Quantitative <2 mIU/mL [facility] Comment:Weeks post LMP Appro ximate hCG(Last Menstrual Period) Range (mIU/ml)3 - 4 weeks 9 - 1304 - 5 weeks 75 - 2,6005 - 6 weeks 850 - 20,8006 - 7 weeks 4000 - 100,2007 - 12 weeks 11,500 - 289,64656 - 16 weeks 18,300 - 137,43792 - 29 weeks (2nd trimester) 1,400 - 53,93734 - 41 weeks (3rd trimester) 940 - 60,000The Dowd B- hCG assay is used for the early detection ofpregnancy; it cannot be used to diagnose any conditionunrelated to . If a B-hCG level is not supportedby the clinical evidence, results should be confirmed by analternative method (qualitative urine hCG, for example). 04/26/2023 1:18 PM EDT 04/26/2023 1:24 PM EDT [facility] External Provider LAB BLO OD ORDERABLES Final Result Performing Organization Address City/[facility]/ZIP Co de Phone Number [facility] [address] [place] [address] [phone] * Lipase (04/26/2023 1:18 PM EDT) Lipase 12 8 - 78 U/L [facility] 04/26/2023 1:18 PM EDT 04/26/2023 1:24 PM EDT [facility] External Data Provider LAB BLOOD ORDERAB LES Final Result Performing Organization Address City/[facility] Co de Phone Number [facility] [address] [place] [address] [phone] * Magnesium (04/26/2023 1:18 PM EDT) Magnesium 2.1 1.6 - 2.6 mg/dL [facility] 04/26/2023 1:18 PM EDT 04/26/2023 1:24 PM EDT us Generic External Data Provider LAB BLOOD ORDERAB LES Final Result [facility] [address] [place] [phone] [phone] * (ABNORMAL) Comprehensive Metabolic Panel (04/26/2023 1:18 PM EDT) Sodium 141 135 - 145 mmol/L [facility] Potassium 3.9 3.3 - 5.1 mmol/L [facility] Chloride 103 96 - 108 mmol/L [facility] Carbon Dioxide 29 22 - 29 mmol/L [facility] Anion Gap 13 12 - 20 [facility] Urea Nitrogen (BUN) 12 9 - 16 mg/dL [facility] Creatinine, Serum 0.80 0.5 - 1.4 mg/dL [facility] Creatinine Clr Calc Pharmacy 96.2 [facility] Comment:Provided height and weight: 154.94 cm,72.575 kg.eGFR (calculated from the MDRD study equation) and eCrCl(calculated from the Cockcroft-Gault equation) are based ondifferent parameters and may not yield comparable results.If eCrCl result is absurd, please check patient'sheight/weight. Estimated Glomerular Filt Rate >60 [facility] Comment:NOTE: For -Am erican individuals, multiply the result by 1.210.Chronic Kidney Disease: Estimated GFR < 60 mL/min/1.57k2Ahhsqq Kidney Disease: Estimated GFR < 15 mL/min/1.73m2 Glucose 99 60 - 115 mg/dL [facility] Calcium 9.5 8.4 - 10.2 mg/dL [facility] Bilirubin, Total 0.4 0.0 - 1.0 mg/dL [facility] Aspartate Amino Transferase 19 5 - 31 U/L [facility] Alanine Aminotransferase 14 0 - 31 U/L [facility] Total Protein 8.5(H) 6.5 - 8.0 g/dL [facility] Albumin Level 4.5 3.5 - 5.0 g/dL [facility] Alkaline Phosphatase 66 39 - 117 U/L [facility] 04/26/2023 1:18 PM EDT 04/26/2023 1:24 PM EDT [facility] External Provider LAB BLO OD ORDERABLES Final Result Performing Organization Address [facility] Co de Phone Number [facility] [address] [place] [address] [phone] * HCG, Qualitative, Urine (04/26/2023 1:18 PM EDT) Pathologist [facility] Urine NEGATIVE NEGATIVE [facility] Comment:This test was develo ped to detect early . Falsenegative results may occur after the 5th - 7th week ofpregnancy when using this test method. If clinicallyindicated, consider a serum hCG. 04/26/2023 1:18 PM EDT 04/26/2023 1:24 PM EDT [facility] External Provider LAB URI NE ORDERABLES Final Result Performing Organization Address [facility] Co de Phone Number [facility] [address] [place] [address] [phone] * (ABNORMAL) CBC auto differential (04/26/2023 1:18 PM EDT) White Blood Count 8.2 4.8 - 10.8 X10*3/uL [facility] Red Blood Count 5.04 4.20 - 5.50 X10*6/uL [facility] Hemoglobin 13.9 12.0 - 16.0 g/dl [facility] Hematocrit 41.4 37.0 - 47.0 % [facility] Mean Corpuscular Volume 82.1 80.0 - 98.0 fL [facility] Mean Corpuscular Hemoglobin 27.6 27.0 - 33.0 pg [facility] Mean Corpuscular HGB Conc 33.6 31.0 - 35.0 g/dl [facility] Red Cell Distribution Width 12.5 11.0 - 16.0 % [facility] Platelet Count 279 160 - 400 X10*3/uL [facility] Mean Platelet Volume 8.6(L) 9.4 - 12.3 fL [facility] Neutrophils Percent Auto 63.7 45 - 73 % [facility] Imm Gran Pct Auto 0.2 0.0 - 0.4 % [facility] Lymphocytes Percent Auto 26.9 20 - 40 % [facility] Monocytes Percent Auto 7.8 2 - 11 % [facility] Eosinophils Percent Auto 1.0 0 - 4 % [facility] Basophils Percent Auto 0.4 0 - 2 % [facility] NRBC Pct Auto 0.0 0.0 - 0.2 /100WBC [facility] Neutrophils Absolute Auto 5.2 2.0 - 8.3 x10*3/uL [facility] Imm Gran Abs Auto 0.02 0.00 - 0.03 X10*3/uL [facility] Lymphocytes Absolute Auto 2.2 1.2 - 4.9 X10*3/uL [facility] Monocytes Absolute Auto 0.6 0.1 - 1.2 X10*3/uL [facility] Eosinophils Absolute Auto 0.1 0.0 - 0.4 X10*3/uL [facility] Basophils Absolute Auto 0.0 0.0 - 0.2 X10*3/uL [facility] NRBC Abs Auto 0.000 0.0 - 0.012 X10*3/uL [facility] 04/26/2023 1:18 PM EDT 04/26/2023 1:24 PM EDT us [facility] External Provider LAB BLO OD ORDERABLES Final Result [facility] [address] [place] [address] [phone] * (ABNORMAL) Urinalysis, Complete, with Reflex to Culture (04/26/2023 1:18 PM EDT) Color Urine Yellow [facility] Appearance Urine Clear [facility] PH 6.0 5.0 - 9.0 [facility] Glucose Urine UA Negative Negative mg/dL [facility] Urine Blood Large (3+)(A) Negative [facility] Specific Cleves - Urine 1.025 1.005 - 1.025 [facility] Urine Protein Negative Neg-Trace mg/dL [facility] Urine Ketones Negative Negative mg/dL [facility] Nitrite Urine Negative Negative [facility] Leukocyte Esterase Urine Negative Negative [facility] RBC Urine >20(A) 0 - 2 /HPF [facility] Urine WBC 0-5 0 - 5 /HPF [facility] Urine Squamous Epithelial Cell 0-2 0 - 2 /HPF [facility] Urine Bacteria None Seen None Seen [facility] Hyaline Casts, Urine 0-2 0 - 2 /LPF [facility] 04/26/2023 1:18 PM EDT 04/26/2023 1:24 PM EDT Narrative [facility] - 04/26/2023 1:40 PM EDT [id number], Clean Catch [facility] External Provider LAB URI NE ORDERABLES Final Result Performing Organization Address [facility] Co de Phone Number [facility] [address] [place] [address] [phone] documented in this encounter Visit Diagnoses Not on filedocumented in this encounter Additional Health Concerns Assessment Noted Time PHQ-9 Depression Total Score: 0 02/29/20 23 11:13 AM EDT documented as of this encounter Care Teams Foot Miter Operator Relationship Specialty Start Date End Date Yamileth Anand MD [address] [place] [phone] PCP - General Internal Medicine 12/26/22 Michelle Malloy Seedling PullerHistoric Sites Registrar 11/15/23 documented as of this encounter
--- OUTSIDE RECORDS SUMMARY | 2025-08-10 12:19 | XMS_ITS | Encounter Summary ---
Author Organization [employer] Address [address] [facility] [address] [place] [address] Care Team Providers Care Zig Zag Stitcher Name Role Phone Yamileth Anand MD Primary Care Pro vider Reason for Visit * Reason Onset Date Comments Med Refill 02/23/2024 Encounter Details Date Type Department Care Team (Late st Contact Info) Description 02/23/2024 Refill [facility] [address] [place] [address] Yamileth Anand MD [address] [place], [place] [phone] Social History Tobacco Use Types Packs/Day Years [...] enough money to get more: Never True 10/ Transportation Answer Date Recorded In the past [...] documented as of this encounter Care Teams Zig Zag Stitcher Relationship Specialty Start Date End Date Yamileth Anand MD [address] [place] [phone] PCP - General Internal Medicine 12/26/22 Michelle Malloy Business Process AnalystTelegraph Editor 11/15/23 documented as of this encounter
--- OUTSIDE RECORDS SUMMARY | 2025-08-10 12:19 | XMS_ITS | Data Portability ---
Author Organization [facility] DOTTIE/AALIYAH, DOT Address [address] [place] [address] Care Team Providers Care Contact Finger Assembler Name Role Phone [facility] Primary Care Provi shorty Assessment No assessment recorded. Plan of Treatment Reminders Order Date Submit Date Provider Last Modified By Organization Details Last Modified Time Details Appointments None recorde d. Lab glucose , fingers tick, blood 2020 021 [facility], [address] [place] [address], [address], 16:01:33 lipid panel, blood 2020 021 [facility], [address] [place] [address], [address], 16:01:32 Referral orthope dic referra l - ongoing right wrist pain, please eval 2020 021 kavita Salazar , [address] [place], [address], 08:23:06 Procedures None recorde d. Surgeries None recorde d. Imaging None recorde d. Medication Orders Augment in 875 mg-125 mg tablet 2019 020 [email or web address]/Pharmacy #[id number], [address] [place], [address], 13:38:44 Patient TargetsNo targets recorded. Patient InstructionsNo instructions recorded. Reason for Referral Orthopedic Referral for Pain of right hand ongoing right wrist pain, please eval Referring Physician: Sylwia Gutierrez, Internal Medicine, Encounter Date: 02/25/2021 Results Created Date Observation Date Name Description Value Unit Range Abnormal Flag Note LastModifiedBy Organization Detail LastModifiedTime 02/26/20 21 02/25/2021 lipid panel , blood LDL: 133 Not Available [address], [address], 02/25/2021 13:15:03 02/26/20 21 02/25/2021 lipid panel , blood HDL: 35 Not Available [address], [address], 02/25/2021 13:15:03 02/26/20 21 02/25/2021 lipid panel , blood Total Cholesterol: 181 Not Available [facility] [address], [address], 02/25/2021 13:15:03 02/26/20 21 02/25/2021 lipid panel , blood Non HDL: 146 Not Available [facility] [address], [address], 02/25/2021 13:15:03 02/26/20 21 02/25/2021 lipid panel , blood TCHDL: 5.1 Not Available [address], [address], 02/25/2021 13:15:03 02/26/20 21 02/25/2021 gluco se, finge rstic k, blood Blood Glucose: mg/dl 90 Not Available [facility] [address], [address], 02/25/2021 13:14:56 Result Notes None recorded. Problems Name Problem SNOMED Code Status Onset Date Resolution Date Notes Provider Name and Address Organization Details Recorded Time History of iron deficiency 519096825 Active 2020 CYRUS Mckenzie/AALIYAH 13:39:32 section Active 2020 x2 CYRUS Mckenzie/AALIYAH 1 13:40:00 History of mood disorder 461292501 Active 2020 Sylwia liu [facility] 1 13:40:13 Cannabis dependence 17112434 Active 2020 daily Sylwia liu [facility] 1 13:40:45 Drinking binge 695032454 Active 2020 1-2 times per month drinks a six pack Sylwia liu [facility] 13:41:28 Problem Notes None recorded. Procedures Surgical History Date Name Laterality Status Provider Name and Address Organization Details Recorded Time section completed Sylwia Gutierrez [facility] 02/25/2021 13:45:08 Imaging Results None recorded. Procedure [...] Updated DateTime 09/12/2019 100 [degF] Colleengillian Grayson [facility] 09/12/2019 13:30:23 Date Recorded Body height Heart rate Respiratory rate Body temperature Body mass index (BMI) Body weight Oxygen saturation Systolic And Diastolic Provider Name and Address Organization Details Last Updated DateTime 1 152.4 cm 68 /min 12 /min 98.1 [degF] 26.4 kg/m2 76339.9 7 g 100 % 112/70 mm[Hg] Colleen Kenan [facility] 1 13:06:48 Social History Question Answer Notes LastModified by Organizat ion Details LastModified Time Tobacco Smoking Status Former Smoker Sylwia liu [facility] 02/25/2021 13:43:12 Are You Blind Or Do You Have Difficulty Seeing? No Information not available 02/25/2021 Are You Deaf Or Do You Have Serious Difficulty Hearing? No Information not available 02/25/2021 What Type Of Diet Are You Following? REGULAR Information not available 02/25/2021 What Is The Highest Grade Or Level Of School You Have Completed Or The Highest Degree You Have Received? [id number] Information not available 02/25/2021 Do You Use [...] 8 Information not available 02/25/2021 Do You Have Difficulty Walking Or Climbing Stairs? No Information not available 02/25/2021 Sex: Female Functional Status Question Answer Note LastModified by [employer] ion Details LastModified Time Do you use any illicit or recreational drugs? No Information not available 02/25/2021 Do you or have you ever used any other forms of tobacco or nicotine? No Information not available 02/25/2021 What is your level of alcohol consumption? Occasional up to 6 beers once a month Information not available 02/25/2021 Are you currently employed? No unemployed Information not available 02/25/2021 Do you have transportation difficulties? No Information not available 02/25/2021 Are you able to walk independently without assistance or assistive devices? YESWOREST Information not available 02/25/2021 Do you have difficulty doing errands alone? No Information not available 02/25/2021 Are you able to care for yourself independently? Yes Information not available 02/25/2021 Do you have difficulty dressing, bathing, grooming, or toileting? No Information not available 02/25/2021 What is your exercise level? Occasional I walk a lot Information not available 02/25/2021 Mental Status Question Answer Note LastModified by Organization D etails LastModified Time Do you have difficulty concentrating, remembering or making decisions? No [email or web address] Information no t available 02/25/2021 Family History [...] Diagnosis SNOMED-CT Code Diagnosis ICD10 Code Diagnosis IMO Codes Diagnosis Note [id number] FANNY Welsh [facility] [address] [place] [address] [place] [address] 09/12/2019 13:25:00 09/12/2019 13:54:07 Acute sinusitis 19870751 J01.90 - hydrate - dehumidifi er - mucinex - robitussin - f/u as needed - tylenol for fever - note to work [id number] SY[address]AM [address] [place] [address] 02/25/2021 13:00:15 02/27/2021 15:55:13 Pain of right hand 5614904967 36821 M79.641 ongoing right wrist painplease eval Adult heal th examination 008666381 Z00.00 Health Wellness: discussed seat belt wear 100% of time sunblock and sun avoidance, all seasons exercise encouraged 150min a week in > 20min episodes. Active job does not accomplish the same thing and this requires formal exercise. 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 Smoking Cessationn o MJ Cannabis dependence 2088 5946 F12.20 stop counseled to herpuma hines neg of mj use Drinking binge 296436582 F10.10 < 3 in a sitting but only drinks monthly History of iron deficiency 200366799 Z86.39 check CBC History of mood disorder 053078431 Z86.59 she has self reffered to [facility] Concerns Section Related Observation LastModified by Organization Detai ls LastModified Time None Recorded Concern Status LastModified by Organization Details LastModified Time None Recorded Advance Directives Directive None Recorded Payers Insurance Date Sequence Insurance Name Policy Number Policy Carias Covered Member ID Carias Member ID Guarantor Name 09/12/2019 1 DANI (PPO) [id number] Carmina Fong [id number] Carmina Fong Notes Date Note Type Note Provider Name and Address Organization Details Recorded Time 09/12/2019 text/html Head and chest cold for more than a week. Headache, rib pain due to cough, sinus pain/pressure and dizziness due to inner ear fullness. Denies chest pain, SOB. FANNY Welsh [address], [address], [place], [address], [place] - PMA/WIP 09/12/2019 13:47:47 02/25/2021 text/html Annual WellnessReported by PatientSocial/Behavior al HistoryFor diet and nutrition, patient reportshealthy diet. For fracture risk, patient reportsno history of fractures,no recent explained fracture,no sudden unexplained fractures, andno previous musculoskeletal injuries. For physical activity, patient reportsexercises on a regular basis,recent increase in physical activity, andgood physical condition. For additional lifestyle factors, patient reportsno tobacco use,no alcohol intake, andstopped drinking alcohol.Mental Status:For depression risk, patient reportsnever feels sad, empty, or tearful,no loss of interest in activities,no significant changes in weight,no sleep disturbances or insomnia,no agitation,no loss of energy,no feelings of worthlessness or guilt,no thoughts of suicide,no history of depression, andno history of mood disorders.Functional AbilityFor hearing, patient reportsno loss of hearing. For vision, patient reportsno vision problems. Sylwia Gutierrez null, [place] - PMA/WIP 02/25/2021 16:02:23 OBGyn Episode No OBEpisode recorded.
== END 2025-08-10 10:44 | disposition home or self-care (01) ==
LOC: HO.HGS 10:05
PROVIDERS: PCP Student in an Organized Health Care Education/Training Program; Visit Provider Surgery
DX: R93.3 Abnormal findings on diagnostic imaging of other parts of digestive tract (principal)
CPT/HCPCS: 99203

== ENCOUNTER 2025-08-10 10:04 | Outpatient (REF) | payer OTHER, SELFPAY ==
[2025-08-10 13:13] LABS: MANUAL DIFF FLAG NO
[2025-08-10 13:43] LABS: Hematocrit 36.8 % (37.0-47.0); Hemoglobin 11.7 g/dl (12.0-16.0); Imm Gran Pct Auto 0.1 % (0.0-0.4); Mean Corpuscular HGB Conc 31.8 g/dl (31.0-35.0); Mean Corpuscular Hemoglobin 25.8 pg (27.0-33.0); Mean Corpuscular Volume 81.1 fL (80.0-98.0); Platelet Count 278 X10*3/uL (160-400); Red Blood Count 4.54 X10*6/uL (4.20-5.50); White Blood Count 6.8 X10*3/uL (4.8-10.8)
[2025-08-10 13:44] LABS: Imm Gran Abs Auto 0.01 X10*3/uL (0.00-0.03); Lymphocytes Absolute Auto 2.5 X10*3/uL (1.2-4.9); NRBC Abs Auto 0.000 X10*3/uL (0.0-0.012); NRBC Pct Auto 0.0 /100WBC (0.0-0.2)
--- OUTSIDE RECORDS SUMMARY | 2025-08-10 13:58 | XMS_ITS | Data Portability ---
Author Organization [facility] DOTTIE/AALIYAH, DOT Address [address] [place] [address] Care Team Providers Care Chief Strategy Officer Name Role Phone [facility] Primary Care Provi shorty Assessment No assessment recorded. Plan of Treatment Reminders Order Date Submit Date Provider Last Modified By Organization Details Last Modified Time Details Appointments None recorde d. Lab glucose , fingers tick, blood 2020 021 [facility], [address] [place] [address], [address], 16:01:33 lipid panel, blood 2020 021 [email or web address], [address] [place] [address], [address], 16:01:32 Referral orthope dic referra l - ongoing right wrist pain, please eval 2020 021 kavita Salazar , [address] [place], [address], 08:23:06 Procedures None recorde d. Surgeries None recorde d. Imaging None recorde d. Medication Orders Augment in 875 mg-125 mg tablet 2019 020 [facility]/Pharmacy #[id number], [address] [place], [address], 13:38:44 Patient TargetsNo targets recorded. Patient InstructionsNo instructions recorded. Reason for Referral Orthopedic Referral for Pain of right hand ongoing right wrist pain, please eval Referring Physician: Sylwia Gutierrez, Internal Medicine, Encounter Date: 02/25/2021 Results Created Date Observation Date Name Description Value Unit Range Abnormal Flag Note LastModifiedBy Organization Detail LastModifiedTime 02/26/20 21 02/25/2021 lipid panel , blood LDL: 133 Not Available [address], [address], 02/25/2021 13:15:03 02/26/20 21 02/25/2021 lipid panel , blood HDL: 35 Not Available [address], [address], 02/25/2021 13:15:03 02/26/20 21 02/25/2021 lipid panel , blood Total Cholesterol: 181 Not Available [facility] [address], [address], 02/25/2021 13:15:03 02/26/20 21 02/25/2021 lipid panel , blood Non HDL: 146 Not Available [facility] [address], [address], 02/25/2021 13:15:03 02/26/20 21 02/25/2021 lipid panel , blood TCHDL: 5.1 Not Available [address], [address], 02/25/2021 13:15:03 02/26/20 21 02/25/2021 gluco se, finge rstic k, blood Blood Glucose: mg/dl 90 Not Available [facility] [address], [address], 02/25/2021 13:14:56 Result Notes None recorded. Problems Name Problem SNOMED Code Status Onset Date Resolution Date Notes Provider Name and Address Organization Details Recorded Time History of iron deficiency 316861782 Active 2020 CYRUS Mckenzie/AALIYAH 13:39:32 section Active 2020 x2 CYRUS Mckenzie/AALIYAH 1 13:40:00 History of mood disorder 405745761 Active 2020 Sylwia liu [facility] 1 13:40:13 Cannabis dependence 52340047 Active 2020 daily Sylwia liu [facility] 1 13:40:45 Drinking binge 595373960 Active 2020 1-2 times per month drinks a six pack Sylwia liu [facility] 13:41:28 Problem Notes None recorded. Procedures Surgical History Date Name Laterality Status Provider Name and Address Organization Details Recorded Time section completed Sylwia Gutierrez [facility] 02/25/2021 13:45:08 Imaging Results None recorded. Procedure [...] Updated DateTime 09/12/2019 100 [degF] Colleengillian Grayson [facility] 09/12/2019 13:30:23 Date Recorded Body height Heart rate Respiratory rate Body temperature Body mass index (BMI) Body weight Oxygen saturation Systolic And Diastolic Provider Name and Address Organization Details Last Updated DateTime 1 152.4 cm 68 /min 12 /min 98.1 [degF] 26.4 kg/m2 26762.9 7 g 100 % 112/70 mm[Hg] Colleen Kenan [facility] 1 13:06:48 Social History Question Answer Notes LastModified by Organizat ion Details LastModified Time Tobacco Smoking Status Former Smoker Sylwia liu [facility] 02/25/2021 13:43:12 Are You Blind Or Do You Have Difficulty Seeing? No Information not available 02/25/2021 Are You Deaf Or Do You Have Serious Difficulty Hearing? No Information not available 02/25/2021 What Type Of Diet Are You Following? REGULAR Information not available 02/25/2021 What Is The Highest Grade Or Level Of School You Have Completed Or The Highest Degree You Have Received? [id number] Information not available 02/25/2021 Do You Use [...] Functional Status Question Answer Note LastModified by [employer] ion Details LastModified Time Do you use [...] difficulty concentrating, remembering or making decisions? No critical [facility] [email or web address] Information no t available 02/25/2021 Family History [...] ICD10 Code Diagnosis IMO Codes Diagnosis Note 53569 FANNY Welsh [facility] [address] [place] [address] [place] [address] 09/12/2019 13:25:00 09/12/2019 13:54:07 Acute sinusitis 45262884 J01.90 - hydrate - dehumidifi er - mucinex - robitussin - f/u as needed - tylenol for fever - note to work [address] SYLWIA HIRAM [address] [place] [address] 02/25/2021 13:00:15 02/27/2021 15:55:13 Pain of right hand 2480993239 10089 M79.641 ongoing right wrist painplease eval Adult heal th examination 106085791 Z00.00 Health Wellness: discussed seat belt wear 100% of time sunblock and sun avoidance, all seasons exercise encouraged 150min a week in > 20min episodes. Active job does not accomplish the same thing and this requires formal exercise. 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 Smoking Cessationn o MJ Cannabis dependence 6609 3578 F12.20 stop counseled to herpuma hines neg of mj use Drinking binge 112297178 F10.10 < 3 in a sitting but only drinks monthly History of iron deficiency 882564135 Z86.39 check CBC History of mood disorder 401233254 Z86.59 she has self reffered to [facility] Concerns Section Related Observation LastModified by Organization Detai ls LastModified Time None Recorded Concern Status LastModified by Organization Details LastModified Time None Recorded Advance Directives Directive None Recorded Payers Insurance Date Sequence Insurance Name Policy Number Policy Carias Covered Member ID Carias Member ID Guarantor Name 09/12/2019 1 DANI (PPO) [id number] Carmina Fong [id number] Carmina Fong Notes Date Note Type Note Provider Name and Address Organization Details Recorded Time 09/12/2019 text/html Head and chest cold for more than a week. Headache, rib pain due to cough, sinus pain/pressure and dizziness due to inner ear fullness. Denies chest pain, SOB. FANNY Welsh [address] [facility], [address], [place], [address], [place] - PMA/WIP 09/12/2019 13:47:47 02/25/2021 text/html [...]
[2025-08-10 14:09] LABS: Alanine Aminotransferase 19 U/L (0-31); Albumin Level 4.3 g/dL (3.5-5.0); Alkaline Phosphatase 50 U/L (39-117); Anion Gap 8 (12-20); Aspartate Amino Transferase 22 U/L (5-31); Blood Urea Nitrogen 16 mg/dL (9-16); Calcium 9.0 mg/dL (8.4-10.2); Carbon Dioxide 30 mmol/L (22-29); Chloride 105 mmol/L (96-108); Cholesterol 188 mg/dL (<200); Estimated Glomerular Filt Rate > 60; HDL Cholesterol 53 mg/dL (>40); Potassium 4.1 mmol/L (3.3-5.1); Sodium 139 mmol/L (135-145); Total Protein 6.9 g/dL (6.5-8.0); Triglycerides 93 mg/dL (<150)
[2025-08-10 15:49] LABS: Iron 43 mcg/dL (30-160); Percent Iron Saturation 12 % (15-50); Total Iron Binding Capacity 368 mcg/dL (228-428); Unsaturated Iron Binding 325 ug/dL
[2025-08-10 16:03] LABS: Ferritin 3 ng/mL (10-122)
[2025-08-11 07:50] LABS: Syphilis Screen Nonreactive (Nonreactive)
[2025-08-11 08:03] LABS: HBS Num1 21.97 mIU/mL (0-7.99); HBc Num1 0.08 S/CO (0.00-0.79); HBsAGNum1 0.37 S/CO (0.00-0.99); HIV Num 1 0.05 S/CO (0.00-0.99); Hepatitis B Surface Antigen Negative (Negative); ~HepC Num1 0.10 S/CO (0.00-0.79); ~Hepatitis B Surface Antibody REACTIVE (Nonreactive); ~Hepatitis C Antibody Nonreactive (Nonreactive)
== END 2025-08-10 10:05 | disposition home or self-care (01) ==
LOC: HO.HHCL 10:04
PROVIDERS: PCP Student in an Organized Health Care Education/Training Program; Visit Provider Student in an Organized Health Care Education/Training Program
DX: R93.3 Abnormal findings on diagnostic imaging of other parts of digestive tract (principal); R10.13 Epigastric pain; Z79.899 Other long term (current) drug therapy; Z00.00 Encounter for general adult medical examination without abnormal findings; Z11.4 Encounter for screening for human immunodeficiency virus [HIV]
CPT/HCPCS: 80053; 80061; 82728; 83036; 83540; 84443; 85025; 86704; 86706; 86780; 86803; 87340; 87389

== ENCOUNTER 2025-08-13 15:38 | Outpatient (AMB) | payer OTHER, SELFPAY ==
--- NOTE | 2025-08-13 15:57 | A.OFFVIS_ITS ---
Intake Visit Reasons: GOLDEN Allergies watermelon Allergy (Severe, Verified 08/13/25 15:59) ANAPHYLAXIS pollen Allergy (Unknown, Uncoded 08/13/25 15:59) rash Medication List - Last Reconciled 08/13/25 by Uma Hough CNP albuterol sulfate 5 mg inhalation Q4H PRN albuterol-budesonide 90-80 mcg/actuation (Airsupra) 2 inhalations inhalation BID amoxicillin-pot clavulanate 875-125 mg 1 tab PO BID 5 days benzonatate 100 mg PO BID PRN 7 days benzonatate 100 mg PO TID PRN cyclobenzaprine 10 mg PO TID PRN guaifenesin 200 mg PO Q6H PRN ibuprofen 600 mg PO TID PRN ketorolac 10 mg PO TID PRN 5 days magnesium oxide 400 mg PO BEDTIME naproxen 500 mg PO BID PRN naproxen (Naprosyn) 500 mg PO BID ondansetron 4 mg PO Q6H PRN ondansetron 4 mg PO Q6H PRN ondansetron 4 mg PO Q8H PRN oseltamivir (Tamiflu) 75 mg PO BID 5 days polymyxin B sulf-trimethoprim 10,000 unit- 1 mg/mL 1 drp ophthalmic (eye) Q3H 7 days prednisone 20 mg PO DAILY 7 days tizanidine 2 mg PO Q8H PRN tramadol 50 mg PO Q8H PRN verapamil 40 mg PO DAILY HPI Comments Details: She stopped topiramate and amitriptyline as she was trying to conceive, but migraines were worse without medications. She saw her PCP who started her on verapamil 40mg daily which seems to be helping, but medication was not lasting through day. Previously, migraines were about 1-2x/week and relieved with sumatriptan. Sleeping about 8 hours/night. In 2019, she started with constant, throbbing/stabbing headache to R side of head with occasional radiation to neck and R eye. It was associated with photophobia and sonophobia, particularly on right side, along with nausea and vomiting. Blurry vision in R eye. No triggers identified aside from headaches being worse when hair pulled up. She tried sumatriptan, Excedrin every 8 hours for 1 year without relief, and occasional ibuprofen. [facility] Medical History Abnormal CT scan, gastrointestinal tract Migraine Asthma Cocaine abuse in remission Opioid use disorder Alcohol use disorder, moderate, in early remission Post-traumatic stress disorder, unspecified Major depressive disorder, recurrent severe without psychotic features Surgical History History of delivery Family History Father HTN (hypertension) Cancer Paternal Grandfather Stomach cancer Social History Household Members: Significant Other Alcohol intake: former Patient Tobacco Use Status: Former Tobacco user Substance Use Type: Marijuana Review of Systems Const Denies chills, Denies daytime sleepiness, Denies difficulty sleeping, Denies fatigue, Denies fever(s), Denies frequent falls, Reports headache(s), Denies increased appetite, Denies poor appetite, Denies snoring, Denies weakness, Denies weight gain and Denies weight loss Eyes Denies loss of vision ENT Denies vertigo, Denies dizziness, Reports headache(s) and Denies neck pain Card Denies chest pain at rest, Denies chest pain with activity, Denies syncope, Denies leg edema, Denies palpitations, Denies dyspnea and Denies dyspnea on exertion Resp Denies cough, Denies dyspnea, Denies dyspnea on exertion and Denies snoring GI Denies abdominal pain, Denies constipation, Denies heartburn, Denies diarrhea and Denies nausea Denies urinary frequency, Denies urinary incontinence and Denies urinary urgency Musc Denies abnormal gait, Denies back pain, Denies myalgias, Denies arthralgias, Denies neck pain, Denies numbness and Denies tingling Neuro Denies abnormal gait, Denies vertigo, Denies dizziness, Denies syncope, Denies frequent falls, Reports headache(s), Denies lack of coordination, Denies loss of vision, Denies memory loss, Denies numbness, Denies Other visual disturbances, Denies restless legs, Denies seizure-like activity, Denies tingling, Denies paresthesias, Denies tremor(s) and Denies weakness Psych Reports anxiety, Reports depression, Denies auditory hallucinations, Denies memory loss and Denies visual hallucinations Endo Denies fatigue and Denies palpitations Physical Exam Const Other: General Appearance:? normal, in no acute distress. Heart:? S1, S2 normal, no murmurs. Lungs:? clear anteriorly and posteriorly. Musculoskeletal:? normal. Extremities:? no edema. Psych:? alert, oriented, cognitive function intact, cooperative with exam. Neuro Other: Abnormal Neurological Findings:?none.? Mental Status: alert and oriented X 3. Normal attention, orientation, memory, and affect. Cranial Nerves: Pupils are equal, round, and reactive to light. External ocular muscles are intact. Visual stacy are full, no ptosis. Face is symmetrical, no facial weakness or droop. Facial sensations are normal. Tongue protrudes in midline. Palate elevates symmetrically. Shoulder shrugging is normal Motor Examination: Normal muscle tone, bulk and strength. No atrophy or fasciculations. No drift of the extended upper extremities. DTR 2+. Plantars are flexor. Sensory Exam: Normal light touch, temperature, pinprick, vibration, and joint- position sensations. Rhomberg sign is absent. Coordination: No ataxia. No titubation. Ylusbl-zy-pekf, qonm-ntkp-uovt test, and rapid alternating movements were normal. Gait Exam: Within normal limits. Cerebellar Signs: Ixvjfu-xj-frbs and wiiy-eo-agoj is normal. No dysdiadochokinesia. Extrapyramidal System: No tremor, rigidity with normal facial expressions. No bradykinesia. No bradyphrenia. Normal arm swing and posture. No propulsion or retropulsion. Speech: Normal. No dysphasia or dysarthria. Results Reviewed Results Reviewed: CT brain 04/26/23 04/23/23 MRI brain Assessment & Plan Assessment & Plan (1) Migraine: Code(s): G43.909 - Migraine, unspecified, not intractable, without status migrainosus Category: Medical Qualifiers: Migraine type: unspecified Status migrainosus presence: without status migrainosus Intractability: not intractable Qualified Code(s): G43.909 - Migraine, unspecified, not intractable, without status migrainosus Plan: She was trying to conceive. She was educated on migraines and medications during . It is best to avoid medications if possible during (especially early ), however migraines worsened after stopping topiramate and amitriptyline, and she was unable to tolerate the increase in migraines. She was started on verapamil 40mg daily by her PCP which was helping, but was not lasting through the day and was interested in higher dose. She was educated on use/safety of verapamil during - may be used in , however limited human data available; risk for bradycardia, hypotension, heart block - recommend using lowest effective dose possible. She verbalized understanding and was interested in trying higher dose. Increase verapamil 40mg 1 tablet twice a day. (2) Chronic tension type headache: Code(s): G44.229 - Chronic tension-type headache, not intractable Category: Medical Qualifiers: Intractability: not intractable Qualified Code(s): G44.229 - Chronic tension-type headache, not intractable Plan Meds tried: topiramate, amitriptyline, sumatriptan Medications: Changed From verapamil 40 mg PO DAILY To verapamil 40 mg PO BID 60 tabs 2RF 30 days Coding Level of Care Code Est Pt Level 4 (92836) Diagnoses Migraine without status migrainosus, not intractable, unspecified migraine type G43.909 Migraine type: unspecified Status migrainosus presence: without status migrainosus Intractability: not intractable Chronic tension-type headache, not intractable G44.229 Intractability: not intractable
--- OUTSIDE RECORDS SUMMARY | 2025-08-13 21:46 | XMS_ITS | Data Portability ---
Author Organization [facility] DOTTIE/AALIYAH, DOT Address [address] [place] [address] Care Team Providers Care Senior Product Consultant Name Role Phone [facility] Primary Care Provi shorty Assessment No assessment recorded. Plan of Treatment Reminders Order Date Submit Date Provider Last Modified By Organization Details Last Modified Time Details Appointments None recorde d. Lab glucose , fingers tick, blood 2020 021 [facility], [address] [place] [address], [phone], 16:01:33 lipid panel, blood 2020 [email or web address], [address] [place] [address], [phone], 16:01:32 Referral orthope dic referra l - ongoing right wrist pain, please eval 2020 021 kavita Salazar , [address] [place], [address], 08:23:06 Procedures None recorde d. Surgeries None recorde d. Imaging None recorde d. Medication Orders Augment in 875 mg-125 mg tablet 2019 020 [email or web address][id number], [address] [place], [address], 13:38:44 Patient TargetsNo targets recorded. Patient InstructionsNo instructions recorded. Reason for Referral Orthopedic Referral for Pain of right hand ongoing right wrist pain, please eval Referring Physician: Sylwia Gutierrez, Internal Medicine, Encounter Date: 02/25/2021 Results Created Date Observation Date Name Description Value Unit Range Abnormal Flag Note LastModifiedBy Organization Detail LastModifiedTime 02/26/20 21 02/25/2021 lipid panel , blood LDL: 133 Not Available [address], [address], 02/25/2021 13:15:03 02/26/20 21 02/25/2021 lipid panel , blood HDL: 35 Not Available [address], [address], 02/25/2021 13:15:03 02/26/20 21 02/25/2021 lipid panel , blood Total Cholesterol: 181 Not Available [facility] [address], [address], 02/25/2021 13:15:03 02/26/20 21 02/25/2021 lipid panel , blood Non HDL: 146 Not Available [facility] [address], [address], 02/25/2021 13:15:03 02/26/20 21 02/25/2021 lipid panel , blood TCHDL: 5.1 Not Available [address], [address], 02/25/2021 13:15:03 02/26/20 21 02/25/2021 gluco se, finge rstic k, blood Blood Glucose: mg/dl 90 Not Available [facility] [address], [address], 02/25/2021 13:14:56 Result Notes None recorded. Problems Name Problem SNOMED Code Status Onset Date Resolution Date Notes Provider Name and Address Organization Details Recorded Time History of iron deficiency 571379511 Active 2020 CYRUS Mckenzie/AALIYAH 13:39:32 section Active 2020 x2 CYRUS Mckenzie/AALIYAH 1 13:40:00 History of mood disorder 447866492 Active 2020 Sylwia liu [facility] 1 13:40:13 Cannabis dependence 78090136 Active 2020 daily Sylwia liu [facility] 1 13:40:45 Drinking binge 254771956 Active 2020 1-2 times per month drinks a six pack Sylwia liu [facility] 13:41:28 Problem Notes None recorded. Procedures Surgical History Date Name Laterality Status Provider Name and Address Organization Details Recorded Time section completed Sylwia Gutierrez [facility] 02/25/2021 13:45:08 Imaging Results None recorded. [...] Updated DateTime 09/12/2019 100 [degF] Colleengillian Grayson [facility] 09/12/2019 13:30:23 Date Recorded Body height Heart rate Respiratory rate Body temperature Body mass index (BMI) Body weight Oxygen saturation Systolic And Diastolic Provider Name and Address Organization Details Last Updated DateTime 1 152.4 cm 68 /min 12 /min 98.1 [degF] 26.4 kg/m2 00337.9 7 g 100 % 112/70 mm[Hg] Colleen Kenan [facility] 1 13:06:48 Social History Question Answer Notes LastModified by Organizat ion Details LastModified Time Tobacco Smoking Status Former Smoker Sylwia liu [facility] 02/25/2021 13:43:12 Are You Blind Or Do You Have Difficulty Seeing? No Information not available 02/25/2021 Are You Deaf Or Do You Have Serious Difficulty Hearing? No Information not available 02/25/2021 What Type Of Diet Are You Following? REGULAR Information not available 02/25/2021 What Is The Highest Grade Or Level Of School You Have Completed Or The Highest Degree You Have Received? [id number] Information not available 02/25/2021 Do You Use [...] Functional Status Question Answer Note LastModified by [employer] Details LastModified Time Do you use [...] difficulty concentrating, remembering or making decisions? No [email or web address] Information no t available 02/25/2021 Family History [...] ICD10 Code Diagnosis IMO Codes Diagnosis Note [id number] FANNY Welsh [facility] [address] [place] [address] [place] [address] 09/12/2019 13:25:00 09/12/2019 13:54:07 Acute sinusitis 51403036 J01.90 - hydrate - dehumidifi er - mucinex - robitussin - f/u as needed - tylenol for fever - note to work [address] SYLWIA HIRAM [address] [place] [address] 02/25/2021 13:00:15 02/27/2021 15:55:13 Pain of right hand 4446341109 16171 M79.641 ongoing right wrist painplease eval Adult heal th examination 948959735 Z00.00 Health Wellness: discussed seat belt wear 100% of time sunblock and sun avoidance, all seasons exercise encouraged 150min a week in > 20min episodes. Active job does not accomplish the same thing and this requires formal exercise. 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 Smoking Cessationn o MJ Cannabis dependence 0505 6931 F12.20 stop counseled to herpuma hines neg of mj use Drinking binge 694144305 F10.10 < 3 in a sitting but only drinks monthly History of iron deficiency 696252534 Z86.39 check CBC History of mood disorder 038511392 Z86.59 she has self reffered to [facility] Concerns Section Related Observation LastModified by Organization Detai ls LastModified Time None Recorded Concern Status LastModified by Organization Details LastModified Time None Recorded Advance Directives Directive None Recorded Payers Insurance Date Sequence Insurance Name Policy Number Policy Carias Covered Member ID Carias Member ID Guarantor Name 09/12/2019 1 DANI (PPO) [id number] Carmina Fong [id number] Carmina Fong Notes Date Note Type Note Provider Name and Address Organization Details Recorded Time 09/12/2019 text/html Head and chest cold for more than a week. Headache, rib pain due to cough, sinus pain/pressure and dizziness due to inner ear fullness. Denies chest pain, SOB. FANNY Welsh [address] [facility], [address], [place], [address], [place] - PMA/WIP 09/12/2019 13:47:47 02/25/2021 text/html [...]
--- OUTSIDE RECORDS SUMMARY | 2025-08-13 21:46 | XMS_ITS | Encounter Summary ---
Author Organization [employer] Address [address] [facility] [address] [place] [address] Care Team Providers Care Stamping Machine Operator Name Role Phone Yamileth Anand MD Primary Care Pro vider Reason for Visit * Reason Onset Date Comments Lab Orders 08/10/2025 Encounter Details Date Type Department Care Team (Latest Contact Info) Description 08/10/2025 Results Follow-Up [facility] [address] [place] [phone] Yamileth Anand MD [address] [place] [address] POCT Urine , CBC auto differential, Comprehensive Metabolic Panel, Additional followed-up results: 5 Social History Tobacco Use Types Packs/Day Years [...] encounter Miscellaneous Notes * Telephone Encounter - Tresa Roberts RN - 08/12/2025 9:28 AM EST Telephone call to pt x2, informed labs show low iron and mild anemia. Pt confirms heavy menstrual periods and has been trying to make dietary changes in incorporate iron. Educated on additional foodsto try. She would like to try medication supplement three times a week. Will send message to PCP, no further questions. * Telephone Encounter - Tresa Roberts RN - 08/11/2025 9:12 AM EST Telephone call x1 to pt to advise of below result. No answer, left voicemail to call back. Will task to call again. * Telephone Encounter - Tresa Roberts RN - 08/11/2025 9:06 AM EST ----- Message from Nurse Tresa Maldonado sent at 08/10/2025 4:10 PM EST ----- ----- Message ----- From: Yamileth Lamas MD Sent: 08/10/2025 4:07 PM EST To: Tresa Roberts RN Please can you check w pt is having heavy menstrual periods Noted from labs mild anemia and low iron panel Will advise pt to improve iron in diet and if interested can prescribe iron 3 times a week otherwise to eat more greens leaf vegetables ,red meat once a week ,beens Thanks ----- Message ----- From: Interface, Lab Results In Sent: 08/10/2025 4:04 PM EST To: Yamileth Lamas MD * Telephone Encounter - Tresa Roberts RN - 08/10/2025 3:20 PM EST Called [facility] lab, spoke with Yamileth who confirmed iron and ferritin can be added on. Pended orders andfaxed to [phone] attention Yamileth. Confirmation received. * Telephone Encounter - Tresa Roberts RN - 08/10/2025 3:11 PM EST ----- Message from Yamileth Lamas MD sent at 08/10/2025 2:42 PM EST ----- Please add on to recent labs iron and ferritin Thanks ----- Message ----- From: Swathi Thomas MA Sent: 06/30/2025 10:11 AM EST To: Yamileth Lamas MD * Result Encounter Note - Yamileth Lamas MD - 08/10/2025 2:43 PM EST please can you call pt and schedule an apt with me for f up as requested at last apt to go over labs,asthma and migraine GOLDEN Thanks * Result Encounter Note - Yamileth Lamas MD - 08/10/2025 2:42 PM EST Please add on to recent labs iron and ferritin Thanks documented in this encounter Plan of Treatment Upcoming Encounters Date Type Department Care Team (Late st Contact Info) Description 11/06/2025 9:00 AM EST Office Visit [facility] [address] [place] [phone] Yamileth Anand MD [address] [place], [place] [phone] documented as of this encounter Procedures Procedure Name Priority Date/Time Associated Diagnosis Comments IRON AND TOTAL IRON BINDING CAPACITY Routine 08/10/2025 11:01 AM EST Annual physical exam FERRITIN Routine 08/10/2025 11:01 AM EST Annual physical exam documented in this encounter Results * (ABNORMAL) Iron And Total Iron Binding Capacity (08/10/2025 11:01 AM EST) Iron 43 30 - 160 mcg/dL [facility] Total Iron Binding Capacity 368 228 - 428 mcg/dL [facility] Percent Iron Saturation 12(L) 15 - 50 % [facility] Unsaturated Iron Binding 325 ug/dL [facility] Blood Venous blood specimen / Unknown 08/10/2025 11:01 AM EST 08/10/2025 1:06 PM EST us Yamileth Lamas MD LAB BLOOD ORDERAB LES Edited Result - Final [facility] [address] [place] [phone] * (ABNORMAL) Ferritin (08/10/2025 11:01 AM EST) Ferritin 3(L) 10 - 122 ng/mL [facility] Blood Venous blood specimen / Unknown 08/10/2025 11:01 AM EST 08/10/2025 1:06 PM EST us Yamileth Lamas MD LAB BLOOD ORDERAB LES Final Result [facility] [address] [place] [address] [phone] documented in this encounter Visit Diagnoses Diagnosis Annual physical exam Routine general medical examination at a health care facility documented in this encounter Additional Health Concerns Assessment Noted Time PHQ-9 Depression Total Score: 7 06/30/20 25 10:15 AM EDT documented as of this encounter Care Teams Stamping Machine Operator Relationship Specialty Start Date End Date Yamileth Anand MD [address] [place] [address] PCP - General Internal Medicine 12/26/22 Michelle Malloy Database EngineerPuppet Master 11/15/23 documented as of this encounter
--- OUTSIDE RECORDS SUMMARY | 2025-08-13 21:46 | XMS_ITS | Encounter Summary ---
Author Organization [employer] Address [address] [facility] [address] [place] [address] Care Team Providers Care Neon Glass Bender Name Role Phone Yamileth Anand MD Primary Care Pro vider Reason for Visit * Reason Onset Date Comments Med Refill 02/23/2024 Encounter Details Date Type Department Care Team (Late st Contact Info) Description 02/23/2024 Refill [facility] [address] [place] [address] Yamileth Anand MD [address] [place], [place] [phone] Social History Tobacco Use Types Packs/Day Years [...] Description 11/06/2025 9:00 AM EST Office Visit [facility] [address] [place] [phone] Yamileth Anand MD [address] [place] [phone] documented as of this encounter Visit Diagnoses Not on filedocumented in this encounter Additional Health Concerns Assessment Noted Time PHQ-9 Depression Total Score: 0 02/29/20 23 11:13 AM EDT documented as of this encounter Care Teams Neon Glass Bender Relationship Specialty Start Date End Date Yamileth Anand MD [address] [place] [phone] PCP - General Internal Medicine 12/26/22 Michelle Malloy Veterans' CounselorSecurity Guard Dispatcher 11/15/23 documented as of this encounter
--- OUTSIDE RECORDS SUMMARY | 2025-08-13 21:46 | XMS_ITS | Encounter Summary ---
Author Organization [employer] Address [address] [facility] [address] [place] [address] Care Team Providers Care Pharmacy Affairs Assistant Name Role Phone Yamileth Anand MD Primary Care Pro vider Encounter Details Date Type Department Care Team (Late st Contact Info) Description 08/12/2025 Orders Only [facility] [address] [place], [place] [phone] Yamileth Anand MD [address] [place], [place] [phone] Social History Tobacco Use Types Packs/Day Years [...] your housing situation today? I have patricia cony 06/30/[address] you li [...] Description 11/06/2025 9:00 AM EST Office Visit [facility] [address] [place] [phone] Yamileth Anand MD [address] [place] [phone] documented as of this encounter Visit Diagnoses Not on filedocumented in this encounter Additional Health Concerns Assessment Noted Time PHQ-9 Depression Total Score: 7 06/30/20 25 10:15 AM EDT documented as of this encounter Care Teams Pharmacy Affairs Assistant Relationship Specialty Start Date End Date Yamileth Anand MD [address] [place] [phone] PCP - General Internal Medicine 12/26/22 Michelle Malloy Glass TechnicianSalesperson [employer] 11/15/23 documented as of this encounter
--- OUTSIDE RECORDS SUMMARY | 2025-08-13 21:46 | XMS_ITS | Encounter Summary ---
Author Organization [employer] Address [address] [facility] [address] [place] [address] Care Team Providers Care Coffee Blender Name Role Phone Yamileth Anand MD Primary Care Pro vider Reason for Visit * Reason Onset Date Comments Return to sender Letter 08/13/2025 Encounter Details Date Type Department Care Team ([facility] st Contact Info) Description 08/13/2025 Telephone [facility] [address] [place] [address] Yamileth Anand MD [address] [place], [place] [phone] Return to sender Letter Social History Tobacco Use Types Packs/Day Years [...] encounter Miscellaneous Notes * Telephone Encounter - Swathi Thomas MA - 08/13/2025 2:37 PM EST Patient letter returned to sender. T/C-Cargo Inspector called and Patient confirmed Address and it is unknown why letter was returned. Cargo Inspector was still able to book recall for 11/06/25 at 9 AM. documented in this encounter Plan of Treatment Upcoming Encounters Date Type Department Care Team (Late st Contact Info) Description 11/06/2025 9:00 AM EST Office Visit [facility] [address] [place] [phone] Yamileth Anand MD [address] [place] [address] documented as of this encounter Visit Diagnoses Not on filedocumented in this encounter Additional Health Concerns Assessment Noted Time PHQ-9 Depression Total Score: 7 06/30/20 25 10:15 AM EDT documented as of this encounter Care Teams Coffee Blender Relationship Specialty Start Date End Date Yamileth Anand MD [address] [place] [address] PCP - General Internal Medicine 12/26/22 Michelle Malloy [facility] AdministratorImplementation Engineer 11/15/23 documented as of this encounter
--- OUTSIDE RECORDS SUMMARY | 2025-08-13 21:47 | XMS_ITS | Clinical Summary ---
Author Organization [employer] Address [address] [place] [address] Care Team Providers Care Surgical Physician Assistant Name Role Phone Yamileth Anand MD [...] mouth Once per day. 90 capsule 1 5 Active verapamil (Calan) 40 MG tablet Take 1 tablet (40 mg) by mouth Once per day. 30 tablet 2 5 07/09/20 26 Active ferrous gluconate (Fergon) 324 (38 Fe) MG tablet Take 1 tablet (324 mg) by mouth 3 (three) times a week. 12 tablet 2 5 08/12/20 26 Active Active Problems Problem Noted Date [...] per pt -normal ---referred back to her RESPIRATORY THERAPY DIRECTOR but has apt here -contraception: none -vaccines:s/phepAx2,hepBx3--not immune wants to start series today ,HPVx3,MMRx2,varicellax2,meningococcalx2,COvid 19x3 and Bivalent x1,TD 2019 Assessment & Plan (02/28/2023 12:25 PM EDT): -Quantiferon 09/2022 Neg -pap smear : > 4 y ago per pt -normal ---referred today back to her RESPIRATORY THERAPY DIRECTOR -contraception: none , pt would like to become -not able x last 4 years -vaccines: s/p hepAx2,hepBx3,HPVx3,MMRx2,varicellax2,meningococcalx2,COvid 19x3 and Bivalent x1,TD 2018 -labs x annual exam today-in fasting -pt agreed to have STI testing including HIV to have for baseline Irregular periods 02/28/2023 Assessment & Plan (03/29/2023 9:17 PM EDT): Pt reports hx of irregular periods -states seen before at [facility]-RESPIRATORY THERAPY DIRECTOR x this -CT abd/pelvis w contrast 12/24/2018 : 2 mm solid non calcified nodule in right lower lobe ,reported as unlikely of clinical significance. Also reports 2 cm right adnexal mass with peripheral enhancement most likely a corpus luteal cyst -pelvic US 12/23/2018: dominant follicle vs cyst in right ovary 1.6x1.5x1.9 cm -referred back to her RESPIRATORY THERAPY DIRECTOR at [facility] to continue care for ovarian cyst [...] of irregular periods -states seen before at [facility]-RESPIRATORY THERAPY DIRECTOR x this -CT abd/pelvis w contrast 12/24/2018 : 2 mm solid non calcified nodule in right lower lobe ,reported as unlikely of clinical significance. Also reports 2 cm right adnexal mass with peripheral enhancement most likely a corpus luteal cyst -pelvic US 12/23/2018: dominant follicle vs cyst in right ovary 1.6x1.5x1.9 cm -referred today back to her RESPIRATORY THERAPY DIRECTOR at [facility] to continue care for ovarian cyst ,reported infertility and for pap smear -as well advised pt to discuss about mother's hx of breast ca at Early age --if not evaluated by RESPIRATORY THERAPY DIRECTOR will discuss at her next apt w [...] using less frq Pt interested in -saw water tester aprox 08/2022 -w normal eval per pt [...] doses of triptanes Pt interested in -saw water tester aprox 08/2022 -w normal eval per pt [...] organization. Date Type Department Care Team Description 08/13/2025 [address] [place] [address] Yamileth Anand MD Return to sender Letter 08/12/2025 Orders Only [address] [place] [address] Yamileth Anand MD 08/10/2025 Results Follow-Up [address] [address] Yamileth Anand MD POCT Urine , CBC auto differential, Comprehensive Metabolic Panel, Additional followed-up results: 5 07/24/2025 [address]phone [address] [place] [address] Yamileth Anand MD feb recall 07/13/2025 Telephone [facility] [address] [place], [place] [address] [place] [address] Lizz Johnson [place] 07/09/2025 Orders Only [address] [address] Yamileth Anand MD 07/09/[address] [address] Hilary Suarez, grinder and honer operator automatic Question 07/06/2025 Orders Only [address] [address] Yamileth Anand MD 07/06/2025 Orders Only [address] [address] Yamileth Anand MD 06/30/2025 9:15 AM EDT Office Visit [facility] [address] [place] [address] Yamileth Anand MD Cannabis dependence (HCC) (Primary Dx); Dietary counseling; Exercise counseling; Bipolar 1 disorder ([facility]) (HCC); Moderate persistent asthma, unspecified whether complicated; Moderate persistent asthma without complication; Other migraine without status migrainosus, not intractable; Epigastric pain; Abnormal CT of the abdomen; Annual physical exam; Overweight (BMI 25.0-29.9); Encounter for immunization; Health care maintenance; Recurrent major depressive disorder, in partial remission ([facility]) 06/30/2025 Travel 06/29/[address] [address] Yamileth Anand MD chartprep 06/23/2025 Patient Outreach [address] [address] Yamileth Anand MD Pre-visit Planning (Pre-visit planning - LVM ) 05/18/2025 Orders Only GENERIC EXTERNAL DATA DEPARTMENT Provider, Generic External Data 05/18/[address] [address] Yamileth Anand MD Nurse Triage from Last [...] 06/30/2025 9:24 AM EDT Plan of Treatment Upcoming Encounters Date Type Department Care Team (Late st Contact Info) Description 11/06/2025 9:00 AM EST Office Visit [facility] [address] [place] [address] Yamileth Anand MD [address] [place] [address] Health Maintenance Due Date Last Done Comments Family Planning (PISQ) 12/25/2010 Pap Smear 12/25/2016 Alcohol/Substance Use Screening 06/30/2026 06/30/2025 Depression Screening 06/30/2026 06/30/2025, 06/30/20 Disability Screening 06/30/2026 06/30/2025 SDOH Screening 06/30/2026 [...] patient's age to complete this topic Hepatitis B Vaccines Completed 04/30/2023, 03/29/2023, 08/28/1996, Additional history exists Pneumococcal Vaccine: Pediatrics (0 to 5 Years) and At-Risk Patients (6 to 49) Years Completed 06/27/2024 COVID-19 Vaccine Completed 06/30/2025, , 10/03/2022, Additional history exists Influenza Vaccine Completed 06/30/2025, , 07/04/2018, Additional history exists HIV Screening Completed 08/10/2025, 02/28/2023 Hepatitis C Screening Completed 08/10/2025, 023 HIB Vaccines Aged Out No longer eligi [...] 08/10/2025 11:01 AM EST Annual physical exam TSH W/REFLEX TO FT4 Routine 08/10/2025 1 1:01 AM EST Annual physical exam SYPHILIS SCREEN Routine 08/10/2025 11:01 AM EST Annual physical exam LIPID PANEL, STANDARD Routine 08/10/2025 11:01 AM EST Annual physical exam HIV 1/2 ANTIGEN/ANTIBODY, FOURTH GENERATION W/RFL Routine 08/10/2025 11:01 AM EST Annual physical exam HEPATITIS C AB W/REFL TO HCV RNA, QN, PCR Routine 08/10/2025 11:01 AM EST Annual physical exam HEPATITIS B SURFACE ANTIBODY, QUALITATIVE Routine 08/10/2025 11:01 AM EST Annual physical exam HEPATITIS B SURFACE ANTIGEN, EIA Routine 08/10/2025 11:01 AM EST Annual physical exam HEPATITIS B CORE AB TOTAL Routine 08/10/2025 11:01 AM EST Annual physical exam HEMOGLOBIN A1C Routine 08/10/2025 11:01 AM EST Annual physical exam COMPREHENSIVE METABOLIC PANEL Routine 08/10/2025 11:01 AM EST Annual physical exam CBC WITH AUTO DIFFERENTIAL Routine 08/10/2025 11:01 AM EST Annual physical exam POCT , URINE Routine 06/30/2025 10:11 AM [...] NOW (DOWD) Routine 05/18/2025 11:10 AM EDT from Last 3 Months Results * Syphilis Screen (08/10/2025 11:01 AM EST) Pathologist [facility] Syphilis Screen Nonreactive Nonreactive [facility] Blood 08/10/2025 11:0 1 AM EST 08/10/2025 1:06 PM EST Yamileth Lamas MD LAB BLOOD ORDERAB LES Final Result Performing Organization Address [facility]/ZIP Co de Phone Number [facility] [address] [place] [phone] * TSH with Reflex to Free T4 (08/10/2025 11:01 AM EST) Pathologist [facility] TSH reflex Free T4 1.23 0.32 - 4.0 uIU/mL [facility] Blood 08/10/2025 11:0 1 AM EST 08/10/2025 1:06 PM EST us Yamileth Lamas MD LAB BLOOD ORDERAB LES Final Result Performing Organization Address City/[facility]/ZIP Co de Phone Number [facility] [address] [place] [phone] * (ABNORMAL) CBC auto differential (08/10/2025 11:01 AM EST) Only the most recent of2 resultswithin the time period is included. Pathologist [facility] White Blood Count 6.8 4.8 - 10.8 X10*3/uL [facility] Red Blood Count 4.54 4.20 - 5.50 X10*6/uL [facility] Hemoglobin 11.7(L) 12.0 - 16.0 g/dl [facility] Hematocrit 36.8(L) 37.0 - 47.0 % [facility] Mean Corpuscular Volume 81.1 80.0 - 98.0 fL [facility] Mean Corpuscular Hemoglobin 25.8(L) 27.0 - 33.0 pg [facility] Mean Corpuscular HGB Conc 31.8 31.0 - 35.0 g/dl [facility] Red Cell Distribution Width 14.8 11.0 - 16.0 % [facility] Platelet Count 278 160 - 400 X10*3/uL [facility] Mean Platelet Volume 9.3(L) 9.4 - 12.3 fL [facility] Neutrophils Percent Auto 51.5 45 - 73 % [facility] Imm Gran Pct Auto 0.1 0.0 - 0.4 % [facility] Lymphocytes Percent Auto 37.3 20 - 40 % [facility] Monocytes Percent Auto 8.7 2 - 11 % [facility] Eosinophils Percent Auto 1.8 0 - 4 % [facility] Basophils Percent Auto 0.6 0 - 2 % [facility] NRBC Pct Auto 0.0 0.0 - 0.2 /100WBC [facility] Neutrophils Absolute Auto 3.5 2.0 - 8.3 x10*3/uL [facility] Imm Gran Abs Auto 0.01 0.00 - 0.03 X10*3/uL [facility] Lymphocytes Absolute Auto 2.5 1.2 - 4.9 X10*3/uL [facility] Monocytes Absolute Auto 0.6 0.1 - 1.2 X10*3/uL [facility] Eosinophils Absolute Auto 0.1 0.0 - 0.4 X10*3/uL [facility] Basophils Absolute Auto 0.0 0.0 - 0.2 X10*3/uL [facility] NRBC Abs Auto 0.000 0.0 - 0.012 X10*3/uL [facility] Blood Venous blood specimen / Unknown 08/10/2025 11:01 AM EST 08/10/2025 1:06 PM EST Yamileth Lamas MD LAB BLOOD ORDERAB LES Final Result Performing Organization Address [facility] Co de Phone Number [facility] [address] [place] [phone] * Hepatitis C Antibody with Reflex to HCV, RNA, Quantitative, Real-Time PCR (08/10/2025 11:01 AM EST) Hepatitis C Antibody Nonreactive Nonreactive [facility] Comment:Antibodies to HCV no t detected; does not exclude early acuteHCV infection. Blood Venous blood specimen / Unknown 08/10/2025 11:01 AM EST 08/10/2025 1:06 PM EST us Yamileth Lamas MD LAB BLOOD ORDERAB LES Final Result Performing Organization Address [facility] de Phone Number [facility] [address] [place] [phone] * (ABNORMAL) Iron And Total Iron Binding Capacity (08/10/2025 11:01 AM EST) Pathologist [facility] Iron 43 30 - 160 mcg/dL [facility] Total Iron Binding Capacity 368 228 - 428 mcg/dL [facility] Percent Iron Saturation 12(L) 15 - 50 % [facility] Unsaturated Iron Binding 325 ug/dL [facility] Blood Venous blood specimen / Unknown 08/10/2025 11:01 AM EST 08/10/2025 1:06 PM EST us Yamileth Lamas MD LAB BLOOD ORDERAB LES Edited Result - Final Performing Organization Address [facility] Co de Phone Number [facility] [address] [place] [phone] * Hepatitis B surface antigen, EIA (08/10/2025 11:01 AM EST) Hepatitis B Surface Ag Negative Negative [facility] Blood Venous blood specimen / Unknown 08/10/2025 11:01 AM EST 08/10/2025 1:06 PM EST Yamileth Lamas MD LAB BLOOD ORDERAB LES Final Result Performing Organization Address City/[facility]/ZIP Co de Phone Number [facility] [address] [place] [phone] * Hepatitis B Core Antibody, Total (08/10/2025 11:01 AM EST) Hepatitis B Core Antibody Nonreactive Nonreactive [facility] Blood Venous blood specimen / Unknown 08/10/2025 11:01 AM EST 08/10/2025 1:06 PM EST Yamileth Lamas MD LAB BLOOD ORDERAB LES Final Result Performing Organization Address [facility] Co de Phone Number [facility] [address] [place] [phone] * HIV-1/2 Antigen and Antibodies, Fourth Generation, with Reflexes (08/10/2025 11:01 AM EST) Pathologist [facility] HIV AB/AG Nonreactive Nonreactive [facility] Comment:HIV-1 p24 Ag and/or HIV-1/HIV-2 Ab not detected.A test result that is nonreactive does not exclude thepossibility of exposure to or infection with HIV-1 and/orHIV-2. Nonreactive results in this assay for individualswith prior exposure to HIV-1 and/or HIV-2 may be due toantigen and antibody levels that are below the limit ofdetection of this assay.The iAdvize HIV Ag/Ab Combo assay result andsupplemental assay results should be interpreted inconjunction with the patient's clinical presentation,history and other laboratory results. If the results areinconsistent with clinical evidence, additional testing issuggested to confirm the result. Blood Venous blood specimen / Unknown 08/10/2025 11:01 AM EST 08/10/2025 1:06 PM EST Yamileth Lamas MD LAB BLOOD ORDERAB LES Final Result Performing Organization Address [facility] Co de Phone Number [facility] [address] [place] [phone] * Hepatitis B Surface Antibody, Qualitative (08/10/2025 11:01 AM EST) ~Hepatitis B Surface Antibody REACTIVE Nonreactive [facility] Comment:REACTIVE: > 11.99 mI U/mL Blood Venous blood specimen / Unknown 08/10/2025 11:01 AM EST 08/10/2025 1:06 PM EST Yamileth Lamas MD LAB BLOOD ORDERAB LES Final Result Performing Organization Address [facility] Co de Phone Number [facility] [address] [place] [phone] * Hemoglobin A1c (08/10/2025 11:01 AM EST) Hemoglobin A1c 5.6 <6.0 % [facility] Comment:Hemoglobin A1C Refer ence Range Adults: 4.8 - 6.0 % Non diabetic: < 6.0 % Goal: < 7.0 %Additional Action Suggested: > 8.0 %Note: Hemoglobin A1c results are invalid for patients with abnormal amounts of HbF. Blood transfusions may impact the HbA1c concentration in the patient sample. Estimated Average Glucose 114 mg/dL [facility] Comment:eAG = Estimated ave rage glucose which is %A1C expressed asaverage glucose, using the formula of the Y7I-UjbkgocGcdldst Glucose study (ADAG), Diabetes Care, Vol.31,#8,Apr. 2007 Blood Venous blood specimen / Unknown 08/10/2025 11:01 AM EST 08/10/2025 1:06 PM EST Result [facility] Yamileth Lamas MD LAB BLOOD ORDERAB LES Final Result Performing Organization Address City/[facility]/ZIP Co de Phone Number [facility] [address] [place] [phone] * (ABNORMAL) Ferritin (08/10/2025 11:01 AM EST) Ferritin 3(L) 10 - 122 ng/mL [facility] Blood Venous blood specimen / Unknown 08/10/2025 11:01 AM EST 08/10/2025 1:06 PM EST Yamileth Lamas MD LAB BLOOD ORDERAB LES Final Result Performing Organization Address [facility] Co de Phone Number [facility] [address] [place] [phone] * (ABNORMAL) Lipid Panel, Standard (08/10/2025 11:01 AM EST) Triglycerides 93 <150 mg/dL [facility] Comment:Desirable Triglyceri de: less than 150 mg/dLBorderline High Triglyceride 150-199 mg/dLHigh Triglyceride: 200-499 mg/dLVery High Triglyceride: greater than or equal to 5OO mg/dL Cholesterol 188 <200 mg/dL [facility] Comment:Desirable Cholestero l: less than 200 mg/dLBorderline High Cholesterol: 200-239 mg/dLHigh Cholesterol: greater than 239 mg/dL LDL Cholesterol Calculated 117(H) <100 mg/dL [facility] Comment:Desirable LDL: less than 100 mg/dLNear Optimal/Above Optimal LDL: 110- 129 mg/dLBorderline High LDL: 130-159 mg/dLHigh LDL: 160-189 mg/dLVery High LDL: greater than or equal to 190 mg/dL HDL Cholesterol 53 >40 mg/dL [facility] Comment:Desirable HDL: great er than 40 mg/dL Note: This HDL assay may give artificially low results in patients with liver disease. Blood Venous blood specimen / Unknown 08/10/2025 11:01 AM EST 08/10/2025 1:06 PM EST us Yamileth Lamas MD LAB BLOOD ORDERAB LES Final Result [facility] [address] [place] [phone] * (ABNORMAL) Comprehensive Metabolic Panel (08/10/2025 11:01 AM EST) Only the most recent of2 resultswithin the time period is included. Sodium 139 135 - 145 mmol/L [facility] Potassium 4.1 3.3 - 5.1 mmol/L [facility] Chloride 105 96 - 108 mmol/L [facility] Carbon Dioxide 30(H) 22 - 29 mmol/L [facility] Anion Gap 8(L) 12 - 20 [facility] Urea Nitrogen (BUN) 16 9 - 16 mg/dL [facility] Creatinine, Serum 0.79 0.5 - 1.4 mg/dL [facility] Estimated Glomerular Filt Rate >60 [facility] Comment:Chronic Kidney Disea se: Estimated GFR < 60 mL/min/1.79j0Jhqoop Kidney Disease: Estimated GFR < 15 mL/min/1.73m2 Glucose 88 60 - 115 mg/dL [facility] Calcium 9.0 8.4 - 10.2 mg/dL [facility] Bilirubin, Total 0.2 0.0 - 1.0 mg/dL [facility] Aspartate Amino Transferase 22 5 - 31 U/L [facility] Alanine Aminotransferase 19 0 - 31 U/L [facility] Total Protein 6.9 6.5 - 8.0 g/dL [facility] Albumin Level 4.3 3.5 - 5.0 g/dL [facility] Alkaline Phosphatase 50 39 - 117 U/L [facility] Blood Venous blood specimen / Unknown 08/10/2025 11:01 AM EST 08/10/2025 1:06 PM EST us Yamileth Lamas MD LAB BLOOD ORDERAB LES Final Result [facility] [address] [place] [phone] * POCT Urine (06/30/2025 10:11 AM EDT) Preg Test, Ur Negative Negative, Indeterminate, None Detected, Invalid, Specimen unsatisfactory for evaluation, Weakly Positive, 2+ QC Media Lot # [id number] Lot# Expiration Date [id number] Urine 06/30/2025 10:1 1 AM EDT us Yamileth Lamas MD POINT OF CARE NATALIA T ENTER/EDIT ORDERABLES Final Result * CT Abdomen Pelvis w/ Contrast (05/18/2025 1:38 PM EDT) Anatomical Region Laterality Modality Body, Pelvis, Abdomen Computed T omography 05/18/2025 1:38 PM EDT Narrative 05/18/2025 2:27 PM EDT [address] [address] [address] Scan Report Signed Patient: Carmina Fong MR#: [id number] 8 : 1995 Acct:[id number] Age/Sex: 29 / F ADM Date: 05/18/25 Loc: .ED Attending Dr: Ordering Physician: Tien Chew DO Date of Service: 05/18/25 Procedure(s): CT abdomen pelvis w IV con Accession Number(s): [id number] cc: Yamileth Anand MD; Tien Chew DO Report Number: [id number]: Total DLP = 404.00 mGy-cm Reason for [...] Bharat Mendiola MD 05/18/2025 02:24 PM EDT RP Dictated By: Bharat Mendiola MD Signed By: <Electronically signed by Bharat Mendiola MD in OV> 05/18/25 1424 DD/ 1338 TD/TT: 05/18/25 1411 Portable Sawmill Operator: Procedure Note Donotuseinterpreter, Image - 05/18/[address] [address] [address] Scan Report Signed Patient: Ryan Fong#: [id number] 8 : 1995Acct:[id number] Age/Sex: 29 FADM Date: 05/18/25 Loc: HO.ED Attending Dr: Ordering Physician: Tien Chew DO Date of Service: 05/18/25 Procedure(s): CT abdomen pelvis w IV con Accession Number(s): [id number] cc: Yamileth Anand MD; Tien Chew DO Report Number: [id number]: Total DLP = 404.00 mGy-cm Reason for [...] 05/18/25 1424 DD/ 1338 TD/TT: 05/18/25 1411 Portable Sawmill Operator: [facility] External Provider IMG CT PROCEDURES Edited Result - Final * Urinalysis w/reflex microscopic (05/18/2025 12:52 PM EDT) Color Urine Yellow [facility] Appearance Urine Clear [facility] PH 6.0 5.0 - 9.0 [facility] Glucose Urine UA Negative Negative mg/dL [facility] Urine Blood Negative Negative [facility] Specific [place] - Urine <=1.005 1.005 - 1.025 [facility] Urine Protein Negative Neg-Trace mg/dL [facility] Urine Ketones Negative Negative mg/dL [facility] Nitrite Urine Negative Negative [facility] Leukocyte Esterase Urine Negative Negative [facility] 05/18/2025 12:5 2 PM EDT 05/18/2025 12:58 PM EDT Narrative [facility] - 05/18/2025 1:02 PM EDT Urine, Clean Catch us Generic External Data Provider LAB URINE ORDERAB LES Final Result Performing Organization Address City/State/[facility] Co de Phone Number [facility] [address] [place] [phone] * Influenza A B2 ID NOW (MobileMD) (05/18/2025 11:10 AM EDT) IDNOW SERIAL# [id number] [facility] Influenza A Negative Negative [facility] Influenza B2 Negative Negative [facility] Influenza A B2 Note See Note [facility] Comment:The Dowd ID NOW In fluenza [...] EDT us Generic External Data Provider LAB MICROBIOLOGY - GENERAL ORDERABLES Final Result Performing Organization Address City/[facility]/ZIP Co de Phone Number [facility] [address] [place] [phone] * COVID-19 ID NOW (DOWD) (05/18/2025 11:10 AM EDT) IDNOW SERIAL# [id number] [facility] COVID-19 TEST Negative Negative [facility] COVID-19 NOTE See Note [facility] Comment: Results are for the identification of SARS-CoV2 RNA. TheSARS-CoV2 RNA is generally detectable in respiratory samplesduring the acute phase of infection. Positive results areindicative of the presence of SARS-CoV-2 RNA; clinicalcorrelation with patient history and other diagnosticinformation is necessary to determine patient infectionstatus. Positive results do not rule out bacterial infectionor co- infection with other viruses.[facility] facilities within the [facility] and itsterritories are required to [...] GNOSTICS ORDERABLES Final Result Performing Organization Address City/[facility]/ZIP Co de Phone Number [facility] [address] [place] [phone] * hCG, Total, Quantitative (05/18/2025 11:10 AM EDT) HCG Quantitative <2 mIU/mL [facility] Comment:Weeks post LMP Appro ximate hCG(Last Menstrual Period) Range (mIU/ml)3 - 4 weeks 9 - 1304 - 5 weeks 75 - 2,6005 - 6 weeks 850 - 20,8006 - 7 weeks 4000 - 100,2007 - 12 weeks 11,500 - 289,91979 - 16 weeks 18,300 - 137,79979 - 29 weeks (2nd trimester) 1,400 - 53,93789 - 41 weeks (3rd trimester) 940 - [...] Provider LAB BLOOD ORDERAB LES Final Result [facility] [address] [place] [phone] [phone] from Last 3 Months Insurance [facility] , [address] [place] [address] , [place] [phone] Care Teams Surgical Physician Assistant Relationship Specialty Start Date End Date Yamileth Anand MD [address] [place] [phone] PCP - General Internal Medicine 12/26/22 [employer] DeveloperStencil Machine Operator 11/15/23
--- OUTSIDE RECORDS SUMMARY | 2025-08-13 21:47 | XMS_ITS | Encounter Summary ---
Author Organization [employer] Address [address] [place] [address] Care Team Providers Care Automated Teller Manager Name Role Phone Yamileth Anand MD Primary Care Pro vider Encounter Details Date Type Department Care Team (Late st Contact Info) Description 04/26/2023 Orders Only [facility] [address] [place] [address] Sanjana Carrasco LPN Social History Tobacco Use [...] Description 11/06/2025 9:00 AM EST Office Visit [facility] [address] [place] [address] Yamileth Anand MD [address] [place] [address] documented as of this encounter Procedures Procedure [...] (Dowd) (04/26/2023 1:18 PM EDT) IDNOW SERIAL# [id number] [facility] Influenza A Negative Negative [facility] 1:18 PM EDT 04/26/2023 1:24 PM EDT [facility] Exter nal Provider LAB MICROBIOLOGY - GENERAL ORDERABLES Final Result [facility] [address] [place] [phone] * COVID-19 ID NOW (Avantha) (04/26/2023 1:18 PM EDT) IDNOW SERIAL# [id number] [facility] COVID-19 TEST Negative Negative [facility] COVID-19 NOTE See Note [facility] Comment: Results are for the identification of SARS-CoV2 RNA. TheSARS-CoV2 RNA is generally detectable in respiratory samplesduring the acute phase of infection. Positive results areindicative of the presence of SARS-CoV-2 RNA; clinicalcorrelation with patient history and other diagnosticinformation is necessary to determine patient infectionstatus. Positive results do not rule out bacterial infectionor co- infection with other viruses.Testing facilities within the [facility] and itsterritories are required to report all [...] use by authorized laboratories.Testing performed on the girnarsoft ID NOW utilizing NAAT. 04/26/2023 1:18 PM EDT 04/26/2023 1:24 PM EDT [facility] Exter nal Provider LAB MOLECULAR DIAGNOSTICS ORDERABLES Final Result Performing Organization Address City/[facility]/ZIP Co de Phone Number [facility] [address] [place] [address] [phone] * hCG, Total, Quantitative (04/26/2023 1:18 PM EDT) HCG Quantitative <2 mIU/mL [facility] Comment:Weeks post LMP Appro ximate hCG(Last Menstrual Period) Range (mIU/ml)3 - 4 weeks 9 - 1304 - 5 weeks 75 - 2,6005 - 6 weeks 850 - 20,8006 - 7 weeks 4000 - 100,2007 - 12 weeks 11,500 - 289,45110 - 16 weeks 18,300 - 137,55883 - 29 weeks (2nd trimester) 1,400 - 53,65215 - 41 weeks (3rd trimester) 940 - 60,000The Dowd B- hCG assay is used for the early detection ofpregnancy; it cannot be used to diagnose any conditionunrelated to . If a B-hCG level is not supportedby the clinical evidence, results should be confirmed by analternative method (qualitative urine hCG, for example). 04/26/2023 1:18 PM EDT 04/26/2023 1:24 PM EDT [facility] External Provider LAB BLO OD ORDERABLES Final Result Performing Organization Address [facility]/ZIP Co de Phone Number [facility] [address] [place] [address] [phone] * Lipase (04/26/2023 1:18 PM EDT) Lipase 12 8 - 78 U/L [facility] 04/26/2023 1:18 PM EDT 04/26/2023 1:24 PM EDT Generic External Data Provider LAB BLOOD ORDERAB LES Final Result Performing Organization Address [facility]/ZIP Co de Phone Number [facility] [address] [place] [address] [phone] * Magnesium (04/26/2023 1:18 PM EDT) Magnesium 2.1 1.6 - 2.6 mg/dL [facility] 04/26/2023 1:18 PM EDT 04/26/2023 1:24 PM EDT [employer] External Data Provider LAB BLOOD ORDERAB LES Final Result Performing Organization Address [facility]/[place] Co de Phone Number [facility] [address] [place] [phone] * (ABNORMAL) Comprehensive Metabolic Panel (04/26/2023 1:18 PM EDT) Pathologist [facility] Sodium 141 135 - 145 mmol/L [facility] Potassium 3.9 3.3 - 5.1 mmol/L [facility] Chloride 103 96 - 108 mmol/L [facility] Carbon Dioxide 29 22 - 29 mmol/L [facility] Anion Gap 13 12 - 20 [facility] Urea Nitrogen (BUN) 12 9 - 16 mg/dL [facility] Creatinine, Serum 0.80 0.5 - 1.4 mg/dL [facility] Creatinine Clr Calc Pharmacy 96.2 [facility] Comment:Provided height and weight: 154.94 cm,72.575 kg.eGFR (calculated from the MDRD study equation) and eCrCl(calculated from the Cockcroft-Gault equation) are based ondifferent parameters and may not yield comparable results.If eCrCl result is absurd, please check patient'sheight/weight. Estimated Glomerular Filt Rate >60 [facility] Comment:NOTE: For -Am erican individuals, multiply the result by 1.210.Chronic Kidney Disease: Estimated GFR < 60 mL/min/[id number] Kidney Disease: Estimated GFR < 15 mL/min/1.73m2 Glucose 99 60 - 115 mg/dL [facility] Calcium 9.5 8.4 - 10.2 mg/dL [facility] Bilirubin, Total 0.4 0.0 - 1.0 mg/dL [facility] Aspartate Amino Transferase 19 5 - 31 U/L [facility] Alanine Aminotransferase 14 0 - 31 U/L [facility] Total Protein 8.5(H) 6.5 - 8.0 g/dL [facility] Albumin Level 4.5 3.5 - 5.0 g/dL [facility] Alkaline Phosphatase 66 39 - 117 U/L [facility] 04/26/2023 1:18 PM EDT 04/26/2023 1:24 PM EDT [facility] External Provider LAB BLO OD ORDERABLES Final Result Performing Organization Address [facility] Co de Phone Number [facility] [address] [place] [phone] * HCG, Qualitative, Urine (04/26/2023 1:18 PM EDT) [facility] Urine NEGATIVE NEGATIVE [facility] Comment:This test was develo ped to detect early . Falsenegative results may occur after the 5th - 7th week ofpregnancy when using this test method. If clinicallyindicated, consider a serum hCG. 04/26/2023 1:18 PM EDT 04/26/2023 1:24 PM EDT [facility] External Provider LAB URI NE ORDERABLES Final Result Performing Organization Address [facility] Co de Phone Number [facility] [address] [place] [address] [phone] * (ABNORMAL) CBC auto differential (04/26/2023 1:18 PM EDT) [facility] White Blood Count 8.2 4.8 - 10.8 X10*3/uL [facility] Red Blood Count 5.04 4.20 - 5.50 X10*6/uL [facility] Hemoglobin 13.9 12.0 - 16.0 g/dl [facility] Hematocrit 41.4 37.0 - 47.0 % [facility] Mean Corpuscular Volume 82.1 80.0 - 98.0 fL [facility] Mean Corpuscular Hemoglobin 27.6 27.0 - 33.0 pg [facility] Mean Corpuscular HGB Conc 33.6 31.0 - 35.0 g/dl [facility] Red Cell Distribution Width 12.5 11.0 - 16.0 % [facility] Platelet Count 279 160 - 400 X10*3/uL [facility] Mean Platelet Volume 8.6(L) 9.4 - 12.3 fL [facility] Neutrophils Percent Auto 63.7 45 - 73 % [facility] Imm Gran Pct Auto 0.2 0.0 - 0.4 % [facility] Lymphocytes Percent Auto 26.9 20 - 40 % [facility] Monocytes Percent Auto 7.8 2 - 11 % [facility] Eosinophils Percent Auto 1.0 0 - 4 % [facility] Basophils Percent Auto 0.4 0 - 2 % [facility] NRBC Pct Auto 0.0 0.0 - 0.2 /100WBC [facility] Neutrophils Absolute Auto 5.2 2.0 - 8.3 x10*3/uL [facility] Imm Gran Abs Auto 0.02 0.00 - 0.03 X10*3/uL [facility] Lymphocytes Absolute Auto 2.2 1.2 - 4.9 X10*3/uL [facility] Monocytes Absolute Auto 0.6 0.1 - 1.2 X10*3/uL [facility] Eosinophils Absolute Auto 0.1 0.0 - 0.4 X10*3/uL [facility] Basophils Absolute Auto 0.0 0.0 - 0.2 X10*3/uL [facility] NRBC Abs Auto 0.000 0.0 - 0.012 X10*3/uL [facility] 04/26/2023 1:18 PM EDT 04/26/2023 1:24 PM EDT [facility] External Provider LAB BLO OD ORDERABLES Final Result Performing Organization Address [facility]/ZIP Co de Phone Number [facility] [address] [place] [phone] * (ABNORMAL) Urinalysis, Complete, with Reflex to Culture (04/26/2023 1:18 PM EDT) Color Urine Yellow [facility] Appearance Urine Clear [facility] PH 6.0 5.0 - 9.0 [facility] Glucose Urine UA Negative Negative mg/dL [facility] Urine Blood Large (3+)(A) Negative [facility] Specific [place] - Urine 1.025 1.005 - 1.025 [facility] Urine Protein Negative Neg-Trace mg/dL [facility] Urine Ketones Negative Negative mg/dL [facility] Nitrite Urine Negative Negative [facility] Leukocyte Esterase Urine Negative Negative [facility] RBC Urine >20(A) 0 - 2 /HPF [facility] Urine WBC 0-5 0 - 5 /HPF [facility] Urine Squamous Epithelial Cell 0-2 0 - 2 /HPF [facility] Urine Bacteria None Seen None Seen [facility] Hyaline Casts, Urine 0-2 0 - 2 /LPF [facility] 04/26/2023 1:18 PM EDT 04/26/2023 1:24 PM EDT Narrative [facility] - 04/26/2023 1:40 PM EDT [id number], [employer] [facility] External Provider LAB URI NE ORDERABLES Final Result Performing Organization Address [facility]/ZIP Co de Phone Number [facility] [address] [place] [address] [phone] documented in this encounter Visit Diagnoses Not on filedocumented in this encounter Additional Health Concerns Assessment Noted Time PHQ-9 Depression Total Score: 0 02/29/20 23 11:13 AM EDT documented as of this encounter Care Teams Automated Teller Manager Relationship Specialty Start Date End Date Yamileth Anand MD [address] [place] [address] PCP - General Internal Medicine 12/26/22 Michelle Malloy Sales Order AdministratorAutomotive Glazier 11/15/23 documented as of this encounter
== END 2025-08-13 16:47 | disposition home or self-care (01) ==
LOC: HO.HSM 15:38
PROVIDERS: PCP Student in an Organized Health Care Education/Training Program; Visit Provider Registered Nurse
DX: G43.909 Migraine, unspecified, not intractable, without status migrainosus (principal); G44.229 Chronic tension-type headache, not intractable
CPT/HCPCS: 99214